=== PATIENT | female | born 1990 | race Two or more races ===

== ENCOUNTER → 2020-06-17 09:47 | Outpatient (CLI) | payer OTHER, SELFPAY ==
[2020-06-17 09:20] VITALS: BMI 26.4
--- NOTE | 2020-06-17 10:37 | RAD_ITS ---
STUDY: X-RAY - LEFT WRIST REASON FOR EXAM: Left anterior wrist tenderness off and on for about a year. TECHNIQUE: 2 view(s) of the wrist were obtained. COMPARISON: None. FINDINGS: Normal visualized distal radius and ulna. Normal radiocarpal articulation. Normal distal radioulnar articulation. Normal carpal bones. Normal carpal articulations. Normal carpometacarpal articulation of the thumb. Normal second through fifth carpometacarpal articulations. Normal visualized metacarpal bones. The soft tissue structures are unremarkable. RAD/Wrist 2 Views IMPRESSION: Normal x-ray examination of the left wrist. Electronically Signed: Matt Theodore MD at 14:29 EDT Tel , Service support ,
[2020-06-17 13:24] LABS: Rheumatoid Factor < 10.0 IU/mL (<15)
[2021-03-13 09:09] VITALS: BMI 26.1
== END ==
PROVIDERS: PCP Internal Medicine; Referring Provider Internal Medicine; Visit Provider Internal Medicine
DX: M25.532 Pain in left wrist (principal); M19.90 Unspecified osteoarthritis, unspecified site
CPT/HCPCS: 36415; 73100; 86431

== ENCOUNTER → 2020-08-19 11:53 | Outpatient (CLI) | payer OTHER, SELFPAY ==
[2020-08-19 09:48] VITALS: BMI 27.1
[2020-08-19 13:27] LABS: Prolactin 8.2 ng/mL; Thyroid Stim Hormone (TSH) 1.22 uIU/mL (0.358-3.74)
[2020-08-22 09:58] LABS: HPV Reflexed? NOT INDICATED
[2020-08-22 12:07] LABS: Testosterone, Free 1.02 ng/dL (0.10-0.85); Testosterone, Total 33 ng/dL (8-48)
== END ==
PROVIDERS: PCP Internal Medicine; Referring Provider Obstetrics & Gynecology; Visit Provider Obstetrics & Gynecology
DX: N92.6 Irregular menstruation, unspecified (principal); Z12.4 Encounter for screening for malignant neoplasm of cervix
CPT/HCPCS: 36415; 82627; 84146; 84402; 84403; 84443; 88175; 82626; G0145

== ENCOUNTER 2020-10-30 14:52 | Emergency (ER) | payer OTHER, SELFPAY ==
[2020-08-19 09:48] VITALS: BMI 27.1
[2020-10-30 14:53] VITALS: BP 143/100; PULSE 85; RESP 17; TEMP 35.8; O2SAT 100; BMI 27.4
--- NOTE | 2020-10-30 15:44 | NURSING ---
NO OLD EKGS
--- NOTE | 2020-10-30 16:01 | ED.VIS.GEN ---
History of Present Illness Chief Complaint: Dizziness Narrative: 29-year-old female presenting with dizziness which she describes as the room spinning. This started today while she was working. Patient states when the symptoms started she also noted some ringing in her right ear. 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 She saw an ENT at that time who put her on prednisone and she states her symptoms did get improved. She also notes that she had some hearing loss in the right ear which improved after the steroids were given. She has not followed up with the ENT physician because she has not had return of the problem. She states she did vomit once in the ED. Patient denies other significant medical history. Past Medical History - Allergies and Home Meds Allergies/Adverse Reactions: Allergies No Known Allergies Allergy (Verified 10/30/20 14:53) Primary Care Physician: Jaswant Rico MD [Primary Care Provider] - Past Medical History: - - Menieres disease Lives: Spouse/ Significant Other Smoking Status: Never smoker Alcohol: None Drugs: None Review of Systems General: Denies: Chills, Fever, Sweats Eyes: Denies: Visual changes - bilaterally, Diplopia ENT: Reports: - - Tinnitus in right ear. Cardiovascular: Denies: Chest pain Respiratory: Denies: Dyspnea, Cough Gastrointestinal: Reports: Nausea, Vomiting. Denies: Abdominal pain Genitourinary: Denies: Dysuria, Hematuria Musculoskeletal: Denies: Myalgias, Arthralgias Skin: Denies: Rash, Abscess Neurological: Reports: - - Dizziness. Denies: Headache, Weakness Psych: Denies: Depression, Anxiety Physical Exam Vital Signs/Narrative: Vital Signs Temp Pulse Resp BP Pulse Ox 10/30/20 14:53 96.4 F L 85 17 143/100 H 100 Inital Vital Signs reviewed: Yes General: Well nourished, No Acute Distress Head: Normocephalic, Atraumatic Eyes: Perrl, EOMI ENT: Moist mucous membranes, No rhinorrhea, TM's clear, - - Nystagmus and reproducible vertiginous symptoms with modified Swapnil Hallpike Cardiovascular: Regular rate, Regular rhythm Respiratory: No distress, CTA bilaterally Neurological: Alert, Oriented x3, Cranial nerves II-XII grossly intact Psychological: Normal affect, Normal Mood Diagnostic/Tx/Re-eval - Medical Decision Making 29-year-old female presenting with dizziness and states that she has a history of Menier's disease. He states it feels similar as she gets the ringing in her ear as well as creased hearing in her right ear. Patient does state that she saw an ENT for this distantly but has not followed up recently because she has not had symptoms. On exam unable to reproduce her dizziness with [place]-Hallpike maneuver. Patient was given Phenergan and meclizine and slowly had improvement of her symptoms. She does states he still slightly dizzy but is able to ambulate. Patient will be given a prescription for these medications for home. She states that previously when she had the symptoms she was placed on prednisone as a taper and it did improve her symptoms dramatically. For this reason I will give her a 10-day taper of prednisone. She will follow-up with her ENT. Impression: 1. Vertigo 2. History of Menier's ED Disposition - Plan for ED Patient: Disposition: Home or Assisted Living Instructions: ED Vertigo, Unspecified Prescriptions: Meclizine HCl 25 mg PO Q8H PRN PRN #20 tab.chew PRN Reason: Dizziness Prescription Printed Prednisone 10 mg PO DAILY 10 Days #20 tab Prescription Printed Promethazine HCl 12.5 mg PO QHS PRN PRN #20 tab PRN Reason: Nausea Prescription Printed Referrals: Jaswant Rico MD [Primary Care Provider] -
[2020-10-30] MEDS: proMETHazine 25 MG Tablet PO (16:08)
[2020-10-30] MEDS: Meclizine HCl 25 MG Tablet PO (16:08)
[2020-10-30 17:18] VITALS: BP 126/74; PULSE 83; RESP 15; O2SAT 99
--- NOTE | 2020-10-30 18:24 | ED.RN ---
PT AMBULATED TO BR AND STATED FEELING MUCH BETTER
[2020-10-30] MEDS: predniSONE 20 MG Tablet 40 MG PO (19:08)
[2020-10-30 19:09] VITALS: BP 121/69; PULSE 74; RESP 15; O2SAT 99
== END 2020-10-30 19:09 | disposition home or self-care (01) ==
PROVIDERS: Emergency Provider Student in an Organized Health Care Education/Training Program; PCP Internal Medicine
DX: H81.09 Meniere's disease, unspecified ear (principal)
CPT/HCPCS: 99283

== ENCOUNTER → 2021-02-10 | Outpatient (CLI) | payer OTHER, SELFPAY ==
[2021-02-10 10:22] VITALS: BMI 26.1
[2021-02-10 18:15] LABS: Amphetamine Urine VISTA NEGATIVE (<1000 ng/mL); Barbiturate Urine VISTA NEGATIVE (< 200 ng/mL); Benzodiazepine Urine VISTA NEGATIVE (< 200 ng/mL); Cocaine Urine VISTA NEGATIVE (< 300 ng/mL); Ecstacy Urine VISTA NEGATIVE (< 500 ng/mL); Methadone Urine VISTA NEGATIVE (< 300 ng/mL); PCP Urine VISTA NEGATIVE (< 25 ng/mL); THC Urine VISTA NEGATIVE (< 50 ng/mL); Vista UDS pH Range 6
[2021-02-13 03:07] LABS: Chlamydia By Nucleic Acid AMP Negative (Negative)
[2021-02-13 08:43] LABS: Gonococcus By Nucleic Acid AMP Negative (Negative)
== END | disposition home or self-care (01) ==
LOC: LABSPEC 16:59
PROVIDERS: PCP Internal Medicine; Visit Provider Obstetrics & Gynecology
DX: Z34.00 Encounter for supervision of normal first pregnancy, unspecified trimester (principal)
CPT/HCPCS: 80307; 87086; 87491; 87591

== ENCOUNTER → 2021-03-04 13:00 | Outpatient (CLI) | payer OTHER, SELFPAY ==
[2021-02-10 10:22] VITALS: BMI 26.1
[2021-03-04 13:32] LABS: Absolute Lymphocyte Count 2.17 X10^3/uL (0.83-4.51); Absolute Neutrophil Count 4.7 X10^3/uL (2.0-7.7); Basophil# 0.01 X10^3/uL; Basophil% 0.1 % (0-1); Eosinophil# 0.03 X10^3/uL; Eosinophils% 0.4 % (0-5); Hematocrit 36.5 % (37-47); Hemoglobin 12.1 g/dL (12.0-15.0); Lymphocyte # 2.17 X10^3/ul (0.83-4.51); Lymphocyte % 29.4 % (19-41); Mean Corp Hgb Conc 33.2 g/dL (32-36); Mean Corpuscular Volume 90.6 fL (81-99); Mean Platelet Vol. 9.5 fl (6.2-12.0); Monocyte# 0.39 X10^3/uL; Monocyte% 5.3 % (0-10); NRBC Flagged by Analyzer 0 % (0-5); Neutrophil # 4.74 X10^3/uL (2.7-7.7); Neutrophil % 64.4 % (47-70); Platelet Count 294 K/mm3 (150-450); RBC Distribution Width CV 12.2 % (11.6-14.6); RBC Distribution Width SD 40.4 fl (35.1-43.9); Red Blood Count 4.03 M/mm3 (4.2-5.4); White Blood Count 7.4 K/mm3 (4.4-11.0)
[2021-03-04 13:41] LABS: Glucose Challenge Gest 1H 50g 140 mg/dL (70-140)
[2021-03-04 14:24] LABS: HIV - WCH Non-Reactive (Nonreactive); Hepatitis B Surface Antigen Non-Reactive (Nonreactive); Hepatitis C Antibody Non-Reactive (Nonreactive); Rubella IgG Reactive (Nonreactive); Syphilis Antibodies Non-reactive
[2021-03-04 14:53] LABS: NATERA MAILED SPECIMEN
== END ==
PROVIDERS: PCP Internal Medicine; Referring Provider Obstetrics & Gynecology; Visit Provider Obstetrics & Gynecology
DX: Z34.81 Encounter for supervision of other normal pregnancy, first trimester (principal); Z31.430 Encounter of female for testing for genetic disease carrier status for procreative management; E28.2 Polycystic ovarian syndrome
CPT/HCPCS: 36415; 82950; 85025; 86703; 86762; 86780; 86803; 86850; 86900; 86901; 87340

== ENCOUNTER → 2021-03-13 09:47 | Outpatient (CLI) | payer OTHER, SELFPAY ==
[2021-02-10 10:22] VITALS: BMI 26.1
[2021-03-13 09:09] VITALS: BMI 26.1
[2021-03-13 12:11] LABS: Glucose GTT- 1 Hour 162 mg/dL (120-170)
[2021-03-13 12:20] LABS: Glucose GTT- Fasting 76 mg/dL (74-106)
[2021-03-13 12:26] LABS: Glucose GTT-30 minutes 135 mg/dL (110-170)
[2021-03-13 13:17] LABS: Glucose GTT- 2 Hour 149 mg/dL (70-120)
[2021-03-13 14:00] LABS: Glucose GTT- 3 Hour 119 mg/dL (74-106)
== END ==
PROVIDERS: PCP Internal Medicine; Referring Provider Obstetrics & Gynecology; Visit Provider Obstetrics & Gynecology
DX: Z13.1 Encounter for screening for diabetes mellitus (principal)
CPT/HCPCS: 36415; 82951; 82952

== ENCOUNTER → 2021-04-25 14:54 | Outpatient (CLI) | payer OTHER, SELFPAY ==
[2021-03-13 09:09] VITALS: BMI 26.1
--- NOTE | 2021-04-25 14:56 | US_ITS ---
STUDY: SECOND AND THIRD TRIMESTER OBSTETRICAL ULTRASOUND REASON FOR EXAM: Female, 30 years old anatomy LMP: 12/13/2020 TECHNIQUE: Transabdominal TECHNICAL QUALITY: Adequate. PRIOR ULTRASOUND: None. FINDINGS: There is a single intrauterine fetus. The fetus is in an transverse lie with the head on the maternal left side. There is demonstrated cardiac activity with a heart rate of 157 bpm. There is a normal amniotic fluid volume. The largest amniotic fluid pocket measures 4.8 cm. The amniotic fluid index (WADE) is cm. The placenta is posterior in location and is not low lying. There are Grade 0 placental changes. The cervix measures 4.6 cm in length. The adnexal regions are not visualized. BIOMETRY: BPD: 4.4 cm: 19 weeks, 1 days HC: 16.1 cm: 18 weeks, 6 days AC: 14.0 cm: 19 weeks, 2 days FL: 2.8 cm: 18 weeks, 5 days CI: 78.49 FL/BPD: 65.30 FL/HC: 17.70 FL/AC: 20.42 HC/AC: 1.15 age by current US: 18 weeks, 5 days. CYNDY by current US: 09/21/2021. Estimated weight: 276 grams, +/- 41 grams, 53 %. Age by LMP: 19 weeks, 0 days. CYNDY by LMP: 09/19/2021. ANATOMY: Gender: Cranium: Normal lateral ventricles. Normal choroid plexus. Normal cerebellum. Normal cisterna magna. Normal face, nose and lips. Chest: Normal 4-chamber heart. Abdomen/Pelvis: Normal diaphragm. Normal stomach. Normal abdominal wall. Normal cord insertion. Normal 3 vessel cord. Normal kidneys. Normal bladder. Spine: Normal cervical spine. Normal thoracic spine. Normal lumbar spine. Normal sacrum. Extremities: Normal bilateral upper extremities. Normal bilateral lower extremities. US/OB Anatomy Scan IMPRESSION: Living intrauterine of 18 weeks 5 days as described above. Electronically Signed: Uri Rowe MD at 7:44 EDT Tel , Service support ,
== END ==
PROVIDERS: PCP Internal Medicine; Referring Provider Obstetrics & Gynecology; Visit Provider Obstetrics & Gynecology
DX: Z34.01 Encounter for supervision of normal first pregnancy, first trimester (principal)
CPT/HCPCS: 76805; 76817

== ENCOUNTER → 2021-06-26 06:53 | Outpatient (CLI) | payer OTHER, SELFPAY ==
[2021-06-26 08:49] LABS: Glucose GTT-Gestational 1 Hr 213 mg/dL (<190)
[2021-06-26 08:49] LABS: Glucose GTT-Gestation. Fasting 81 mg/dL (<105)
[2021-06-26 08:51] LABS: Absolute Lymphocyte Count 1.83 X10^3/uL (0.83-4.51); Absolute Neutrophil Count 6.3 X10^3/uL (2.0-7.7); Basophil% 0.1 % (0-1); Eosinophils% 0.7 % (0-5); Hematocrit 33.8 % (37-47); Hemoglobin 11.2 g/dL (12.0-15.0); Lymphocyte # 1.83 X10^3/ul (0.83-4.51); Lymphocyte % 20.1 % (19-41); Mean Corp Hgb Conc 33.1 g/dL (32-36); Mean Corpuscular Hgb 31.5 pg (27.0-32.0); Mean Corpuscular Volume 95.2 fL (81-99); Mean Platelet Vol. 9.4 fl (6.2-12.0); Monocyte% 9.4 % (0-10); Neutrophil % 68.8 % (47-70); Platelet Count 258 K/mm3 (150-450); RBC Distribution Width CV 12.9 % (11.6-14.6); Red Blood Count 3.55 M/mm3 (4.2-5.4); White Blood Count 9.1 K/mm3 (4.4-11.0)
[2021-06-26 09:49] LABS: Thyroid Stim Hormone (TSH) 2.37 uIU/mL (0.358-3.74)
[2021-06-26 11:21] LABS: Glucose GTT-Gestational 2 Hr 191 mg/dL (<165)
[2021-06-26 12:46] LABS: Glucose GTT-Gestational 3 Hr 126 L (<145)
== END ==
PROVIDERS: Nurse Practitioner Family; PCP Internal Medicine; Referring Provider Obstetrics & Gynecology; Visit Provider Obstetrics & Gynecology
DX: Z00.00 Encounter for general adult medical examination without abnormal findings (principal); Z13.1 Encounter for screening for diabetes mellitus; Z34.01 Encounter for supervision of normal first pregnancy, first trimester
CPT/HCPCS: 36415; 82951; 82952; 84443; 85025

== ENCOUNTER 2021-07-14 12:45 | Outpatient (RCR) | payer OTHER, SELFPAY | END 2021-08-05 23:59 | LOC: DC 12:45 | PROVIDERS: PCP Internal Medicine; Visit Provider Obstetrics & Gynecology | DX: O24.419 Gestational diabetes mellitus in pregnancy, unspecified control (principal); Z3A.00 Weeks of gestation of pregnancy not specified | CPT/HCPCS: 97802; 97803 ==

== ENCOUNTER → 2021-08-21 14:24 | Outpatient (CLI) | payer OTHER, SELFPAY ==
--- NOTE | 2021-08-21 14:25 | US_ITS ---
STUDY: SECOND AND THIRD TRIMESTER OBSTETRICAL ULTRASOUND - LIMITED REASON FOR EXAM: Female, 30 years old growth check, routine survey LMP: 12/13/2020 PRIOR ULTRASOUND: 04/25/2021 TECHNIQUE: Transabdominal TECHNICAL QUALITY: Adequate. FINDINGS: There is a single intrauterine fetus. The fetus is in a cephalic presentation. There is demonstrated cardiac activity with a heart rate of 137 bpm. There is a normal amniotic fluid volume. The largest amniotic fluid pocket measures 5.9 cm. The amniotic fluid index (WADE) is 16.9 cm. The placenta is posterior in location and is not low lying. There are Grade 2 placental changes. The cervix was not visualized BIOMETRY: BPD: 9.0 cm: 36 weeks, 1 days HC: 32.2 cm: 36 weeks, 2 days AC: 32.0 cm: 35 weeks, 6 days FL: 7.1 cm: 36 weeks, 3 days Age by LMP: 35 weeks, 6 days. CYNDY by LMP: 09/19/2021. age by prior US: 35 weeks, 4 days. CYNDY by prior US: 09/21/2021. age by current US: 36 weeks, 0 days. CYNDY by current US: 09/18/2021. Estimated weight: 2898 grams, +/- 435 grams, 62 percentile. US/OB Limited With Biometrics IMPRESSION: Single live intrauterine at 36 weeks, 0 days by current ultrasound with CYNDY of 09/18/2021. Heart rate of 137 bpm. No suspicious sonographic findings, normal growth noted since the previous study. Electronically Signed: Raj Ortega MD at 8:30 EST , Service support ,
== END ==
PROVIDERS: PCP Internal Medicine; Visit Provider Obstetrics & Gynecology
DX: O24.419 Gestational diabetes mellitus in pregnancy, unspecified control (principal); Z3A.00 Weeks of gestation of pregnancy not specified
CPT/HCPCS: 76816

== ENCOUNTER → 2021-08-28 | Outpatient (CLI) | payer OTHER, SELFPAY | END | disposition home or self-care (01) | LOC: LABSPEC 09-01 06:45 | PROVIDERS: PCP Internal Medicine; Referring Provider Obstetrics & Gynecology; Visit Provider Obstetrics & Gynecology | DX: Z34.01 Encounter for supervision of normal first pregnancy, first trimester (principal) | CPT/HCPCS: 87077; 87081; 87186 ==

== ENCOUNTER 2021-09-18 07:00 | Inpatient (IN) | payer OTHER, SELFPAY ==
[2021-09-18] VITALS (40 sets, daily range): BP systolic 95–153; BP diastolic 55–103; PULSE 55–115; RESP 14; TEMP 36.1–37.1; O2SAT 86–100; BMI 27.8
--- NOTE | 2021-09-18 07:50 | HP.PCM.OB_ITS ---
HPI - General General Date of Admission: 09/18/21 HPI Narrative FERDINAND LEI, is a 30 @ 39 weeks 6 days who presents to L&D for IOL secondary to gestational diabetes. Her has otherwise been uncomplicated. Her luo score was an 8 last week. Maternal Data Information CYNDY Calculator Estimated Delivery Date Method Current WG Current Estimate 09/19/21 Ultrasound #1 39w 6d Other Estimates 09/09/21 LMP (Certain) 41w 2d PFSH [facility] Medical History Abnormal glucose affecting Headache, migraine Hearing problem history of bone fracture Polycystic ovaries Wellness examination Home Medications prenat.vits,paul,hou-lnjh-bxnhd 1 tab PO DAILY 01/28/21 [History Last Taken Unknown] blood sugar diagnostic #100 ea 06/26/21 [Rx Last Taken Unknown] blood-glucose meter #1 ea 06/26/21 [Rx Last Taken Unknown] Allergy/AdvReac Type Severity Reaction Status Date / Time No Known Allergies Allergy Verified 09/11/21 15:33 Family History Grandmother Autoimmune disorder Thyroid disorder Grandfather Heart disease High cholesterol Mother Hypertension Father Atrial fibrillation Mitral valve prolapse Other Myocardial infarction Surgical History history of birthmark removal history of laporscopic knee surgery History of wisdom tooth extraction Social History adopted: No household members: spouse current occupational status: employed 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 Smoking Status: Never smoker alcohol intake: current alcohol intake frequency: holidays/special occasions only substance use type: does not use what type of physical activity do you participate in: running frequency: 1-2 times per week 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 attended classes PP control planned: [] discussed possible routes of delivery and associated risks: [] special requests: [] Plans covid status: moderna flu vaccine: given tdap vaccine: given rhogam: na LARC form signed: [] movement and labor precautions reviewed. Problem list reviewed and updated with the most current plan of care details and appropriate orders placed. Relevant counseling for the gestational age provided. Continue routine care and follow up unless otherwise noted in visit notes/problem list details OB Flowsheet Initial Weight: 145 lb Date -?-?-?-?-?-?-?-?-?-?-?-?- EGA Weight BP Urine Prot -?-?-?-?-?-?-?-?-?-?-?-?- Glucose FHR FuHt Pres Dilation -?-?-?-?-?-?-?-?-?-?-?-?- Effaced St Visit Note 02/10/21 -?-?-?-?-?-?-?-?-?-?-?-?- 8w 3d 147 lb 6 oz (+2 lb 6 oz) 138/94 -?-?-?-?-?-?-?-?-?-?-?-?- 168 -?-?-?-?-?-?-?-?-?-?-?-?- GP - CRL 16mm co nsistent with LMP. 03/13/21 -?-?-?-?-?-?-?-?-?-?-?-?- 12w 6d 143 lb 6 oz (-1 lb 10 oz) 120/90 Negative -?-?-?-?-?-?-?-?-?-?-?-?- Negative 155 -?-?-?-?-?-?-?-?-?-?-?-?- GP - no cramping or bleeding. Discussed tx of constipation. Anatomy scan ordered. 04/10/21 -?-?-?-?-?-?-?-?-?-?-?-?- 16w 6d 143 lb (-2 lb) -?-?-?-?-?-?-?-?-?-?-?-?- 145 -?-?-?-?-?-?-?-?-?-?-?-?- SM- no vb crmapi ng discussed short course of HCTZ for menieres 05/08/21 -?-?-?-?-?-?-?-?-?-?-?-?- 20w 6d 147 lb 2 oz (+2 lb 2 oz) 108/80 Negative -?-?-?-?-?-?-?-?-?-?-?-?- Negative 145 -?-?-?-?-?-?-?-?-?-?-?-?- GP - no LOF, VB, DFM, ctx .Anatomy nl. 06/06/21 -?-?-?-?-?-?-?-?-?-?-?-?- 25w 0d 149 lb 8 oz (+4 lb 8 oz) 120/70 Negative -?-?-?-?-?-?-?-?-?--?-?-?- Negative 160 25 -?-?-?-?-?-?-?-?-?-?-?-?- GP - no LOF, VB, dFM, ctx. Discussed repeat 3h GCT. 06/26/21 -?-?-?-?-?-?-?-?-?-?-?-?- 27w 6d 151 lb (+6 lb) 130/84 -?-?-?-?-?-?-?-?-?-?-?-?- 150 28 -?-?-?-?-?-?-?-?-?-?-?-?- Sm- no vb lof go od fm no regular ctx discussed GDM diagnosis tdap 07/10/21 -?-?-?-?-?-?-?-?-?-?-?-?- 29w 6d 152 lb (+7 lb) 112/82 Negative -?-?-?-?-?-?-?-?-?-?-?-?- Negative 145 30 -?-?-?-?-?-?-?-?-?-?-?-?- SM- no vb lof go od fm no regular ctx, BS reviewed and controlled 07/24/21 -?-?-?-?-?-?-?-?-?-?-?-?- 31w 6d 153 lb (+8 lb) 114/80 Negative -?-?-?-?-?-?-?-?-?-?-?-?- Negative 140 32 -?-?-?-?-?-?-?-?-?-?-?-?- SM- no vb lof go od fm no regular ctx bs controlled 08/07/21 -?-?-?-?-?-?-?-?-?-?-?-?- 33w 6d 102/60 Negative -?-?-?-?-?-?-?-?-?-?-?-?- Negative 140 33 -?-?-?-?-?-?-?-?-?-?-?-?- SM- no vb lof go od fm no regular ctx bs controlled 08/21/21 -?-?-?-?-?-?-?-?-?-?-?-?- 35w 6d 153 lb 6 oz (+8 lb 6 oz) 118/88 Negative -?-?-?-?-?-?-?-?-?-?-?-?- Negative 145 35 -?-?-?-?-?-?-?-?-?-?-?-?- JV- no lof, vagi nal bleeding, or dec fm. plan for GBS next visit. 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 GBS collected. Glucose levels are normal/low. follows up with Dr. Langley. 09/04/21 -?-?-?-?-?-?-?-?-?-?-?-?- 37w 6d 160 lb 4 oz (+15 lb 4 oz) 126/84 Negative -?-?-?-?-?-?-?-?-?-?-?-?- Negative 125 37 Cephalic 3 -?-?-?-?-?-?-?-?-?-?-?-?- 70 -2 SM- no vb lof good fm no regular ctx reviewed BW controlled. discussed IOL by 39-40 weeks 09/11/21 -?-?-?-?-?-?-?-?-?-?-?-?- 38w 6d 156 lb 8 oz (+11 lb 8 oz) 118/89 Negative -?-?-?-?-?-?-?-?-?-?-?-?- Negative 124 37 Cephalic 3 -?-?-?-?-?-?-?-?-?-?-?-?- 80 -2 JV- glucos e levels normal. NO lof, vaginal bleeding, or dec fm. IOL set up for next (39 weeks 6 days) 09/18/21 -?-?-?-?-?-?-?-?-?-?-?-?- 39w 6d -?-?-?-?-?-?-?-?-?-?-?-?- -?-?-?-?-?-?-?-?-?-?-?-?- ROS Constitutional Constitutional: Denies change in weight, fatigue, fever(s), headache(s), poor appetite or weakness Eyes Eyes: Denies blurry vision, change in vision, seeing flashes or spots in vision ENT HEENT: Denies dizziness, headache(s), loss taste/smell or sore throat Cardiovascular Cardiovascular: Denies chest pain, dizziness, dyspnea, irregular heart rhythm, leg edema, palpitations, rapid heart rate or vomiting Respiratory/Chest Respiratory/Chest: Denies chest tightness, cough, dyspnea or breast pain Gastrointestinal Gastrointestinal: Denies abdominal pain, anorexia, constipation, cramping, ilene rrhea, hemorrhoids, vomiting or weight changes Genitourinary Genitourinary: Denies dysuria, flank pain, genital lesions, genital pain, urinary frequency or urinary urgency Musculoskeletal Musculoskeletal: Denies back pain, difficulty walking, joint pain, limited range of motion, muscle cramps or numbness Integumentary Integumentary: Denies lesions or unusual bruising Neurologic Neurologic: Denies abnormal movements, abnormal speech, dizziness, numbness, seizure-like activity or syncope Psychiatric Psychiatric: Denies anxiety, behavioral changes, change in appetite, change in libido, cognitive impairment, confusion, depression, difficulty concentrating, hallucinations or suicidal thoughts Endocrine Endocrinology: Denies excessive sweating, polydipsia or polyuria Hematologic/Lymphatic Hematologic/Lymphatic: Denies easy bleeding, easy bruising or lymphadenopathy Allergic/Immunologic Allergic/Immunologic: Denies itchy eyes, lip swelling, seasonal rhinorrhea, rhinitis, throat swelling, tongue swelling, eczemia, wheezing or asthma Physical Exam Const alert, oriented x3, no apparent distress and healthy appearing General Appearance: cooperative; Negative for anxious HEENT normocephalic Face and Sinus: normal facial exam Eyes EOMs intact bilaterally and no scleral icterus General Eye: normal appearance of both eyes Neck full ROM and supple Lymph Lymphatic: no lymphadenopathy noted Chest Chest: abnormal inspection of the chest Resp normal respiratory effort Effort and Inspection: able to speak in complete sentences Cardio regular rate GI soft to palpation and non-tender Inspection: gravid Palpation: soft; Negative for tender external exam normal Amniotic Fluid: ROM+plus Back/Spine no CVA tenderness Extremity normal to inspection, full ROM and no clubbing, cyanosis or edema General Extremity: Negative for calf tenderness or edema Skin Lesions: no lesions Rashes: no rashes Psych mental status grossly normal Labs Labs Labs: Blood Type A POSITIVE Antibody Screen NEGATIVE Hct 33.8 % (37-47) L Hgb 11.2 g/dL (12.0-15.0) L Obstetrics US Syphilis Total Ab Non-reactive Rubella IgG Antibody Reactive (Nonreactive) Hep Bs Antigen Non-Reactive (Nonreactive) Neisseria gonorrhoeae DNA (SHANE) Negative (Negative) HIV 1&2 Antibody Non-Reactive (Nonreactive) Glucose 1 Hr 50 gm 140 mg/dL (70-140) Assessment & Plan (1) Gestational diabetes mellitus (GDM) affecting : COMMENT: nutrition consult, endocrine cs. growth us 36 weeks (2) Supervision of normal first : QUALIFIERS: Trimester: first trimester Qualified Code(s): Z34.01 - Encounter for supervision of normal first , first trimester COMMENT: PRR CYNDY 09/19/21 BOY Dariel Spouse: Donato (3) : QUALIFIERS: Weeks of gestation: 38 weeks Qualified Code(s): Z3A.38 - 38 weeks gestation of COMMENT: NIPT low risk, carrier neg. declined afp testing. Anatomy US normal; GBS NEG (4) Meniere disorder: QUALIFIERS: Laterality: unspecified laterality Qualified Code(s): H81.09 - Meniere's disease, unspecified ear PLAN: Patient presents IOL, plan management for Gestational DM, anticipate with pitocin/AROM. Pain management: plans epidural. GBS negative. Management of any complications: Gestational DM, h/o menier's disease I have reviewed the [facility] and made any clinically relevant updates.
[2021-09-18] MEDS: Lactated Ringers 1,000 ML 50 ML IV (07:56)
[2021-09-18 08:19] LABS: Absolute Lymphocyte Count 1.76 X10^3/uL (0.83-4.51); Absolute Neutrophil Count 6.6 X10^3/uL (2.0-7.7); Basophil# 0.01 X10^3/uL; Basophil% 0.1 % (0-1); Eosinophil# 0.03 X10^3/uL; Eosinophils% 0.3 % (0-5); Hematocrit 36.4 % (37-47); Hemoglobin 12.7 g/dL (12.0-15.0); Lymphocyte # 1.76 X10^3/ul (0.83-4.51); Lymphocyte % 19.1 % (19-41); Mean Corp Hgb Conc 34.9 g/dL (32-36); Mean Corpuscular Hgb 32.2 pg (27.0-32.0); Mean Corpuscular Volume 92.4 fL (81-99); Monocyte# 0.75 X10^3/uL; Monocyte% 8.1 % (0-10); NRBC Flagged by Analyzer 0 % (0-5); Neutrophil # 6.61 X10^3/uL (2.7-7.7); Neutrophil % 71.9 % (47-70); Platelet Count 251 K/mm3 (150-450); RBC Distribution Width CV 12.3 % (11.6-14.6); RBC Distribution Width SD 41.7 fl (35.1-43.9); Red Blood Count 3.94 M/mm3 (4.2-5.4); White Blood Count 9.2 K/mm3 (4.4-11.0)
[2021-09-18] MEDS: Oxytocin 30 units/NS 500 ml 30 UNITS/500 ML IV.SOLN IV (08:19)
[2021-09-18 09:31] LABS: Bedside Glucose 99 mg/dL (70-110)
[2021-09-18 09:31] LABS: Bedside Glucose 105 mg/dL (70-110)
[2021-09-18 10:50] LABS: Bedside Glucose 77 mg/dL (70-110)
[2021-09-18] MEDS: Penicillin G 3,000,000 Units 50 ML 100 UNITS IV (12:45)
[2021-09-18] MEDS: Ondansetron 4 MG/2 ML Vial IV (14:13)
[2021-09-18 14:21] LABS: Bedside Glucose 89 mg/dL (70-110)
[2021-09-18] MEDS: Lactated Ringers 500 ML 999 ML IV (14:22)
[2021-09-18] MEDS: fentaNYL-bupivacaine (epidural) 100 ML BAG EPIDURAL (14:58)
[2021-09-18 16:01] LABS: Bedside Glucose 77 mg/dL (70-110)
[2021-09-18] MEDS: Penicillin G 3,000,000 Units 50 ML 50 UNITS IV (16:43)
[2021-09-18] MEDS: Oxytocin 30 units/NS 500 ml 30 UNITS/500 ML IV.SOLN 334 UNITS IV (17:24)
--- NOTE | 2021-09-18 17:28 | EX.PCM.OBRPT ---
Assessment & Plan (1) Meniere disorder: QUALIFIERS: Laterality: unspecified laterality Qualified Code(s): H81.09 - Meniere's disease, unspecified ear (2) : QUALIFIERS: Weeks of gestation: 38 weeks Qualified Code(s): Z3A.38 - 38 weeks gestation of COMMENT: NIPT low risk, carrier neg. declined afp testing. Anatomy US normal; GBS NEG (3) Supervision of normal first : QUALIFIERS: Trimester: first trimester Qualified Code(s): Z34.01 - Encounter for supervision of normal first , first trimester COMMENT: PRR CYNDY 09/19/21 MINA Vieria Spouse: Donato (4) Gestational diabetes mellitus (GDM) affecting : COMMENT: nutrition consult, endocrine cs. growth us 36 weeks Maternal Data Information CYNDY Calculator Estimated Delivery Date Method Current WG Current Estimate 09/19/21 Ultrasound #1 39w 6d Other Estimates 09/09/21 LMP (Certain) 41w 2d Vaginal Delivery Maternal Presentation Maternal Presentation: Medically Indicated Induction Type of Induction: Pitocin Operative Information Date of Procedure: 09/18/21 Pre-Operative Diagnosis: 39 weeks 6 days with gestational diabetes, Post-Operative Diagnosis: 39 weeks 6 days with gestational diabetes, Surgery / Procedure Performed: Spontaneous Vaginal Delivery Type of Anesthesia: Epidural Estimated Blood Loss: 100cc Time of Delivery: 17:19 Findings Description of Procedure: Patient began pushing and delivered the head in the CEZAR presentation. The head was delivered atraumatically. The anterior and posterior shoulders delivered without complication followed by the rest of the infant and the infant was placed on the maternal abdomen. Delayed cord clamping was employed for approximately 60 seconds. Cord was clamped and cut and gentle traction was applied to the cord and the placenta delivered spontaneously immediately following it was noted to be intact with three-vessel cord. The perineum and vagina were inspected and noted to have a 1 st degree laceration that was repaired using a 2-0 vicryl suture. EBL was 100 cc. Patient and infant tolerated delivery well. Presentation: Vertex and CEZAR Amniotic Fluid Description: Clear Placental Delivery Description: Spontaneous Placenta Disposition: [facility] Cord Vessel Description: 3 Vessels Cord Entanglement: None Infant A Gender: Male (1 minute): 8 (5 minute): 9 Delayed Cord Clamping: Yes Post Vaginal Delivery Medications Given After Delivery: IV Pitocin Episiotomy Description: None Laceration: 1st degree Complication Complications: None Multi Select Codes Urinary/Genital Urinary/Genital CPT Codes: 08660 Vaginal Delivery [facility]
--- NOTE | 2021-09-18 17:36 | PCM.DC ---
Discharge Instructions Diet Discharge Diet: No restrictions Activity Discharge Activity: Return to Normal Activity, May Not Drive (while taking narcotic pain medications.) and May Shower May resume sexual activity in: 4-6 weeks Dressing / Incision Call your doctor if your incision/area has: Continuous Slow Oozing, Sudden Increased Bleeding, Increased Pain/ Swelling, Increased Redness and Foul Smelling Discharge Follow Up Care Please Follow Up With: Grace Juarez DO When: Call [phone] to make an appointment with your doctor in 6 weeks. If you had elevated blood pressure or 4th degree laceration, you will need to be seen in 2 weeks. Test Results: Test results from this visit will be discussed in further detail at your follow-up appointment, if applicable. Discharge Plan Admission Admit Date/Time: 09/18/21 07:00 Primary Reason for Your Visit: induction of labor and vaginal delivery Attending Provider: Grace Juarez Primary Care Provider: Jaswant Rico Discharge Orders/Prescriptions Prescriptions: New ibuprofen 800 mg tablet 800 mg PO Q8H PRN (Reason: pain) 7 Days Qty: 30 RF: 0 docusate sodium [Colace] 100 mg capsule 100 mg PO DAILY 14 Days Qty: 14 RF: 0 Continued prenat.vits,paul,iak-lwyn-uejsq Tablet 1 tab PO DAILY RF: 0 No Action (DME) [employer] Test Strip See Rx Instructions .ROUTE .MEDSUPPLY Qty: 100 RF: 4 (DME) blood-glucose meter [[employer] Blood Glucose System] Kit See Rx Instructions .ROUTE .MEDSUPPLY Qty: 1 RF: 0 Referrals / Follow Up: Jaswant Rico MD [Primary Care Provider] - Disposition Disposition (needs filled in before D/C Order can be placed): Home, Self Care
[2021-09-18 18:05] LABS: Bedside Glucose 81 mg/dL (70-110)
[2021-09-18 18:05] LABS: Bedside Glucose 99 mg/dL (70-110)
[2021-09-19 00:07] VITALS: BP 131/73; PULSE 67; RESP 16; TEMP 36.4
[2021-09-19 04:04] VITALS: BP 111/69; PULSE 67; RESP 16
[2021-09-19 05:21] LABS: Bedside Glucose 77 mg/dL (70-110)
--- NOTE | 2021-09-19 07:35 | PCM.PN.OB ---
Subjective Subjective Patient doing well without complaints. Tolerating PO. Ambulating and voiding without difficulty. Feeding well. Denies chest pain, shortness of breath, calf pain/swelling, fevers, chills, lightheadedness. Objective Data Objective Data Vital Signs: Vital Signs Temp Pulse Resp BP Pulse Ox 97.6 F L 67 16 111/69 99 09/19/21 00:07 09/19/21 04:04 09/19/21 04:04 09/19/21 04:04 09/18/21 18:51 Oxygen Delivery Method Room Air Weight: 157 lb 6 oz Body Mass Index (BMI) 27.8 Intake & Output: Intake and Output for Last 24 Hours 09/17/21 09/18/21 09/19/21 23:59 23:59 23:59 Intake Total 2150.11 / 2150.11 Output Total 950 / 950 Balance 1200.11 / 1200.11 Lab / Micro Data Result Diagrams: 09/18/21 07:56 Labs: Laboratory Results - last 24 hr 09/18/21 07:56: WBC 9.2, RBC 3.94 L, Hgb 12.7, Hct 36.4 L, MCV 92.4, MCH 32.2 H, MCHC 34.9, RDW Std Deviation 41.7, RDW Coeff of June 12.3, Plt Count 251, MPV 10.0, Immature Gran % (Auto) 0.500, Neut % (Auto) 71.9 H, Lymph % (Auto) 19.1, [place] % (Auto) 8.1, Eos % (Auto) 0.3, Baso % (Auto) 0.1, Absolute Neuts (auto) 6.6, Absolute Lymphs (auto) 1.76, Nucleated RBC % 0 09/18/21 07:56: Blood Type A POSITIVE, Antibody Screen NEGATIVE 09/18/21 08:24: POC Glucose 105 09/18/21 09:15: POC Glucose 99 09/18/21 10:32: POC Glucose 77 09/18/21 14:10: POC Glucose 89 09/18/21 15:32: POC Glucose 77 09/18/21 16:46: POC Glucose 81 09/18/21 17:57: POC Glucose 99 09/19/21 05:16: POC Glucose 77 Micro: Microbiology 09/18/21 07:56 Nasal Secretion SARS-CoV-2 Antigen (Rapid) - Final ROS Constitutional Constitutional: Denies chills, fatigue, fever(s), poor appetite or weakness Eyes Eyes: Denies blurry vision, change in vision, seeing flashes or spots in vision ENT HEENT: Denies dizziness, headache(s), loss taste/smell or sore throat Cardiovascular Cardiovascular: Denies chest pain, dizziness, dyspnea, irregular heart rhythm, palpitations or rapid heart rate Respiratory/Chest Respiratory/Chest: Denies chest tightness, cough, dyspnea or breast pain Gastrointestinal Gastrointestinal: Denies abdominal pain, constipation or vomiting Genitourinary Genitourinary: Denies dysuria or flank pain Musculoskeletal Musculoskeletal: Denies difficulty walking, joint pain, limited range of motion or numbness Neurologic Neurologic: Denies abnormal movements, abnormal speech, dizziness, numbness, seizure-like activity or syncope Psychiatric Psychiatric: Denies anxiety, behavioral changes, change in appetite, confusion, depression or suicidal thoughts Physical Exam Const alert, oriented x3 and no apparent distress General Appearance: cooperative and comfortable Resp normal respiratory effort Cardio regular rate GI normal to inspection, nondistended, normoactive bowel sounds GI Narrative: uterus is firm below umbilicus Palpation: soft Bimanual Exam - Adnexa, Other: Negative for cul-de-sac fullness Back/Spine no CVA tenderness and thoraco-lumbar ROM normal Extremity normal to inspection, no clubbing, cyanosis or edema, no calf tenderness and no pedal edema Psych mental status grossly normal, thought process normal, cooperative, affect normal, speech normal, activity/motor behavior normal, denies homicidal ideation and denies suicidal ideation Assessment & Plan (1) Meniere disorder: QUALIFIERS: Laterality: unspecified laterality Qualified Code(s): H81.09 - Meniere's disease, unspecified ear (2) Gestational diabetes mellitus (GDM) affecting : COMMENT: nutrition consult, endocrine cs. growth us 36 weeks PLAN: s/p PPD # 1 1. routine post delivery care 2. breast feeding- support given 3. rh positive 4. rubella immune 5. plan for dc home today
[2021-09-19 07:45] VITALS: BP 131/89; PULSE 62; RESP 14; TEMP 36.2
[2021-09-19] MEDS: Ibuprofen 600 MG Tablet PO (07:59)
[2021-09-19] MEDS: Prenatal Vits Tablet 1 TABLET PO (07:59)
[2021-09-19 11:58] VITALS: BP 118/66; PULSE 70; RESP 15; TEMP 36.4
[2021-09-19 16:00] VITALS: BP 122/75; PULSE 70; RESP 14; TEMP 36.6
--- NOTE | 2021-09-24 13:28 | NURSING ---
Mother doing well on follow up phone call. states all my nurses were great.
== END 2021-09-19 18:30 | disposition home or self-care (01) | DRG 807 ==
PROVIDERS: Admitting Provider Obstetrics & Gynecology; PCP Internal Medicine; Referring Provider Obstetrics & Gynecology; Visit Provider Obstetrics & Gynecology
DX: O24.429 Gestational diabetes mellitus in childbirth, unspecified control (principal); Z37.0 Single live birth; Z20.822 Contact with and (suspected) exposure to COVID-19; Z3A.39 39 weeks gestation of pregnancy
CPT/HCPCS: 59025; 59050; 82962; 85025; 86850; 86900; 86901; 87426; 99218; J7120; G0378; J2405

== ENCOUNTER 2022-07-17 13:30 | Emergency (ER) | payer OTHER, SELFPAY ==
[2022-07-17 13:30] VITALS: BP 129/96; PULSE 88; RESP 16; TEMP 36.6; O2SAT 99; BMI 25.6
[2022-07-17] MEDS: 0.9% Normal Saline 1,000 ML 1000 ML IV (14:14)
[2022-07-17] MEDS: Metoclopramide 10 MG/2 ML Vial IV (14:14)
[2022-07-17] MEDS: DiphenhydrAMINE 50 MG/ML Syringe 25 MG IV (14:14)
[2022-07-17 15:43] VITALS: RESP 16
--- NOTE | 2022-07-17 16:26 | EX.ED.DYSGE1 ---
HPI History of Present Illness Chief Complaint: Dizziness Informant: patient Narrative Narrative: Worsening vertigo symptoms over the past 2 days. Diagnosed with M?ni?re's disease and followed by Dr. Tesfaye. Patient takes daily hydrochlorothiazide for this. 3 weeks ago had severe symptoms resolved but returned 2 days ago. Today this morning took meclizine and Zofran. Symptoms worse with movement of the head. Denies any head trauma. Feels similar to her typical vertigo symptoms. Nausea without vomiting. Chronic tinnitus. Prior similar symptoms: Yes [facility] Medical History Abnormal glucose affecting Headache, migraine Hearing problem history of bone fracture Meniere disease Polycystic ovaries Preventative health care Wellness examination Home Medications folic acid 400 mcg tablet 0.4 mg PO DAILY 06/11/22 [History Last Taken Unknown] hydrochlorothiazide 25 mg tablet 25 mg PO 06/11/22 [History Last Taken Unknown] diazepam 5 mg tablet 5 mg PO Q8 PRN vertigo #10 tabs 07/17/22 [Rx Last Taken Unknown] Allergy/AdvReac Type Severity Reaction Status Date / Time No Known Allergies Allergy Verified 07/17/22 13:32 Family History Grandmother Autoimmune disorder Thyroid disorder Grandfather Heart disease High cholesterol Mother Hypertension Father Atrial fibrillation Mitral valve prolapse Other Myocardial infarction Surgical History history of birthmark removal history of laporscopic knee surgery History of wisdom tooth extraction Social History adopted: No household members: spouse current occupational status: employed 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 Smoking Status: Never smoker alcohol intake: current alcohol intake frequency: holidays/special occasions only substance use type: does not use what type of physical activity do you participate in: running frequency: 1-2 times per week 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[employer] ROS ROS ED Constitutional Constitutional ED: Denies chills, fever(s) or sweats Eyes Eyes: Denies change in vision ENT ENT ED: Reports other Details: Chronic tinnitus ; Denies dysphagia or sore throat Cardiovascular Cardiovascular: Denies chest pain, leg edema, palpitations or racing heartbeat Respiratory/Chest Respiratory/Chest: Denies cough, dyspnea or dyspnea on exertion Gastrointestinal Gastrointestinal: Denies abdominal pain, diarrhea, nausea or vomiting Genitourinary Genitourinary ED: Denies dysuria, hematuria or urinary frequency Musculoskeletal Musculoskeletal: Denies back pain, extremity pain or neck pain Integumentary Denies rash or wounds Neurologic Neurologic: Reports other Details: Vertigo ; Denies headache(s), paresthesias or weakness EXAM Physical Exam Const Vital Signs: 07/17/22 13:30 07/17/22 13:47 07/17/22 15:43 Temperature 97.8 F Temperature Source Temporal Pulse Rate 88 Respiratory Rate 16 16 Respiratory Pattern Normal Blood Pressure 129/96 H Blood Pressure Mean 107 Pulse Ox 99 Oxygen Delivery Method Room Air Room Air Positive well nourished and well developed General Appearance ED: well developed and NAD HEENT Reports TM's clear and moist mucous membranes normocephalic and atraumatic Tympanic Membrane ED: Yes TM's clear Eyes PERRL, EOMs intact bilaterally and conjunctivae normal Eyes Narrative: Horizontal nystagmus bilaterally. General Eye ED: Yes normal appearance of both eyes Neck no lymphadenopathy and supple General: Negative for tenderness Chest Wall Chest: Negative for tenderness Resp normal respiratory effort and normal air movement Effort and Inspection: symmetric chest movement; Negative for respiratory distress Cardio regular rate, regular rhythm and no murmurs Peripheral Pulses: pulses 2+ throughout GI normal to inspection, nondistended, normoactive bowel sounds and non-tender Palpation: Negative for guarding or rebound tenderness present Back/Spine no CVA tenderness and no thoracic nor lumbar tenderness Extremity normal to inspection General Extremety ED: Negative for edema or tenderness General Extremity: Negative for edema Neuro oriented x3, CN's II-XII intact bilaterally and no sensory deficits noted Sensorium / Orientation: awake and alert Skin no rashes or lesions noted and no wounds MDM MDM MDM Narrative Medical decision making narrative: Patient with worsening vertigo symptoms with history of M?ni?re's disease. She has nystagmus. She given liter fluids Reglan and Benadryl IV. She is monitored for reevaluation improving symptoms. She is able to stand and walk with tolerable symptoms. She has meclizine and Zofran at home. I will send in prescription for diazepam for additional use as needed. She will follow-up as an outpatient. All questions were answered. Discharge Plan Triage Chief Complaint: Dizziness ED Provider: Kei Abraham Dx/Rx/DC Orders Clinical Impression: Vertigo, Meniere disorder, Nausea Instructions: ED Meniere's Disease, ED Vertigo, Unspecified Prescriptions: New diazepam [diazepam] 5 mg tablet 5 mg PO Q8 PRN (Reason: vertigo) Qty: 10 0RF No Action hydrochlorothiazide 25 mg tablet 25 mg PO Label Comments: TAKE 1 TABLET BY MOUTHCONCE DAILY folic acid 400 mcg tablet 0.4 mg PO DAILY Primary Care Provider: Jaswant Rico Referrals: Jin Mcdfufie MD [Med Staff - Active Staff] - 3-5 Days if not improving Jaswant Rico MD [Primary Care Provider] - Disposition Disposition: Home, Self Care Discharge Date/Time: 07/17/22 16:33
== END 2022-07-17 16:33 | disposition home or self-care (01) ==
PROVIDERS: Emergency Provider Emergency Medicine; PCP Internal Medicine; Visit Provider Emergency Medicine
DX: R42 Dizziness and giddiness (principal); H93.19 Tinnitus, unspecified ear; R11.0 Nausea
CPT/HCPCS: 96361; 96374; 96375; 99283; J7030; A4216

== ENCOUNTER → 2022-09-14 | Outpatient (CLI) | payer OTHER, SELFPAY ==
[2022-09-14 11:16] LABS: Absolute Neutrophil Count 4.2 X10^3/uL (2.0-7.7); Eosinophil# 0.03 X10^3/uL; Eosinophils% 0.4 % (0-5); Hematocrit 39.6 % (37-47); Lymphocyte % 30.7 % (19-41); Mean Corp Hgb Conc 32.8 g/dL (32-36); Mean Corpuscular Hgb 30.3 pg (27.0-32.0); Mean Corpuscular Volume 92.3 fL (81-99); Mean Platelet Vol. 9.4 fl (6.2-12.0); Monocyte% 7.3 % (0-10); NRBC Flagged by Analyzer 0 % (0-5); Neutrophil # 4.18 X10^3/uL (2.7-7.7); Neutrophil % 61.3 % (47-70); Platelet Count 316 K/mm3 (150-450); RBC Distribution Width CV 12.3 % (11.6-14.6); RBC Distribution Width SD 41.9 fl (35.1-43.9); Red Blood Count 4.29 M/mm3 (4.2-5.4); White Blood Count 6.8 K/mm3 (4.4-11.0)
[2022-09-14 12:31] LABS: HIV - WCH Non-Reactive (Nonreactive); Hepatitis B Surface Antigen Non-Reactive (Nonreactive); Hepatitis C Antibody Non-Reactive (Nonreactive); Rubella IgG Reactive (Nonreactive); Syphilis Antibodies Non-reactive
== END | disposition home or self-care (01) ==
LOC: MRI 10:15 → LAB 10:40
PROVIDERS: PCP Internal Medicine; Referring Provider Obstetrics & Gynecology; Visit Provider Obstetrics & Gynecology
DX: Z34.90 Encounter for supervision of normal pregnancy, unspecified, unspecified trimester (principal)
CPT/HCPCS: 36415; 85025; 86703; 86762; 86780; 86803; 86850; 86900; 86901; 87340

== ENCOUNTER → 2022-09-18 | Outpatient (CLI) | payer OTHER, SELFPAY ==
[2022-09-21 22:06] LABS: Chlamydia By Nucleic Acid AMP Negative (Negative)
[2022-09-21 22:57] LABS: Gonococcus By Nucleic Acid AMP Negative (Negative)
[2022-09-23 15:24] LABS: HPV APTIMA, High Risk Negative (Negative)
== END | disposition home or self-care (01) ==
PROVIDERS: PCP Internal Medicine; Visit Provider Obstetrics & Gynecology
DX: Z34.90 Encounter for supervision of normal pregnancy, unspecified, unspecified trimester (principal)
CPT/HCPCS: 87077; 87086; 87088; 87186; 87491; 87591; 87624; 88175; G0145

== ENCOUNTER → 2022-10-22 | Outpatient (CLI) | payer OTHER, SELFPAY ==
[2022-10-22 13:51] LABS: NATERA MAILED SPECIMEN
== END | disposition home or self-care (01) ==
LOC: PAVLAB 12:42
PROVIDERS: PCP Internal Medicine; Referring Provider Obstetrics & Gynecology; Visit Provider Obstetrics & Gynecology
DX: Z34.81 Encounter for supervision of other normal pregnancy, first trimester (principal)
CPT/HCPCS: 36415

== ENCOUNTER → 2022-12-24 | Outpatient (CLI) | payer OTHER, SELFPAY ==
--- NOTE | 2022-12-24 15:00 | US_ITS ---
STUDY: SECOND AND THIRD TRIMESTER OBSTETRICAL ULTRASOUND REASON FOR EXAM: Female, 32 years old anatomy TECHNIQUE: Transabdominal PRIOR ULTRASOUND: None. FINDINGS: There is a single intrauterine fetus. The fetus is in a breech presentation. There is demonstrated cardiac activity with a heart rate of 153 bpm. There is a normal amniotic fluid volume. The largest amniotic fluid pocket measures 4.6 cm. The placenta is posterior with a marginal previa. There are Grade 0 placental changes. The cervix measures 4.2 cm in length. The adnexal regions are not visualized. BPD: 4.7 cm = 20 weeks, 1 day(s) HC: 17.2 cm = 19 weeks, 5 day(s) AC: 14.6 cm = 19 weeks, 6 day(s) FL: 3.3 cm = 20 weeks, 2 day(s) EGA by ultrasound: 19 weeks 5 day(s) CYNDY by ultrasound: 05/15/2023 Estimated weight: 333 grams Weight percentile: 52% ANATOMY: Gender: Male Cranium: Normal lateral ventricles. Normal choroid plexus. Normal cerebellum. Normal cisterna magna. Normal face, nose and lips. Chest: Small echogenic focus seen in the left ventricle adjacent to the interventricular septum. Otherwise normal 4-chamber heart. Abdomen/Pelvis: Normal diaphragm. Normal stomach. Normal abdominal wall. Normal cord insertion. Normal 3 vessel cord. Normal kidneys. Normal bladder. Spine: Normal cervical spine. Normal thoracic spine. Normal lumbar spine. Normal sacrum. Extremities: Normal bilateral upper extremities. Normal bilateral lower extremities. US/OB Anatomy Scan IMPRESSION: Living intrauterine with estimated gestational age of 19 weeks and 5 days. Single echogenic intracardiac focus which is considered a soft marker for aneuploidy. Posterior placenta with marginal previa. Electronically Signed: Jin Olivares MD at 18:25 EDT ,
== END | disposition home or self-care (01) ==
LOC: US 14:58
PROVIDERS: PCP Internal Medicine; Referring Provider Obstetrics & Gynecology; Visit Provider Obstetrics & Gynecology
DX: O09.90 Supervision of high risk pregnancy, unspecified, unspecified trimester (principal); Z3A.00 Weeks of gestation of pregnancy not specified
CPT/HCPCS: 76805; 76817

== ENCOUNTER → 2023-02-18 | Outpatient (CLI) | payer OTHER, SELFPAY ==
--- NOTE | 2023-02-18 16:19 | US_ITS ---
STUDY: SECOND AND THIRD TRIMESTER OBSTETRICAL ULTRASOUND - LIMITED REASON FOR EXAM: Female, 32 years old marginal previa LMP: August 06, 2022. PRIOR ULTRASOUND: Comparison is made with prior study December 24, 2022. TECHNIQUE: Transabdominal and Transvaginal TECHNICAL QUALITY: Adequate. FINDINGS: There is a single intrauterine fetus. The fetus is in a cephalic presentation. There is demonstrated cardiac activity with a heart rate of 162 bpm. There is a normal amniotic fluid volume. The largest amniotic fluid pocket measures 5.5 cm x 3.3 cm. The amniotic fluid index (WADE) is 17.92 cm. The placenta is posterior in location and is not low lying. The tip of the placenta is at 2.1 cm from the cervical os. There are Grade 0 placental changes. The cervix measures 3.4 cm in length. BIOMETRY: Age by LMP: 28 weeks, 0 days. CYNDY by LMP: May 13, 2023. US/OB Limited (No Biometrics) IMPRESSION: The tip of the placenta is at 2.1 cm from the cervical os. Electronically Signed: Kermit Stubbs MD at 15:16 EDT ,
== END | disposition home or self-care (01) ==
LOC: US 16:18
PROVIDERS: PCP Internal Medicine; Referring Provider Advanced Practice Midwife; Visit Provider Advanced Practice Midwife
DX: O44.20 Partial placenta previa NOS or without hemorrhage, unspecified trimester (principal); Z3A.00 Weeks of gestation of pregnancy not specified
CPT/HCPCS: 76815

== ENCOUNTER → 2023-02-19 | Outpatient (CLI) | payer OTHER, SELFPAY ==
[2023-02-19 09:47] LABS: Absolute Lymphocyte Count 1.83 X10^3/uL (0.83-4.51); Absolute Neutrophil Count 7.7 X10^3/uL (2.0-7.7); Basophil# 0.01 X10^3/uL; Basophil% 0.1 % (0-1); Eosinophil# 0.02 X10^3/uL; Eosinophils% 0.2 % (0-5); Hematocrit 37.4 % (37-47); Hemoglobin 12.1 g/dL (12.0-15.0); Lymphocyte # 1.83 X10^3/ul (0.83-4.51); Mean Corp Hgb Conc 32.4 g/dL (32-36); Mean Corpuscular Hgb 30.9 pg (27.0-32.0); Mean Corpuscular Volume 95.7 fL (81-99); Mean Platelet Vol. 8.9 fl (6.2-12.0); Monocyte# 0.54 X10^3/uL; Monocyte% 5.3 % (0-10); NRBC Flagged by Analyzer 0 % (0-5); Neutrophil # 7.71 X10^3/uL (2.7-7.7); Neutrophil % 75.6 % (47-70); Platelet Count 296 K/mm3 (150-450); RBC Distribution Width SD 45.2 fl (35.1-43.9); Red Blood Count 3.91 M/mm3 (4.2-5.4); White Blood Count 10.2 K/mm3 (4.4-11.0)
[2023-02-19 10:07] LABS: Glucose Challenge Gest 1H 50g 126 mg/dL (70-140)
[2023-02-19 11:10] LABS: HIV - WCH Non-Reactive (Nonreactive); Syphilis Antibodies Non-reactive
== END | disposition home or self-care (01) ==
LOC: LAB 09:28
PROVIDERS: PCP Internal Medicine; Referring Provider Registered Nurse; Visit Provider Registered Nurse
DX: O09.90 Supervision of high risk pregnancy, unspecified, unspecified trimester (principal); Z13.1 Encounter for screening for diabetes mellitus; Z3A.00 Weeks of gestation of pregnancy not specified
CPT/HCPCS: 36415; 82950; 85025; 86703; 86780

== ENCOUNTER → 2023-04-16 | Outpatient (CLI) | payer OTHER, SELFPAY | END | disposition home or self-care (01) | PROVIDERS: PCP Internal Medicine; Referring Provider Obstetrics & Gynecology; Visit Provider Obstetrics & Gynecology | DX: O09.90 Supervision of high risk pregnancy, unspecified, unspecified trimester (principal); Z3A.00 Weeks of gestation of pregnancy not specified | CPT/HCPCS: 87077; 87081; 87186 ==

== ENCOUNTER 2023-05-03 05:35 | Inpatient (IN) | payer OTHER, SELFPAY ==
[2023-05-03] VITALS (29 sets, daily range): BP systolic 116–151; BP diastolic 80–98; PULSE 48–122; RESP 14–16; TEMP 36.4–37.4; O2SAT 80–100
[2023-05-03] MEDS: Lactated Ringers 1,000 ML 200 ML IV (06:10)
[2023-05-03 06:28] LABS: Absolute Neutrophil Count 7.9 X10^3/uL (2.0-7.7); Basophil# 0.01 X10^3/uL; Basophil% 0.1 % (0-1); Eosinophil# 0.04 X10^3/uL; Eosinophils% 0.4 % (0-5); Hematocrit 36.8 % (37-47); Lymphocyte % 16.5 % (19-41); Mean Corp Hgb Conc 32.6 g/dL (32-36); Mean Corpuscular Hgb 30.9 pg (27.0-32.0); Mean Corpuscular Volume 94.8 fL (81-99); Mean Platelet Vol. 9.4 fl (6.2-12.0); Monocyte# 0.56 X10^3/uL; Monocyte% 5.4 % (0-10); NRBC Flagged by Analyzer 0 % (0-5); Neutrophil % 76.7 % (47-70); Platelet Count 273 K/mm3 (150-450); RBC Distribution Width CV 12.9 % (11.6-14.6); RBC Distribution Width SD 44.6 fl (35.1-43.9); Red Blood Count 3.88 M/mm3 (4.2-5.4); White Blood Count 10.3 K/mm3 (4.4-11.0)
[2023-05-03] MEDS: Oxytocin 15 Units/NS 250ml 15 UNITS/250 ML IV.SOLN 83 UNITS IV (07:36)
[2023-05-03] MEDS: Oxytocin 10 UNITS/ML Vial IM (07:38)
--- NOTE | 2023-05-03 08:08 | PCM.HP.OB ---
HPI - General General Date of Admission: 05/03/23 HPI Narrative FERDINAND LEI, is a 32 F who presents at 38+4 with SROM at 0400, clear fluid, GBS positive. active fetus. spontaneous contractions. no vaginal bleeding. Maternal Data Information CYNDY Calculator Estimated Delivery Date Method Current WG Current Estimate 05/13/23 Ultrasound #1 38w 4d Other Estimates 04/14/23 LMP (Certain) 42w 5d 05/10/23 Ultrasound #2 39w 0d PFSH PFS Medical History (Updated 05/03/23 @ 06:22 by Mayra Silverio) Abnormal glucose affecting Acute allergic conjunctivitis Anxiety GBS (group B streptococcus) UTI complicating Gestational diabetes mellitus (GDM) affecting Headache, migraine Hearing problem history of bone fracture Meniere disease Nasal congestion Polycystic ovaries exam Preventative health care Wellness examination Home Medications multivit-min no.71-iron fum 28 mg-folate no.1 1 mg-dha 300 mg capsule (PNV-Louise) cap PO 09/11/22 [History Last Taken Unknown] ondansetron 4 mg disintegrating tablet 4 mg PO Q4H PRN nausea and vomiting #60 tabs 10/21/22 [Rx Last Taken Unknown] meclizine 25 mg tablet 25 mg PO TID PRN nausea and vomiting #90 tabs 10/22/22 [Rx Last Taken Unknown] Allergy/AdvReac Type Severity Reaction Status Date / Time No Known Allergies Allergy Verified 05/03/23 05:52 Family History Grandmother Autoimmune disorder Thyroid disorder Grandfather Heart disease High cholesterol Mother Hypertension Father Atrial fibrillation Mitral valve prolapse Other Myocardial infarction Surgical History history of birthmark removal history of laporscopic knee surgery History of wisdom tooth extraction Social History adopted: No household members: spouse and children housing: house number of children: 1 current occupational status: employed 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 current occupational exposures/hazards: No pets and animals: Yes pets and animals: dog(s) history of recent travel: No sexually active: Yes Smoking Status: Never smoker alcohol intake: former details: prior to substance use type: does not use diet: low salt well-balanced diet: daily or most days caffeine: No eating out: 1-3 times/week during the past year weight has: remained stable what type of physical activity do you participate in: none frequency: 1-2 times per week randy/buddhist: Alevism seatbelt use: always do you feel safe at home: Yes 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 History 2 Elective abortions Hx Para 1 Spontaneous abortions Hx # Term Pregnancies Ectopic pregnancies Hx # Pregnancies Multiple births # of living children 1 Past Pregnancies Del. Date Name GA/Weeks Outcome Route Bth Weight Gen Labor Lgth Anesthesia Del Locatn Provider FOB 09/18/21 Luke 39 live - full term 7lbs 6oz Male [employer] [facility] Dr. Whitman Delivery Date: 09/18/21 Last Updated by: Debi Duvall Gestational diabetes Visit Details Expected Delivery Route/Plan Labor Preferences- CB/BF classes: [] labor support person: [] labor intervention preferences: [] pain management options preferred: [] cut cord/dad catch: [] : [] PP control planned: [] discussed possible routes of delivery and associated risks: [] special requests: [] Plans Covid status: discussed Flu vaccine: discussed Tdap vaccine: given Rhogam: na LARC form signed: declined movement and labor precautions reviewed. Problem list reviewed and updated with the most current plan of care details and appropriate orders placed. Relevant counseling for the gestational age provided. Continue routine care and follow up unless otherwise noted in visit notes/problem list details OB Flowsheet Initial Weight: Not Recorded Date <del>?</del> EGA Weight BP Urine Prot <del>?</del> Glucose FHR FuHt Pres Dilation <del>?</del> Effaced St Visit Note 09/18/22 <del>?</del> 6w 1d 139 lb 130/85 <del>?</del> <del>?</del> JV- single live IUP measuring 6 weeks and 1 day with a flicker of a heart beat measuring 124. return in 2-3 weeks to confirm CYNDY. 10/08/22 <del>?</del> 9w 0d 137 lb 2 oz 132/86 Negative <del>?</del> Negative 180 <del>?</del> JV- no complaints today. wants NIPT. 11/06/22 <del>?</del> 13w 1d 133 lb 2 oz 119/83 Negative <del>?</del> Negative 150 <del>?</del> JV- no complaints JV- no complaints low risk male NIPT. anatomy us ordered with [employer] [facility] [facility]. 12/03/22 <del>?</del> 17w 0d 137 lb 6 oz 110/77 Negative <del>?</del> Negative 145 <del>?</del> SM- no vb lof some constipation 12/31/22 <del>?</del> 21w 0d 138 lb 6 oz 119/74 Negative <del>?</del> Negative 135 <del>?</del> JV- marginal previa and echogenic foci on heart reviewed again. [place] had discussed this on the phone with her and she is reassured. normal NIPT. rpt scan at 28 weeks. rto in 4 01/29/23 <del>?</del> 25w 1d 146 lb 116/82 Negative <del>?</del> Negative 140 24 <del>?</del> LC- no vb/cramping/lof. good fm. has ultrasound ordered. 28 week labs ordered. 02/22/23 <del>?</del> 28w 4d 155 lb 2 oz 105/71 Negative <del>?</del> Negative 135 28 <del>?</del> KW- no vb/cramping. +FM. reviewed labs and US. tdap today 03/12/23 <del>?</del> 31w 1d 157 lb 2 oz 112/78 <del>?</del> 135 31 <del>?</del> SM- no vb lof good fm no regular ctx 03/25/23 <del>?</del> 33w 0d 161 lb 122/78 Negative <del>?</del> Negative 135 32 <del>?</del> SM- no vb lof good fm no regular ctx 04/09/23 <del>?</del> 35w 1d 165 lb 120/81 <del>?</del> 145 35 Cephalic <del>?</del> JV- no lof, vaginal bleeding, or dec fm. plan 40 week IOL if not delivered for patient request. 04/16/23 <del>?</del> 36w 1d 171 lb 6 oz 117/80 Negative <del>?</del> Negative 135 37 Cephalic 3 <del>?</del> 60 -2 JV- no lof, vaginal bleeding, or dec fm. gbs today. 04/22/23 <del>?</del> 37w 0d 5 lb 2 oz 112/79 Negative <del>?</del> Negative 137 37 Cephalic 3.5 <del>?</del> 60 -2 JV- no lof, vaginal bleeding, or dec fm. 04/30/23 <del>?</del> 38w 1d 173 lb 127/85 Negative <del>?</del> Negative 125 37 Cephalic 4.5 <del>?</del> 70 -1 JV- membranes are bulging but she is not feeling contractions. She wants to try to stay until wednesday next week. NST FHR Rate Baby A Variability:: Moderate Accelerations:: 15 x 15 Decelerations:: None NST Reactive:: Yes FHR Category:: Category I Uterine Activity:: q2-3 minutes ROS Cardiovascular Cardiovascular: Denies abdominal pain, chest pain, diaphoresis or dyspnea Respiratory/Chest Respiratory/Chest: Denies change in mental status, chest congestion, chest tightness, cough, shortness of breath at rest, shortness of breath with exertion, breast mass, breast pain, breast skin changes, breast swelling, change in breast shape or nipple discharge Genitourinary Genitourinary: Reports change in urinary stream Musculoskeletal Musculoskeletal: Reports none Integumentary Integumentary: Reports none Neurologic Neurologic: Reports none Psychiatric Psychiatric: Reports none Endocrine Endocrinology: Reports none Hematologic/Lymphatic Hematologic/Lymphatic: Reports none Allergic/Immunologic Allergic/Immunologic: Reports none Vital Signs Vital Signs Vital Signs: 05/03/23 05:50 05/03/23 05:50 05/03/23 05:56 Temperature Temperature Source Temporal Pulse Rate 88 Blood Pressure 133/81 H BP Systolic 133 BP Diastolic 81 Pulse Ox 05/03/23 05:56 05/03/23 06:54 05/03/23 06:54 Temperature 97.6 F L Temperature Source Pulse Rate 122 H Blood Pressure BP Systolic BP Diastolic Pulse Ox 80 05/03/23 07:06 05/03/23 07:06 05/03/23 07:45 Temperature Temperature Source Pulse Rate 106 H 48 L Blood Pressure 151/98 H BP Systolic 151 BP Diastolic 98 Pulse Ox 05/03/23 07:45 05/03/23 07:46 05/03/23 07:46 Temperature Temperature Source Pulse Rate 92 Blood Pressure BP Systolic BP Diastolic Pulse Ox 81 100 05/03/23 07:47 05/03/23 07:47 05/03/23 07:51 Temperature Temperature Source Pulse Rate 95 75 Blood Pressure 133/89 H BP Systolic 133 BP Diastolic 89 Pulse Ox 05/03/23 07:51 05/03/23 07:56 05/03/23 07:56 Temperature Temperature Source Pulse Rate 80 Blood Pressure BP Systolic BP Diastolic Pulse Ox 100 100 05/03/23 08:00 05/03/23 08:00 05/03/23 08:01 Temperature Temperature Source Pulse Rate 72 77 Blood Pressure BP Systolic BP Diastolic Pulse Ox 85 05/03/23 08:01 05/03/23 08:07 05/03/23 08:07 Temperature Temperature Source Pulse Rate 83 Blood Pressure BP Systolic BP Diastolic Pulse Ox 100 83 Weight Weight: 169 lb 12.095 oz Body Mass Index (BMI) 30.0 Physical Exam Const alert, oriented x3 and no apparent distress General Appearance: cooperative, comfortable and well kempt Orientation / Consciousness: awake and oriented to person Exam Limitations: no limitations HEENT normocephalic Neck full ROM Chest inspection of chest normal Resp normal respiratory effort, normal air movement and no retractions Effort and Inspection: able to speak in complete sentences and symmetric chest movement Cardio regular rate Peripheral Pulses: pulses 2+ throughout GI normal to inspection, nondistended, normoactive bowel sounds Inspection: gravid no CVA tenderness and appearance of the vagina normal External Female Exam: normal appearance of the urethra; Negative for external lesion OB / External & Speculum: external exam normal Manual OB Exam: estimated gestational size appropriate and presentation cephalic Uterus Palpation: Negative for uterus tender Extremity normal to inspection Skin no rashes or lesions noted Psych Activity / Motor Behavior: appropriate eye contact Speech: normal speech Labs Labs Labs: Blood Type A POSITIVE Antibody Screen NEGATIVE Hct 36.8 % (37-47) L Hgb 12.0 g/dL (12.0-15.0) Obstetrics US Syphilis Total Ab Non-reactive Rubella IgG Antibody Reactive (Nonreactive) Hep Bs Antigen Non-Reactive (Nonreactive) Chlamydia DNA (SHANE) Negative (Negative) Neisseria gonorrhoeae DNA (SHANE) Negative (Negative) HIV 1&2 Antibody Non-Reactive (Nonreactive) Glucose 1 Hr 50 gm 126 mg/dL (70-140)
--- NOTE | 2023-05-03 08:14 | OP.PCM_ITS ---
Assessment & Plan (1) Vaginal delivery: COMMENT: Lc 38.4 boy(Gael) (2) GBS (group B streptococcus) UTI complicating : COMMENT: treat in labor Maternal Data Information CYNDY Calculator Estimated Delivery Date Method Current WG Current Estimate 05/13/23 Ultrasound #1 38w 4d Other Estimates 04/14/23 LMP (Certain) 42w 5d 05/10/23 Ultrasound #2 39w 0d Final CYNDY: 05/13/23 Gestational age: 38.4 Vaginal Delivery Maternal Presentation Maternal Presentation: Active Labor and Spontaneous Rupture of Membranes Maternal Presentation: at 38.4 with SROM at 0400, clear fluid. GBS positive. rec'd x1 dose of PCN. Operative Information Date of Procedure: 05/03/23 Pre-Operative Diagnosis: see problem list Post-Operative Diagnosis: Surgery / Procedure Performed: Spontaneous Vaginal Delivery Type of Anesthesia: None Estimated Blood Loss: 150 Time of Delivery: 07:32 Findings Description of Procedure: Patient began pushing and delivered the head in the CEZAR presentation. The head was delivered atraumatically. The anterior and posterior shoulders delivered without complication followed by the rest of the and the infant was placed on the maternal abdomen. Delayed cord clamping was employed for approximately 2.5 minutes. Cord was clamped and cut and gentle traction was applied to the cord and the placenta delivered spontaneously immediately foll owing it was noted to be intact with three-vessel cord. The perineum and vagina were inspected and noted to have no lacerations. EBL was 150cc. Patient and infant tolerated delivery well entered recovery phase bonding skin to skin. baby boy Gael updated on Presentation: Vertex Amniotic Membrane Rupture Type: Spontaneous Time of Membrane Rupture: 0400 Amniotic Fluid Description: Clear Placental Delivery Description: Spontaneous Placenta Disposition: [facility] Cord Vessel Description: 3 Vessels Cord Entanglement: None Nuchal Cord Compression: Without compression A Gender: Male (1 minute): 8 (5 minute): 9 Delayed Cord Clamping: Yes Post Vaginal Delivery Medications Given After Delivery: IV Pitocin and IM Pitocin Episiotomy Description: None Laceration: None Procedures Urinary/Genital [id number]: [id number] Vaginal Delivery+PP Care([facility])
--- NOTE | 2023-05-03 08:27 | DCINST_ITS ---
Discharge Instructions Diet Discharge Diet: No restrictions Activity Discharge Activity: May Not Drive and May Shower May resume sexual activity in: 6 weeks Weight Bearing Status: Full weight bearing Dressing / Incision Call your doctor if your incision/area has: Sudden Increased Bleeding, Increased Pain/ Swelling and Foul Smelling Discharge Call your doctor if you observe: Fever of 101 or Higher, Numbness or Tingling, Change in Color, Inability to urinate, Inability to have a bowel movement, Using more than 1 pad per hour, Shortness of breath, Dizziness, Fainting spells, Chest pain, Calf discomfort and Uncontrolled pain Follow Up Care Please Follow Up With: Aida Hendrickson CNM When: 6 weeks , please call office to make an appointment. Congratulations on the of your baby! Test Results: Test results from this visit will be discussed in further detail at your follow- up appointment, if applicable. Discharge Plan Admission Admit Date/Time: 05/03/23 05:35 Attending Provider: Grace Juarez Discharge Orders/Prescriptions Prescriptions: No Action PNV-[place] 28-1-300 mg capsule 1 cap PO ondansetron 4 mg tablet,disintegrating 4 mg PO Q4H PRN (Reason: nausea and vomiting) Qty: 60 2RF meclizine 25 mg tablet 25 mg PO TID PRN (Reason: nausea and vomiting) Qty: 90 7RF Disposition Disposition (needs filled in before D/C Order can be placed): Home, Self Care
[2023-05-03 08:44] LABS: Syphilis Antibodies Non-reactive
[2023-05-03] MEDS: Senna/Docusate Sodium 1 Tablet PO (09:03)
[2023-05-04 00:29] VITALS: BP 116/66; PULSE 84; RESP 16; TEMP 36.4; O2SAT 97
[2023-05-04] MEDS: Naproxen 500 MG Tablet PO ×2 (02:02→20:31)
[2023-05-04 03:23] VITALS: BP 110/75; PULSE 85; RESP 16; TEMP 36.4; O2SAT 95
--- NOTE | 2023-05-04 07:13 | PCM.PN.OB ---
Subjective Subjective Patient doing well without complaints. Tolerating PO. Ambulating and voiding without difficulty. Feeding well. Denies chest pain, shortness of breath, calf pain/swelling, fevers, chills, lightheadedness. Objective Data Objective Data Vital Signs: Vital Signs Temp Pulse Resp BP Pulse Ox O2 Del Method 97.5 F L 85 16 110/75 95 Room Air 05/04/23 03:23 05/04/23 03:23 05/04/23 03:23 05/04/23 03:23 05/04/23 03:23 05/04/23 03:23 Oxygen Delivery Method Room Air Weight: 169 lb 12.095 oz Body Mass Index (BMI) 30.0 Intake & Output: Intake and Output for Last 24 Hours 05/02/23 05/03/23 05/04/23 23:59 23:59 23:59 Intake Total 1538.33 / 1538.33 Output Total 1050 / 1050 Balance 488.33 / 488.33 Lab / Micro Data Attestation: I reviewed the patient's lab results. 05/03/23 05:10 Labs: Laboratory Results - last 24 hr 05/03/23 05:10: Syphilis Total Ab Non-reactive, Blood Type A POSITIVE, Antibody Screen NEGATIVE ROS Constitutional Constitutional: Reports systems reviewed and no addt'l complaints, except as documented; Denies anorexia or headache(s) Cardiovascular Cardiovascular: Reports systems reviewed and no addt'l complaints, except as documented; Denies dizziness, dyspnea, nausea or tachypnea Respiratory/Chest Respiratory/Chest: Reports systems reviewed and no addt'l complaints, except as documented; Denies cough, dyspnea, shortness of breath at rest or tachypnea Gastrointestinal Gastrointestinal: Reports systems reviewed and no addt'l complaints, except as documented; Denies abdominal pain, constipation or nausea Genitourinary Genitourinary: Reports systems reviewed and no addt'l complaints, except as documented; Denies burning urination, difficulty urinating, dysuria, urinary frequency or urinary incontinence Musculoskeletal Musculoskeletal: Reports systems reviewed and no addt'l complaints, except as documented Integumentary Integumentary: Reports systems reviewed and no addt'l complaints, except as documented Neurologic Neurologic: Reports systems reviewed and no addt'l complaints, except as documented; Denies abnormal speech, dizziness or headache(s) Psychiatric Psychiatric: Reports systems reviewed and no addt'l complaints, except as documented Endocrine Endocrinology: Reports systems reviewed and no addt'l complaints, except as documented Hematologic/Lymphatic Hematologic/Lymphatic: Reports systems reviewed and no addt'l complaints, except as documented Physical Exam Const alert, oriented x3 and no apparent distress Neck full ROM Resp normal respiratory effort, normal air movement and no retractions Effort and Inspection: able to speak in complete sentences and symmetric chest movement GI soft to palpation Bladder / Kidney Exam: bladder normal to palpation Uterus Palpation: uterus fundus firm Extremity normal to inspection and full ROM Psych mental status grossly normal, thought process normal and cooperative Assessment & Plan (1) Vaginal delivery: COMMENT: Lc 38.4 boy(Gael) PLAN: s/p PPD # 1 1. routine post delivery care 2. breast feeding- support given 3. rh positive 4. rubella immune (2) Spontaneous onset of labor: (3) SROM (spontaneous rupture of membranes): COMMENT: pcn for gbs positive, limit ve (4) Echogenic intracardiac focus of fetus on ultrasound: COMMENT: had NIPT testing. low risk (5) Meniere disease: (6) GBS (group B streptococcus) UTI complicating : COMMENT: treat in labor (7) Supervision of high risk , antepartum: COMMENT: PRR , CYNDY 04/14/23, boy Gael Yeboah, Donato (8) : QUALIFIERS: Weeks of gestation: 38 weeks Qualified Code(s): Z3A.38 - 38 weeks gestation of COMMENT: NIPT low risk declined afp and carrier testing. reviewed anatomy US Charges/Coding Multi Select Codes Urinary/Genital Urinary/Genital CPT Codes: No Charge
[2023-05-04 09:03] VITALS: BP 117/80; PULSE 81; RESP 16; TEMP 36.3
[2023-05-04 14:00] VITALS: BP 128/78; PULSE 85; RESP 16; TEMP 36.6
[2023-05-04 20:11] VITALS: BP 122/84; PULSE 79; RESP 16; TEMP 36.7
[2023-05-05 02:46] VITALS: BP 118/82; PULSE 73; RESP 16; TEMP 36.7
--- NOTE | 2023-05-05 07:48 | PCM.PN.OB ---
Subjective Subjective Patient doing well without complaints. Tolerating PO. Ambulating and voiding without difficulty. Feeding well. Denies chest pain, shortness of breath, calf pain/swelling, fevers, chills, lightheadedness. Objective Data Objective Data Vital Signs: Vital Signs Temp Pulse Resp BP Pulse Ox O2 Del Method 98.0 F 73 16 118/82 H 95 Room Air 05/05/23 02:46 05/05/23 02:46 05/05/23 02:46 05/05/23 02:46 05/04/23 03:23 05/05/23 02:46 Oxygen Delivery Method Room Air Weight: 169 lb 12.095 oz Body Mass Index (BMI) 30.0 Intake & Output: Intake and Output for Last 24 Hours 05/03/23 05/04/23 05/05/23 23:59 23:59 23:59 Intake Total 1538.33 / 1538.33 Output Total 1050 / 1050 Balance 488.33 / 488.33 Lab / Micro Data 05/03/23 05:10 Physical Exam Const alert and oriented x3 HEENT normocephalic Eyes PERRL Neck full ROM Resp normal respiratory effort GI soft to palpation GI Narrative: FF below U Assessment & Plan (1) Vaginal delivery: COMMENT: Stewart 38.4 boy(Gael) PLAN: Plan s/p PPD # 2 1. routine post delivery care 2. breast feeding- support given 3. rh positive 4. rubella immune 5. home today
[2023-05-05 08:35] VITALS: BP 127/88; PULSE 63; RESP 15; TEMP 36.6; O2SAT 97
== END 2023-05-05 10:15 | disposition home or self-care (01) | DRG 807 ==
PROVIDERS: Advanced Practice Midwife; Admitting Provider Obstetrics & Gynecology; Visit Provider Obstetrics & Gynecology
DX: O99.824 Streptococcus B carrier state complicating childbirth (principal); Z37.0 Single live birth; B95.1 Streptococcus, group B, as the cause of diseases classified elsewhere; Z3A.38 38 weeks gestation of pregnancy; Z86.32 Personal history of gestational diabetes; Z87.440 Personal history of urinary (tract) infections
CPT/HCPCS: 59025; 59050; 85025; 86780; 86850; 86900; 86901; 99221; J7120; G0378

== ENCOUNTER 2023-05-09 18:13 | Emergency (ER) | payer OTHER, SELFPAY ==
[2023-05-09 18:16] VITALS: BP 141/99; PULSE 87; RESP 18; TEMP 36.1; O2SAT 99; BMI 26.5
--- NOTE | 2023-05-09 18:38 | CT_ITS ---
STUDY: CT ABDOMEN AND PELVIS WITHOUT CONTRAST REASON FOR EXAM: Female, 32 years old. Pain RADIATION DOSAGE (If Supplied By Facility): CTDIvol = ( 8.22 ) mGy, DLP = ( 414.65 ) mGycm TECHNIQUE: Transaxial images were obtained from the dome of the diaphragm to the symphysis pubis without oral contrast, and without intravenous contrast. Sagittal and coronal images were reconstructed. Individualized dose optimization techniques were used for this CT. COMPARISON: None. FINDINGS: The visualized lung bases are unremarkable. The visualized portions of the heart are within normal limits. Normal liver. Normal gallbladder and extrahepatic biliary system. Normal spleen. Normal pancreas. Normal bilateral adrenal glands. Normal right kidney. Normal left kidney. Normal visualized stomach. Normal small intestine. Normal colon. The appendix is visualized and appears normal. Normal abdominal aorta. Normal inferior vena cava. Normal retroperitoneum. Normal urinary bladder. Enlarged uterus. There is some ill-defined increased attenuation within the endometrial cavity which may represent hemorrhage or retained products of conception. Correlation with pelvic ultrasound may be useful. Normal abdominal wall. Normal osseous structures. CT/Abdomen/Pelvis without Cont IMPRESSION: Enlarged uterus with possible endometrial hemorrhage or retained products of conception and correlation with pelvic ultrasound would be useful. Electronically Signed: Uri Rowe MD at 21:02 EDT ,
--- NOTE | 2023-05-09 18:39 | EDS_ITS ---
HPI HPI - GI History of Present Illness Chief Complaint: Abd Pain Narrative Narrative: 32-year-old female G2, P2, is by approximately 1 week presents with abdominal pain that she has had since the following Wednesday. She states that she gave vaginally and precipitously on Wednesday. Afterwards, she started experiencing diffuse abdominal pain, was told by her COMPANY ACCOUNTANT's that it might be trapped gas from labor, so she took simethicone without relief of her symptoms. All week she has been having abdominal pain that is more diffuse. She denies any fevers but has had chills. No prior abdominal surgeries. She presents because of the continued abdominal pain, mainly under her bilateral ribs now. No exacerbating or alleviating factors. She did have a bowel movement today which was normal. PFSH PFS Medical History Abnormal glucose affecting Acute allergic conjunctivitis Anxiety GBS (group B streptococcus) UTI complicating Gestational diabetes mellitus (GDM) affecting Headache, migraine Hearing problem history of bone fracture Meniere disease Nasal congestion Polycystic ovaries exam Preventative health care Wellness examination Home Medications multivit-min no.71-iron fum 28 mg-folate no.1 1 mg-dha 300 mg capsule (PNV- Nahma) 1 cap PO pregnacy 09/11/22 [History Last Taken 05/02/23] ondansetron 4 mg disintegrating tablet 4 mg PO Q4H PRN nausea and vomiting #60 tabs 10/21/22 [Rx Last Taken Unknown] meclizine 25 mg tablet 25 mg PO TID PRN nausea and vomiting #90 tabs 10/22/22 [Rx Last Taken Unknown] dicyclomine 20 mg tablet 20 mg PO TID PRN abdominal pain #20 tabs 05/09/23 [Rx Last Taken Unknown] Allergy/AdvReac Type Severity Reaction Status Date / Time No Known Allergies Allergy Verified 05/09/23 18:16 Family History Grandmother Autoimmune disorder Thyroid disorder Grandfather Heart disease High cholesterol Mother Hypertension Father Atrial fibrillation Mitral valve prolapse Other Myocardial infarction Surgical History history of birthmark removal history of laporscopic knee surgery History of wisdom tooth extraction Social History adopted: No household members: spouse and children housing: house number of children: 1 current occupational status: employed 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 current occupational exposures/hazards: No pets and animals: Yes pets and animals: dog(s) history of recent travel: No sexually active: Yes Smoking Status: Never smoker alcohol intake: former details: prior to substance use type: does not use diet: low salt well-balanced diet: daily or most days caffeine: No eating out: 1-3 times/week during the past year weight has: remained stable what type of physical activity do you participate in: none frequency: 1-2 times per week randy/yazdanism: Sabianism seatbelt use: always do you feel safe at home: Yes 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 HEENT: No sore throat. No neck pain. No loss of vision. No rhinorrhea. Cardiovascular: No chest pain. No palpitations. No pedal edema. Respiratory: No cough, no shortness of breath. Abdominal: Positive abdominal pain. Currently under bilateral ribs. No nausea. No vomiting. Last bowel movement today. No diarrhea. Genitourinary: No dysuria. No hematuria. Musculoskeletal: No myalgias. No arthralgias. Neurologic: No headaches. No dizziness. No lightheadedness. Skin: No rash. No change in color. Psychiatric: No depression. No anxiety. EXAM Physical Exam Narrative Exam Narrative: Afebrile. Vital signs noted. HEENT: Normocephalic. Atraumatic. PERRL, EOMI. Neck soft and supple. No point tenderness or step off. Cardiovascular: Regular rate and rhythm. No murmurs, rubs, or gallops appreciated. Respiratory: No tachypnea. Lungs clear to auscultation bilaterally. Gastrointestinal: Abdomen soft, nontender, with normoactive bowel sounds. No rebound or guarding. Neurological: Awake. Alert. Nonfocal, nonlateralizing. Skin: No rash. Normal color. No pallor. Musculoskeletal: No pedal edema. Full range of motion extremities. Const Vital Signs: 05/09/23 18:16 Temperature 97 F L Temperature Source Temporal Pulse Rate 87 Respiratory Rate 18 Blood Pressure 141/99 H Blood Pressure Mean 113 Pulse Ox 99 Oxygen Delivery Method Room Air MDM MDM MDM Narrative Medical decision making narrative: Concern would be for ileus versus nonspecific abdominal pain, but to rule out free air from perforation CT will be obtained. I will also obtain basic laboratory work because she says occasionally she might feel lightheaded throughout the office last week. Her vital signs are normal in the sense of she is not tachycardic and she is afebrile here. I will obtain basic laboratory work and a UA as she states that she still has some stinging with urination. I reviewed the patient's laboratory work and she has normal white count of 11.0, hemoglobin normal at 12.6, hematocrit 37.6 with normal platelet count of 359. CMP was performed and reviewed, she has normal AST of 18, normal ALT of 26, alk phos is slightly elevated at 142 which I think is nonspecific after . Urinalysis is negative for infection with 0-5 WBCs. I do not feel antibiotics are indicated. I reviewed the CT report of the CT of the abdomen and pelvis which shows dilated uterus with suspected hemorrhage inside versus retained products. I do not feel that she is having endometritis. She is not febrile and does not have an elevated white count. Her appendix appears normal on the CT scan. Otherwise, there is no reason for her upper abdominal pain. Additionally, I do not feel that she has a pulmonary embolism as she has a normal pulse of 87 and pulse ox is 99% on room air. I discussed patient with Dr. Evita Gaytan on-call for COMPANY ACCOUNTANT. She agrees with outpatient discharge. I will first find her with a Bentyl here in the emergency department, and a prescription for Bentyl to take as needed for any abdominal cramping. She is to follow-up in 6 weeks with her COMPANY ACCOUNTANT if she shows improvement, but if no improvement within 1 week can schedule an appointment with COMPANY ACCOUNTANT as an outpatient. I do not feel she requires observation at this time. Return instructions to the emergency department were reviewed. Disposition is discharged home in stable condition. History & Record Review Discussion w/independent historian: Patient Additional record(s) reviewed:: Prior ED visit Lab Data Attestation: I reviewed the patient's lab results. Labs: Laboratory Results - last 24 hr 05/09/23 05/09/23 18:43 20:00 WBC 11.0 RBC 4.05 L Hgb 12.6 Hct 37.6 MCV 92.8 MCH 31.1 MCHC 33.5 RDW Std Deviation 42.5 RDW Coeff of June 12.4 Plt Count 359 MPV 8.9 Immature Gran % (Auto) 0.500 Neut % (Auto) 76.2 H Lymph % (Auto) 17.0 L Gooding % (Auto) 5.3 Eos % (Auto) 0.9 Baso % (Auto) 0.1 Absolute Neuts (auto) 8.4 H Absolute Lymphs (auto) 1.88 Nucleated RBC % 0 Sodium 138 Potassium 3.7 Chloride 107 Carbon Dioxide 26.0 Anion Gap 5 BUN 11 Creatinine 0.57 Estim Creat Clear Calc 118.30 Est GFR (MDRD) Af Amer 159 Est GFR (MDRD) Non-Af 132 BUN/Creatinine Ratio 19.4 Glucose 101 Calcium 8.5 Total Bilirubin 0.30 AST 18 ALT 26 Alkaline Phosphatase 142 H Total Protein 6.7 Albumin 2.6 L Globulin 4.1 Albumin/Globulin Ratio 0.6 L Lipase 21 Urine Color Yellow Urine Clarity Sl. Cloudy Urine pH 7.0 Ur Specific [place] 1.010 Urine Protein Negative Urine Glucose (UA) Normal Urine Ketones Negative Urine Occult Blood 50 H Urine Nitrite Negative Urine Bilirubin Negative Urine Urobilinogen Normal Ur Leukocyte Esterase Negative Urine RBC 0-5 SEEN Urine WBC 0 SEEN Ur Squamous Epith Cells 0-5 SEEN Urine Bacteria 0 SEEN Urine Mucus 0 SEEN Radiography Diagnostic Testing: Clinical Impression(s) from Imaging Studies Abdomen/Pelvis CT 05/09/23 18:38 IMPRESSION: Enlarged uterus with possible endometrial hemorrhage or retained products of conception and correlation with pelvic ultrasound would be useful. Electronically Signed: Uri Rowe MD at 21:02 EDT , Discharge Plan Triage Chief Complaint: Abd Pain ED Provider: Navdeep Sotelo Dx/Rx/DC Orders Clinical Impression: Pain, Abdominal pain Instructions: ED Abdominal Pain Unkn Cause Fem, ED Pain, Acute, Uncertain Cause Prescriptions: New dicyclomine 20 mg tablet 20 mg PO TID PRN (Reason: abdominal pain) Qty: 20 0RF No Action PNV-Nahma 28-1-300 mg capsule 1 cap PO ondansetron 4 mg tablet,disintegrating 4 mg PO Q4H PRN (Reason: nausea and vomiting) Qty: 60 2RF meclizine 25 mg tablet 25 mg PO TID PRN (Reason: nausea and vomiting) Qty: 90 7RF Primary Care Provider: Jaswant Rico Referrals: Jaswant Rico MD [Primary Care Provider] - Evita Gaytan MD [Med Staff - Active Staff] - 1 Week if not improving Disposition Disposition: Home, Self Care
[2023-05-09] MEDS: 0.9% Normal Saline 1,000 ML 1000 ML IV (18:49)
[2023-05-09 18:55] LABS: Absolute Lymphocyte Count 1.88 X10^3/uL (0.83-4.51); Absolute Neutrophil Count 8.4 X10^3/uL (2.0-7.7); Basophil# 0.01 X10^3/uL; Basophil% 0.1 % (0-1); Eosinophils% 0.9 % (0-5); Hematocrit 37.6 % (37-47); Hemoglobin 12.6 g/dL (12.0-15.0); Lymphocyte # 1.88 X10^3/ul (0.83-4.51); Mean Corp Hgb Conc 33.5 g/dL (32-36); Mean Corpuscular Hgb 31.1 pg (27.0-32.0); Mean Corpuscular Volume 92.8 fL (81-99); Mean Platelet Vol. 8.9 fl (6.2-12.0); Monocyte# 0.58 X10^3/uL; Monocyte% 5.3 % (0-10); NRBC Flagged by Analyzer 0 % (0-5); Neutrophil # 8.41 X10^3/uL (2.7-7.7); Neutrophil % 76.2 % (47-70); Platelet Count 359 K/mm3 (150-450); RBC Distribution Width CV 12.4 % (11.6-14.6); RBC Distribution Width SD 42.5 fl (35.1-43.9); Red Blood Count 4.05 M/mm3 (4.2-5.4)
[2023-05-09 19:13] LABS: ALB/GLOB Ratio 0.6 RATIO (0.9-2.4); AST(SGOT) 18 U/L (15-37); Alanine Aminotransfer ALT/SGPT 26 U/L (13-56); Albumin, Serum 2.6 g/dL (3.2-5.0); Alkaline Phosphatase 142 U/L (45-117); Anion Gap 5 (5-15); BUN 11 mg/dL (7-18); BUN/Creat Ratio 19.4 RATIO (10-20); Calcium,Total 8.5 mg/dL (8.5-10.1); Chloride 107 mmol/L (98-107); Creatinine, Serum 0.57 mg/dL (0.55-1.02); EST Glomerular Filtration Rate 132 mL/min (>60); Est Glom Filt Rate - Afr Amer 159 mL/min (>60); Globulin 4.1 g/dL (2.2-4.2); Glucose 101 mg/dL (74-106); Lipase 21 U/L (13-75); Potassium 3.7 mmol/L (3.5-5.1); Protein, Total 6.7 g/dL (6.4-8.2); Sodium Level 138 mmol/L (136-145)
[2023-05-09 20:02] LABS: Bacteria 0 SEEN /hpf (None Seen); Mucous, Urine 0 SEEN /hpf (<or=2+); White Blood Cells 0 SEEN /hpf (0-5)
[2023-05-09 20:05] LABS: Color, Urine Yellow (Yellow); Glucose, Dipstick Normal (Normal); Ketone-Dipstick Negative (Negative); Leukocyte Esterase-Dipstick Negative /ul (Negative); Nitrite-Dipstick Negative (Negative); Occult Blood-Urine 50 /ul (Negative); Protein-Dipstick Negative (Negative); Urine Bilirubin Dipstick Negative (Negative); Urine Clarity Sl. Cloudy (Clear); Urine Urobilinogen Normal (Normal)
[2023-05-09 20:13] LABS: Red Blood Cells-Urine 0-5 SEEN /hpf (0-5); Squamous Epithelial Cells - UA 0-5 SEEN /hpf (5-10)
[2023-05-09] MEDS: Dicyclomine 10 MG Capsule 20 MG PO (21:37)
== END 2023-05-09 21:45 | disposition home or self-care (01) ==
PROVIDERS: Emergency Provider Emergency Medicine; PCP Internal Medicine; Visit Provider Emergency Medicine
DX: R10.9 Unspecified abdominal pain (principal)
CPT/HCPCS: 74176; 80053; 81001; 83690; 85025; 96360; 99283; J7030

== ENCOUNTER → 2024-03-23 | Outpatient (CLI) | payer OTHER, SELFPAY ==
--- NOTE | 2024-03-23 13:25 | MRI_ITS ---
STUDY: MRI BRAIN WITH AND WITHOUT CONTRAST (ATTENTION INTERNAL AUDITORY CANALS - I.A.C.''s) REASON FOR EXAM: Female, 33 years old. HEARING LOSS RT SIDE, TINNITUS TECHNIQUE: Standardized multiplanar fat and water weighted pulse sequences were obtained. IV 13cc clariscan was administered for the contrast portion of the examination. COMPARISON: None. FINDINGS: Normal bilateral temporal bones. Normal bilateral internal auditory canals. There is no demonstrated intracanalicular or cisternal vestibular schwannoma (acoustic neuroma). There is no enhancement of the bilateral VIIth or VIIIth cranial nerves. Normal bilateral cochlea, vestibules and semicircular canals. Normal size of the ventricles and extra-axial spaces for the patient''s age. Normal white matter tracts of the supratentorial brain. There is no evidence for recent intracranial ischemia or other cause of cytotoxic edema on diffusion weighted imaging (DWI). Normal bilateral basal ganglia. Normal thalami. Normal flow voids within the major intracranial circulation suggesting patency by spin echo criteria. Normal venous enhancement. There is no enhancing intra-axial or extra-axial abnormality. There is no extra-axial fluid accumulation. Normal sella turcica, pituitary gland, infundibular stalk, optic chiasm and hypothalamus. Normal tectal plate and pineal gland. Normal midbrain, florence and medulla. Normal cerebellum. Normal basal cisterns. No demonstrated orbital abnormality, within the constraints of a routine brain study. Normal visualized paranasal sinuses. Normal calvarium and skull base. Normal visualized soft tissue structures. Normal visualized upper cervical spine. MRI/Brain W/WO Contrast IMPRESSION: Normal unenhanced and enhanced MRI of the bilateral internal auditory canals (I.A.C''s). Electronically Signed: Uri Rowe MD at 17:14 EDT ,
== END | disposition home or self-care (01) ==
LOC: MRI 13:14
PROVIDERS: PCP Internal Medicine; Referring Provider Otolaryngology; Visit Provider Otolaryngology
DX: H90.41 Sensorineural hearing loss, unilateral, right ear, with unrestricted hearing on the contralateral side (principal)
CPT/HCPCS: 70553; A9575

== ENCOUNTER → 2024-07-28 | Outpatient (CLI) | payer OTHER, SELFPAY ==
--- NOTE | 2024-07-28 08:52 | US_ITS ---
STUDY: ABDOMINAL ULTRASOUND - RIGHT UPPER QUADRANT REASON FOR VISIT: Female, 33 years old abdominal pain TECHNIQUE: Ultrasound evaluation of the right upper quadrant was performed with real-time and static verduzco-scale imaging. TECHNICAL QUALITY: Adequate. COMPARISON: None. FINDINGS: Liver: The liver measures 14.3 cm. There is normal echogenicity of the liver. The bile ducts are within normal limits. There is hepatic color flow. The direction of portal flow is hepatopetal. There is no demonstrated mass lesion. Gallbladder: Normal distended gallbladder. The gallbladder wall measures 2 mm. There is a negative sonographic Sher''s sign. There is no pericholecystic fluid. There are no gallstones. Common Bile Duct (C.B.D.): The common bile duct measures 5 mm. Pancreas: Normal size of the head, body and tail of the pancreas. There is normal echogenicity of the pancreas. There is no demonstrated pancreatic mass or cyst. Right Kidney: Normal size of the right kidney. The right kidney measures 11.4 cm. Normal renal cortex. The right cortex measures 1.4 cm. There is no demonstrated renal mass or cyst. There is no right hydronephrosis. US/Gallbladder IMPRESSION: Normal right upper quadrant ultrasound examination. Electronically Signed: Uri Rowe MD at 13:02 EST ,
== END | disposition home or self-care (01) ==
LOC: US 08:51
PROVIDERS: PCP Internal Medicine; Referring Provider Student in an Organized Health Care Education/Training Program; Visit Provider Student in an Organized Health Care Education/Training Program
DX: R10.9 Unspecified abdominal pain (principal)
CPT/HCPCS: 76705

== ENCOUNTER → 2024-08-11 | Outpatient (CLI) | payer OTHER, SELFPAY ==
[2024-08-14 04:06] LABS: Pancreatic Elastase, Fecal > 800 (>200)
[2024-08-15 15:08] LABS: Calprotectin, Stool 17 ug/g (0-120)
== END | disposition home or self-care (01) ==
LOC: LABSPEC 09:21
PROVIDERS: PCP Internal Medicine; Referring Provider Student in an Organized Health Care Education/Training Program; Visit Provider Student in an Organized Health Care Education/Training Program
DX: K58.9 Irritable bowel syndrome, unspecified (principal); R19.7 Diarrhea, unspecified
CPT/HCPCS: 82653; 83630; 83993; 87177; 87209; 87329; 87493; 87506

== ENCOUNTER → 2024-10-27 | Outpatient (CLI) | payer OTHER, SELFPAY ==
[2024-10-31 07:07] LABS: Endomysial Antibody IgA Negative (Negative); Immunoglobulin A 168 mg/dL (87-352); t-Transglutaminase IgA <2 U/mL (0-3)
[2024-11-02 19:08] LABS: Beef <0.10 kU/L (Class 0); Chocolate <0.10 kU/L (Class 0); Codfish <0.10 kU/L (Class 0); Corn <0.10 kU/L (Class 0); Egg, Whole <0.10 kU/L (Class 0); Milk (Cow) <0.10 kU/L (Class 0); Mussels <0.10 kU/L (Class 0); Peanut <0.10 kU/L (Class 0); Pork <0.10 kU/L (Class 0); Salmon <0.10 kU/L (Class 0); Shrimp <0.10 kU/L (Class 0); Soybean <0.10 kU/L (Class 0); Tuna <0.10 kU/L (Class 0); Wheat <0.10 kU/L (Class 0)
== END | disposition home or self-care (01) ==
LOC: LAB 13:18
PROVIDERS: PCP Internal Medicine; Referring Provider Student in an Organized Health Care Education/Training Program; Visit Provider Student in an Organized Health Care Education/Training Program
DX: R11.2 Nausea with vomiting, unspecified (principal); R19.7 Diarrhea, unspecified; R10.11 Right upper quadrant pain
CPT/HCPCS: 36415; 82784; 83516; 86003; 86005; 86255

== ENCOUNTER → 2024-11-10 | Outpatient (CLI) | payer OTHER, SELFPAY ==
--- NOTE | 2024-11-10 07:59 | NM_ITS ---
PROCEDURE: HEPATOBILLIARY IMAGING REASON FOR EXAM: Nausea and vomiting. Patient is . TECHNIQUE: RADIOPHARMACEUTICAL: 5 mCi of technetium labeled mebrofenin. Imaging of the right upper quadrant was obtained. COMPARISON: None. FINDINGS: There is good uptake of the radiopharmaceutical by the liver. Normal gallbladder visualization with the gallbladder identified by 60 minutes. NM/Hepatobilliary Imaging IMPRESSION: The gallbladder is opacified at 60 minutes. Correlation with ultrasound of the gallbladder recommended. Reading Location: [id number]
== END | disposition home or self-care (01) ==
LOC: NM 07:58
PROVIDERS: PCP Internal Medicine; Referring Provider Student in an Organized Health Care Education/Training Program; Visit Provider Student in an Organized Health Care Education/Training Program
DX: R10.11 Right upper quadrant pain (principal)
CPT/HCPCS: 78226; A9537

== ENCOUNTER → 2024-12-29 | Outpatient (CLI) | payer OTHER, SELFPAY ==
--- NOTE | 2024-12-29 08:46 | NM_ITS ---
PROCEDURE: HEPATOBILIARY IMAGING 12/29/2024 REASON FOR EXAM: RUQ PAIN TECHNIQUE: Intravenous Choletec with planar imaging of the abdomen. RADIOPHARMACEUTICAL: 5.2 mCi of Mebrofenin IV COMPARISON: Gallbladder ultrasound dated 07/28/2024. hepatobiliary scan dated 11/10/2024 FINDINGS: Prompt uptake of the radiopharmaceutical by the hepatocytes. Prompt appearance of activity in the small bowel. Gallbladder activity is again visualized. NM/Hepatobilliary Imaging IMPRESSION: Unremarkable hepatobiliary scan without pharmaceutical stimulation. Similar fi ndings were noted on the previous study. Reading Location: [facility]
== END | disposition home or self-care (01) ==
LOC: NM 08:45
PROVIDERS: PCP Internal Medicine; Referring Provider Student in an Organized Health Care Education/Training Program; Visit Provider Student in an Organized Health Care Education/Training Program
DX: R10.11 Right upper quadrant pain (principal)
CPT/HCPCS: 78226; A9537

== ENCOUNTER → 2025-04-11 | Outpatient (CLI) | payer OTHER, SELFPAY ==
[2025-04-11 10:41] LABS: CRP 3.41 mg/L (0.0-3.0)
[2025-04-12 13:08] LABS: ANTINUCLEAR ANTIBODIES DIRECT Negative (Negative)
[2025-04-12 14:09] LABS: Lyme Scn Total Ab w/Rflx Negative (Negative)
== END | disposition home or self-care (01) ==
LOC: LAB 09:29
PROVIDERS: PCP Internal Medicine; Referring Provider Physician Assistant; Visit Provider Physician Assistant
DX: M79.10 Myalgia, unspecified site (principal)
CPT/HCPCS: 36415; 85652; 86038; 86140; 86225; 86431; 86618

== ENCOUNTER 2025-04-20 08:09 | Emergency (ER) | payer OTHER, SELFPAY ==
[2025-04-20 08:09] VITALS: BP 154/114; PULSE 88; RESP 16; TEMP 36.7; O2SAT 100; BMI 26.2
--- NOTE | 2025-04-20 08:59 | EKG12_ITS ---
Test Reason : CP/TIGHTNESS Blood Pressure : */* mmHG Vent. Rate : 70 BPM Atrial Rate : 70 BPM P-R Int : 148 ms QRS Dur : 90 ms QT Int : 380 ms P-R-T Axes : 3 27 56 degrees QTcB Int : 410 ms Normal sinus rhythm Normal ECG Confirmed by TAY MAYO, MARICEL ([id number]), medical editor JULIANA RUBY ([id number]) on 04/23/2025 9:14:19 AM Referred By: Confirmed By: MARICEL CROSS MD
[2025-04-20 10:09] VITALS: BP 116/89; PULSE 74; RESP 18; O2SAT 100
[2025-04-20 10:49] LABS: Anion Gap 8 (5-15); BUN 13 mg/dL (4-19); BUN/Creat Ratio 17.6 RATIO (10-20); Calcium,Total 9.1 mg/dL (7.6-11.0); Carbon Dioxide 30.5 mmol/L (21.0-32.0); Chloride 101 mmol/L (98-108); Estimated Creatinine Clearance 97.01 ml/min (50-250); Glucose 101 mg/dL (70-99); Potassium 3.4 mmol/L (3.3-5.1)
[2025-04-20 11:00] VITALS: BP 113/78; PULSE 96; RESP 18; O2SAT 97
--- NOTE | 2025-04-20 11:27 | EX.ED.DYSGE1 ---
HPI History of Present Illness Chief Complaint: Palpitations Detail of Chief Complaint: Palpitations since last night Informant: patient Onset/Context/Timing Onset: Yesterday Timing: Continuous Quality: palpitations Location: chest Current Severity: Feels her heartbeat Maximum Severity: Feels her heartbeat Worsened by: Nothing Relieved by: Nothing Associated Symptoms Associated Symptoms: Anxious Narrative Narrative: Patient is a 34-year-old female. She has history of COVID, M?ni?re's disease and right upper quadrant pain of uncertain etiology. She is on hydrochlorothiazide for M?ni?re's disease. She presents because of palpitations her last evening. When she took her pulse it was 77. Her heart rate is never been fast. Patient denies any skipped beats. Patient does not drink any caffeinated beverages. Patient [place] black or maroon stool. Patient denies orthostatic symptoms. There is no history of sudden . Prior similar symptoms: No Recent Illness/Hospitalization: No PFSH PFSH Medical History Anxiety Acute allergic conjunctivitis Nasal congestion GBS (group B streptococcus) UTI complicating Preventative health care exam Meniere disease Gestational diabetes mellitus (GDM) affecting Wellness examination Abnormal glucose affecting Polycystic ovaries Hearing problem Headache, migraine history of bone fracture Home Medications ?Medication ?Instructions ?Recorded ?Last Taken ?Type hydrochlorothiazide 12.5 mg tablet 12.5 mg PO QDAY 06/16/24 Unknown History folic acid 400 mcg tablet 400 mcg PO DAILY 07/04/24 Unknown History prednisone 20 mg tablet 20 mg PO BID #10 tabs 04/13/25 Unknown Rx Allergy/AdvReac Type Severity Reaction Status Date / Time No Known Allergies Allergy Verified 04/20/25 08:12 Family History Grandmother Thyroid disorder SLE (systemic lupus erythematosus related syndrome) Grandfather Heart disease High cholesterol Mother Hypertension Father Atrial fibrillation Mitral valve prolapse Other Myocardial infarction Surgical History History of wisdom tooth extraction history of birthmark removal history of laporscopic knee surgery Social History adopted: No household members: spouse and children housing: house number of children: 1 current occupational status: employed 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 current occupational exposures/hazards: No pets and animals: Yes pets and animals: dog(s) history of recent travel: No sexually active: Yes Smoking Status: Never smoker alcohol intake: current alcohol intake frequency: holidays/special occasions only substance use type: does not use diet: low salt well-balanced diet: daily or most days caffeine: No eating out: 1-3 times/week during the past year weight has: remained stable what type of physical activity do you participate in: none frequency: 1-2 times per week 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/faith: Restorationist seatbelt use: always do you feel safe at home: Yes 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 [employer] ROS ROS ED Constitutional Constitutional ED: Denies chills, fever(s), subjective, sweats or weight loss Eyes Eyes: Denies blurry vision or change in vision ENT ENT ED: Denies rhinorrhea Cardiovascular Cardiovascular: Reports palpitations; Denies chest pain, orthopnea, paroxysmal nocturnal dyspnea or racing heartbeat Respiratory/Chest Respiratory/Chest: Denies cough, dyspnea, dyspnea on exertion, orthopnea or paroxysmal nocturnal dyspnea Gastrointestinal Gastrointestinal: Denies abdominal pain, diarrhea, melena or vomiting Neurologic Neurologic: Denies weakness Psychiatric Psychiatric: Denies anxiety or depression Hematologic/Lymphatic Hematologic/Lymphatic: Reports systems reviewed and no addt'l complaints, except as documented EXAM Physical Exam Const Vital Signs: 04/20/25 08:09 04/20/25 10:09 04/20/25 11:00 Temperature 98.1 F Temperature Source Oral Pulse Rate 88 74 96 Respiratory Rate 16 18 18 Blood Pressure 154/114 H 116/89 H 113/78 Blood Pressure Mean 127 98 89 Pulse Ox 100 100 97 Oxygen Delivery Method Room Air Room Air Room Air Positive well nourished and well developed Constitutional Narrative: Patient is slightly anxious. She is tearful. General Appearance ED: well developed; Negative for pallor HEENT Reports moist mucous membranes HEENT Narrative: Head is atraumatic normocephalic. Ears normal. Nares patent. Eyes PERRL and EOMs intact bilaterally General Eye ED: Negative for pale conjunctiva or scleral icterus Neck no lymphadenopathy, supple and no JVD Neck Narrative: Trachea is midline. There is no dysphonia. There is no stridor Resp normal respiratory effort and clear to auscultation bilaterally Cardio regular rate, regular rhythm, S1 normal heart sound, S2 normal heart sound and no murmurs Rate: other Other Details: There is no click or rub appreciated. Back/Spine no CVA tenderness Extremity Extremity Narrative: There is no asymmetry, swelling, discoloration, leg vein distention, palpable cords or tenderness along the distribution of the deep venous system. Neuro oriented x3 and CN's II-XII intact bilaterally Sensorium / Orientation: alert Psych Mood & Affect: anxious Skin no rashes or lesions noted, no wounds and skin turgor normal General Skin Exam: elasticity normal; Negative for jaundice or pallor MDM MDM MDM Narrative Medical decision making narrative: Patient presents with palpitations. She has no history of weight loss weight gain or any symptoms of hyperthyroidism. She is not on caffeinated beverages. She placed on the monitor. There is no ectopy. I will obtain EKG per protocol. Electrolyte panel was obtained to assess potassium. Even when patient assessed her vitals she had a normal heart rate. She has no history of anxiety attacks or panic attacks. Of note she had negative's [place] sign. She was not hyperreflexic does not have clonus. Patient's PERC negative. Patient's Wells score is less than 3. Patient has no respiratory symptoms. She has no findings consistent DVT either. History & Record Review Additional record(s) reviewed:: Prior outpatient record (Outpatient urgent care visit for pharyngitis October 2024. And annual physical June 2024 note authored by Lashawn Garcia.) Lab Data Attestation: I reviewed the patient's lab results. Lab results narrative: Basic metabolic panel is normal. Labs: Laboratory Results - last 24 hr 04/20/25 09:50 Sodium 140 Potassium 3.4 Chloride 101 Carbon Dioxide 30.5 Anion Gap 8 BUN 13 Creatinine 0.76 Estim Creat Clear Calc 97.01 Est GFR (MDRD) Non-Af 106 BUN/Creatinine Ratio 17.6 Glucose 101 H Calcium 9.1 EKG Initial EKG: Attestation: I personally reviewed and interpreted this EKG as follows: Interpretation: Sinus Rhythm (Rate is 70. EKG is normal. AR interval is 148 ms. Cures duration 90 ms. QT duration 280 ms. [place] is normal.) Treatment and Re-Evaluation :: Patient was informed that her tests are unremarkable. With a normal heart rate when she is feeling these palpitations uncertain the cause. Recommend follow-up with her doctor. Discharge Plan Triage Chief Complaint: Palpitations ED Provider: Carlos Martin Dx/Rx/DC Orders Clinical Impression: Palpitations, Meniere disease Instructions: ED Heart Palpitations Prescriptions: No Action hydrochlorothiazide 12.5 mg tablet 12.5 mg PO QDAY folic acid 400 mcg tablet 400 mcg PO DAILY prednisone 20 mg tablet 20 mg PO BID Qty: 10 0RF Primary Care Provider: Jaswant Rico Referrals: Jaswant Rico MD [Primary Care Provider] - 1 Week if not improving Print Language: Mongolian Disposition Disposition: Home, Self Care
[2025-04-20 11:35] VITALS: BP 125/85; PULSE 69; RESP 18; TEMP 36.8; O2SAT 99
== END 2025-04-20 11:42 | disposition home or self-care (01) ==
PROVIDERS: Emergency Provider Emergency Medicine; PCP Internal Medicine; Visit Provider Emergency Medicine
DX: R00.2 Palpitations (principal); R10.11 Right upper quadrant pain; H81.09 Meniere's disease, unspecified ear; Z79.899 Other long term (current) drug therapy
CPT/HCPCS: 80048; 93005; 99283; A4216

== ENCOUNTER → 2025-06-29 | Outpatient (CLI) | payer OTHER, SELFPAY ==
--- NOTE | 2025-06-29 13:53 | US_ITS ---
EXAM: BREAST LIMITED UNILATERAL; BILAT BRST ANGEL LUIS STAND ALONE; DIAG MAMM W/CAD, BILAT DATE: 06/29/2025 CLINICAL HISTORY: F, Age 34 y/o , LEFT BREAST LUMP; LEFT UPPER OUTER QUADRANT FULLNESS TECHNIQUE: Procedure Code: USBRSTJOMAR; BIBILATBRTOM; BIDMWCADB Modality: US; MG Procedure: BREAST LIMITED UNILATERAL; BILAT BRST ANGEL LUIS STAND ALONE; DIAG MAMM W/CAD, BILAT COMPARISON: Baseline examination no priors.. FINDINGS: MAMMOGRAM: TISSUE DENSITY: There are scattered areas of fibroglandular density. Bilateral Breast Mammographic Findings: The patient presents with palpable concern/fullness in the left upper-outer quadrant noticed by the clinician. On the present examination, there are no suspicious mammographic findings in the left upper- outer quadrant. Otherwise, there are no suspicious findings in the left breast. No significant masses, calcifications or other abnormalities are identified in the right breast. ULTRASOUND: Ultrasound performed of the upper-outer left breast in the area of clinician interest/area of fullness demonstrates no suspicious sonographic findings. There are no suspicious solid masses or abnormal cystic elements. US/Breast Limited Unilateral IMPRESSION: 1. There are no suspicious mammographic or sonographic findings in the area of clinician concern in the left breast. 2. There is no evidence of malignancy in either breast. OVERALL FINAL ASSESSMENT BI-RADS 1: NEGATIVE. RECOMMENDATION: OTHER. Annual screening mammogram is recommended to begin at i n the average risk woman at the age of 40. Additional Recommendation none A letter with findings and recommendations will be mailed to the patient. Reading Location: [id number]
--- NOTE | 2025-06-29 14:03 | BI_ITS ---
EXAM: BREAST LIMITED UNILATERAL; BILAT BRST ANGEL LUIS STAND ALONE; DIAG MAMM W/CAD, BILAT DATE: 06/29/2025 CLINICAL HISTORY: F, Age 34 y/o , LEFT BREAST LUMP; LEFT UPPER OUTER QUADRANT FULLNESS TECHNIQUE: Procedure Code: USBRSTJOMAR; BIBILATBRTOM; BIDMWCADB Modality: US; MG Procedure: BREAST LIMITED UNILATERAL; BILAT BRST ANGLE LUIS STAND ALONE; DIAG MAMM W/CAD, BILAT COMPARISON: Baseline examination no priors.. FINDINGS: MAMMOGRAM: TISSUE DENSITY: There are scattered areas of fibroglandular density. Bilateral Breast Mammographic Findings: The patient presents with palpable concern/fullness in the left upper-outer quadrant noticed by the clinician. On the present examination, there are no suspicious mammographic findings in the left upper- outer quadrant. Otherwise, there are no suspicious findings in the left breast. No significant masses, calcifications or other abnormalities are identified in the right breast. ULTRASOUND: Ultrasound performed of the upper-outer left breast in the area of clinician interest/area of fullness demonstrates no suspicious sonographic findings. There are no suspicious solid masses or abnormal cystic elements. BI/Bilat Brst Angel Luis Stand Alone IMPRESSION: 1. There are no suspicious mammographic or sonographic findings in the area of clinician concern in the left breast. 2. There is no evidence of malignancy in either breast. OVERALL FINAL ASSESSMENT BI-RADS 1: NEGATIVE. RECOMMENDATION: OTHER. Annual screening mammogram is recommended to begin at i n the average risk woman at the age of 40. Additional Recommendation none A letter with findings and recommendations will be mailed to the patient. Reading Location: [id number]
== END | disposition home or self-care (01) ==
LOC: OPBI 13:50
PROVIDERS: PCP Internal Medicine; Referring Provider Obstetrics & Gynecology; Visit Provider Obstetrics & Gynecology
DX: N63.20 Unspecified lump in the left breast, unspecified quadrant (principal)
CPT/HCPCS: 76642; 77062; 77066; G0279

== ENCOUNTER 2025-08-10 07:22 | Day surgery (SDC) | payer OTHER, SELFPAY ==
[2025-08-10] VITALS (7 sets, daily range): BP systolic 91–127; BP diastolic 61–93; PULSE 72–78; RESP 16; TEMP 36.3–37.1; O2SAT 95–100; BMI 27.3
--- NOTE | 2025-08-10 07:25 | PCM.PRE.AN2 ---
ASA Classification* ASA Classification ASA Classification: 2 Assessment & Plan Anesthesia* Anesthesia Assessment Anesthesia Assessment: Discussed sedation and/or anesthesia options, risks, benefits, and alternatives with patient/parents/legal guardian/POA. Questions invited. The patient/parents/legal guardian/POA seems to understand and agrees to proceed with anesthesia plan. Reviewed the physical assessment, medical history, allergy history and patient home medications list prior to surgery/procedure/anesthetic and documented any changes. Performed airway and anesthesia risk assessments. Anesthesia Type Anesthesia Type: MAC Anesthesia Focused Assessment* Airway Assessment Mouth opens: >3 cm Mallampati Score: II Labs Anesthesia Preop lab: CBC WBC, (4.4-11.0) 5.4 K/mm3 04/11/25, 09:33 RBC, (4.2-5.4) 4.42 M/mm3 04/11/25, 09:33 Hgb, (12.0-15.0) 13.2 g/dL 04/11/25, 09:33 Hct, (37-47) 40.0 % 04/11/25, 09:33 Plt Count, (150-450) 297 K/mm3 04/11/25, 09:33 CHEMISTRY Potassium, (3.3-5.1) 3.4 mmol/L 04/20/25, 09:50 Sodium, (133-145) 140 mmol/L 04/20/25, 09:50 Phosphorus, (2.7-4.5) 3.1 mg/dL 04/11/25, 09:33 BUN, (4-19) 13 mg/dL 04/20/25, 09:50 Creatinine, (0.70-1.20) 0.76 mg/dL 04/20/25, 09:50 Glucose, (70-99) 101 mg/dL H 04/20/25, 09:50 POC Glucose, (70-110) 77 mg/dL 09/19/21, 05:16 TSH, (0.358-3.74) 2.37 uIU/mL 06/26/21, 07:01 COAG Pre-Assessment Diagnosis/Proposed Procedure Planned Operative Procedure(s): EGD Anesthesia History Anesthesia History - machine clipper: Anesthesia History - machine clipper Hx Hospitalization No 08/08/25 10:13 Any Problems With Anesthesia No 08/08/25 10:13 Cholinesterase deficiency No 08/08/25 10:13 You/Your Family Experience No 08/08/25 10:13 fever (hyperthermia) with Relationship Recent Exposure to Contagious Disease Does patient have nerve No 08/08/25 10:13 stimulator Patient instructed to have device shut off --Does patient have Pacemaker or ICD? When Was Last Pacemaker Check QUESTION #4 FULL TEXT: You/Your Family Experience fever (hyperthermia) with Anesthesia Last Oral Intake Last Oral intake: Last Oral Intake NPO since Meds taken in AM with sips of water? Meds patient instructed to take am of surgery PONV PONV - machine clipper: PONV - machine clipper Female Yes 08/08/25 10:13 HX of Motion Sickness Yes 08/08/25 10:13 HX of N/V After Surgery No 08/08/25 10:13 Non-Smoker Yes 08/08/25 10:13 Duration of Surgery greater No 08/08/25 10:13 than 60 minutes Number of Risk Factors 3 08/08/25 10:13 PONV Score Moderate Risk 08/08/25 10:13 Height & Weight Height & Weight: Anesthesia: Height & Weight Height 5 ft 3 in 07/06/25 13:24 Respiratory Assessment Respiratory Assessment - machine clipper: Respiratory Tract Infection Hx - machine clipper Hx Respiratory Tract Infection No 08/08/25 10:13 STOP Sleep Apnea STOP Sleep Apnea - machine clipper: STOP Sleep Apnea - machine clipper Hx Hypertension No 08/08/25 10:13 Hx Sleep Apnea No 08/08/25 10:13 CPAP BIPAP Do you snore loudly (louder No 08/08/25 10:13 than talking or can be heard Do you often feel tired/ No 08/08/25 10:13 fatigued/ sleepy during daytime? Has anyone observed you stop No 08/08/25 10:13 breathing during sleep? STOP Results Negative 08/08/25 10:13 QUESTION #5 FULL TEXT : Do you snore loudly (louder than talking or can be heard through closed doors)? 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 Specify any problems Hx of Preganancy in last 3 No 08/08/25 10:13 Months Nurse Filling Out Transfusion [facility] 08/08/25 10:13 & Questions: Date: 08/08/25 08/08/25 10:13 Time: 10:19 08/08/25 10:13 Patient unable to answer at this time (ie. confused, unrespo /Reproduction History /Reproductive History - machine clipper: /Reproductive Hx- machine clipper Hx Now No 08/08/25 10:13 Gestational Age (in weeks): EDC: Hx Hx Para Hx Section SAB No 08/08/25 10:13 Does the father of the baby or his family experience fever w Father of the baby Malignant Hypertension history comment PFSH Medical History Wears hearing aid Syncope Heartburn Blood glucose elevated Anxiety Acute allergic conjunctivitis Nasal congestion GBS (group B streptococcus) UTI complicating Preventative health care exam Meniere disease Gestational diabetes mellitus (GDM) affecting Wellness examination Abnormal glucose affecting Polycystic ovaries Hearing problem Headache, migraine history of bone fracture Home Medications ?Medication ?Instructions ?Recorded ?Last Taken ?Type hydrochlorothiazide 12.5 mg tablet 12.5 mg PO QDAY 06/16/24 Unknown History folic acid 400 mcg tablet 400 mcg PO DAILY 07/04/24 Unknown History ondansetron 4 mg disintegrating 4 mg PO Q8H #20 tabs 07/11/25 Unknown Rx tablet Allergy/AdvReac Type Severity Reaction Status Date / Time No Known Allergies Allergy Verified 08/08/25 10:13 Family History Grandmother Thyroid disorder SLE (systemic lupus erythematosus related syndrome) Grandfather Heart disease High cholesterol Mother Hypertension Father Atrial fibrillation Mitral valve prolapse Other Myocardial infarction Surgical History History of wisdom tooth extraction history of birthmark removal history of laporscopic knee surgery Social History adopted: No household members: spouse and children housing: house number of children: 2 current occupational status: employed 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 current occupational exposures/hazards: No pets and animals: Yes pets and animals: dog(s) history of recent travel: No sexually active: Yes Smoking Status: Never smoker alcohol intake: current alcohol intake frequency: holidays/special occasions only substance use type: does not use diet: low salt well-balanced diet: daily or most days caffeine: No eating out: 1-3 times/week during the past year weight has: remained stable what type of physical activity do you participate in: none frequency: 1-2 times per week randy/orthodox: Episcopalian seatbelt use: always do you feel safe at home: Yes 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
--- OUTSIDE RECORDS SUMMARY | 2025-08-10 07:25 | XMS RPT_ITS | CCD ---
Author Organization [facility] Care Team Providers Care Minibus Driver Name Role Phone LUANA DE LA ROSA Attending Unavailable Dr. Jaswant Rico Primary Care Provider [phone] Dr. Jaswant Rico Attending Provider [phone] Dr. Jaswant Rico Referring Provider [phone] CHARMAINE Haney Attending Provider Dr. Grace Juarez Attending Provider 1([phone] Dr. Jaswant Rico Primary Care Provider [phone] Dr. Jaswant Rico Referring Provider [phone] Dr. Grace Juarez Attending Provider 1(3 30) Dr. Evita Gaytan Attending Provider [phone] Dr. Jaswant Rico Attending Provider [phone] LUZ MARIA Allen Attending Provider Dr. Jaswant Rico Primary Care Provider [phone] Dr. Jaswant Rico Referring Provider [phone] Dr. Grace Juarez Attending Provider 1(3 30) CURT Hendrickson Attending Provider CURT Whitman Attending Provider [phone] Dr. Jaswant Rico Primary Care Provider [phone] Dr. Jaswant Rico Referring Provider [phone] Dr. Grace Juarez Attending Provider 1(3 30) Dr. Evita Gaytan Attending Provider [phone] Dr. Jaswant Rico Primary Care Provider [phone] Dr. Jaswant Rico Referring Provider [phone] Dr. Grace Juarez Attending Provider [phone] Geoffrey Young, Dr. Edwards Admit Provider Dr. Grace Juarez Other Provider Donnell DEVELOPMENTAL PSYCHOLOGIST, DEVELOPMENTAL PSYCHOLOGIST-C Michelle Attending Provider [phone] Josue DEVELOPMENTAL PSYCHOLOGIST, DEVELOPMENTAL PSYCHOLOGIST-C Lexie Attending Provider [phone] Jacky MAYO, Dr. Michaud Primary Care Provider Jacky MAYO, Dr. Michaud Referring Provider [phone] Mady Omalley Attending Provider Mady Omalley Referring Provider Tra Garsia Attending Provider Jacky MAYO, Dr. Michaud Primary Care Provider Mady Omalley Attending Provider Mady Omalley Referring Provider Dr. Jaswant Rico MD Referring Provider [phone] Tra Garsia Attending Provider Jacky MAYO, Dr. Michaud Primary Care Provider Mady Omalley Attending Provider Mady Omalley Referring Provider Jacky MAYO, Dr. Michaud Primary Care Provider Mady Omalley Attending Provider Mady Omalley Referring Provider Jacky MAYO, Dr. Michaud Referring Provider [phone] Toñito Baker Attending Provider [phone] Toñito Baker Referring Provider Assessment, Health Risk Attending Provider Unava ilable Assessment, Health Risk Referring Provider Unava ilable Mario MAYO, Dr. Gonzalez Emergency Provider Grace Juarez Attending Unavailabl e Oleghe, Efewongbe Primary Care Unavailable Oleghe, Efewongbe Referring Unavailable Oleghe, Efewongbe Referring Unavailable Oleghe, Efewongbe Primary Care Unavailable Mady Johnson Attending Unavailable Oleghe, Efewongbe Referring Unavailable Oleghe, Efewongbe Attending Unavailable Oleghe, Efewongbe Primary Care Unavailable Oleghe, Efewongbe Primary Care Unavailable Oleghe, Efewongbe Referring Unavailable Toñito Baker Attending Unavailable Oleghe, Efewongbe Referring Unavailable Oleghe, Efewongbe Primary Care Unavailable Mady Johnson Attending Unavailable Oleghe, Efewongbe Primary Care Unavailable Oleghe, Efewongbe Referring Unavailable Tra Garsia Attending Unavailable Oleghe, Efewongbe Referring Unavailable Mady Johnson Attending Unavailable Oleghe, Efewongbe Primary Care Unavailable Oleghe, Efewongbe Primary Care Unavailable Oleghe, Efewongbe Referring Unavailable Mady Johnson Attending Unavailable Oleghe, Efewongbe Primary Care Unavailable Oleghe, Efewongbe Referring Unavailable Tra Garsia Attending Unavailable Oleghe, Efewongbe Primary Care Unavailable aMdy Johnson Attending Unavailable Mady Johnson Referring Unavailable Mady Johnson Attending Unavailable Mady Johnsno Referring Unavailable Oleghe, Efewongbe Primary Care Unavailable Mady Johnson Attending Unavailable Mady Johnson Referring Unavailable Oleghe, Efewongbe Primary Care Unavailable Oleghe, Efewongbe Primary Care Unavailable Mady Johnson Attending Unavailable Mday Johnson Referring Unavailable Carlos Martin Attending Unavailable Oleghe, Efewongbe Primary Care Unavailable Oleghe, Efewongbe Primary Care Unavailable Toñito Baker Referring Unavailable Toñito Baker Attending Unavailable Grace Juarez Referring Unavailabl e Grace Juarez Attending Unavailabl e Jaswant Rico Primary Care Unavailable Jaswant Rico Primary Care Unavailable Assessment, Health Risk Referring Unavaila ble Assessment, Health Risk Attending Unavaila ble Jaswant Rico Primary Care Unavailable Mady Johnson Attending Unavailable Mady Johnson Referring Unavailable Jacky MAYO, Dr. Michaud Primary Care Physician Jacky MAYO, Dr. Michaud Referring Provider [phone] Toñito Baker Attending Physician Toñito Baker Referring Provider Assessment, Health Risk Attending Physician Unav ailable Assessment, Health Risk Referring Provider Doreen Martin MD, Dr. Gonzalez Attending Physician Dr. Carlos Martin MD Emergency Department Physician Dr. Grace Juarez DO Attending Physician Dr. Grace Juarez DO Referring Provider Jacky MAYO, Dr. Michaud Attending Physician [phone] Mady Omalley Attending Physician Medications Current Medications Medication Drug Class(es) Dates Sig (Normalized) Sig (Original) folic acid 0.4 mg oral tablet (20 sources) Start: 07-04-2024 take 1 tablet by mouth once daily Folic Acid 400 mcg tablet Active 400 ug PO DAILY July 03, 2024 11:00pm Complies with drug therapy Start: 06-11-2022 End: 09-11-2022 take 0.4 mg by mouth once daily Folic Acid 400 mcg tablet Discontinued 0.4 mg PO DAILY June 10, 2022 11:00pm September 11, 2022 4:03pm Start: 06-11-2022 End: 09-11-2022 take 0.4 mg by mouth once daily Folic Acid Discontinued 0.4 MG PO DAILY June 11, 2022 12:00am September 11, 2022 5:03pm Start: 08-19-2020 End: 01-28-2021 take 0.4 mg by mouth once daily Folic Acid 400 mcg tablet Discontinued 0.4 mg PO DAILY August 19, 2020 12:00am January 28, 2021 1:35pm Start: 08-19-2020 End: 01-28-2021 take 0.4 mg by mouth once daily Folic Acid Discontinued 0.4 MG PO DAILY August 19, 2020 1:00am January 28, 2021 2:35pm hydroCHLOROthiazide 12.5 mg oral tablet (20 sources) Thiazide Diuretic Start: 06-16-2024 take 1 tablet by mouth once daily Hydrochlorothiazide 12.5 mg tablet Active 12.5 mg PO daily June 15, 2024 11:00pm Complies with drug therapy Start: 06-11-2022 End: 09-11-2022 Hydrochlorothiazide 25 mg ta blet Discontinued 25 mg PO June 10, 2022 11:00pm September 11, 2022 4:04pm ondansetron 4 mg disintegrating oral tablet (14 sources) Serotonin-3 Receptor Antagonist Start: 07-11-2025 take 1 tablet by mouth every eight hours Ondansetron 4 mg tablet,disintegrating Active 4 mg PO Q8H 20 2 July 11, 2025 12:00am Complies with drug therapy Start: 10-21-2022 End: 09-24-2023 take 1 tablet by mouth every four hours as needed for nausea and vomiting Ondansetron 4 mg tablet,disintegrating Discontinued 4 mg PO Q4H as needed for nausea and vomiting 60 2 October 21, 2022 12:00am September 24, 2023 3:01pm Completed/Discontinued Medications Medication Drug Class(es) Dates Sig (Normalized) Sig (Original) amoxicillin 500 mg oral capsule (13 sources) Penicillin-class Antibacterial Start: 12-12-2022 End: 01-29-2023 take 1 capsule by mouth three times daily Amoxicillin 500 mg capsule Discontinued 500 mg PO THREE TIMES A DAY 30 0 December 11, 2022 11:00pm January 29, 2023 1:58pm Acute frontal sinusitis Acute frontal sinusitis, unspecified amoxicillin 875 mg / clavulanate 125 mg oral tablet (15 sources) Penicillin-class Antibacterial Start: 01-27-2022 End: 06-11-2022 Amoxicillin-Pot Clavulanate 875-125 mg tablet Discontinued 1 {tbl} PO TWICE A DAY 20 0 January 26, 2022 11:00pm June 11, 2022 1:38pm Start: 01-27-2022 End: 06-11-2022 take 1 tablet by mouth twice daily Amoxicillin-Pot Clavulanate Discontinued 1 TABLET PO TWICE A DAY January 27, 2022 12:00am June 11, 2022 2:38pm Blood-Glucose Meter (Truetra ck Blood Glucose System) kit (20 sources) Start: 06-26-2021 End: 10-31-2021 Blood-Glucose Meter (Truetra ck Blood Glucose System) kit Discontinued 0 .ROUTE .MEDSUPPLY 1 0 June 26, 2021 2:18pm October 31, 2021 3:14pm As directed Start: 06-26-2021 End: 10-31-2021 Blood-Glucose Meter (Truetra ck Blood Glucose System) kit Discontinued 0 .ROUTE .MEDSUPPLY 1 0 June 26, 2021 3:18pm October 31, 2021 4:14pm As directed Start: 06-26-2021 End: 10-31-2021 Blood-Glucose Meter (Truetra ck Blood Glucose System) kit Discontinued 0 .ROUTE .MEDSUPPLY 1 June 26, 2021 3:18pm October 31, 2021 4:14pm As directed Start: 06-26-2021 End: 10-31-2021 Blood-Glucose Meter (Truetra ck Blood Glucose System) kit Discontinued 0 .ROUTE .MEDSUPPLY 1 June 26, 2021 2:18pm October 31, 2021 3:14pm As directed Start: 06-26-2021 End: 06-26-2021 Blood-Glucose Meter (Truetra ck Blood Glucose System) kit Discontinued 0 .ROUTE .MEDSUPPLY 1 0 June 25, 2021 11:00pm June 26, 2021 2:19pm As directed Start: 06-26-2021 End: 06-26-2021 Blood-Glucose Meter (Truetra ck Blood Glucose System) kit Discontinued 0 .ROUTE .MEDSUPPLY 1 0 June 26, 2021 12:00am June 26, 2021 3:19pm As directed Start: 06-26-2021 End: 06-26-2021 Blood-Glucose Meter (Truetra ck Blood Glucose System) kit Discontinued 0 .ROUTE .MEDSUPPLY June 26, 2021 12:00am June 26, 2021 3:19pm As directed Start: 06-26-2021 End: 06-26-2021 Blood-Glucose Meter ([employer] ck Blood Glucose System) kit Discontinued 0 .ROUTE .MEDSUPPLY June 25, 2021 11:00pm June 26, 2021 2:19pm As directed dexamethasone 6 mg oral tablet (7 sources) Corticosteroid Start: 09-24-2023 End: 09-24-2023 take 1 tablet by mouth once daily Dexamethasone 6 mg tablet Discontinued 6 mg PO DAILY 5 September 24, 2023 12:00am September 24, 2023 4:22pm diazePAM 5 mg oral tablet (15 sources) Benzodiazepine Start: 07-17-2022 End: 09-11-2022 take 1 tablet by mouth every eight hours as needed Diazepam 5 mg tablet Discontinued 5 mg PO EVERY 8 HOURS as needed for vertigo 10 July 17, 2022 12:00am September 11, 2022 4:03pm dicyclomine hydrochloride 20 mg oral tablet (8 sources) Anticholinergic Start: 05-09-2023 End: 06-14-2023 take 1 tablet by mouth three times daily as needed for pain Dicyclomine 20 mg tablet Discontinued 20 mg PO THREE TIMES A DAY as needed for abdominal pain 20 May 09, 2023 8:27pm June 14, 2023 9:00am docusate sodium 100 mg oral capsule (15 sources) Start: 09-18-2021 End: 10-31-2021 take 1 capsule by mouth once daily Docusate Sodium (Colace) 100 mg capsule Discontinued 100 mg PO DAILY 14 14 September 18, 2021 12:00am October 31, 2021 3:14pm ibuprofen 800 mg oral tablet (15 sources) Nonsteroidal Anti-inflammatory Drug Start: 09-18-2021 End: 10-31-2021 take 1 tablet by mouth every eight hours as needed for pain Ibuprofen 800 mg tablet Discontinued 800 mg PO Q8H as needed for pain 30 7 September 18, 2021 12:00am October 31, 2021 3:14pm meclizine hydrochloride 25 mg oral tablet (20 sources) Antiemetic Start: 10-22-2022 End: 06-16-2024 take 1 tablet by mouth three times daily as needed for nausea and vomiting Meclizine 25 mg tablet Discontinued 25 mg PO THREE TIMES A DAY as needed for nausea and vomiting 90 7 October 22, 2022 12:00am June 16, 2024 12:49pm Start: 10-30-2020 End: 01-28-2021 take 1 tablet by mouth every eight hours as needed for dizziness Meclizine 25 MG tablet,chewable Discontinued 25 mg PO EVERY 8 HOURS NEEDED as needed for Dizziness 20 0 October 30, 2020 6:25pm January 28, 2021 1:36pm Mv-Mins 40-Lphq-Zpiuk No.1-D webb (Pnv-Esbon) 28-1-300 mg capsule (14 sources) Start: 09-11-2022 End: 06-16-2024 Mv-Mins 88-Xzco-Ibzoo No.1-D webb (Pnv-Esbon) 28-1-300 mg capsule Discontinued 1 NMA PO DAILY September 11, 2022 12:00am June 16, 2024 12:49pm pregnacy Start: 09-11-2022 End: 06-16-2024 Mv-Mins 38-Tghw-Ttapf No.1-D webb (Pnv-Esbon) 28-1-300 mg capsule Discontinued 1 NMA PO DAILY September 11, 2022 1:00am June 16, 2024 1:49pm pregnacy Start: 09-11-2022 End: 06-16-2024 Mv-Mins 17-Wukw-Mhlii No.1-D webb (Pnv-Esbon) 28-1-300 mg capsule Discontinued 1 NMA PO DAILY September 11, 2022 1:00am June 16, 2024 1:49pm Start: 09-11-2022 End: 06-16-2024 Mv-Mins 82-Qnyq-Cdrtv No.1-D webb (Pnv-Esbon) 28-1-300 mg capsule Discontinued 1 NMA PO DAILY September 11, 2022 12:00am June 16, 2024 12:49pm Start: 09-11-2022 take 1 capsule by mo uth once daily Mv-Mins 19-Wahy-Wyqdn No.1-Dha (Pnv-Esbon) 28-1-300 mg capsule Active 1 CAP PO DAILY September 11, 2022 1:00am Start: 09-11-2022 take 1 capsule by mouth once M v-Mins 71-Fdvq-Mmaeu No.1-Dha (Pnv-Esbon) 28-1-300 mg capsule Active 1 CAP PO September 11, 2022 1:00am Start: 09-11-2022 take 1 capsule by mouth once M v-Mins 04-Zbcp-Evxpb No.1-Dha (Pnv-Esbon) 28-1-300 mg capsule Active CAP PO September 11, 2022 1:00am Start: 09-11-2022 take 1 capsule by mouth once M v-Mins 67-Zjxn-Sxleb No.1-Dha (Pnv-Esbon) 28-1-300 mg capsule Active CAP PO September 11, 2022 12:00am oseltamivir 75 mg oral capsule (7 sources) Neuraminidase Inhibitor Start: 10-18-2024 End: 10-23-2024 take 1 capsule by mouth twice daily Oseltamivir 75 mg capsule Discontinued 75 mg PO TWICE A DAY 10 5 October 18, 2024 12:00am October 22, 2024 12:00am October 23, 2024 12:15am predniSONE 20 mg oral tablet (20 sources) Start: 04-13-2025 End: 06-26-2025 take 1 tablet by mouth twice daily Prednisone 20 mg tablet Discontinued 20 mg PO TWICE A DAY 10 April 12, 2025 11:00pm June 26, 2025 1:29pm Start: 11-05-2020 End: 01-28-2021 take 1 tablet by mouth once daily Prednisone 20 mg tablet Discontinued 20 mg PO DAILY 5 November 05, 2020 12:00am January 28, 2021 1:36pm Start: 10-30-2020 End: 11-09-2020 take 4 tablets by mouth once daily, then take 3 tablets by mouth once daily, then take 2 tablets by mouth once daily, then take 1 tablet by mouth once daily Prednisone 10 MG tablet Discontinued 10 mg PO DAILY 20 October 30, 2020 12:00am November 08, 2020 12:00am November 09, 2020 12:04am Take 4 tabs p.o. daily x2 days, then take 3 tabs daily x2 days, then take 2 tabs daily x2 days, then take 1 tab daily x2 days Prenat.Vits,Pedro Luis,Uug-Hpdi-Jsx ic (8 sources) Start: 01-28-2021 End: 06-11-2022 take 1 tablet by mouth once daily Prenat.Vits,Pedro Luis,Tvp-Vclc-Fpbau Discontinued 1 TABLET PO DAILY January 28, 2021 12:00am June 11, 2022 2:38pm Start: 01-28-2021 End: 06-11-2022 take 1 tablet by mouth once daily Prenat.Vits,Pedro Luis,Rnm-Ztai-Mwclb Discontin ued 1 TABLET PO DAILY January 27, 2021 11:00pm June 11, 2022 1:38pm Prenat.Vits,Pedro Luis,Bud-Euxp-Ojj ic tablet (7 sources) Start: 01-28-2021 End: 06-11-2022 Prenat.Vits,Pedro Luis,Zdw-Iwue-Zfq ic tablet Discontinued 1 {tbl} PO DAILY January 28, 2021 12:00am June 11, 2022 2:38pm Start: 01-28-2021 End: 06-11-2022 Prenat.Vits,Pedro Luis,Xbq-Tvhh-Wmx ic tablet Discontinued 1 {tbl} PO DAILY January 27, 2021 11:00pm June 11, 2022 1:38pm promethazine hydrochloride 12.5 mg oral tablet (15 sources) Phenothiazine Start: 10-30-2020 End: 01-28-2021 take 1 tablet by mouth at bedtime as needed for nausea Promethazine 12.5 MG tablet Discontinued 12.5 mg PO AT BEDTIME NEEDED as needed for Nausea 20 October 30, 2020 6:24pm January 28, 2021 1:36pm Problems Active Problems Problem Classification Problem Date Documented Da te Episodic/Chronic Cardiac dysrhythmias (4 sources) Palpitations; Translations: [Palpitations] Onset: 04-25-2025 04-20-2025 Episodic Conditions associated with dizziness or vertigo (20 sources) Meniere's disease; Translations: [Meniere's disease, unspecified ear] 02-10-2021 Chronic Conditions associated with dizziness or vertigo (15 sources) Vertigo; Translations: [Dizziness and giddiness] 07-25-2022 Episodic Diabetes mellitus without complication (2 sources) Hyperglycemia; Translations: [Hyperglycemia, unspecified] 07-06-2025 Episodic Diabetes or abnormal glucose tolerance complicating ; childbirth; or the puerperium (20 sources) Abnormal glucose level; Translations: [Abnormal glucose complicating ] 06-26-2021 Episodic Comment on above: passed 3 hr gtt 7/8. needs repeat @ 28 wks nutrition consult, e ndocrine cs. growth us 36 weeks Hemorrhage during ; abruptio placenta; placenta previa (20 sources) Placenta previa marginalis; Translations: [Partial placenta previa NOS or without hemorrhage, unspecified trimester] 12-25-2022 Episodic Comment on above: 2.1 cm from os at 28 weeks Immunizations and screening for infectious disease (18 sources) Patient encounter status; Translations: [Encounter for screening for COVID-19] 06-30-2022 Episodic Inflammation; infection of eye (except that caused by tuberculosis or sexually transmitteddisease) (20 sources) Allergic conjunctivitis; Translations: [Acute atopic conjunctivitis, unspecified eye] 12-09-2022 Episodic Nonmalignant breast conditions (9 sources) Engorgement of breasts; Translations: [Other signs and symptoms in breast] Onset: 06-26-2025 08-18-2023 Episodic Comment on above: tylenol/motrin ATC, benadryl at night for the next 3-5 daysno stimulation.warning signs of clogged ducts, mastitis reviewed. Other complications of (13 sources) High risk ; Translations: [Supervision of high risk , unspecified, unspecified trimester] 09-11-2022 Episodic Comment on above: PRR , CYNDY 04/14/23 , boy Gael Yeboah, Donato Other complications of (13 sources) Urinary tract infection in ; Translations: [Unspecified infection of urinary tract in , unspecified trimester] 09-21-2022 Episodic Comment on above: treat in labor Other complications of (20 sources) Supervision of high risk , unspecified, unspecified trimester; Translations: [Supervision of unspecified high-risk ] 09-18-2022 Episodic Other complications of (4 sources) heart echogenicity on obstetric ultrasound scan; Translations: [Abnormal ultrasonic finding on screening of mother] 12-25-2022 Episodic Other complications of (20 sources) Unspecified infection of urinary tract in , unspecified trimester; Translations: [Infections of genitourinary tract in , unspecified as to episode of care or not applicable] 10-08-2022 Episodic Other complications of (12 sources) Abnormal ultrasonic finding on screening of mother; Translations: [Abnormal finding on screening] 12-31-2022 Episodic Other connective tissue disease (8 sources) Muscle pain; Translations: [Myalgia, unspecified site] 04-11-2025 Episodic Other connective tissue disease (1 source) Myalgia, unspecified site; Translations: [Myalgia, unspecified site] Onset: 04-20-2025 Episodic Other disorders of stomach and duodenum (7 sources) Cyclical vomiting syndrome; Translations: [Cyclical vomiting syndrome unrelated to migraine] 07-04-2024 Episodic Other endocrine disorders (15 sources) Polycystic ovary syndrome; Translations: [Polycystic ovarian syndrome] 06-26-2021 Chronic Comment on above: Early 1h GCT Other gastrointestinal disorders (1 source) Irritable bowel syndrome without diarrhea; Translations: [Irritable bowel syndrome, unspecified] Onset: 09-13-2024 Chronic Other gastrointestinal disorders (12 sources) Diarrhea; Translations: [Diarrhea, unspecified] 07-20-2024 Episodic Other non-traumatic joint disorders (6 sources) Joint pain; Translations: [Pain in unspecified joint] 04-11-2025 Episodic Other and delivery including normal (20 sources) Normal ; Translations: [Encounter for supervision of normal first , unspecified trimester] 09-19-2021 Episodic Comment on above: Lc 38.4 boy(Phani morse) PRR CYNDY 09/19/21 BOY Obinna Spouse: Donato EDWARDS low risk, manuel er neg. declined afp testing. Anatomy US normal; GBS NEG NIPT low risk declin ed afp and carrier testing. reviewed anatomy US Other upper respiratory disease (13 sources) Nasal congestion; Translations: [Nasal congestion] 12-09-2022 Episodic Other upper respiratory disease (15 sources) Nasal congestion; Translations: [Other disease of nasal cavity and sinuses] 12-09-2022 Episodic Polyhydramnios and other problems of amniotic cavity (7 sources) Spontaneous rupture of membranes 05-08-2023 Episodic Comment on above: pcn for gbs positive , limit ve Residual codes; unclassified (15 sources) History of vaccination; Translations: [Personal history of other drug therapy] 06-26-2021 Episodic Residual codes; unclassified (8 sources) Pain; Translations: [Pain, unspecified] 05-09-2023 Episodic Viral infection (7 sources) Disease caused by 2019-nCoV; Translations: [COVID-19] 09-24-2023 Episodic Past or Other Problems Problem Classification Problem Date Documented Da te Episodic/Chronic Abdominal pain (20 sources) Abdominal pain; Translations: [Unspecified abdominal pain] Onset: 08-26-2024 05-09-2023 Episodic Nausea and vomiting (20 sources) Nausea; Translations: [Nausea] Onset: 11-09-2024 07-25-2022 Episodic Other upper respiratory infections (20 sources) Acute frontal sinusitis; Translations: [Acute frontal sinusitis, unspecified] Onset: 10-18-2024 12-12-2022 Episodic Unclassified (15 sources) history of birthmark removal 04-06-2022 Comment on above: R Cheek Unclassified (15 sources) history of bone fracture 04-06-2022 Unclassified (15 sources) history of laporscopic knee surgery 04-06-2022 Unclassified (9 sources) Spontaneous onset of labor; Translations: [Spontaneous onset of labor] 05-08-2023 Unclassified (2 sources) Spontaneous rupture of membranes; Translations: [Spontaneous rupture of amniotic membranes] 05-08-2023 Results Test Name Value Interpretation Reference Range Facility Gastroenterology Visit Repor ton 07-11-2025 Gastroenterology Visit Report [facility] Gastro[facility] [address] [place] [address] OFFICE VISIT Date of Service: 07/11/25 MR#: [id number] Acct: [id number] Name: FERDINAND LEI Rep #: [id number] : 1990 Provider: CHARMAINE Stephenson Age/Sex: 34/F Location: [facility] Status: Signed Intake Vital Signs 04/20/25 08:09 07/06/25 13:24 Height 5 ft 3 in 5 ft 3 in Weight: 148 lb BMI 26.2 BP 118/66 Blood Pressure Location Lt brachial Position Sitting Respiration 18 Pulse 65 Pulse Source Monitor Temp 97.8 F Temp Source Temporal Pulse Oximetry (%) 98 Oxygen Delivery Method room air Intake Visit Reasons: 6 M FU Chief Complaint: Nausea vomiting Fun House Operator Required: No Accompanied by: Self Is patient in pain?: No Allergies No Known Allergies Allergy (Verified 07/11/25 10:29) Medications ???Medication ???Instructions ???Recorded ???Confirmed ???Type hydrochlorothiazide 12.5 mg tablet 12.5 mg PO QDAY 06/16/24 5 History folic acid 400 mcg tablet 400 mcg PO DAILY 07/04/24 07/11/25 History ondansetron 4 mg disintegrating 4 mg PO Q8H #20 tabs 07/11/2501/28 Rx tablet PFSH Medical History Blood glucose elevated Anxiety Acute allergic conjunctivitis Nasal congestion GBS (group B streptococcus) UTI complicating Preventative health care exam Meniere disease Gestational diabetes mellitus (GDM) affecting Wellness examination Abnormal glucose affecting Polycystic ovaries Hearing problem Headache, migraine history of bone fracture Surgical History History of wisdom tooth extraction history of birthmark removal history of laporscopic knee surgery Family History Grandmother Thyroid disorder SLE (systemic lupus erythematosus related syndrome) Grandfather Heart disease High cholesterol Mother Hypertension Father Atrial fibrillation Mitral valve prolapse Other Myocardial infarction Social History adopted: No household members: spouse and children housing: house number of children: 2 current occupational status: employed 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/hazards: No pets and animals: Yes pets and animals: dog(s) history of recent travel: No sexually active: Yes Smoking Status: Never smoker alcohol intake: current alcohol intake frequency: holidays/special occasions only substance use type: does not use diet: low salt well-balanced diet: daily or most days caffeine: No eating out: 1-3 times/week during the past year weight has: remained stable what type of physical activity do you participate in: none frequency: 1-2 times per week randy/buddhism: Cheondoism seatbelt use: always do you feel safe at home: Yes 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 [facility]GI established in JUL 2024 with intermittent episode of n/v, diarrhea and abd pain since giving to her second child in 2022. *Start Zofran PRN Stool; negative for enteric pathogens, ova/parasites, cbc, c.dif, no Giardia. Normal elastase and normal calprotectin. Gallbladder US 07.28.24; Normal right upper quadrant ultrasound examination Last OV 10.25.24 Pt recently with Flu A and norovirus. Has not had a episode since Jun 2024. Feels pasta is a trigger. HIDA 3..25; The gallbladder is opacified at 60 minutes. Correlation with ultrasound of the gallbladder recommended. HIDA 4..25; normal uptake; CCK not given although ordered Biochemical work up; RAST food allergy, celiac panel both without abnormalities OV 01.17.25 Pt doing well. She has had no further episodes. She has questions about her HIDA scan as they were not able to give her CCK. OV 07/11/25 -2 episodes of nausea and vomiting abdominal pain and diarrhea since last visit -1 episode in February(after eating Namita's) and 1 in April. -Patient took Zofran which helped -bowels are normal in between - Has a bowel movement every other day that is complete -Occasional heartburn and takes famotidine as needed ROS Const Constitutional: No fatigue, fever(s) or weight change ENT ENT: No difficulty swallowing Gastro GI: Positive for constipation; No abdominal pain, belching, bloating, change in bowel habits, change in stool character, coffee ground emesis, cramping, diarrhea, heartburn, difficulty swallowing, feeling full early, excessive flatus, incontinent of stools, (more content not included)... Normal [facility] Internal Medicine Office Vis itoalysia 07-06-2025 Internal Medicine Office Visit [facility] Internal Medicine [address] [place] [address] [place] [address] OFFICE VISIT Date of Service: 07/06/25 MR#: [id number] Acct: [id number] Name: FERDINAND LEI Rep #: [id number] : 1990 Provider: Dr. Jaswant brennan MD Age/Sex: 34/F Location: BMS.BIM Status: Signed Intake Vital Signs 10/18/24 08:22 06/26/25 14:27 07/06/25 13:24 Height 5 ft 3 in 5 ft 3 in 5 ft 3 in Weight: 148 lb BMI 26.2 BP 118/66 Blood Pressure Location Lt brachial Position Sitting Respiration 18 Pulse 65 Pulse Source Monitor Temp 97.8 F Temp Source Temporal Pulse Oximetry (%) 98 Oxygen Delivery Method room air Intake Visit Reasons: YEARLY Chief Complaint: YEARLY Is patient in pain?: No Allergies No Known Allergies Allergy (Verified 07/06/25 13:27) Medications ???Medication ???Instructions ???Recorded ???Confirmed ???Type hydrochlorothiazide 12.5 mg tablet 12.5 mg PO QDAY 06/16/24 5 History folic acid 400 mcg tablet 400 mcg PO DAILY 07/04/24 07/06/25 History [facility] Medical History (Updated 07/06/25 @ 15:[address] Jaswant Rico MD) Blood glucose elevated Anxiety Acute allergic conjunctivitis Nasal congestion GBS (group B streptococcus) UTI complicating Preventative health care exam Meniere disease Gestational diabetes mellitus (GDM) affecting Wellness examination Abnormal glucose affecting Polycystic ovaries Hearing problem Headache, migraine history of bone fracture Surgical History History of wisdom tooth extraction history of birthmark removal history of laporscopic knee surgery Family History Grandmother Thyroid disorder SLE (systemic lupus erythematosus related syndrome) Grandfather Heart disease High cholesterol Mother Hypertension Father Atrial fibrillation Mitral valve prolapse Other Myocardial infarction Social History adopted: No household members: spouse and children housing: house number of children: 2 current occupational status: employed 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/hazards: No pets and animals: Yes pets and animals: dog(s) history of recent travel: No sexually active: Yes Smoking Status: Never smoker alcohol intake: current alcohol intake frequency: holidays/special occasions only substance use type: does not use diet: low salt well-balanced diet: daily or most days caffeine: No eating out: 1-3 times/week during the past year weight has: remained stable what type of physical activity do you participate in: none frequency: 1-2 times per week randy/buddhism: Cheondoism seatbelt use: always do you feel safe at home: Yes 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 The patient reports no current concerns. She was seen in the ED in April for heart palpitations. She is currently taking hydrochlorothiazide, prescribed by Dr. Tesfaye for M???ni???re's. She is also using a fitness kayla that includes yoga, squats, and sit-ups to stay active. 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 She is using sunscreen regularly and has a history of severe sunburns. She is seeing a safekeeping clerk at [facility], with her last appointment in August and the next one scheduled for this August. She is undergoing full skin cancer screenings. She has a family history of diabetes in her great-grandmother and a personal history of gestational diabetes during her first . She denies hematochezia, dysuria, or paresthesia in her feet. Feels well otherwise. ROS Const Constitutional: No body ache, chills, excessive sweating, fatigue, fever(s), frequent falls, headache(s), snoring, weight change, sleep problems, abnormal sleep pattern or change in appetite Eyes Eyes: No blurry vision, change in vision, bulging eyes, floaters, visual disturbances, eye pain or Light sensitivity ENT ENT: No abnormal hearing, ear or mastoid pain, tinnitus, balance problems, nosebleed/epistaxis, nasal congestion, headache(s), neck pain or sore throat Resp Respiratory: No cough, excessive phlegm production, pain on inspiration, shortness of breath, snoring or wheezing Cardio Cardiology: No chest pain at rest, chest pain with exertion, excessive sweating, shortness of breath, dyspnea on (more content not included)... Normal [facility] - Hematology and Cell countsOrdered By: Jaswant Rico on 07-06-2025 HbA1c (Bld) [Mass fraction] 5.3 % 4.2-6.3 [facility] Bilat Brst Malcolm Stand Aloneo n 06-29-2025 Bilat Brst Malcolm Stand Alone [facility] Imaging Services [address] [place] [address] Bilat Brst Malcolm Stand Alone MR#: [id number] Acct: [id number] Name: FERDINAND LEI Rep #: [id number] : 1990 F 34 From: Janis Alejo MD PCP: Dr. Jaswant Rico MD Status: REG CLI Study: Bilat Brst Malcolm Stand Alone Date of Exam: 06/07 12/29 Exam# [id number] Ordering Dr: Grace Juarez DO EXAM: BREAST LIMITED UNILATERAL; BILAT BRST MALCOLM STAND ALONE; DIAG MAMM W/CAD, BILAT DATE: 06/29/2025 CLINICAL HISTORY: F, Age 34 y/o , LEFT BREAST LUMP; LEFT UPPER OUTER QUADRANT FULLNESS TECHNIQUE: Procedure Code: USBRSTLIMIT; BIBILATBRTOM; BIDMWCADB Modality: US; MG Procedure: BREAST LIMITED UNILATERAL; BILAT BRST MALCOLM STAND ALONE; DIAG MAMM W/CAD, BILAT COMPARISON: Baseline examination no priors.. FINDINGS: MAMMOGRAM: TISSUE DENSITY: There are scattered areas of fibroglandular density. Bilateral Breast Mammographic Findings: The patient presents with palpable concern/fullness in the left upper-outer quadrant noticed by the clinician. On the present examination, there are no suspicious mammographic findings in the left upper-outer quadrant. Otherwise, there are no suspicious findings in the left breast. No significant masses, calcifications or other abnormalities are identified in the right breast. ULTRASOUND: Ultrasound performed of the upper-outer left breast in the area of clinician interest/area of fullness demonstrates no suspicious sonographic findings. There are no suspicious solid masses or abnormal cystic elements. BI/Bilat Brst Malcolm Stand Alone IMPRESSION: 1. There are no suspicious mammographic or sonographic findings in the area of clinician concern in the left breast. 2. There is no evidence of malignancy in either breast. OVERALL FINAL ASSESSMENT BI-RADS 1: NEGATIVE. RECOMMENDATION: OTHER. Annual screening mammogram is recommended to begin at in the average risk woman at the age of 40. Additional Recommendation none A letter with findings and recommendations will be mailed to the patient. Reading Location: [facility] CC: Dr. Jaswant Rico MD; Dr. Grace Juarez DO Jailer/Training Officer: Signed Normal [facility] Breast Limited Unilateralon 06-29-2025 Breast Limited Unilateral [facility] Imaging Services [address] [place] [address] [phone] Breast Limited Unilateral MR#: [id number] Acct: [id number] Name: FERDINAND LEI Rep #: [id number] : 1990 F 34 From: Janis Alejo MD PCP: Dr. Jaswant Rico MD Status: REG CLI Study: Breast Limited Unilateral Date of Exam: Exam# [id number] Ordering Dr: Grace Juarez DO EXAM: BREAST LIMITED UNILATERAL; BILAT BRST MALCOLM STAND ALONE; DIAG MAMM W/CAD, BILAT DATE: 06/29/2025 CLINICAL HISTORY: F, Age 34 y/o , LEFT BREAST LUMP; LEFT UPPER OUTER QUADRANT FULLNESS TECHNIQUE: Procedure Code: USBRSTLIMIT; BIBILATBRTOM; BIDMWCADB Modality: US; MG Procedure: BREAST LIMITED UNILATERAL; BILAT BRST MALCOLM STAND ALONE; DIAG MAMM W/CAD, BILAT COMPARISON: Baseline examination no priors.. FINDINGS: MAMMOGRAM: TISSUE DENSITY: There are scattered areas of fibroglandular density. Bilateral Breast Mammographic Findings: The patient presents with palpable concern/fullness in the left upper-outer quadrant noticed by the clinician. On the present examination, there are no suspicious mammographic findings in the left upper-outer quadrant. Otherwise, there are no suspicious findings in the left breast. No significant masses, calcifications or other abnormalities are identified in the right breast. ULTRASOUND: Ultrasound performed of the upper-outer left breast in the area of clinician interest/area of fullness demonstrates no suspicious sonographic findings. There are no suspicious solid masses or abnormal cystic elements. US/Breast Limited Unilateral IMPRESSION: 1. There are no suspicious mammographic or sonographic findings in the area of clinician concern in the left breast. 2. There is no evidence of malignancy in either breast. OVERALL FINAL ASSESSMENT BI-RADS 1: NEGATIVE. RECOMMENDATION: OTHER. Annual screening mammogram is recommended to begin at in the average risk woman at the age of 40. Additional Recommendation none A letter with findings and recommendations will be mailed to the patient. Reading Location: [facility] CC: Dr. Jaswant Rico MD; Dr. Grace Juarez DO Jailer/Training Officer: Signed [facility] DIAG MAMM W/CAD, BILATon DIAG MAMM W/CAD, [facility] Imaging Services [address] [place], [place] [address] DIAG MAMM W/CAD, BILAT MR#: [id number] Acct: [id number] Name: FERDINAND LEI Rep #: [id number] : 1990 F 34 From: Janis Alejo MD PCP: Dr. Jaswant Rico MD Status: REG CLI Study: DIAG MAMM W/CAD, BILAT Date of Exam: 06/29/25 Exam# [id number] Ordering Dr: Grace Juarez DO EXAM: BREAST LIMITED UNILATERAL; BILAT BRST MALCOLM STAND ALONE; DIAG MAMM W/CAD, BILAT DATE: 06/29/2025 CLINICAL HISTORY: F, Age 34 y/o , LEFT BREAST LUMP; LEFT UPPER OUTER QUADRANT FULLNESS TECHNIQUE: Procedure Code: USBRSTLIMIT; BIBILATBRTOM; BIDMWCADB Modality: US; MG Procedure: BREAST LIMITED UNILATERAL; BILAT BRST MALCOLM STAND ALONE; DIAG MAMM W/CAD, BILAT COMPARISON: Baseline examination no priors.. FINDINGS: MAMMOGRAM: TISSUE DENSITY: There are scattered areas of fibroglandular density. Bilateral Breast Mammographic Findings: The patient presents with palpable concern/fullness in the left upper-outer quadrant noticed by the clinician. On the present examination, there are no suspicious mammographic findings in the left upper-outer quadrant. Otherwise, there are no suspicious findings in the left breast. No significant masses, calcifications or other abnormalities are identified in the right breast. ULTRASOUND: Ultrasound performed of the upper-outer left breast in the area of clinician interest/area of fullness demonstrates no suspicious sonographic findings. There are no suspicious solid masses or abnormal cystic elements. BI/DIAG MAMM W/CAD, BILAT IMPRESSION: 1. There are no suspicious mammographic or sonographic findings in the area of clinician concern in the left breast. 2. There is no evidence of malignancy in either breast. OVERALL FINAL ASSESSMENT BI-RADS 1: NEGATIVE. RECOMMENDATION: OTHER. Annual screening mammogram is recommended to begin at in the average risk woman at the age of 40. Additional Recommendation none A letter with findings and recommendations will be mailed to the patient. Reading Location: [id number] CC: Dr. Jaswant Rico MD; Dr. Grace Juarez DO Jailer/Training Officer: Signed Normal [facility] Welfare Visitor Office Visit Reporton 06-26-2025 Welfare Visitor Office Visit Report [facility]'s [address], [address] [place] [address] OFFICE VISIT Date of Service: 06/26/25 MR#: [id number] Acct: [id number] Name: FERDINAND LEI Rep #: [id number] : 1990 Provider: Dr. 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: No Is patient in pain?: No Allergies No Known Allergies Allergy (Verified 06/26/25 14:25) Medications ???Medication ???Instructions ???Recorded ???Confirmed ???Type hydrochlorothiazide 12.5 mg tablet 12.5 mg PO QDAY 06/16/24 5 History folic acid 400 mcg tablet 400 mcg PO DAILY 07/04/24 06/26/25 History Post menopausal: No Patient : No [facility] Medical History Anxiety Acute allergic conjunctivitis Nasal congestion GBS (group B streptococcus) UTI complicating Preventative health care exam Meniere disease Gestational diabetes mellitus (GDM) affecting Wellness examination Abnormal glucose affecting Polycystic ovaries Hearing problem Headache, migraine history of bone fracture Surgical History History of wisdom tooth extraction history of birthmark removal history of laporscopic knee surgery Family History Grandmother Thyroid disorder SLE (systemic lupus erythematosus related syndrome) Grandfather Heart disease High cholesterol Mother Hypertension Father Atrial fibrillation Mitral valve prolapse Other Myocardial infarction Social History (Updated 06/26/25 @ 14:25 by Debi Duvall) adopted: No household members: spouse and children housing: house number of children: 2 current occupational status: employed 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/hazards: No pets and animals: Yes pets and animals: dog(s) history of recent travel: No sexually active: Yes Smoking Status: Never smoker alcohol intake: current alcohol intake frequency: holidays/special occasions only substance use type: does not use diet: low salt well-balanced diet: daily or most days caffeine: No eating out: 1-3 times/week during the past year weight has: remained stable what type of physical activity do you participate in: none frequency: 1-2 times per week randy/buddhism: Cheondoism seatbelt use: always do you feel safe at home: Yes 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 Date Name GA/Weeks Outcome Route Bth Weight Infant Gen Labor Lgth Anesthesia Del Locatn Provider FOB 09/18/21 Obinna 39 live - full term 7lbs 6oz Male [facility] Dr. Whitman 05/03/23 Gael 38 live - full term Male [facility] Peter torres Delivery Date: 09/18/21 Last Updated by: Debi Duvall Gestational diabetes HPI Encounter for routine gynecological examination Details: FERDINAND LEI is a 34 year old who presents for annual exam. Last PAP: 09/18/22 History of abnormal PAP: no Last mammogram: n/a History of abnormal mammogram: n/a Colon cancer screening: n/a Other preventative health care screenings: followed by pcp Female Reproductive History Cycle Length: 21-35 Bleeding Duration: 5 Questions: metrorrhagia: No, sexually active: Yes, dyspareunia: No and PCB: No Menopausal Symptoms: No hot flashes, No night sweats, No weight change, No mood changes, No difficulty concentrating, No sleep problems and No change in libido ROS Const Constitutional: Reports as per HPI; Denies fatigue, increased appetite, poor appetite, night sweats, weight gain or weight loss Cardio Card: Denies chest pain Resp Resp: Denies cough or dyspnea GI GI: Reports as per HPI; Denies abdominal pain, bloating, constipation, nausea or vomiting : Reports as per HPI and other; Denies difficulty voiding, dysuria, hematuria, hot flashes, nipple discharge, pelvic pain, prolapse symptoms, urinary frequency, urinary incontinence, urinary urgency, vaginal discharge, vaginal dryness, vaginal odor or vaginal pruritus Skin Skin/Breast: Denies changing lesions, breast mass, breast pain, breast skin changes or nipple discharge Psych Psych: Denies anxiety, change in libido, depressi (more content not included)... Normal [facility] 12 Lead EKGon 04-20-2025 12 Lead EKG [facility] Cardiovascular Services [address] [place] [address] 12 Lead EKG 04/20/25 0820 MR#: [id number] Acct: [id number] Name: FERDINAND LEI Rep #: [id number] : 1990 34 From: Robbin King MD Attending Dr: Status: DEP ER Ordering Dr: Carlos Martin MD Date: 04/20/25 Location: ED Sex: F C Admitted: Test Reason : CP/TIGHTNESS Blood Pressure : */* mmHG Vent. Rate : 70 BPM Atrial Rate : 70 BPM P-R Int : 148 ms QRS Dur : 90 ms QT Int : 380 ms P-R-T Axes : 3 27 56 degrees QTcB Int : 410 ms Normal sinus rhythm Normal ECG Confirmed by ROBBIN KING MD ([id number]), desk editor JULIANA RUBY ([id number]) on 04/23/2025 9:14:19 AM Referred By: UG Confirmed By: ROBBIN KING MD 04/23/25913 Date Robbin iKng MD CC: Dr. Jaswant Rico MD; Dr. Carlos Martin MD Signed Normal [facility] Anion gap in Serum or Plasma Ordered By: Carlos Martin on 04-20-2025 Anion gap [Moles/Vol] 8 mmol/L 01-18 [facility] BUN/creatinine ratioOrdered By: Carlos Martin on 04-20-2025 Urea nitrogen/Creatinine [Mass ratio] 17.6 mg/mg - [facility] Basic Metabolic Profile (BMP )on 04-20-2025 BUN/CRE 17.6 RATIO Normal 06-25 [facility] Comment on above: Performed By: #### L 500.2500 #### [facility] [address] [place], [address] Calcium [Mass/Vol] 9.1 mg/dL Normal 7.6-11.0 [facility] Comment on above: Performed By: #### L 500.2500 #### [facility] [address] [facility] [place] [place], [address] Chloride [Moles/Vol] 101 mmol/L Normal 98-108 [facility] Comment on above: Performed By: #### L 500.2500 #### [facility] [address] [place], [address] CO2 [Moles/Vol] 30.5 mmol/L Normal 21.0-32.0 [facility] Comment on above: Performed By: #### L 500.2500 #### [facility] [address] [place], [address] Creatinine [Mass/Vol] 0.76 mg/dL Normal 0.70-1.20 [facility] Comment on above: Performed By: #### L 500.2500 #### [facility] [address] [place], [address] ECRCL 97.01 ml/min Normal 50-250 [facility] Comment on above: Performed By: #### L 500.2500 #### [facility] [address] [place], [address] GAP 8 Normal 5-15 [facility] Comment on above: Performed By: #### L 500.2500 #### [facility] [address] [place], [address] GFR/1.73 sq M.predicted among non-blacks MDRD (S/P/Bld) [Vol rate/Area] 106 mL/min/{1.73_m2} Normal >60 [facility] Comment on above: Result Comment: mL/m in/1.73m2 CKD-EPI Creatinine Equation (2020) Performed By: #### L 500.2500 #### [facility] [address] [place], [address] Glucose [Mass/Vol] 101 mg/dL High 70-99 [facility] Comment on above: Performed By: #### L 500.2500 #### [facility] [address] [place], [address] Potassium [Moles/Vol] 3.4 mmol/L Normal 3.3-5.1 [facility] Comment on above: Performed By: #### L 500.2500 #### [facility] [address] [place], [place], [address] Sodium [Moles/Vol] 140 mmol/L Normal 133-145 [facility] Comment on above: Performed By: #### L 500.2500 #### [facility] [address] [place], [place], [id number] Urea nitrogen [Mass/Vol] 13 mg/dL Normal 4-19 [facility] Comment on above: Performed By: #### L 500.2500 #### [facility] [address] [place], [place], [address] Carbon dioxide, total [Moles /volume] in Central venous bloodOrdered By: Carlos Martin on 04-20-2025 CO2 [Moles/Vol] 30.5 mmol/L 21.0-32.0 [facility] Chloride assayOrdered By: Rachele Martin on 04-20-2025 Chloride [Moles/Vol] 101 mmol/L 98-108 [facility] Emergency Department Summary on 04-20-2025 Emergency Department Summary [facility] Medical Records Department [address] [facility] [place] [address] Emergency Department Summary 04/20/25 MR#: [id number] Acct: [id number] Name: FERDINAND LEI Rep #: [id number] : 1990 34 From: Carlos Martin MD PCP: Dr. Jaswant Rico MD Status:REG ER Location: ED HPI History of Present Illness Chief Complaint: Palpitations Detail of Chief Complaint: Palpitations since last night Informant: patient Onset/Context/Timing Onset: Yesterday Timing: Continuous Quality: palpitations Location: chest Current Severity: Feels her heartbeat Maximum Severity: Feels her heartbeat Worsened by: Nothing Relieved by: Nothing Associated Symptoms Associated Symptoms: Anxious Narrative Narrative: Patient is a 34-year-old female. She has history of COVID, M???ni???re's disease and right upper quadrant pain of uncertain etiology. 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 She presents because of palpitations her last evening. When she took her pulse it was 77. Her heart rate is never been fast. Patient denies any skipped beats. Patient does not drink any caffeinated beverages. Patient Nuys black or maroon stool. Patient denies orthostatic symptoms. There is no history of sudden . Prior similar symptoms: No Recent Illness/Hospitalizatio n: [facility] Medical History Anxiety Acute allergic conjunctivitis Nasal congestion GBS (group B streptococcus) UTI complicating Preventative health care exam Meniere disease Gestational diabetes mellitus (GDM) affecting Wellness examination Abnormal glucose affecting Polycystic ovaries Hearing problem Headache, migraine history of bone fracture Home Medications ???Medication ???Instructions ???Recorded ???Last Taken ???Type hydrochlorothiazide 12.5 mg tablet 12.5 mg PO QDAY 06/16/24 Unknown History folic acid 400 mcg tablet 400 mcg PO DAILY 07/04/24 Unknown History prednisone 20 mg tablet 20 mg PO BID #10 tabs 04/13/25 Unk nown Rx Allergy/AdvReac Type Severity Reaction Status Date / Time No Known Allergies Allergy Verified 04/20/25 08:12 Family History Grandmother Thyroid disorder SLE (systemic lupus erythematosus related syndrome) Grandfather Heart disease High cholesterol Mother Hypertension Father Atrial fibrillation Mitral valve prolapse Other Myocardial infarction Surgical History History of wisdom tooth extraction history of birthmark removal history of laporscopic knee surgery Social History adopted: No household members: spouse and children housing: house number of children: 1 current occupational status: employed 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/hazards: No pets and animals: Yes pets and animals: dog(s) history of recent travel: No sexually active: Yes Smoking Status: Never smoker alcohol intake: current alcohol intake frequency: holidays/special occasions only substance use type: does not use diet: low salt well-balanced diet: daily or most days caffeine: No eating out: 1-3 times/week during the past year weight has: remained stable what type of physical activity do you participate in: none frequency: 1-2 times per week randy/buddhism: Cheondoism seatbelt use: always do you feel safe at home: Yes 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 ROS ED Constitutional Constitutional ED: Denies chills, fever(s), subjective, sweats or weight loss Eyes Eyes: Denies blurry vision or change in vision ENT ENT ED: Denies rhinorrhea Cardiovascular Cardiovascular: Reports palpitations; Denies chest pain, orthopnea, paroxysmal nocturnal dyspnea or racing heartbeat Respiratory/Chest Respiratory/Chest: Denies cough, dyspnea, dyspnea on exertion, orthopnea or paroxysmal nocturnal dyspnea Gastrointestinal Gastrointestinal: Denies abdominal pain, diarrhea, melena or vomiting Neurologic Neurologic: Denies weakness Psychiatric Psychiatric: Denies anxiety or depression Hematologic/Lymphatic Hematologic/Lymphatic: Reports systems reviewed and no addt'l complaints, except as documented EXAM Physical Exam Const Vital Signs: 04/20/25 08:09 04/20/25 10:09 04/20/25 11:00 Temperature 98.1 F Temperature Source Oral Pulse Rate 88 74 96 Respiratory Rate 16 18 18 Blood Pressure 154/114 H 116/89 H 113/78 Blood Pressure Mean 127 98 89 Pulse Ox 100 100 97 Oxygen Delivery Method Room Air Room Air Room Air Positive well nourished and well developed Constitutional (more content not included)... Normal [facility] Glomerular filtration rate ( GFR) estimation/1.73 sq m using serum, plasma, or whole bOrdered By: Carlos Martin on 04-20-2025 GFR/1.73 sq M.predicted among non-blacks MDRD (S/P/Bld) [Vol rate/Area] 106 mL/min/{1.73_m2} >60 [facility] Comment on above: mL/min/1.73m2 CKD-EP I Creatinine Equation (2020) Potassium measurement (mass/ volume)Ordered By: Carlos Martin on 04-20-2025 Potassium (Unsp spec) [Mass/Vol] 3.4 mmol/L 3.3-5.1 [facility] Serum creatinine measurement (mass/volume)Ordered By: Carlos Martin on 04-20-2025 Creatinine [Mass/Vol] 0.76 mg/dL 0.70-1.20 [facility] Serum glucose measurement (m ass/volume)Ordered By: [facility] on 04-20-2025 Glucose [Mass/Vol] 101 mg/dL High 70-99 [facility] Serum or plasma calcium henrique urement (mass/volume)Ordered By: [facility] on 04-20-2025 Calcium [Mass/Vol] 9.1 mg/dL 7.6-11.0 [facility] Serum or plasma urea nitroge n measurement (mass/volume)Ordered By: [facility] on 04-20-2025 Urea nitrogen [Mass/Vol] 13 mg/dL 4-19 [facility] Sodium levelOrdered By: [facility] on 04-20-2025 Sodium [Moles/Vol] 140 mmol/L 133-145 [facility] KHUSHBU w/ Reflex Mult Confirmon 04-13-2025 ANTI-DNA (DS)AB TNP Normal [facility] Comment on above: Performed By: #### L 101.9900, L505.7010, L3100.5450, L501.6710, L7000.5300 ####[facility] [address] [place], [place], [id number] ANTI-SS-A TNP Normal [facility] Comment on above: Performed By: #### L 101.9900, L505.7010, L3100.5450, L501.6710, L7000.5300 ####[facility] [address] [place], [place], [id number] ANTI-SS-B TNP Normal [facility] Comment on above: Performed By: #### L 101.9900, L505.7010, L3100.5450, L501.6710, L7000.5300 ####[facility] [address] [place], [address] Lyme Screen W/Reflex WBon LYME SCREEN Ab Negative Normal Negative [facility] Comment on above: Result Comment: Lyme antibodies not detected. Reflex testing is not indicated. No laboratory evidence of infection with B. burgdorferi (Lyme disease). Negative results may occur in patients recently infected (less than or equal to 14 days) with B. burgdorferi. If recent infection is suspected, repeat testing on a new sample collected in 7 to 14 days is recommended. Performed at: [facility] [id number] [place] Saw Operator: Herve Banks PhD, Phone: [phone] Performed By: #### L 101.9900, L505.7010, L3100.5450, L501.6710, L7000.5300 ####[facility] [address] [place], [address] Absolute lymphocyte countOrd ered By: HEALTH ASSESSMENT on 04-11-2025 Lymphocytes Auto (Unsp spec) [#/Vol] 2.32 10*3/uL 0.83-4.51 [facility] Absolute neutrophil countOrd ered By: HEALTH ASSESSMENT on 04-11-2025 Neutrophils (Bld) [#/Vol] 2.5 10*3/uL 2.0-7.7 [facility] Absolute nucleated red blood cell countOrdered By: HEALTH ASSESSMENT on 04-11-2025 Nucleated RBC (Bld) [#/Vol] 0.00 10*3/uL 0-5 [facility] Anion gap in Serum or Plasma Ordered By: HEALTH ASSESSMENT on 04-11-2025 Anion gap [Moles/Vol] 11 mmol/L 5-15 [facility] BUN/creatinine ratioOrdered By: HEALTH ASSESSMENT on 04-11-2025 Urea nitrogen/Creatinine [Mass ratio] 18.4 mg/mg 10-20 [facility] Bilirubin directOrdered By: HEALTH ASSESSMENT on 04-11-2025 Bilirubin.direct [Mass/Vol] 0.20 mg/dL 0.00-0.30 [facility] Bilirubin, totalOrdered By: HEALTH ASSESSMENT on 04-11-2025 Bilirubin [Mass/Vol] 0.54 mg/dL 0.00-1.30 [facility] CBC, Employeeon 04-11-2025 Absolute Lymph 2.32 X10 3/uL Normal 0.83-4.51 [facility] Comment on above: Performed By: #### L 400.0100, L500.2900, L100.0200 ####[facility] [address] [place], [address] Absolute Neut 2.5 X10 3/uL Normal 2.0-7.7 [facility] Comment on above: Performed By: #### L 400.0100, L500.2900, L100.0200 ####[facility] [address] [place], [address] Basophils/100 WBC (Bld) 0.2 % Normal 0-1 [facility] Comment on above: Performed By: #### L 400.0100, L500.2900, L100.0200 ####[facility] [address] [place], [address] Eosinophils/100 WBC (Bld) 0.6 % Normal 0-5 [facility] Comment on above: Performed By: #### L 400.0100, L500.2900, L100.0200 ####[facility] [address] [place], [address] Erythrocyte distribution width (RBC) [Ratio] 12.2 % Normal 11.6-14.6 [facility] Comment on above: Performed By: #### L 400.0100, L500.2900, L100.0200 ####[facility] [address] [place], [address] Hematocrit (Bld) [Volume fraction] 40.0 % Normal 37-47 [facility] Comment on above: Performed By: #### L 400.0100, L500.2900, L100.0200 ####[facility] [address] [place], [address] Hemoglobin (Bld) [Mass/Vol] 13.2 g/dL Normal 12.0-15.0 [facility] Comment on above: Performed By: #### L 400.0100, L500.2900, L100.0200 ####[facility] [address] [place], [address] Lymphocytes/100 WBC (Bld) 43.2 % High 19-41 [facility] Comment on above: Performed By: #### L 400.0100, L500.2900, L100.0200 ####[facility] [address] [place], [address] MCH (RBC) [Entitic mass] 29.9 pg Normal 27.0-32.0 [facility] Comment on above: Performed By: #### L 400.0100, L500.2900, L100.0200 ####[facility] [address] [place], [address] MCHC (RBC) [Mass/Vol] 33.0 g/dL Normal 32-36 [facility] Comment on above: Performed By: #### L 400.0100, L500.2900, L100.0200 ####[facility] [address] [place], [address] MCV (RBC) [Entitic vol] 90.5 fL Normal 81-99 [facility] Comment on above: Performed By: #### L 400.0100, L500.2900, L100.0200 ####[facility] [address] [place], [address] Monocytes/100 WBC (Bld) 9.1 % Normal 0-10 [facility] Comment on above: Performed By: #### L 400.0100, L500.2900, L100.0200 ####[facility] [address] [place], [address] Neutrophils/100 WBC (Bld) 46.7 % Low 47-70 [facility] Comment on above: Performed By: #### L 400.0100, L500.2900, L100.0200 ####[facility] [address] [place], [address] NRBC # 0.00 10 3/uL Normal 0-5 [facility] Comment on above: Performed By: #### L 400.0100, L500.2900, L100.0200 ####[facility] [address] [place], [address] Nucleated RBC (Bld) [#/Vol] 0 10*3/uL Normal 0-5 [facility] Comment on above: Performed By: #### L 400.0100, L500.2900, L100.0200 ####[facility] [address] [place], [address] Platelet mean volume (Bld) [Entitic vol] 9.4 fL Normal 6.2-12.0 [facility] Comment on above: Performed By: #### L 400.0100, L500.2900, L100.0200 ####[facility] [address] [place], [address] Platelets (Bld) [#/Vol] 297 10*3/uL Normal 150-450 [facility] Comment on above: Performed By: #### L 400.0100, L500.2900, L100.0200 ####[facility] [address] [place], [address] RBC (Bld) [#/Vol] 4.42 10*6/uL Normal 4.2-5.4 [facility] Comment on above: Performed By: #### L 400.0100, L500.2900, L100.0200 ####[facility] [address] [place], [address] RDW SD 40.6 fl Normal 35.1-43.9 [facility] Comment on above: Performed By: #### L 400.0100, L500.2900, L100.0200 ####[facility] [address] [place], [address] WBC (Bld) [#/Vol] 5.4 10*3/uL Normal 4.4-11.0 [facility] Comment on above: Performed By: #### L 400.0100, L500.2900, L100.0200 ####[facility] [address] [place], [address] CRPon 04-11-2025 C-REACTIVE PROT 3.41 mg/L High 0.0-3.0 [facility] Comment on above: Performed By: #### L 101.9900, L505.7010, L3100.5450, L501.6710, L7000.5300 ####[facility] [address] [place], [address] Calculated very low density lipoprotein (VLDL) cholesterol measurementOrdered By: HEALTH ASSESSMENT on 04-11-2025 Calculated very low density lipoprotein (VLDL) cholesterol measurement 16 mg/dL 5-40 [facility] Carbon dioxide, total [Moles /volume] in Central venous bloodOrdered By: HEALTH ASSESSMENT on 04-11-2025 CO2 [Moles/Vol] 25.5 mmol/L 21.0-32.0 [facility] Chloride assayOrdered By: HE ALTH ASSESSMENT on 04-11-2025 Chloride [Moles/Vol] 102 mmol/L 98-108 [facility] Employee Profileon LDH 194 U/L Normal 84-246 [facility] Comment on above: Performed By: #### L 400.0100, L500.2900, L100.0200 ####[facility] [address] [place], [address] Phosphate [Mass/Vol] 3.1 mg/dL Normal 2.7-4.5 [facility] Comment on above: Performed By: #### L 400.0100, L500.2900, L100.0200 ####[facility] [address] [place], [place], [phone] URIC 4.1 mg/dL Normal 2.6-6.0 [facility] Comment on above: Result Comment: The drugs N-Acetylcysteine and Metamizole may falsely depress this assay. Performed By: #### L 400.0100, L500.2900, L100.0200 ####[facility] [address] [place], [address] Erythrocyte Sed Rateon 04-11 SED RATE 6 mm/hr Normal 0-30 [facility] Comment on above: Performed By: #### L 101.9900, L505.7010, L3100.5450, L501.6710, L7000.5300 ####[facility] [address] [place], [place], [phone] Erythrocyte distribution wid th ratioOrdered By: HEALTH ASSESSMENT on 04-11-2025 Erythrocyte distribution width (RBC) [Ratio] 12.2 % 11.6-14.6 [facility] Erythrocyte distribution wid th standard deviationOrdered By: HEALTH ASSESSMENT on 04-11-2025 Erythrocyte distribution width (RBC) [Ratio] 40.6 fl 35.1-43.9 [facility] Erythrocyte sedimentation ra teOrdered By: Toñito Pineda on 04-11-2025 ESR (Bld) [Velocity] 6 mm/h 0-30 [facility] Glomerular filtration rate ( GFR) estimation/1.73 sq m using serum, plasma, or whole bOrdered By: HEALTH ASSESSMENT on 04-11-2025 GFR/1.73 sq M.predicted among non-blacks MDRD (S/P/Bld) [Vol rate/Area] 119 mL/min/{1.73_m2} >60 [facility] Comment on above: mL/min/1.73m2 CKD-EP I Creatinine Equation (2020) Hematocrit Auto (Bld) [Volum e fraction]Ordered By: HEALTH ASSESSMENT on 04-11-2025 Hematocrit (Bld) [Volume fraction] 40.0 % 37-47 [facility] Hemoglobin measurementOrdere d By: HEALTH ASSESSMENT on 04-11-2025 Hemoglobin (Bld) [Mass/Vol] 13.2 g/dL 12.0-15.0 [facility] Internal Medicine Office Vis jamarialysia 04-11-2025 Internal Medicine Office Visit [facility] [address] [place] [address] [place] [address] OFFICE VISIT Date of Service: 04/11/25 MR#: [id number] Acct: [id number] Name: FERDINAND LEI Rep #: [id number] : 1990 Provider: CHARMAINE Velasco Age/Sex: 34/F Location: [facility] Status: Signed Intake Vital Signs 10/18/24 08:22 04/10/25 16:02 04/11/25 07:37 Height 5 ft 3 in 5 ft 3 in 5 ft 3 in Weight: 147 lb BMI 26.0 BP 100/52 L Blood Pressure Location Lt brachial Position Sitting Respiration 14 Pulse 86 Pulse Source Monitor Temp 97.9 F Temp Source Temporal Pulse Oximetry (%) 98 Oxygen Delivery Method room air Intake Visit Reasons: JOINT PAIN IN WRISTS, ANKLES, SHOULDERS Fun House Operator Required: No Is patient in pain?: No Allergies No Known Allergies Allergy (Verified 04/11/25 07:24) Medications ???Medication ???Instructions ???Recorded ???Confirmed ???Type hydrochlorothiazide 12.5 mg tablet 12.5 mg PO QDAY 06/16/24 5 History folic acid 400 mcg tablet 400 mcg PO DAILY 07/04/24 04/11/25 History Nurse's Note: Pt started w/ joint pain that originated from L wrist and ankle, then moved to other joints. Pt states this started on Wednesday and is getting worse. Pt denies swelling or redness, strenuous activity. Pt states she did have a swollen gland on R side of neck behind the head. She denies being sick prior to this. Pt also c/o headache. Pt has been treating w/ ibuprofen which does help some. Pt states that moving her joints make it worse, pt states that first thing in the morning the pain is worse. Pt states that the pain is constant and described as achey, and occasionally has numbness and tingling in BLE wrist. Pt has not dropped anything and does not c/o loss of feeling but stiffness and pain when picking things up. The pain gets at it's worst to a 3/10 [facility] Medical History Anxiety Acute allergic conjunctivitis Nasal congestion GBS (group B streptococcus) UTI complicating Preventative health care exam Meniere disease Gestational diabetes mellitus (GDM) affecting Wellness examination Abnormal glucose affecting Polycystic ovaries Hearing problem Headache, migraine history of bone fracture Surgical History History of wisdom tooth extraction history of birthmark removal history of laporscopic knee surgery Family History (Updated 04/11/25 @ 07:37 by Sahil Dalal MA) Grandmother Thyroid disorder SLE (systemic lupus erythematosus related syndrome) Grandfather Heart disease High cholesterol Mother Hypertension Father Atrial fibrillation Mitral valve prolapse Other Myocardial infarction Social History adopted: No household members: spouse and children housing: house number of children: 1 current occupational status: employed 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/hazards: No pets and animals: Yes pets and animals: dog(s) history of recent travel: No sexually active: Yes Smoking Status: Never smoker alcohol intake: current alcohol intake frequency: holidays/special occasions only substance use type: does not use diet: low salt well-balanced diet: daily or most days caffeine: No eating out: 1-3 times/week during the past year weight has: remained stable what type of physical activity do you participate in: none frequency: 1-2 times per week randy/buddhism: Cheondoism seatbelt use: always do you feel safe at home: Yes 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 She started with shoulder and ankle pain (one side) pain and then progressed to involve both shoulders and eventually both wrists. She has had a headache the past few days along with these pains as well. No recent sickness / illness. No known exposure to sickness that she is aware of. She states that in the past she has had some episodes of wrist swelling as well as some redness and tenderness but is very intermittent. Since Wednesday She has been taking Ibuprofen which she states has definitely helped. She has taken 400mg once a day. She has not noticed any swelling in the joints at this time or any skin changes. She denies any other acute sickness symptoms such as fevers, chills, diarrhea, vomiting, nausea, dizziness, She had been hiking in [place] last month at the same time does not recall any insect bites or particularly any tick bites. She does have some family history of Lupus and some form of arthri (more content not included)... Normal [facility] LDL calc ser/plasOrdered By: HEALTH ASSESSMENT on 04-11-2025 Cholesterol in LDL [Mass/Vol] 127 mg/dL [facility] Comment on above: Jcctwiufcs=370-442 m g/dL & Higher Gevl=794 mg/dL or greaterFriedwald Equation for LDL-C Laboratory - Chemistry and C hemistry - challengeOrdered By: HEALTH ASSESSMENT on 04-11-2025 AST [Catalytic activity/Vol] 26 U/L <32 [facility] Lactate dehydrogenase (LDH) measurementOrdered By: HEALTH ASSESSMENT on 04-11-2025 LDH [Catalytic activity/Vol] 194 U/L 84-246 [facility] MCV (mean corpuscular volume ) determinationOrdered By: HEALTH ASSESSMENT on 04-11-2025 MCV (RBC) [Entitic vol] 90.5 fL 81-99 [facility] Mean corpuscular hemoglobin (MCH) determinationOrdered By: HEALTH ASSESSMENT on 04-11-2025 MCH (RBC) [Entitic mass] 29.9 pg 27.0-32.0 [facility] Mean corpuscular hemoglobin concentration (MCHC) determinationOrdered By: HEALTH ASSESSMENT on 04-11-2025 MCHC (RBC) [Mass/Vol] 33.0 g/dL 32-36 [facility] Mean platelet volume determi nationOrdered By: HEALTH ASSESSMENT on 04-11-2025 Platelet mean volume (Bld) [Entitic vol] 9.4 fL 6.2-12.0 [facility] Neutrophil percentageOrdered By: HEALTH ASSESSMENT on 04-11-2025 Neutrophils/100 WBC (Bld) 46.7 % Low 47-70 [facility] Nucleated red blood cell per centageOrdered By: HEALTH ASSESSMENT on 04-11-2025 Nucleated RBC/100 WBC (Bld) [Ratio] 0 % 0-5 [facility] Platelet countOrdered By: DANELLE ALTH ASSESSMENT on 04-11-2025 Platelets (Bld) [#/Vol] 297 10*3/uL 150-450 [facility] Potassium measurement (mass/ volume)Ordered By: HEALTH ASSESSMENT on 04-11-2025 Potassium (Unsp spec) [Mass/Vol] 3.7 mmol/L 3.3-5.1 [facility] RBC Auto (Bld) [#/Vol]Ordere d By: HEALTH ASSESSMENT on 04-11-2025 RBC (Bld) [#/Vol] 4.42 10*6/uL 4.2-5.4 [facility] Rheumatoid Factoron 04-11-20 25 RHEUMATOID FAC < 10.0 Normal <15 [facility] Comment on above: Performed By: #### L 101.9900, L505.7010, L3100.5450, L501.6710, L7000.5300 ####[facility] [address] [place], [place], [id number] Screening total cholesterol/ high density lipoprotein (HDL) cholesterol ratioOrdered By: HEALTH ASSESSMENT on 04-11-2025 Cholesterol.total/Choles terol in HDL [Mass ratio] 3.46 {ratio} [facility] Serum DNA double strand anti body assay (units/volume)Ordered By: Toñito Pineda on 04-11-2025 DNA double strand Ab Qn (S) [facility] Comment on above: Test not performed Serum Scl-70 antibody assay (units/volume)Ordered By: Toñito Pineda on 04-11-2025 SCL-70 extractable nuclear Ab Qn (S) [facility] Comment on above: Test not performed Serum creatinine measurement (mass/volume)Ordered By: HEALTH ASSESSMENT on 04-11-2025 Creatinine [Mass/Vol] 0.66 mg/dL Low 0.70-1.20 [facility] Serum globulin measurementOr dered By: HEALTH ASSESSMENT on 04-11-2025 Globulin (S) [Mass/Vol] 3.0 g/dL 2.2-4.2 [facility] Serum glucose measurement (m ass/volume)Ordered By: HEALTH ASSESSMENT on 04-11-2025 Glucose [Mass/Vol] 92 mg/dL 70-99 [facility] Serum or plasma C reactive p rotein measurement (mass/volume)Ordered By: Toñito Pineda on 04-11-2025 CRP [Mass/Vol] 3.41 mg/L High 0.0-3.0 [facility] Serum or plasma alanine munoz otransferase (ALT) measurementOrdered By: HEALTH ASSESSMENT on 04-11-2025 ALT [Catalytic activity/Vol] 17 U/L <35 [facility] Serum or plasma albumin henrique urement (mass/volume)Ordered By: HEALTH ASSESSMENT on 04-11-2025 Albumin [Mass/Vol] 4.2 g/dL 3.5-5.0 [facility] Serum or plasma albumin/glob ulin mass ratioOrdered By: HEALTH ASSESSMENT on 04-11-2025 Albumin/Globulin [Mass ratio] 1.4 {ratio} 0.9-2.4 [facility] Serum or plasma alkaline magdi sphatase measurementOrdered By: HEALTH ASSESSMENT on 04-11-2025 ALP [Catalytic activity/Vol] 73 U/L 35-104 [facility] Serum or plasma calcium henrique urement (mass/volume)Ordered By: HEALTH ASSESSMENT on 04-11-2025 Calcium [Mass/Vol] 9.1 mg/dL 7.6-11.0 [facility] Serum or plasma cholesterol in HDL measurement (mass/volume)Ordered By: HEALTH ASSESSMENT on 04-11-2025 Cholesterol in HDL [Mass/Vol] 58 mg/dL >40 [facility] Comment on above: National Cholesterol Education Program (NCEP) guidelines:<40 mg/dL: Low HDL-cholesterol (major risk factor for CHD)>= 60 mg/dL: High HDL-cholesterol (negative risk factor for CHD)HDL-cholesterol is affected by a number of factors, e.g. smoking, exercise, hormones, sex and age. Serum or plasma cholesterol measurement (mass/volume)Ordered By: HEALTH ASSESSMENT on 04-11-2025 Cholesterol [Mass/Vol] 201 mg/dL <201 [facility] Comment on above: Cholesterol level, D esirable <200 mg/dLBorderline high cholesterol 200-239 mg/dLHigh cholesterol >=240 mg/dLRecommendations of the NCEP Adult Treatment Panel for the following risk-cutoff thresholds for the [place] population. Serum or plasma urea nitroge n measurement (mass/volume)Ordered By: HEALTH ASSESSMENT on 04-11-2025 Urea nitrogen [Mass/Vol] 12 mg/dL 4-19 [facility] Serum or plasma uric acid me asurement (mass/volume)Ordered By: HEALTH ASSESSMENT on 04-11-2025 Urate [Mass/Vol] 4.1 mg/dL 2.6-6.0 [facility] Comment on above: The drugs N-Acetylcy steine and Metamizole may falsely depress this assay. Serum rheumatoid factor dete ctionOrdered By: Toñito Pineda on 04-11-2025 Rheumatoid factor Ql (S) < 10.0 IU/mL <15 [facility] Sodium levelOrdered By: HEAL ASSESSMENT on 04-11-2025 Sodium [Moles/Vol] 138 mmol/L 133-145 [facility] Total proteinOrdered By: KHADIJAH [facility] ASSESSMENT on 04-11-2025 Protein [Mass/Vol] 7.2 g/dL 5.9-8.4 [facility] Triglycerides measurementOrd ered By: HEALTH ASSESSMENT on 04-11-2025 Triglyceride [Mass/Vol] 81 mg/dL <199 [facility] Comment on above: The drugs N-Acetylcy steine and Metamizole may falsely depress this assay. Normal range: <150 mg/dLBorderline High: 150-199 mg/dLHigh: 200-499 mg/dLVery High: >500 mg/dL Urinalysis, Employeeon 04-11 BILIRUBIN URINE Normal Negative [facility] Comment on above: Order Comment: Urine , Random Result Comment: PT R EFUSED Performed By: #### L 400.0100, L500.2900, L100.0200 ####[facility] [address] [place], [address] Clarity (U) Normal Clear [facility] Comment on above: Order Comment: Urine , Random Result Comment: PT R EFUSED Performed By: #### L 400.0100, L500.2900, L100.0200 ####[facility] [address] [place], [address] Color (U) Normal Yellow [facility] Comment on above: Order Comment: Urine , Random Result Comment: PT R EFUSED Performed By: #### L 400.0100, L500.2900, L100.0200 ####[facility] [address] [place], [address] GLUCOSE, UR Normal Normal [facility] Comment on above: Order Comment: Urine , Random Result Comment: PT R EFUSED Performed By: #### L 400.0100, L500.2900, L100.0200 ####[facility] [address] [place], [address] KETONE UR Normal Negative [facility] Comment on above: Order Comment: Urine , Random Result Comment: PT R EFUSED Performed By: #### L 400.0100, L500.2900, L100.0200 ####[facility] [address] [place], [address] LEUK ESTERASE Normal Negative [facility] Comment on above: Order Comment: Urine , Random Result Comment: PT R EFUSED Performed By: #### L 400.0100, L500.2900, L100.0200 ####[facility] [address] [place], [address] Nitrite Ql (U) Normal Negative [facility] Comment on above: Order Comment: Urine , Random Result Comment: PT R EFUSED Performed By: #### L 400.0100, L500.2900, L100.0200 ####[facility] [address] [place], [address] OCCULT BLOOD-UR Normal Negative [facility] Comment on above: Order Comment: Urine , Random Result Comment: PT R EFUSED Performed By: #### L 400.0100, L500.2900, L100.0200 ####[facility] [address] [place], [address] pH UR Normal 5.0 - 8.0 [facility] Comment on above: Order Comment: Urine , Random Result Comment: PT R EFUSED Performed By: #### L 400.0100, L500.2900, L100.0200 ####[facility] [address] [place], [address] PROT DIPSTX Normal Negative [facility] Comment on above: Order Comment: Urine , Random Result Comment: PT R EFUSED Performed By: #### L 400.0100, L500.2900, L100.0200 ####[facility] [address] [place], [address] SP.GR. DIPSTX Normal 1.002-1.030 [facility] Comment on above: Order Comment: Urine , Random Result Comment: PT R EFUSED Performed By: #### L 400.0100, L500.2900, L100.0200 ####[facility] [address] [place], [address] UR Preservative Normal [facility] Comment on above: Order Comment: Urine , Random Result Comment: PT R EFUSED Performed By: #### L 400.0100, L500.2900, L100.0200 ####[facility] [address] [place], [address] UROBILI Normal Normal [facility] Comment on above: Order Comment: Urine , Random Result Comment: PT R EFUSED Performed By: #### L 400.0100, L500.2900, L100.0200 ####[facility] [address] [place], [address] White blood cell (WBC) count Ordered By: HEALTH ASSESSMENT on 04-11-2025 WBC (Bld) [#/Vol] 5.4 10*3/uL 4.4-11.0 [facility] Gastroenterology Visit Repor ton 05-14-2025 Gastroenterology Visit Report [facility] Gastroenterology [address] [place] [address] OFFICE VISIT Date of Service: 01/17/25 MR#: [id number] Acct: [id number] Name: FERDINAND LEI Rep #: [id number] : 1990 Provider: CHARMAINE Stephenson Age/Sex: 34/F Location: [facility] Status: Signed Intake Vital Signs 10/18/24 08:22 Height 5 ft 3 in Weight: 149 lb BMI 26.4 BP 122/80 H Position Sitting Pulse 89 Temp 98.5 F Temp Source Oral Pulse Oximetry (%) 98 Oxygen Delivery Method room air Intake Visit Reasons: 3 M FU Chief Complaint: abd pain Allergies No Known Allergies Allergy (Verified 10/18/24 08:29) Nurse's Note: OV 10/20/24 Pt here for a f/u and reports she is doing well with no GI complaints. Reports no medication changes or concerns. [facility] Medical History Anxiety Acute allergic conjunctivitis Nasal congestion GBS (group B streptococcus) UTI complicating Preventative health care exam Meniere disease Gestational diabetes mellitus (GDM) affecting Wellness examination Abnormal glucose affecting Polycystic ovaries Hearing problem Headache, migraine history of bone fracture Surgical History History of wisdom tooth extraction history of birthmark removal history of laporscopic knee surgery Family History Grandmother Autoimmune disorder Thyroid disorder Grandfather Heart disease High cholesterol Mother Hypertension Father Atrial fibrillation Mitral valve prolapse Other Myocardial infarction Social History (Updated 07/04/24 @ 12:55 by Sahil Dalal MA) adopted: No household members: spouse and children housing: house number of children: 1 current occupational status: employed 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/hazards: No pets and animals: Yes pets and animals: dog(s) history of recent travel: No sexually active: Yes Smoking Status: Never smoker alcohol intake: current alcohol intake frequency: holidays/special occasions only substance use type: does not use diet: low salt well-balanced diet: daily or most days caffeine: No eating out: 1-3 times/week during the past year weight has: remained stable what type of physical activity do you participate in: none frequency: 1-2 times per week randy/buddhism: Cheondoism seatbelt use: always do you feel safe at home: Yes 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 BGI established in JUL 2024 with intermittent episode of n/v, diarrhea and abd pain since giving to her second child in 2022. *Start Zofran PRN Stool; negative for enteric pathogens, ova/parasites, cbc, c.dif, no Giardia. Normal elastase and normal calprotectin. Gallbladder US 07.28.24; Normal right upper quadrant ultrasound examination Last OV 2..25 Pt recently with Flu A and norovirus. Has not had a episode since Jun 2024. Feels pasta is a trigger. HIDA 3.7.25; The gallbladder is opacified at 60 minutes. Correlation with ultrasound of the gallbladder recommended. HIDA 4.25.25; normal uptake; CCK not given although ordered Biochemical work up; RAST food allergy, celiac panel both without abnormalities OV 5.14.25 Pt doing well. She has had no further episodes. She has questions about her HIDA scan as they were not able to give her CCK. ROS Const Constitutional: No anorexia, fatigue, fever(s), weight change or sleep problems Eyes Eyes: No change in vision ENT ENT: No abnormal hearing, difficulty swallowing, mouth lesions, tongue swelling or throat swelling Resp Respiratory: No cough or shortness of breath Cardio Cardiology: No chest pain at rest, chest pain with exertion, shortness of breath or dyspnea on exertion Gastro GI: No difficulty swallowing Genitourinary-Female: No difficulty urinating or burning urination Musc Musculoskeletal: No joint pain, joint swelling, muscle weakness or decreased muscle mass Skin Skin: No hair loss in leg, yellowing of the eye, itchy eyes, rash, skin ulcer or skin swelling Neuro Neurology: No abnormal hearing, abnormal movements, confusion, unsteady gait/balance or memory loss Psych Psychiatric: No anxiety, No confusion and No memory loss Endo Endocrine: No fatigue or weight change Aller/Imm Allergy/Immunologic: No itchy eyes, throat swelling or tongue swelling Martínez/Lymp Hematologic/Lymphatic: No easy bleeding, easy bruising or enlarged lymph nodes Exam Cons (more content not included)... Normal [facility] Hepatobilliary Imagingon Hepatobilliary Imaging [facility] Imaging Services [address] [place] [address] Hepatobilliary Imaging MR#: [id number] Acct: [id number] Name: FERDINAND LEI Rep #: [id number] : 1990 F 34 From: Faustino Ward MD PCP: Dr. Jaswant Rico MD Status: REG CLI Study: Hepatobilliary Imaging Date of Exam: 12/29/24 Exam# [id number] Ordering Dr: Mady Johnson PROCEDURE: HEPATOBILIARY IMAGING 12/29/2024 REASON FOR EXAM: RUQ PAIN TECHNIQUE: Intravenous Choletec with planar imaging of the abdomen. RADIOPHARMACEUTICAL: 5.2 mCi of Mebrofenin IV COMPARISON: Gallbladder ultrasound dated 07/28/2024. hepatobiliary scan dated 2024 FINDINGS: Prompt uptake of the radiopharmaceutical by the hepatocytes. Prompt appearance of activity in the small bowel. Gallbladder activity is again visualized. NM/Hepatobilliary Imaging IMPRESSION: Unremarkable hepatobiliary scan without pharmaceutical stimulation. Similar findings were noted on the previous study. Reading Location: [facility] CC: Dr. Jaswant Rico MD; CHARMAINE Stephenson Jailer/Training Officer: Signed Normal [facility] Hepatobilliary Imagingon Hepatobilliary Imaging [facility] Imaging Services [address] [place] [address] Hepatobilliary Imaging MR#: [id number] Acct: [id number] Name: FERDINAND LEI Rep #: [id number] : 1990 F 34 From: Kermit gamble MD PCP: Dr. Jaswant Rico MD Status: REG CLI Study: Hepatobilliary Imaging Date of Exam: 11/10/24 Exam# [id number] Ordering Dr: Mady Johnson PROCEDURE: HEPATOBILLIARY IMAGING REASON FOR EXAM: Nausea and vomiting. Patient is . TECHNIQUE: RADIOPHARMACEUTICAL: 5 mCi of technetium labeled mebrofenin. Imaging of the right upper quadrant was obtained. COMPARISON: None. FINDINGS: There is good uptake of the radiopharmaceutical by the liver. Normal gallbladder visualization with the gallbladder identified by 60 minutes. NM/Hepatobilliary Imaging IMPRESSION: The gallbladder is opacified at 60 minutes. Correlation with ultrasound of the gallbladder recommended. Reading Location: [id number] CC: Dr. Jaswant Rico MD; CHARMAINE Stephenson Jailer/Training Officer: Signed Normal [facility] L5500.0550on 11-02-2024 BEEF <0.10 Normal Class 0 [facility] Comment on above: Performed By: #### L 3410.2400, L5500.0550 #### [facility] Laboratory [address] [place], [address] CHOCOLATE <0.10 Normal Class 0 [facility] Comment on above: Performed By: #### L 3410.2400, L5500.0550 #### [facility] [address] [place], [address] CODFISH <0.10 Normal Class 0 [facility] Comment on above: Performed By: #### L 3410.2400, L5500.0550 #### [facility] [address] [place], [address] COMMENT Comment Normal . [facility] Comment on above: Result Comment: Nicanor nieves of Specific IgE Class Description of Class ----- < 0.10 0 Negative 0.10 - 0.31 0/I Equivocal/Low 0.32 - 0.55 I Low 0.56 - 1.40 II Moderate 1.41 - 3.90 III High 3.91 - 19.00 IV Very High 19.01 - 100.00 V Very High >100.00 Very High Performed By: #### L 3410.2400, L5500.0550 #### [facility] [address] [place], [address] CORN <0.10 Normal Class 0 [facility] Comment on above: Performed By: #### L 3410.2400, L5500.0550 #### [facility] [address] [place], [address] EGG, WHOLE <0.10 Normal Class 0 [facility] Comment on above: Result Comment: Perf ormed at: - [facility] [id number] [employer] [place] [employer] Operator: Yvonne Gallardo MD, Phone: [phone] Performed By: #### L 3410.2400, L5500.0550 #### [facility] [address] [place], [address] MILK (COW) <0.10 Normal Class 0 [facility] Comment on above: Performed By: #### L 3410.2400, L5500.0550 #### [facility] [address] [place], [address] MUSSELS <0.10 Normal Class 0 [facility] Comment on above: Performed By: #### L 3410.2400, L5500.0550 #### [facility] [address] [place], [address] PEANUT <0.10 Normal Class 0 [facility] Comment on above: Performed By: #### L 3410.2400, L5500.0550 #### [facility] [address] [place], [address] PORK <0.10 Normal Class 0 [facility] Comment on above: Performed By: #### L 3410.2400, L5500.0550 #### [facility] [address] [place], [address] SALMON <0.10 Normal Class 0 [facility] Comment on above: Performed By: #### L 3410.2400, L5500.0550 #### [facility] [address] [place], [address] SHRIMP <0.10 Normal Class 0 [facility] Comment on above: Performed By: #### L 3410.2400, L5500.0550 #### [facility] [address] [place], [address] SOYBEAN <0.10 Normal Class 0 [facility] Comment on above: Performed By: #### L 3410.2400, L5500.0550 #### [facility] [address] [place], [address] TUNA <0.10 Normal Class 0 [facility] Comment on above: Performed By: #### L 3410.2400, L5500.0550 #### [facility] [address] [place], [address] WHEAT <0.10 Normal Class 0 [facility] Comment on above: Performed By: #### L 3410.2400, L5500.0550 #### [facility] [address] [place], [address] Celiac Disease Profileon ENDOMYSIAL IGA Negative Normal Negative [facility] Comment on above: Performed By: #### L 3410.2400, L5500.0550 #### [facility] [address] [place], [place], [address] IMMUNOGLOB A QN 168 mg/dL Normal 87-352 [facility] Comment on above: Result Comment: Perf ormed at: [facility] [id number] [employer] [place] [employer] Operator: Herve Banks PhD, Phone: [phone] Performed By: #### L 3410.2400, L5500.0550 #### [facility] [address] [place], [place], [address] tTG IGA <2 Normal 0-3 [facility] Comment on above: Result Comment: Nega tive 0 - 3 Weak Positive 4 - 10 Positive >10 Tissue Transglutaminase (tTG) has been identified as the endomysial antigen. Studies have demonstr- ated that endomysial IgA antibodies have over 99% specificity for gluten sensitive enteropathy. Performed By: #### L 3410.2400, L5500.0550 #### [facility] [address] [place], [place], [address] Beef IgE Qn (S)Ordered By: Jeana Johnson on 10-27-2024 Beef Allergen (RAST) <0.10 kU/L Class 0 [facility] Chocolate IgE Qn (S)Ordered By: Mady Johnson on 10-27-2024 Chocolate Allergen (RAST) <0.10 kU/L Class 0 [facility] Codfish IgE Qn (S)Ordered By : Mady Johnson on 10-27-2024 Codfish Allergen (RAST) <0.10 kU/L Class 0 [facility] Derby IgE Qn (S)Ordered By: Jeana Johnson on 10-27-2024 [place] Allergen (RAST) <0.10 kU/L Class 0 [facility] Cow milk IgE Qn (S)Ordered B y: Mady Johnson on 10-27-2024 Cow's Milk Allergen <0.10 kU/L Class 0 [facility] Endomysial IgA antibody assa yOrdered By: Mady Johnson on 10-27-2024 Endomysial IgA Antibody Negative Negative [facility] IgA [Mass/Vol]Ordered By: Teagan Johnson on 10-27-2024 Immunoglobulin A 168 mg/dL 03-352 [facility] Comment on above: Performed at: [facility] [id number] [place], [place] [id number] Director: Herve Banks PhD, Phone: [phone] Laboratory - Miscellaneous t estsOrdered By: Mady Johnson on 10-27-2024 Service comment (Unsp spec) [Interp] Comment . [facility] Comment on above: Levels of Specific I gE Class Description of Class ----- < 0.10 0 Negative 0.10 - 0.31 0/I Equivocal/Low 0.32 - 0.55 I Low 0.56 - 1.40 II Moderate 1.41 - 3.90 III High 3.91 - 19.00 IV Very High 19.01 - 100.00 V Very High >100.00 Very High Peanut IgE Qn (S)Ordered By: Mady Johnson on 10-27-2024 Peanut Allergen (RAST) <0.10 kU/L Class 0 [facility] Pork IgE Qn (S)Ordered By: Jeana Johnson on 10-27-2024 Pork Allergen (RAST) <0.10 kU/L Class 0 [facility] [place] IgE Qn (S)Ordered By: Mady Johnson on 10-27-2024 [place] Allergen IgE Antibody <0.10 kU/L Class 0 [facility] Serum beef IgE antibody assa y (units/volume)Ordered By: Mady Johnson on 10-27-2024 Beef IgE Qn (S) <0.10 kU/L Class 0 [facility] Serum codfish IgE antibody a ssay (units/volume)Ordered By: Mady Johnson on 10-27-2024 Codfish IgE Qn (S) <0.10 kU/L Class 0 [facility] Serum corn IgE antibody assa y (units/volume)Ordered By: Mady Johnson on 10-27-2024 [place] IgE Qn (S) <0.10 kU/L Class 0 [facility] Serum cow milk IgE antibody assay (units/volume)Ordered By: Mady Johnson on 10-27-2024 Cow milk IgE Qn (S) <0.10 kU/L Class 0 [facility] Serum mussel specific IgE an tibody assayOrdered By: Mady Johnson on 10-27-2024 Mussel Allergen IgE Antibody <0.10 kU/L Class 0 [facility] Serum or plasma IgA measurem ent (mass/volume)Ordered By: Mady Johnson on 10-27-2024 IgA [Mass/Vol] 168 mg/dL 87-352 [facility] Comment on above: Performed at: [address] [id number] Director: Herve Banks PhD, Phone: [phone] Serum peanut IgE antibody as say (units/volume)Ordered By: Mady Johnson on 10-27-2024 Peanut IgE Qn (S) <0.10 kU/L Class 0 [facility] Serum pork IgE antibody assa y (units/volume)Ordered By: Mady Johnson on 10-27-2024 Pork IgE Qn (S) <0.10 kU/L Class 0 [facility] Serum salmon IgE antibody as say (units/volume)Ordered By: Mady Johnson on 10-27-2024 [place] IgE Qn (S) <0.10 kU/L Class 0 [facility] Serum shrimp specific IgE an tibody assayOrdered By: Mady Johnson on 10-27-2024 Shrimp Allergen <0.10 kU/L Class 0 [facility] Serum soybean IgE antibody a ssay (units/volume)Ordered By: Mady Johnson on 10-27-2024 Soybean IgE Qn (S) <0.10 kU/L Class 0 [facility] Serum tissue transglutaminas e (tTG) IgA antibody assay (units/volume)Ordered By: Mady Johnson on 10-27-2024 tTG IgA Qn (S) <2 U/mL 0-3 [facility] Comment on above: Negative 0 - 3 Weak Positive 4 - 10 Positive >10 Tissue Transglutaminase (tTG) has been identified as the endomysial antigen. Studies have demonstr- ated that endomysial IgA antibodies have over 99% specificity for gluten sensitive enteropathy. Serum tuna IgE antibody assa y (units/volume)Ordered By: Mady Johnson on 10-27-2024 Tuna IgE Qn (S) <0.10 kU/L Class 0 [facility] Serum wheat IgE antibody ass ay (units/volume)Ordered By: Mady Johnson on 10-27-2024 Wheat IgE Qn (S) <0.10 kU/L Class 0 [facility] Serum whole egg IgE antibody assay (units/volume)Ordered By: Mady Johnson on 10-27-2024 Whole Egg IgE Qn (S) <0.10 kU/L Class 0 [facility] Comment on above: Performed at: [address] [id number] Director: Yvonne Gallardo MD, Phone: [phone] Service comment (Unsp spec) [Interp]Ordered By: Mady Johnson on 10-27-2024 RAST Comment Comment . [facility] Comment on above: Levels of Specific I gE Class Description of Class ----- < 0.10 0 Negative 0.10 - 0.31 0/I Equivocal/Low 0.32 - 0.55 I Low 0.56 - 1.40 II Moderate 1.41 - 3.90 III High 3.91 - 19.00 IV Very High 19.01 - 100.00 V Very High >100.00 Very High Soybean IgE Qn (S)Ordered By : Mady Johnson on 10-27-2024 Soybean Allergen (RAST) <0.10 kU/L Class 0 [facility] Tuna IgE Qn (S)Ordered By: Jeana Johnson on 10-27-2024 Tuna Allergen (RAST) <0.10 kU/L Class 0 [facility] Wheat IgE Qn (S)Ordered By: Mady Johnson on 10-27-2024 Wheat Allergen (RAST) <0.10 kU/L Class 0 [facility] Whole Egg IgE Qn (S)Ordered By: Mady Johnson on 10-27-2024 Egg Whole Allergen <0.10 kU/L Class 0 [facility] Comment on above: Performed at: [address] [id number] Director: Yvonne Gallardo MD, Phone: [phone] tTG IgA Qn (S)Ordered By: Teagan Johnson on 10-27-2024 Tissue Transglutaminase IgA Ab <2 U/mL 0-3 [facility] Comment on above: Negative 0 - 3 Weak Positive 4 - 10 Positive >10 Tissue Transglutaminase (tTG) has been identified as the endomysial antigen. Studies have demonstr- ated that endomysial IgA antibodies have over 99% specificity for gluten sensitive enteropathy. Gastroenterology Visit Repor ton 10-25-2024 Gastroenterology Visit Report [facility] [address] [place] [address] OFFICE VISIT Date of Service: 10/25/24 MR#: [id number] Acct: [id number] Name: FERDINAND LEI Rep #: [id number] : 1990 Provider: CHARMAINE Stephenson Age/Sex: 33/F Location: [facility] Status: Signed Intake Vital Signs 07/04/24 12:55 10/18/24 08:22 Height 5 ft 3 in 5 ft 3 in Intake Visit Reasons: 3 M FU Chief Complaint: abd pain Allergies No Known Allergies Allergy (Verified 10/18/24 08:29) Patient : No Have you fallen in the past year?: No Nurse's Note: OV 10.25.24 Pt here for f/u. Pt reports no change from prior office visit. Pt reports n/v and abdominal pain. [facility] Medical History Anxiety Acute allergic conjunctivitis Nasal congestion GBS (group B streptococcus) UTI complicating Preventative health care exam Meniere disease Gestational diabetes mellitus (GDM) affecting Wellness examination Abnormal glucose affecting Polycystic ovaries Hearing problem Headache, migraine history of bone fracture Surgical History History of wisdom tooth extraction history of birthmark removal history of laporscopic knee surgery Family History Grandmother Autoimmune disorder Thyroid disorder Grandfather Heart disease High cholesterol Mother Hypertension Father Atrial fibrillation Mitral valve prolapse Other Myocardial infarction Social History (Updated 07/04/24 @ 12:55 by Sahil Dalal MA) adopted: No household members: spouse and children housing: house number of children: 1 current occupational status: employed 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/hazards: No pets and animals: Yes pets and animals: dog(s) history of recent travel: No sexually active: Yes Smoking Status: Never smoker alcohol intake: current alcohol intake frequency: holidays/special occasions only substance use type: does not use diet: low salt well-balanced diet: daily or most days caffeine: No eating out: 1-3 times/week during the past year weight has: remained stable what type of physical activity do you participate in: none frequency: 1-2 times per week randy/buddhism: Cheondoism seatbelt use: always do you feel safe at home: Yes 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 I established 07.20.24 with complaints of intermittent episode of n/v, diarrhea and abd pain since giving to her second child in 2022. *Start Zofran PRN Stool; negative for enteric pathogens, ova/parasites, cbc, c.dif, no Giardia. Normal elastase and normal calprotectin. Gallbladder US 07.28.24; Normal right upper quadrant ultrasound examination OV . Over last three weeks pt has had flu A and possibly norovirus. She had a flare with her symptoms back in June 2024 and then went a few months without one. The last episode was about 3 weeks ago prior to her flu A. She feels like pasta has triggered her symptoms in the past. ROS Const Constitutional: Positive for fatigue; No fever(s) or weight change ENT ENT: No difficulty swallowing Gastro GI: Positive for diarrhea; No abdominal pain, belching, bloating, change in bowel habits, change in stool character, coffee ground emesis, constipation, cramping, heartburn, difficulty swallowing, feeling full early, excessive flatus, incontinent of stools, Vomiting blood/hematemesis, Blood in stool, loose stools, Black,tarry stools, nausea/dyspepsia, pain with swallowing, vomiting or other Musc Musculoskeletal: No joint pain Skin Skin: No yellowing of the eye or itchy eyes Psych Psychiatric: No anxiety and No depression Endo Endocrine: Positive for fatigue; No weight change Aller/Imm Allergy/Immunologic: No itchy eyes Martínez/Lymp Hematologic/Lymphatic: No easy bleeding or easy bruising Exam Const General: cooperative and comfortable Nutritional Appearance: average body habitus and well nourished HENMD Head: normal to inspection Ears: hearing grossly normal bilaterally Nose: external nose normal Face and sinus: normal facial exam Eyes General: appearance normal, both eyes and all related structures Neck Neck: normal visual inspection Chest Chest palpation inspection: normal inspection of the chest Resp Effort Inspection: normal respiratory effort Auscultation: Bilateral: Clear to Auscultation Cardio Palpation: normal PMI Rate: regular rate Rhythm: r (more content not included)... Normal [facility] Laboratory - Microbiology an d Antimicrobial susceptibilityOrdered By: Tra [place] on 10-18-2024 SARS-CoV-2 (COVID-19) RNA SHANE+probe Ql (Unsp spec) Not detected [facility] No Panel InformationOrdered By: Tra [place] on 10-18-2024 POC Nasal Swab Influenza A,B Detected [facility] POC Nasal Swab RSV Not detected [facility] Office Visit Reporton 2024 Office Visit Report [facility] [address] [place] [address] OFFICE VISIT Date of Service: 10/18/24 MR#: [id number] Acct: [id number] Patient: FERDINAND LEI Rep #: [id number] : 1990 Provider: CHARMAINE Roque Age/Sex: 33/F Location: [facility] Status: Signed Intake Vital Signs 07/04/24 12:55 Height 5 ft 3 in Intake Visit Reasons: COVID TEST/[facility] EMP Chief Complaint: abd pain, n/v, diarrhea Allergies No Known Allergies Allergy (Verified 10/18/24 08:29) Nurse's Note: Patient here for a Cepheid test per employer. Results POC Larisa Rapid Strep POC Larisa Rapid Strep Negative Last Edit by Kenyatta Torres MA on 10/18/24 08:50 POC CEPH COV,FluAB,RSV PCR CEPHEID COVID PCR Not DETECTED Last Edit by Kenyatta Torres MA on 10/18/24 09:05 CEPHEID FLU AB PCR ONLY FLU A DETECTED Last Edit by Kenyatta Torres MA on 10/18/24 09:05 CEPHEID RSV PCR NOT DETECTED Last Edit by Kenyatta Torres MA on 10/18/24 09:05 10/18/24 0912 Date Tra MONTANO Cosigner Signature: Date (if applicable) CC: Normal [facility] Rapid group A Streptococcus antigen assay at point of careOrdered By: Tra [place] on 10-18-2024 S. pyogenes Ag IA.rapid Ql (Throat) Negative [facility] S. pyogenes Ag IA.rapid Ql ( Throat)Ordered By: Tra [place] on 10-18-2024 S. pyogenes Ag IA Ql (Unsp spec) Negative [facility] Urgent Care Visit Reporton 0 10-18-2024 Urgent Care Visit Report [facility] [address], [address] [place] [address] OFFICE VISIT Date of Service: 10/18/24 MR#: [id number] Acct: [id number] Name: FERDINAND LEI Rep #: [id number] : 1990 Provider: CHARMAINE Roque Age/Sex: 33/F Location: [facility] Status: Signed Intake Vital Signs 07/04/24 12:55 10/18/24 08:22 Height 5 ft 3 in 5 ft 3 in Weight: 149 lb BMI 26.4 BP 122/80 H Position Sitting Pulse 89 Temp 98.5 F Temp Source Oral Pulse Oximetry (%) 98 Oxygen Delivery Method room air Intake Visit Reasons: ST/FEVER/COUGH Accompanied by: Self Allergies No Known Allergies Allergy (Verified 10/18/24 08:29) Medications ???Medication ???Instructions ???Recorded ???Confirmed ???Type hydrochlorothiazide 12.5 mg tablet 12.5 mg PO QDAY 06/16/24 5 History folic acid 400 mcg tablet 400 mcg PO DAILY 07/04/24 10/18/24 History oseltamivir 75 mg capsule 75 mg PO BID 5 days #10 caps 10/1810/18/24 Rx Nurse's Note: Patient has a ST that started Wednesday and then last night she got chills,cough and fever. [facility] Medical History Anxiety Acute allergic conjunctivitis Nasal congestion GBS (group B streptococcus) UTI complicating Preventative health care exam Meniere disease Gestational diabetes mellitus (GDM) affecting Wellness examination Abnormal glucose affecting Polycystic ovaries Hearing problem Headache, migraine history of bone fracture Surgical History History of wisdom tooth extraction history of birthmark removal history of laporscopic knee surgery Family History Grandmother Autoimmune disorder Thyroid disorder Grandfather Heart disease High cholesterol Mother Hypertension Father Atrial fibrillation Mitral valve prolapse Other Myocardial infarction Social History (Updated 07/04/24 @ 12:55 by Sahil Dalal MA) adopted: No household members: spouse and children housing: house number of children: 1 current occupational status: employed 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/hazards: No pets and animals: Yes pets and animals: dog(s) history of recent travel: No sexually active: Yes Smoking Status: Never smoker alcohol intake: current alcohol intake frequency: holidays/special occasions only substance use type: does not use diet: low salt well-balanced diet: daily or most days caffeine: No eating out: 1-3 times/week during the past year weight has: remained stable what type of physical activity do you participate in: none frequency: 1-2 times per week randy/buddhism: Cheondoism seatbelt use: always do you feel safe at home: Yes 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 Patient notes no complaints of chest pain or shortness of breath or dyspnea on exertion. Several close contacts recently dx???d w/ similar URI complaints, including son who was diagnosed with streptococcal pharyngitis. Non-smoker. No mzyb-uvh-irlkdyz taken to assist. No other associated symptoms and no other alleviating/aggravatin g factors. ROS Const Constitutional: No other (As above) Exam Const General: cooperative, healthy appearing and no acute distress Orientation: alert, awake and oriented x3 HENMT Head: normal to inspection Ears: hearing grossly normal bilaterally, external ears normal, TM's normal bilaterally and EAC's normal Nose: external nose normal, nares normal, septum normal and clear nasal discharge Face and sinus: normal facial exam, sinuses nontender and face symmetric Mouth: oral mucosae normal, lip normal, tongue normal and oropharynx normal Throat: posterior oropharynx normal, tonsils erythematous without exudate or hypertrophy, uvula midline and no postnasal drainage Eyes General: appearance normal, both eyes and all related structures Neck Neck: normal visual inspection, full ROM, no lymphadenopathy, no meningeal signs and supple Neck mass: No Thyroid: thyroid normal Lymphatic: no lymphadenopathy noted Chest Chest palpation inspection: normal inspection of the chest Resp Effort Inspection: normal respiratory effort, able to speak in complete sentences and no unsolicited cough during today's exam Auscultation: Bilateral: Clear to Auscultation Cardio Palpation: normal PMI Rate: Regular Rhythm: regular rhythm (more content not included)... Normal [facility] Calprotectin, Stoolon [address] 17 ug/g Normal 0-120 [facility] Comment on above: Result Comment: Conc entration Interpretation Follow-Up < 5 - 50 ug/g Normal None >50 -120 ug/g Borderline Re-evaluate in 4-6 weeks >120 ug/g Abnormal Repeat as clinically indicated Performed at: [address] [id number] [place] Saw Operator: Yvonne Gallardo MD, Phone: [phone] Performed By: #### M 7400.3302, M100.0605, M100.637, M600.5000, L7000.0750, L7000.0700, M100.6796 ####[facility] [id number] [place], [place], [address] M7400.3302on 08-15-2024 M7400.3302 __ TESTING PERFORMED AT [facility]. ORIGINAL REPORT ON FILE IN LAB CONTAINS ADDITIONAL TEST SITE INFORMATION. Giardia Lamblia EIA NEGATIVE Normal [facility] Comment on above: Performed By: #### M 7400.3302, M100.0605, M100.637, M600.5000, L7000.0750, L7000.0700, M100.6796 ####[facility] [id number] [address] [place], [place], [address] Ova and Parasites 8623on OP OVA AND PARASITES EXAM, ROUTINE These results were obtained using wet preparation(s) and trichrome stained smear. This test does not include testing for Crytosporidium parvum, Cyclospora, or Microsporidia. One negative specimen does not rule out the possibility of a parasitic infection. TESTING PERFORMED AT [facility]. ORIGINAL REPORT ON FILE IN LAB CONTAINS ADDITIONAL TEST SITE INFORMATION. Ova/Parasite Exam NO OVA, CYSTS, OR PARASITES FOUND. Normal [facility] Comment on above: Performed By: #### M 7400.3302, M100.0605, M100.637, M600.5000, L7000.0750, L7000.0700, M100.6796 ####[facility] [id number] [place], [place], [id number] L7000.0750on 08-14-2024 P ELASTASE,FECA > 800 Normal >200 [facility] Comment on above: Result Comment: Resu lt Units: ug Elast./g Severe Pancreatic Insufficiency: <100 Moderate Pancreatic Insufficiency: 100 - 200 Normal: >200 Performed at: [address] [id number] [place] [employer] Operator: Yvonne Gallardo MD, Phone: [phone] Performed By: #### M 7400.3302, M100.0605, M100.637, M600.5000, L7000.0750, L7000.0700, M100.6796 ####[facility] [id number] [place], [place], [id number] C. difficile DNA SHANE+probe Q l (Unsp spec)Ordered By: Mady Johnson on 08-11-2024 Clostridioides difficile (PCR) [facility] Clostridioides difficile (PCR) [facility] CDIFF (PCR)on 08-11-2024 CDIFF Pending 027 [id number] NAP1-B1 Presumptive Negative *for epidemiolologic???use C. Diff PCR Negative- No toxigenic C. Diff Detected Normal [facility] Comment on above: Performed By: #### M 7400.3302, M100.0605, M100.637, M600.5000, L7000.0750, L7000.0700, M100.6796 ####[facility] [address] [place], [address] Calprotectin stoolOrdered By : Mady Johnson on 08-11-2024 Stool Calprotectin 17 ug/g 0-120 [facility] Comment on above: Concentration Interp retation Follow-Up< 5 - 50 ug/g Normal None>50 -120 ug/g Borderline Re-evaluate in 4-6 weeks >120 ug/g Abnormal Repeat as clinically indicatedPerformed at: [facility] [address] [id number] Director: Yvonne Gallardo MD, Phone: [phone] ENTERIC PATHOGEN PANEL STOOL on 08-11-2024 EP PANEL Normal Reference Ran ge = Not Detected GI pathogens Pnl Stl SHANE+probe Nucleic acid amplification test method GI pathogens Pnl Stl SHANE+probe Not detected for Campylobacter group, Salmonella species, Shigella species, Vibrio Group, Yersinia enterocolitica, EHEC (Shiga Toxin 1, Shiga Toxin 2), Norovirus Gl/Gll, and Rotavirus A. Other common stool pathogens are not detected on this panel include: Aeromonas/Plesiomonas or parasites. Order testing for these organisms separately if suspected. This is an amplified DNA test which makes it both specific and sensitive. CAMPYLOBACTER Not Detected Norovirus Not Detected Rotavirus Not Detected Salmonella Not Detected Shiga Toxin Not Detected Shigella sp. Not Detected VIBRIO Not Detected Yersinia Not Detected Normal [facility] Comment on above: Performed By: #### M 7400.3302, M100.0605, M100.637, M600.5000, L7000.0750, L7000.0700, M100.6796 ####[facility] [address] [place], [place], [id number] Elastase.pancreatic (Stl) [M ass/Mass]Ordered By: Mady Johnson on 08-11-2024 Stool Pancreatic Elastase > 800 >200 [facility] Comment on above: Result Units: ug Mary Jo st./g Severe Pancreatic Insufficiency: <100 Moderate Pancreatic Insufficiency: 100 - 200 Normal: >200Performed at: [address] [id number] Director: Yvonne Gallardo MD, Phone: [phone] Giardia lamblia antigen assa y by enzyme immunoassayOrdered By: Mady Johnson on 08-11-2024 Giardia Antigen (NARCISA) [facility] Giardia Antigen (NARCISA) [facility] Lactoferrin IA Ql (Stl)Order ed By: Mady Johnson on 08-11-2024 Stool Lactoferrin [facility] Stool Lactoferrin [facility] Ova and parasitesOrdered By: Mady Johnson on 08-11-2024 Ova and Parasites [facility] Ova and Parasites [facility] Stool Lactoferrin/WBCon 0 WBCST Normal Reference Ran ge = Negative Fecal WBC Lactoferrin Negative: No Fecal WBC Lactoferrin present Normal [facility] Comment on above: Performed By: #### M 7400.3302, M100.0605, M100.637, M600.5000, L7000.0750, L7000.0700, M100.6796 ####[facility] [address] [place], [place], [id number] Stool enteric pathogen panel by probe and target amplification methodOrdered By: Mady Johnson on 08-11-2024 Enteric Bacteriology [facility] Enteric Bacteriology [facility] Gallbladderon 07-28-2024 Gallbladder [facility] Imaging Services [address] [place], [place] [id number] Gallbladder MR#: [id number] Acct: [id number] Name: FERDINAND LEI SAHIL Rep #: [id number] : 1990 F 33 From: Uri Rowe MD PCP: Dr. Jaswant Rico MD Status: REG CLI Study: Gallbladder Date of Exam: 07/28/24 Exam# [id number] Ordering Dr: Mady Johnson [id number] STUDY: ABDOMINAL ULTRASOUND - RIGHT UPPER QUADRANT REASON FOR VISIT: Female, 33 years old abdominal pain TECHNIQUE: Ultrasound evaluation of the right upper quadrant was performed with real-time and static verduzco-scale imaging. TECHNICAL QUALITY: Adequate. COMPARISON: None. FINDINGS: Liver: The liver measures 14.3 cm. There is normal echogenicity of the liver. The bile ducts are within normal limits. There is hepatic color flow. The direction of portal flow is hepatopetal. There is no demonstrated mass lesion. Gallbladder: Normal distended gallbladder. The gallbladder wall measures 2 mm. There is a negative sonographic Sher''s sign. There is no pericholecystic fluid. There are no gallstones. Common Bile Duct (C.B.D.): The common bile duct measures 5 mm. Pancreas: Normal size of the head, body and tail of the pancreas. There is normal echogenicity of the pancreas. There is no demonstrated pancreatic mass or cyst. Right Kidney: Normal size of the right kidney. The right kidney measures 11.4 cm. Normal renal cortex. The right cortex measures 1.4 cm. There is no demonstrated renal mass or cyst. There is no right hydronephrosis. US/Gallbladder IMPRESSION: Normal right upper quadrant ultrasound examination. Electronically Signed: Uri Rowe MD at 13:02 EST , CC: Dr. Jaswant Rico MD; CHARMAINE Stephenson Jailer/Training Officer: Signed Normal [facility] Gastroenterology Visit Repor shivani 07-20-2024 Gastroenterology Visit Report [facility]ology [address] [place] [address] OFFICE VISIT Date of Service: 07/20/24 MR#: [id number] Acct: [id number] Name: FERDINAND LEI Rep #: [id number] : 1990 Provider: CHARMAINE Stephenson Age/Sex: 33/F Location: [facility] Status: Signed Intake Vital Signs 07/04/24 12:55 Height 5 ft 3 in Weight: 150 lb BMI 26.5 BP 120/64 Blood Pressure Location Lt brachial Position Sitting Respiration 16 Pulse 90 Pulse Source Monitor Temp 99.4 F H Temp Source Temporal Pulse Oximetry (%) 99 Oxygen Delivery Method room air Intake Visit Reasons: Vomiting syndrome Chief Complaint: abd pain, n/v, diarrhea Allergies No Known Allergies Allergy (Verified 07/04/24 12:51) Medications ???Medication ???Instructions ???Recorded ???Confirmed ???Type hydrochlorothiazide 12.5 mg tablet 12.5 mg PO QDAY 06/16/24 07/20/24 History folic acid 400 mcg tablet 400 mcg PO DAILY 07/04/24 07/20/24 History Nurse's Note: OV 07.20.24 pt reports that for a little over a year now, since having her second baby, she has been having episodes of nausea, vomiting, and diarrhea. Pt reports she has had about 5 episodes in the past year. Pt reports that she will start to feel nauseated shortly after eating and then will vomit a few times and have diarrhea; pt reports the diarrhea will sometimes only last a day, but sometimes lasts a week. Pt reports that it seems to be greasy and fried food that upset her stomach, but sometimes can eat these foods and feel fine. Pt reports that she normally has a daily formed bm, can sometimes have one every other day. pt also notes that father and sister have had their gallbladders out. [facility] Medical History Anxiety Acute allergic conjunctivitis Nasal congestion GBS (group B streptococcus) UTI complicating Preventative health care exam Meniere disease Gestational diabetes mellitus (GDM) affecting Wellness examination Abnormal glucose affecting Polycystic ovaries Hearing problem Headache, migraine history of bone fracture Surgical History History of wisdom tooth extraction history of birthmark removal history of laporscopic knee surgery Family History Grandmother Autoimmune disorder Thyroid disorder Grandfather Heart disease High cholesterol Mother Hypertension Father Atrial fibrillation Mitral valve prolapse Other Myocardial infarction Social History (Updated 07/04/24 @ 12:55 by Sahil Dalal MA) adopted: No household members: spouse and children housing: house number of children: 1 current occupational status: employed 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/hazards: No pets and animals: Yes pets and animals: dog(s) history of recent travel: No sexually active: Yes Smoking Status: Never smoker alcohol intake: current alcohol intake frequency: holidays/special occasions only substance use type: does not use diet: low salt well-balanced diet: daily or most days caffeine: No eating out: 1-3 times/week during the past year weight has: remained stable what type of physical activity do you participate in: none frequency: 1-2 times per week randy/buddhism: Cheondoism seatbelt use: always do you feel safe at home: Yes 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 Since April 2023 when she had her second child she has been having intermittent episodes or n/v, diarrhea and abdominal pain. This will typically last around 24 hours and at first just thought it was a viral illness. She has noticed that sometimes the episode follow eating fatty foods like a cheeseburger or bengali food. She tells me her father and sister both had cholecystis in their 30s and underwent cholecystectomy. She has never had a gallbladder US. She has never had an EGD or colonoscopy before. ROS Const Constitutional: No fatigue, fever(s) or weight change ENT ENT: No difficulty swallowing Gastro GI: Positive for constipation and diarrhea; No abdominal pain, belching, bloating, change in bowel habits, change in stool character, coffee ground emesis, cramping, heartburn, difficulty swallowing, feeling full early, excessive flatus, incontinent of stools, Vomiting blood/hematemesis, Blood in stool, loose stools, Black,tarry stools, nausea/dyspepsia, pain with swallowing, vomiting or other Musc Musculoskeleta (more content not included)... Normal [facility] Absolute lymphocyte countOrd ered By: Navdeep Sotelo on 05-09-2023 Lymphocytes Auto (Unsp spec) [#/Vol] 1.88 10*3/uL 0.83-4.51 [facility] Basophil percentageOrdered B y: Navdeep Sotelo on 05-09-2023 Basophil percentage 0 SEEN /hpf 0-5 [facility] Basophils/100 WBC (Bld) 0.1 % 0-1 [facility] Bilirubin [Mass/Vol] 0.30 mg/dL 0.20-1.00 [facility] Comment on above: For patients on eltr ombopag therapy, use of Dimension [facility] TBIL is not recommended. Chloride [Moles/Vol] 107 mmol/L 98-107 [facility] Eosinophils/100 WBC (Bld) 0.9 % 0-5 [facility] Glucose [Mass/Vol] 101 mg/dL 74-106 [facility] Comment on above: Fasting Glucose resu lt from 100 to 125 mg/dL suggests IMPAIRED HOMEOSTASIS per A.D.A. criteria. Neutrophils (Bld) [#/Vol] 8.4 10*3/uL 2.0-7.7 [facility] Neutrophils/100 WBC (Bld) 76.2 % 47-70 [facility] Potassium [Moles/Vol] 3.7 mmol/L 3.5-5.1 [facility] Protein [Mass/Vol] 6.7 g/dL 6.4-8.2 [facility] Sodium [Moles/Vol] 138 mmol/L 136-145 [facility] WBC (Bld) [#/Vol] 11.0 10*3/uL 4.4-11.0 [facility] Bilirubin Test strip Ql (U)O rdered By: Navdeep Sotelo on 05-09-2023 Bilirubin Ql (U) Negative Negative [facility] Blood erythrocytes count (nu mber/volume)Ordered By: Navdeep Sotelo on 05-09-2023 RBC (Bld) [#/Vol] 4.05 10*6/uL 4.2-5.4 [facility] Blood hemoglobin measurement (mass/volume)Ordered By: Navdeep Sotelo on 05-09-2023 Hemoglobin (Bld) [Mass/Vol] 12.6 g/dL 12.0-15.0 [facility] Blood lymphocytes/100 leukoc ytesOrdered By: Navdeep Sotelo on 05-09-2023 Lymphocytes/100 WBC (Bld) 17.0 % 19-41 [facility] Blood monocytes/100 leukocyt esOrdered By: Navdeep Sotelo on 05-09-2023 Monocytes/100 WBC (Bld) 5.3 % 0-10 [facility] Blood platelet mean volumeOr dered By: Navdeep Sotelo on 05-09-2023 Platelet mean volume (Bld) [Entitic vol] 8.9 fL 6.2-12.0 [facility] Determination of erythrocyte mean corpuscular volume (MCV)Ordered By: Navdeep Sotelo on 05-09-2023 MCV (RBC) [Entitic vol] 92.8 fL 81-99 [facility] Hematocrit Auto (Bld) [Volum e fraction]Ordered By: Navdeep Sotelo on 05-09-2023 Hematocrit (Bld) [Volume fraction] 37.6 % 37-47 [facility] Ketones Test strip Ql (U)Ord ered By: Navdeep Sotelo on 05-09-2023 Ketones Ql (U) Negative Negative [facility] Laboratory - Chemistry and C hemistry - challengeOrdered By: Navdeep Sotelo on 05-09-2023 ALP [Catalytic activity/Vol] 142 U/L 45-117 [facility] ALT [Catalytic activity/Vol] 26 U/L 13-56 [facility] CO2 [Moles/Vol] 26.0 mmol/L 21.0-32.0 [facility] Globulin (S) [Mass/Vol] 4.1 g/dL 2.2-4.2 [facility] Lipase [Catalytic activity/Vol] 21 U/L 13-75 [facility] Comment on above: Please note:LIPASE r evised reference range effective 22. New Lipase methodology. Expected to produce lower values than the previous assay method. NEW Reference Range: 13 - 75 U/L Urea nitrogen/Creatinine [Mass ratio] 19.4 mg/mg 10-20 [facility] Laboratory - Hematology and Cell countsOrdered By: Navdeep Sotelo on 05-09-2023 Erythrocyte distribution width (RBC) [Entitic vol] 42.5 fL 35.1-43.9 [facility] Erythrocyte distribution width (RBC) [Ratio] 12.4 % 11.6-14.6 [facility] Immature granulocytes/100 WBC (Bld) 0.500 % 0.0-0.9 [facility] Comment on above: IG% - Immature Granu locytes (promyelocytes, myelocytes and metamyelocytes) > 1% indicates that a LEFT SHIFT is Present. MCH (RBC) [Entitic mass] 31.1 pg 27.0-32.0 [facility] Nucleated RBC/100 WBC (Bld) [Ratio] 0 % 0-5 [facility] MCHC Auto (RBC) [Mass/Vol]Or dered By: Navdeep Sotelo on 05-09-2023 MCHC (RBC) [Mass/Vol] 33.5 g/dL 32-36 [facility] Mucus LM Ql (Urine sed)Order ed By: Navdeep Sotelo on 05-09-2023 Mucus Ql (Urine sed) 0 SEEN /hpf [facility] Nitrite Test strip Ql (U)Ord ered By: Navdeep Sotelo on 05-09-2023 Nitrite Ql (U) Negative Negative [facility] No Panel InformationOrdered By: Navdeep Sotelo on 05-09-2023 Estimated Creatinine Clearance Calc 118.30 ml/min [facility] Estimated GFR (MDRD) Amer 159 mL/min >60 [facility] Comment on above: GFR Calc Estimated GFR (MDRD) Non-Af Amer 132 mL/min >60 [facility] Comment on above: Non- GFR Calc Platelets bldOrdered By: Susu Sotelo on 05-09-2023 Platelets (Bld) [#/Vol] 359 10*3/uL 150-450 [facility] Protein Test strip Ql (U)Ord ered By: Navdeep Sotelo on 05-09-2023 Protein Ql (U) Negative Negative [facility] Serum or plasma albumin henrique urement (mass/volume)Ordered By: Navdeep Sotelo on 05-09-2023 Albumin [Mass/Vol] 2.6 g/dL 3.2-5.0 [facility] Serum or plasma albumin/glob ulin mass ratioOrdered By: Navdeep Sotelo on 05-09-2023 Albumin/Globulin [Mass ratio] 0.6 {ratio} 0.9-2.4 [facility] Serum or plasma calcium henrique urement (mass/volume)Ordered By: Navdeep Sotelo on 05-09-2023 Calcium [Mass/Vol] 8.5 mg/dL 8.5-10.1 [facility] Serum or plasma creatinine m easurement (mass/volume)Ordered By: Navdeep Sotelo on 05-09-2023 Creatinine [Mass/Vol] 0.57 mg/dL 0.55-1.02 [facility] Comment on above: The validity of the calculated GFR & GFRAA in patients over 70 years has not been determined. Clinical correlation is essential. Serum or plasma urea nitroge n measurement (mass/volume)Ordered By: Navdeep Sotelo on 05-09-2023 Urea nitrogen [Mass/Vol] 11 mg/dL 7-18 [facility] Squamous epithelial cells de tection in urine sediment by light microscopyOrdered By: Navdeep Sotelo on 05-09-2023 Epithelial cells.squamous LM Ql (Urine sed) 0-5 SEEN /hpf 5-10 [facility] Thin prep Papanicolaou smear with manual screeningOrdered By: Navdeep Sotelo on 05-09-2023 Thin prep Papanicolaou smear with manual screening 18 U/L 15-37 [facility] Thin prep Papanicolaou smear with manual screening 5 5-15 [facility] Urine blood detectionOrdered By: Navdeep Sotelo on 05-09-2023 RBC Ql (U) 50 /ul Negative [facility] RBC Ql (U) 0-5 SEEN /hpf 0-5 [facility] Urine clarityOrdered By: Susu Sotelo on 05-09-2023 Clarity (U) Sl. Cloudy Clear [facility] Urine color determinationOrd ered By: Navdeep Sotelo on 05-09-2023 Color (U) Yellow Yellow [facility] Urine glucose detectionOrder ed By: Navdeep Sotelo on 05-09-2023 Glucose Ql (U) Normal mg/dl Normal [facility] Urine leukocyte esterase det ection by dipstickOrdered By: Navdeep Sotelo on 05-09-2023 Leukocyte esterase Test strip Ql (U) Negative Negative [facility] Urine pHOrdered By: Navdeep guzman on 05-09-2023 pH (U) 7.0 [pH] 5.0 - 8.0 [facility] Urine sediment bacteria coun t by microscopy (number/high power field)Ordered By: Navdeep Sotelo on 05-09-2023 Bacteria LM.HPF (Urine sed) [#/Area] 0 /[HPF] None Seen [facility] Urine specific gravity measu rementOrdered By: Navdeep Sotelo on 05-09-2023 Specific gravity (U) [Rel density] 1.010 1.002-1.030 [facility] Urobilinogen Auto test strip Ql (U)Ordered By: Navdeep Sotelo on 05-09-2023 Urobilinogen Ql (U) Normal mg/dl Normal [facility] Absolute lymphocyte countOrd ered By: Keara Whitman on 05-03-2023 Lymphocytes Auto (Unsp spec) [#/Vol] 1.70 10*3/uL 0.83-4.51 [facility] Basophil percentageOrdered B y: Keara Whitman on 05-03-2023 Basophils/100 WBC (Bld) 0.1 % 0-1 [facility] Eosinophils/100 WBC (Bld) 0.4 % 0-5 [facility] Neutrophils (Bld) [#/Vol] 7.9 10*3/uL 2.0-7.7 [facility] Neutrophils/100 WBC (Bld) 76.7 % 47-70 [facility] WBC (Bld) [#/Vol] 10.3 10*3/uL 4.4-11.0 [facility] Blood erythrocytes count (nu mber/volume)Ordered By: Keara Whitman on 05-03-2023 RBC (Bld) [#/Vol] 3.88 10*6/uL 4.2-5.4 [facility] Blood hemoglobin measurement (mass/volume)Ordered By: Keara Whitman on 05-03-2023 Hemoglobin (Bld) [Mass/Vol] 12.0 g/dL 12.0-15.0 [facility] Blood lymphocytes/100 leukoc ytesOrdered By: Keara Whitman on 05-03-2023 Lymphocytes/100 WBC (Bld) 16.5 % 19-41 [facility] Blood monocytes/100 leukocyt esOrdered By: Keara Whitman on 05-03-2023 Monocytes/100 WBC (Bld) 5.4 % 0-10 [facility] Blood platelet mean volumeOr dered By: Keara Whitman on 05-03-2023 Platelet mean volume (Bld) [Entitic vol] 9.4 fL 6.2-12.0 [facility] Determination of erythrocyte mean corpuscular volume (MCV)Ordered By: Keara Whitman on 05-03-2023 MCV (RBC) [Entitic vol] 94.8 fL 81-99 [facility] Hematocrit Auto (Bld) [Volum e fraction]Ordered By: Keara Whitman on 05-03-2023 Hematocrit (Bld) [Volume fraction] 36.8 % 37-47 [facility] Laboratory - Hematology and Cell countsOrdered By: Keara Whitman on 05-03-2023 Erythrocyte distribution width (RBC) [Entitic vol] 44.6 fL 35.1-43.9 [facility] Erythrocyte distribution width (RBC) [Ratio] 12.9 % 11.6-14.6 [facility] Immature granulocytes/100 WBC (Bld) 0.900 % 0.0-0.9 [facility] Comment on above: IG% - Immature Granu locytes (promyelocytes, myelocytes and metamyelocytes) > 1% indicates that a LEFT SHIFT is Present. MCH (RBC) [Entitic mass] 30.9 pg 27.0-32.0 [facility] Nucleated RBC/100 WBC (Bld) [Ratio] 0 % 0-5 [facility] MCHC Auto (RBC) [Mass/Vol]Or dered By: Keara Whitman on 05-03-2023 MCHC (RBC) [Mass/Vol] 32.6 g/dL 32-36 [facility] Platelets bldOrdered By: Miguel Whitman on 05-03-2023 Platelets (Bld) [#/Vol] 273 10*3/uL 150-450 [facility] Serum Treponema species anti body detectionOrdered By: Keara Whitman on 05-03-2023 Treponema sp Ab Ql (S) Non-Reactive [facility] Laboratory - Chemistry and C hemistry - challengeon 04-30-2023 Glucose Ql (U) Negative [facility] Laboratory - Urinalysison Protein Ql (U) Negative [facility] Laboratory - Chemistry and C hemistry - challengeon 04-22-2023 Glucose Ql (U) Negative [facility] Laboratory - Urinalysison Protein Ql (U) Negative [facility] Laboratory - Chemistry and C hemistry - challengeon 04-16-2023 Glucose Ql (U) Negative [facility] Laboratory - Urinalysison Protein Ql (U) Negative [facility] No Panel InformationOrdered By: Grace Young on 04-16-2023 Group B Streptococcus Culture Streptococcus agalactiae (B) [facility] Laboratory - Chemistry and C hemistry - challengeon 03-25-2023 Glucose Ql (U) Negative [facility] Laboratory - Urinalysison Protein Ql (U) Negative [facility] Laboratory - Chemistry and C hemistry - challengeon 02-22-2023 Glucose Ql (U) Negative [facility] Laboratory - Urinalysison Protein Ql (U) Negative [facility] Absolute lymphocyte countOrd ered By: Aida Hendrickson on 02-19-2023 Lymphocytes Auto (Unsp spec) [#/Vol] 1.83 10*3/uL 0.83-4.51 [facility] Basophil percentageOrdered B y: Aida Hendrickson on 02-19-2023 Basophils/100 WBC (Bld) 0.1 % 0-1 [facility] Eosinophils/100 WBC (Bld) 0.2 % 0-5 [facility] Neutrophils (Bld) [#/Vol] 7.7 10*3/uL 2.0-7.7 [facility] Neutrophils/100 WBC (Bld) 75.6 % 47-70 [facility] WBC (Bld) [#/Vol] 10.2 10*3/uL 4.4-11.0 [facility] Blood erythrocytes count (nu mber/volume)Ordered By: Aida Hendrickson on 02-19-2023 RBC (Bld) [#/Vol] 3.91 10*6/uL 4.2-5.4 [facility] Blood hemoglobin measurement (mass/volume)Ordered By: Aida Hendrickson on 02-19-2023 Hemoglobin (Bld) [Mass/Vol] 12.1 g/dL 12.0-15.0 [facility] Blood lymphocytes/100 leukoc ytesOrdered By: Aida Hendrickson on 02-19-2023 Lymphocytes/100 WBC (Bld) 18.0 % 19-41 [facility] Blood monocytes/100 leukocyt esOrdered By: Aida Hendrickson on 02-19-2023 Monocytes/100 WBC (Bld) 5.3 % 0-10 [facility] Blood platelet mean volumeOr dered By: Aida Hendrickson on 02-19-2023 Platelet mean volume (Bld) [Entitic vol] 8.9 fL 6.2-12.0 [facility] Determination of erythrocyte mean corpuscular volume (MCV)Ordered By: Aida Hendrickson on 02-19-2023 MCV (RBC) [Entitic vol] 95.7 fL 81-99 [facility] Gestational diabetes screen 1-hour screen with 50g oral glucose loadOrdered By: Aida Hendrickson on 02-19-2023 Glucose 1 Hr post 50 g glucose PO [Mass/Vol] 126 mg/dL 70-140 [facility] HIV 1 and HIV-2 antibody ass ay with HIV-1 p24 antigen detectionOrdered By: Aida Hendrickson on 02-19-2023 HIV 1+2 Ab+HIV1 p24 Ag IA Ql Non-Reactive Nonreactive [facility] Hematocrit Auto (Bld) [Volum e fraction]Ordered By: Aida Hendrickson on 02-19-2023 Hematocrit (Bld) [Volume fraction] 37.4 % 37-47 [facility] Laboratory - Hematology and Cell countsOrdered By: Aida Hendrickson on 02-19-2023 Erythrocyte distribution width (RBC) [Entitic vol] 45.2 fL 35.1-43.9 [facility] Erythrocyte distribution width (RBC) [Ratio] 13.0 % 11.6-14.6 [facility] Immature granulocytes/100 WBC (Bld) 0.800 % 0.0-0.9 [facility] Comment on above: IG% - Immature Granu locytes (promyelocytes, myelocytes and metamyelocytes) > 1% indicates that a LEFT SHIFT is Present. MCH (RBC) [Entitic mass] 30.9 pg 27.0-32.0 [facility] Nucleated RBC/100 WBC (Bld) [Ratio] 0 % 0-5 [facility] MCHC Auto (RBC) [Mass/Vol]Or dered By: Aida Hendrickson on 02-19-2023 MCHC (RBC) [Mass/Vol] 32.4 g/dL 32-36 [facility] Platelets bldOrdered By: Lexi Hendrickson on 02-19-2023 Platelets (Bld) [#/Vol] 296 10*3/uL 150-450 [facility] Serum Treponema species anti body detectionOrdered By: Aida Hendrickson on 02-19-2023 Treponema sp Ab Ql (S) Non-Reactive [facility] Laboratory - Chemistry and C hemistry - challengeon 01-29-2023 Glucose Ql (U) Negative [facility] Laboratory - Urinalysison Protein Ql (U) Negative [facility] Laboratory - Chemistry and C hemistry - challengeon 12-31-2022 Glucose Ql (U) Negative [facility] Laboratory - Urinalysison Protein Ql (U) Negative [facility] Laboratory - Chemistry and C hemistry - challengeon 12-03-2022 Glucose Ql (U) Negative [facility] Laboratory - Urinalysison Protein Ql (U) Negative [facility] Laboratory - Chemistry and C hemistry - challengeon 11-06-2022 Glucose Ql (U) Negative [facility] Laboratory - Urinalysison Protein Ql (U) Negative [facility] No Panel InformationOrdered By: Dr. Young on 10-22-2022 Miscellaneous Test Comment MAILED SPECIMEN [facility] Laboratory - Chemistry and C hemistry - challengeon 10-08-2022 Glucose Ql (U) Negative [facility] Laboratory - Urinalysison Protein Ql (U) Negative [facility] Culture, urineOrdered By: Dr Vi Young on 09-21-2022 Bacteria identified Cx Nom (U) Streptococcus agalactiae (B) [facility] Bacteria identified Cx Nom (U) Positive [facility] Cervical or vagninal specime n microscopic examination by cytology stain (reported asOrdered By: Dr. Young on 09-18-2022 Cytology report Cyto stain Doc (Cvx/Vag) Comment . [facility] Comment on above: The Pap smear is a s creening test designed to aid in thedetection of premalignant and malignant conditions of theuterine cervix. It is not a diagnostic procedure andshould not be used as the sole means of detecting cervicalcancer. Both false-positive and false-negative reports dooccur. Chlamydia trachomatis rRNA d etection by probe and target amplification methodOrdered By: Dr. Young on 09-18-2022 C. trachomatis rRNA SHANE+probe Ql (Unsp spec) Negative Negative [facility] Detection in cervical specim en of any of human papilloma virus (HPV) 16, 18, 31, 33,Ordered By: Dr. Young on 09-18-2022 HPV 16+18+31+33+35+39+45+51+ 52+56+58+59+66+68 DNA Probe+sig amp Ql (Cvx) Negative Negative [facility] Comment on above: This nucleic acid am plification test detects fourteen high-risk HPV types (16,18,31,33,35,39,45,51,52,56,58,59,66,68)without differentiation. Laboratory - CytologyOrdered By: Dr. Young on 09-18-2022 [employer] Cyto stain Nom (Cvx/Vag) [ID] Comment . [facility] Comment on above: Pb Fung chnologist (ASCP) Laboratory - Microbiology an d Antimicrobial susceptibilityOrdered By: Dr. Young on 09-18-2022 N. gonorrhoeae DNA SHANE+probe Ql (Unsp spec) Negative Negative [facility] Comment on above: Performed at: [address], [place] [id number] Director: Greer Romero MD, Phone: [phone] Laboratory - Miscellaneous t estsOrdered By: Dr. Young on 09-18-2022 Service comment (Unsp spec) [Interp] Comment . [facility] Comment on above: This liquid based Th inPrep(R) pap test was screened withthe use of an image guided system. Service comment (Unsp spec) [Interp] . . [facility] Liquid-based cerv Pap + CT/G C by SHANE w reflex to high-risk HPV for ASCUSOrdered By: Dr. Young on 09-18-2022 Cytology report Cyto stain.thin prep Doc (Cvx/Vag) Comment . [facility] Comment on above: Criteria not met, HP V Genotype not performed.Performed at: [facility] [id number] Director: Greer Romero MD, Phone: [phone] at: =[place] - [facility] [address] [id number] Director: Greer Romero MD, Phone: [phone] No Panel InformationOrdered By: Dr. Young on 09-18-2022 Pathology report final diagnosis Narrative Comment . [facility] Comment on above: NEGATIVE FOR INTRAEP ITHELIAL LESION OR MALIGNANCY. Absolute lymphocyte countOrd ered By: Dr. Young on 09-14-2022 Lymphocytes Auto (Unsp spec) [#/Vol] 2.10 10*3/uL 0.83-4.51 [facility] Basophil percentageOrdered B y: Dr. Young on 09-14-2022 Basophils/100 WBC (Bld) 0.0 % 0-1 [facility] Eosinophils/100 WBC (Bld) 0.4 % 0-5 [facility] Neutrophils (Bld) [#/Vol] 4.2 10*3/uL 2.0-7.7 [facility] Neutrophils/100 WBC (Bld) 61.3 % 47-70 [facility] WBC (Bld) [#/Vol] 6.8 10*3/uL 4.4-11.0 [facility] Blood erythrocytes count (nu mber/volume)Ordered By: Dr. Young on 09-14-2022 RBC (Bld) [#/Vol] 4.29 10*6/uL 4.2-5.4 [facility] Blood hemoglobin measurement (mass/volume)Ordered By: Dr. Young on 09-14-2022 Hemoglobin (Bld) [Mass/Vol] 13.0 g/dL 12.0-15.0 [facility] Blood lymphocytes/100 leukoc ytesOrdered By: Dr. Young on 09-14-2022 Lymphocytes/100 WBC (Bld) 30.7 % 19-41 [facility] Blood monocytes/100 leukocyt esOrdered By: Dr. Young on 09-14-2022 Monocytes/100 WBC (Bld) 7.3 % 0-10 [facility] Blood platelet mean volumeOr dered By: Dr. Young on 09-14-2022 Platelet mean volume (Bld) [Entitic vol] 9.4 fL 6.2-12.0 [facility] Determination of erythrocyte mean corpuscular volume (MCV)Ordered By: Dr. Young on 09-14-2022 MCV (RBC) [Entitic vol] 92.3 fL 81-99 [facility] HIV 1 and HIV-2 antibody ass ay with HIV-1 p24 antigen detectionOrdered By: Dr. Young on 09-14-2022 HIV 1+2 Ab+HIV1 p24 Ag IA Ql Non-Reactive Nonreactive [facility] Hematocrit Auto (Bld) [Volum e fraction]Ordered By: Dr. Young on 09-14-2022 Hematocrit (Bld) [Volume fraction] 39.6 % 37-47 [facility] Laboratory - Hematology and Cell countsOrdered By: Dr. Young on 09-14-2022 Erythrocyte distribution width (RBC) [Entitic vol] 41.9 fL 35.1-43.9 [facility] Erythrocyte distribution width (RBC) [Ratio] 12.3 % 11.6-14.6 [facility] Immature granulocytes/100 WBC (Bld) 0.300 % 0.0-0.9 [facility] Comment on above: IG% - Immature Granu locytes (promyelocytes, myelocytes and metamyelocytes) > 1% indicates that a LEFT SHIFT is Present. MCH (RBC) [Entitic mass] 30.3 pg 27.0-32.0 [facility] Nucleated RBC/100 WBC (Bld) [Ratio] 0 % 0-5 [facility] MCHC Auto (RBC) [Mass/Vol]Or dered By: Dr. Young on 09-14-2022 MCHC (RBC) [Mass/Vol] 32.8 g/dL 32-36 [facility] No Panel InformationOrdered By: Dr. Young on 09-14-2022 Hepatitis B Surface Antigen Non-Reactive Nonreactive [facility] Hepatitis C Antibody Non-Reactive Nonreactive [facility] Comment on above: Non Reactive: < 0.8 Equivocal: >/= 0.8 to < 1.0 Reactive: >/= 1.0The CDC recommends that a reactive/equivocal HCV antibody result be followed up by the HCV Nucleic Acid Amplificationtest (619447) Rubella IgG Antibody Reactive Nonreactive [facility] Comment on above: Antibody Results Int erpretation of Immune Status Non Reactive Presumed Non-Immune Equivocal Equivocal Reactive Presumed Immune Platelets bldOrdered By: Dr. Young on 09-14-2022 Platelets (Bld) [#/Vol] 316 10*3/uL 150-450 [facility] Serum Treponema species anti body detectionOrdered By: Dr. Young on 09-14-2022 Treponema sp Ab Ql (S) Non-Reactive [facility] Laboratory - Microbiology an d Antimicrobial susceptibilityon 06-30-2022 SARS-CoV-2 (COVID-19) RNA SHANE+probe Ql (Unsp spec) Not detected [facility] Absolute lymphocyte countOrd ered By: HEALTH ASSESSMENT on 06-01-2022 Lymphocytes Auto (Unsp spec) [#/Vol] 2.29 10*3/uL 0.83-4.51 [facility] Absolute reticulocyte countO rdered By: HEALTH ASSESSMENT on 06-01-2022 Reticulocytes (Bld) [#/Vol] 0.00 10*3/uL 0-5 [facility] Basophil percentageOrdered B y: HEALTH ASSESSMENT on 06-01-2022 Basophil percentage 3.6 mg/dL 2.5-4.9 [facility] Bilirubin [Mass/Vol] 0.50 mg/dL 0.20-1.00 [facility] Comment on above: For patients on eltr ombopag therapy, use of Dimension [facility] TBIL is not recommended. Chloride [Moles/Vol] 101 mmol/L 98-107 [facility] Cholesterol [Mass/Vol] 177 mg/dL <200 [facility] Comment on above: <200 mg/dL Desirable 200-240 mg/dL Borderline >240 mg/dL High Risk Glucose [Mass/Vol] 89 mg/dL 74-106 [facility] Neutrophils (Bld) [#/Vol] 2.5 10*3/uL 2.0-7.7 [facility] Potassium [Moles/Vol] 3.6 mmol/L 3.5-5.1 [facility] Protein [Mass/Vol] 7.3 g/dL 6.4-8.2 [facility] Sodium [Moles/Vol] 138 mmol/L 136-145 [facility] Triglyceride [Mass/Vol] 48 mg/dL <199 [facility] Comment on above: The drugs N-Acetylcy steine and Metamizole may falsely depress this assay.Serum Triglycerides Reference Interval Normal <150 mg/dL Borderline high 150 - 199 mg/dL High 200 - 499 mg/dL Very High > or = 500 mg/dL WBC (Bld) [#/Vol] 5.4 10*3/uL 4.4-11.0 [facility] Blood erythrocytes count (nu mber/volume)Ordered By: HEALTH ASSESSMENT on 06-01-2022 RBC (Bld) [#/Vol] 4.55 10*6/uL 4.2-5.4 [facility] Blood hemoglobin measurement (mass/volume)Ordered By: HEALTH ASSESSMENT on 06-01-2022 Hemoglobin (Bld) [Mass/Vol] 13.9 g/dL 12.0-15.0 [facility] Blood platelet mean volumeOr dered By: HEALTH ASSESSMENT on 06-01-2022 Platelet mean volume (Bld) [Entitic vol] 9.9 fL 6.2-12.0 [facility] Determination of erythrocyte mean corpuscular volume (MCV)Ordered By: HEALTH ASSESSMENT on 06-01-2022 MCV (RBC) [Entitic vol] 91.9 fL 81-99 [facility] Direct bilirubinOrdered By: HEALTH ASSESSMENT on 06-01-2022 Bilirubin.direct [Mass/Vol] 0.13 mg/dL 0.00-0.30 [facility] Hematocrit Auto (Bld) [Volum e fraction]Ordered By: HEALTH ASSESSMENT on 06-01-2022 Hematocrit (Bld) [Volume fraction] 41.8 % 37-47 [facility] Laboratory - Chemistry and C hemistry - challengeOrdered By: HEALTH ASSESSMENT on 06-01-2022 ALP [Catalytic activity/Vol] 74 U/L 45-117 [facility] ALT [Catalytic activity/Vol] 22 U/L 13-56 [facility] Cholesterol.total/Choles terol in HDL [Mass ratio] 2.50 {ratio} [facility] CO2 [Moles/Vol] 33.0 mmol/L 21.0-32.0 [facility] Globulin (S) [Mass/Vol] 3.6 g/dL 2.2-4.2 [facility] Urea nitrogen/Creatinine [Mass ratio] 16.7 mg/mg 10-20 [facility] Laboratory - Hematology and Cell countsOrdered By: HEALTH ASSESSMENT on 06-01-2022 Erythrocyte distribution width (RBC) [Entitic vol] 40.4 fL 35.1-43.9 [facility] Erythrocyte distribution width (RBC) [Ratio] 11.9 % 11.6-14.6 [facility] MCH (RBC) [Entitic mass] 30.5 pg 27.0-32.0 [facility] Nucleated RBC/100 WBC (Bld) [Ratio] 0 % 0-5 [facility] MCHC Auto (RBC) [Mass/Vol]Or dered By: HEALTH ASSESSMENT on 06-01-2022 MCHC (RBC) [Mass/Vol] 33.3 g/dL 32-36 [facility] No Panel InformationOrdered By: HEALTH ASSESSMENT on 06-01-2022 Estimated GFR (MDRD) Amer 135 mL/min >60 [facility] Comment on above: GFR Calc Estimated GFR (MDRD) Non-Af Amer 111 mL/min >60 [facility] Comment on above: Non- GFR Calc Platelets bldOrdered By: KHADIJAH [facility] ASSESSMENT on 06-01-2022 Platelets (Bld) [#/Vol] 333 10*3/uL 150-450 [facility] Segmented neutrophils/100 WB C Auto (Bld)Ordered By: HEALTH ASSESSMENT on 06-01-2022 Segmented neutrophils/100 WBC (Bld) 47.2 % 47-70 [facility] Serum or plasma albumin henrique urement (mass/volume)Ordered By: HEALTH ASSESSMENT on 06-01-2022 Albumin [Mass/Vol] 3.7 g/dL 3.2-5.0 [facility] Serum or plasma albumin/glob ulin mass ratioOrdered By: HEALTH ASSESSMENT on 06-01-2022 Albumin/Globulin [Mass ratio] 1.0 {ratio} 0.9-2.4 [facility] Serum or plasma calcium henrique urement (mass/volume)Ordered By: HEALTH ASSESSMENT on 06-01-2022 Calcium [Mass/Vol] 9.0 mg/dL 8.5-10.1 [facility] Serum or plasma cholesterol in HDL measurement (mass/volume)Ordered By: HEALTH ASSESSMENT on 06-01-2022 Cholesterol in HDL [Mass/Vol] 71 mg/dL >40 [facility] Comment on above: The drugs N-Acetylcy steine and Metamizole may falsely depress this assay. Reference Range HDL <40 mg/dL Low HDL Cholesterol HDL >or= 60 mg/dL High HDL Cholesterol Serum or plasma cholesterol in VLDL measurement (mass/volume)Ordered By: HEALTH ASSESSMENT on 06-01-2022 Cholesterol in VLDL [Mass/Vol] 10 mg/dL 5-40 [facility] Serum or plasma creatinine m easurement (mass/volume)Ordered By: HEALTH ASSESSMENT on 06-01-2022 Creatinine [Mass/Vol] 0.66 mg/dL 0.55-1.02 [facility] Comment on above: The validity of the calculated GFR & GFRAA in patients over 70 years has not been determined. Clinical correlation is essential. Serum or plasma low density lipoprotein (LDL) cholesterol measurement (mass/volume)Ordered By: HEALTH ASSESSMENT on 06-01-2022 Cholesterol in LDL [Mass/Vol] 96 mg/dL 0-130 [facility] Serum or plasma urea nitroge n measurement (mass/volume)Ordered By: HEALTH ASSESSMENT on 06-01-2022 Urea nitrogen [Mass/Vol] 11 mg/dL 7-18 [facility] Serum or plasma uric acid me asurement (mass/volume)Ordered By: HEALTH ASSESSMENT on 06-01-2022 Urate [Mass/Vol] 3.5 mg/dL 2.6-6.0 [facility] Comment on above: The drugs N-Acetylcy steine and Metamizole may falsely depress this assay. Thin prep Papanicolaou smear with manual screeningOrdered By: HEALTH ASSESSMENT on 06-01-2022 Thin prep Papanicolaou smear with manual screening 20 U/L 15-37 [facility] Thin prep Papanicolaou smear with manual screening 4 5-15 [facility] Thin prep Papanicolaou smear with manual screening 140 U/L 84-246 [facility] CNOVon 02-14-2019 CNOV Office Visit (OTAUST ) FERDINAND ALBARADO ([id number]) 1990 F Date Time Provider Department 02/14/19 9:00 AM PAULY CANELA) JACKY During your visit today, we recorded the following information about you: KRISTIN Ragland 02/14/2019 9:04 AM Signed AUDIOLOGIC EVALUATION REPORT Referred by: Ebony Mathias RN MS, HEAD OF TRANSPORT LOGISTICS.COUNSELLORS Referred for: Evaluation of suspected change in hearing, tinnitus, or balance. Patient's major complaints: Reduced hearing in the left ear, Tinnitus in the right ear, ordered/ STAT Ferdinand was seen for a recheck audiologic evaluation. See SmartForm Audiogram for additional reported history and symptoms. She was seen as a Same Day Add-On patient upon request of the physician. Results may be limited due to time constraints and lack of educational recruiter's availability. AUDIOMETRIC RESULTS Following is a brief interpretation of the obtained findings from the audiologic evaluation. Refer to the Auditory Test Record for complete audiometric results. The patient was counseled about the test findings and appropriate audiologic recommendations were made. SUMMARY: Audiogram can be viewed under Forms/Audiology/SmartF orm. RIGHT EAR Hearing Sensitivity: WNL - improved from 01/11/19 exam. Word Recognition Score: Excellent (90-100%). WRS is consistent with hearing sensitivity. Tympanometry: Did not test. Acoustic Reflex Pattern: Did not test Acoustic Reflex Decay: Did not test. LEFT EAR Hearing Sensitivity: mild High frequency SNHL - slight improvement from 01/11/19 exam. Word Recognition Score: Excellent (90-100%). WRS is consistent with hearing sensitivity. Tympanometry: Did not test. Acoustic Reflex Pattern: Did not test Acoustic Reflex Decay: Did not test. INTERPRETATION OF HEARING STATUS Right ear: Hearing within normal limits Left ear: Sensorineural hearing loss MANAGEMENT PLAN: * Continue medical follow-up with Ebony Mathias NP. * Re-evaluation as medically indicated. * Return if a change in hearing is noted. KRISTIN Ragland I verify that I have reviewed the history, test results, and interpretation for this patient. MORENO Abbrev- iation Definition Degree of hearing sensitivity dB range WNL within normal limits WNL 0 - 20 SNHL sensorineural hearing loss Mild 20-40 CHL conductive hearing loss Moderate 40-55 MHL mixed hearing loss Moderately-Severe 55-70 WRS word recognition score Severe 70-90 ME middle ear Profound 90 + TM tympanic membrane Referring Provider: EBONY MATHIAS (NACHO) [[id number]] Allergies As of Date: 02/14/2019 (No Known Allergies) Date Reviewed: 02/14/2019 Reviewed by: Marilyn Fournier RN - Fully Assessed Primary Visit Diagnosis:Tinnitus, right ear [H93.11] Other Visit Diagnosis:Sensorineura l hearing loss, asymmetrical [H90.5] Problem List As Of Date 02/14/2019 Noted Resolved Dizziness and giddiness [R42] INVALID FOR* Sensorineural hearing loss, asymmetrical [H90.5]INVALID FOR* Tinnitus, right ear [H93.11] INVALID FOR* Classic SmartForms filed during this visit: Audiometry Encounter Status:Closed by PAULY CANELA on 02/14/[address] [facility] CN Office Visit (OTOLST ) FERDINAND ALBARADO ([id number]) 1990 F Date Time Provider Department 02/14/19 8:00 AM EBONY MATHIAS) OTRUTHIE During your visit today, we recorded the following information about you: Ebony Mathias RN MS, HEAD OF TRANSPORT LOGISTICS.[facility] 02/14/2019 8:57 AM Signed History of Present Illness Ferdinand Albarado is an 28 year old year old established patient returning for follow up tinnitus. Tinnitus has resolved. On the last day of the 12 day prednisone taper her tinnitus felt better. She had a brief return of tinnitus on Wednesday02/11/19. She had one episode of dizziness and tinnitus lasting 3 weeks in the past, then more recently an episode at the end of December/ early January lasting about a week with tinnitus and dizziness. She has no family hx hearing loss, no personal hx ear surgery or noise exposure. She reduced sodium intake. Family hx lupus (grandmother) Medical History: ACTIVE PROBLEM LIST Dizziness and Giddiness Sensorineural Hearing Loss, Asymmetrical Tinnitus, Right Ear No past surgical history on file. ALLERGIES No Known Allergies Current Outpatient Medications on File Prior to Visit: predniSONE (DELTASONE) 10 mg tablet Take by mouth four (4) tabs x3 days; then three (3) tabs x3days; then two (2) tabs x3 days; then one (1) tab a day x3 days (Patient not taking: Reported on 02/14/2019 ) No current facility-administered medications on file prior to visit. Social History: No family history on file. Social History Socioeconomic History Marital status: other Spouse name: Not on file Number of children: Not on file Years of education: Not on file Highest education level: Not on file Social Needs Financial resource strain: Not on file Food insecurity - worry: Not on file Food insecurity - inability: Not on file Transportation needs - medical: Not on file Transportation needs - non-medical: Not on file Occupational History Not on file Tobacco Use Smoking status: Not on file Substance and Sexual Activity Alcohol use: Not on file Drug use: Not on file Sexual activity: Not on file Other Topics Concerns: Not on file Social History Narrative Not on file Objective: PHYSICAL EXAM: GENERAL: The patient is seated in the examination chair appearing well with normal skin turgor and color, and body habitus. There are no obvious deformities and grooming is adequate. Ferdinand Albarado has an adequate ability to communicate. EARS: RIGHT: Canal clear, TM intact mobile free of infection or effusion. LEFT: Canal clear, TM intact , mobile free of infection or effusion. NOSE: Septum: Aligned Turbinates: Normal Mucosa: Normal MOUTH:Examination of the oral mucosa, hard and soft palates, and tongue demonstrates no mucosal abnormality, masses or other lesions. ORAL PHARYNX: Without mucosal abnormality, swelling, erythema or masses. Tonsils: WNL TEETH:Dentition and bite are adequate. LIPS, GUMS: Without abnormality VOICE: Normal NECK: Overall appearance is symmetrical. Supple, without lymphadenopathy THYROID:Without enlargement, tenderness or masses. EYES: PERRLA, EOM, Without nystagmus AUDIO Right: Normal hearing Left: Normal hearing except mild loss at 4000 Hz. Assessment: Encounter Diagnosis ICD-10-CM 1. Right asymmetrical SNHL H90.41 COMPREHENSIVE AUDIOLOGIC EXAM Impression: Fluctuating SNHL. Essentially normal hearing today. Recommend serial audio testing Consider visiting otology for their opinion No current dizziness. Consider future vestibular battery. Follow up: 3 months Work in for sooner appt if patient reports hearing change. Ebony Mathias RN MS, HEAD OF TRANSPORT LOGISTICS.[employer] Referring Provider: SELF [[id number]] Allergies As of Date: 02/14/2019 (No Known Allergies) Date Reviewed: 02/14/2019 Reviewed by: Marilyn Fournier RN - Fully Assessed Reason for Visit: Follow Up [171] Primary Visit Diagnosis:Right asymmetrical SNHL [H90.41] Order(s):COMPREHENSIVE AUDIOLOGIC EXAM [[id number]] Order #: [id number] Problem List As Of Date 02/14/2019 Noted Resolved Dizziness and giddiness [R42] INVALID FOR* Sensorineural hearing loss, asymmetrical [H90.5]INVALID FOR* Tinnitus, right ear [H93.11] INVALID FOR* Medications Discontinued During This Encounter predniSONE (DELTASONE) 10 mg tablet 30 t* 0 01/11/2019 02/14/2019 Sig: Take by mouth four (4) tabs x3 days; then three (3) tabs x3days; then two (2) tabs x3 days; then one (1) tab a day x3 days Patient not taking: Reported on 02/14/2019 Disc: Course of therapy completed Encounter Status:Closed by EBONY MATHIAS CNP on 02/14/[address] [facility] PROGRESSon 02-14-2019 Protein mass conc HNO ID: [id number] Author: Pauly Canela (Aud) Service: ? Author Type: Corporation Lawyer Type: Progress Notes Filed: 02/14/2019 9:04 AM Note Text: AUDIOLOGIC EVALUATION REPORT Referred by: Ebony Mathias, RN MS, HEAD OF TRANSPORT LOGISTICS.[employer] Referred for: Evaluation of suspected change in hearing, tinnitus, or balance. Patient's major complaints: Reduced hearing in the left ear, Tinnitus in the right ear, MD ordered/ STAT Ferdinand was seen for a recheck audiologic evaluation. See SmartForm Audiogram for additional reported history and symptoms. She was seen as a Same Day Add-On patient upon request of the physician. Results may be limited due to time constraints and lack of educational recruiter's availability. AUDIOMETRIC RESULTS Following is a brief interpretation of the obtained findings from the audiologic evaluation. Refer to the Auditory Test Record for complete audiometric results. The patient was counseled about the test findings and appropriate audiologic recommendations were made. SUMMARY: Audiogram can be viewed under Forms/Audiology/SmartF orm. RIGHT EAR Hearing Sensitivity: WNL - improved from 01/11/19 exam. Word Recognition Score: Excellent (90-100%). WRS is consistent with hearing sensitivity. Tympanometry: Did not test. Acoustic Reflex Pattern: Did not test Acoustic Reflex Decay: Did not test. LEFT EAR Hearing Sensitivity: mild High frequency SNHL - slight improvement from 01/11/19 exam. Word Recognition Score: Excellent (90-100%). WRS is consistent with hearing sensitivity. Tympanometry: Did not test. Acoustic Reflex Pattern: Did not test Acoustic Reflex Decay: Did not test. INTERPRETATION OF HEARING STATUS Right ear: Hearing within normal limits Left ear: Sensorineural hearing loss MANAGEMENT PLAN: * Continue medical follow-up with Ebony Mathias NP. * Re-evaluation as medically indicated. * Return if a change in hearing is noted. KRISTIN Ragland I verify that I have reviewed the history, test results, and interpretation for this patient. MORENO Abbrev- iation Definition Degree of hearing sensitivity dB range WNL within normal limits WNL 0 - 20 SNHL sensorineural hearing loss Mild 20-40 CHL conductive hearing loss Moderate 40-55 MHL mixed hearing loss Moderately-Severe 55-70 WRS word recognition score Severe 70-90 ME middle ear Profound 90 + TM tympanic membrane Normal [facility] Protein mass conc HNO ID: [id number] Author: Ebony (Nacho) Garry Service: ? Author Type: Nurse Practitioner Type: Progress Notes Filed: 02/14/2019 8:57 AM Note Text: History of Present Illness Ferdinand Albarado is an 28 year old year old established patient returning for follow up tinnitus. Tinnitus has resolved. On the last day of the 12 day prednisone taper her tinnitus felt better. She had a brief return of tinnitus on Wednesday02/11/19. She had one episode of dizziness and tinnitus lasting 3 weeks in the past, then more recently an episode at the end of December/ early January lasting about a week with tinnitus and dizziness. She has no family hx hearing loss, no personal hx ear surgery or noise exposure. She reduced sodium intake. Family hx lupus (grandmother) Medical History: ACTIVE PROBLEM LIST Dizziness and Giddiness Sensorineural Hearing Loss, Asymmetrical Tinnitus, Right Ear No past surgical history on file. ALLERGIES No Known Allergies Current Outpatient Medications on File Prior to Visit: predniSONE (DELTASONE) 10 mg tablet Take by mouth four (4) tabs x3 days; then three (3) tabs x3days; then two (2) tabs x3 days; then one (1) tab a day x3 days (Patient not taking: Reported on 02/14/2019 ) No current facility-administered medications on file prior to visit. Social History: No family history on file. Social History Socioeconomic History Marital status: other Spouse name: Not on file Number of children: Not on file Years of education: Not on file Highest education level: Not on file Social Needs Financial resource strain: Not on file Food insecurity - worry: Not on file Food insecurity - inability: Not on file Transportation needs - medical: Not on file Transportation needs - non-medical: Not on file Occupational History Not on file Tobacco Use Smoking status: Not on file Substance and Sexual Activity Alcohol use: Not on file Drug use: Not on file Sexual activity: Not on file Other Topics Concerns: Not on file Social History Narrative Not on file Objective: PHYSICAL EXAM: GENERAL: The patient is seated in the examination chair appearing well with normal skin turgor and color, and body habitus. There are no obvious deformities and grooming is adequate. Ferdinand Albarado has an adequate ability to communicate. EARS: RIGHT: Canal clear, TM intact mobile free of infection or effusion. LEFT: Canal clear, TM intact , mobile free of infection or effusion. NOSE: Septum: Aligned Turbinates: Normal Mucosa: Normal MOUTH:Examination of the oral mucosa, hard and soft palates, and tongue demonstrates no mucosal abnormality, masses or other lesions. ORAL PHARYNX: Without mucosal abnormality, swelling, erythema or masses. Tonsils: WNL TEETH:Dentition and bite are adequate. LIPS, GUMS: Without abnormality VOICE: Normal NECK: Overall appearance is symmetrical. Supple, without lymphadenopathy THYROID:Without enlargement, tenderness or masses. EYES: PERRLA, EOM, Without nystagmus AUDIO Right: Normal hearing Left: Normal hearing except mild loss at 4000 Hz. Assessment: Encounter Diagnosis ICD-10-CM 1. Right asymmetrical SNHL H90.41 COMPREHENSIVE AUDIOLOGIC EXAM Impression: Fluctuating SNHL. Essentially normal hearing today. Recommend serial audio testing Consider visiting otology for their opinion No current dizziness. Consider future vestibular battery. Follow up: 3 months Work in for sooner appt if patient reports hearing change. Ebony Mathias RN MS, HEAD OF TRANSPORT LOGISTICS.C[employer]SELL[employer] Normal [facility] HEALTH 01-26-2019 ALLIED HEALTH HNO ID: [id number] Author: Bernardino Bender (Tech) Service: Radiology Author Type: Windows Security Engineer Type: Allied Health Filed: 01/26/2019 9:29 AM Note Text: Radiology Service Progress Note DATE OF SERVICE: January 26, 2019 TIME: 9:26 AM PATIENT IDENTITY VERIFICATION COMPLETED USING TWO (2) METHODS: Patient confirmed name verbally and ID band matches.. PATIENT GENDER DATA: Female. status: : No status: NO. PATIENT RELEVANT IMPLANT DATA REVIEWED: Yes ALLERGIES: Reviewed and unchanged CONTRAST ALLERGY: NO. EXAM: MRI - CONTRAST TYPE: GROUP II PERIPHERAL IV DATA: Ambulatory: A peripheral IV was started in the Right antecubital site with a Butterfly: 22 gauge. RADIOLOGY DEPARTMENT: MR; Exam(s) Completed: Head: IAC/CPA SIGNATURE: LUPILLO Bender PATIENT NAME: Ferdinand Albarado DATE: January 26, 2019 TIME: 9:26 AM [facility] MRI BRAIN WO/W IVCONon 01-26 MRI BRAIN WO/W IVCON * * *Final Report* * * DATE OF EXAM: Jan 26 2019 9:52AM [facility] [id number] - MRI BRAIN WO/W IVCON / PROCEDURE REASON: multiple diagnoses * * * * Physician Interpretation * * * * COMPARISONS: None. HISTORY: Sensorineural hearing loss in left ear. Dizziness. TECHNIQUE: MRI brain and IAC without and with contrast. MQ: MRBWOW_2 CONTRAST: 13 ml mL Dotarem IV. RESULT: MRI BRAIN AND IAC: Age expected unremarkable sulci, gyri, ventricles, CSF spaces and brain. No acute infarct/hemorrhage, mass effect or collections. Normal bones and tissues. High-resolution temporal bone images reveal bilateral CP angles, posterior fossa, seventh/8th nerve complex, inner and middle and external ear structures including course of IAC and internal jugular vein allowing for technique in modality are symmetrical, unremarkable without any soft tissue mass, asymmetry, structural/anatomical abnormality or abnormal areas of enhancement. IMPRESSION: Normal MRI brain and IAC. Jailer/Training Officer: PSCB Transcribe Date/Time: Jan 26 2019 10:08A Dictated by : NELSY DANGELO MD This examination was interpreted and the report reviewed and electronically signed by: NELSY DANGELO MD on Jan 26 2019 10:09AM EST [id number] [facility] CNOVon 01-11-2019 CNOV Office Visit (OTAUST ) CHARLESFERDINAND ([id number]) 1990 F Date Time Provider Department 01/11/19 9:15 AM KEITH GIBBS (AUD) During your visit today, we recorded the following information about you: Keith Sarmiento 01/11/2019 9:45 AM Signed AUDIOLOGIC EVALUATION REPORT Referred by: Ebony Mathias RN MS, HEAD OF TRANSPORT LOGISTICS.[facility] [address] [address] Referred for: Evaluation of suspected change in hearing, tinnitus, or balance. Patient's major complaints: Ferdinand Albarado is a 28 year old female who presents with right-sided tinnitus for the past week. She has had it in the past along accompanied by a feeling of dizziness. Her most recent episode occurred at work. 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 She was sitting at her desk and looking back for forth between 2 screens and she started to feel very dizzy. She said that the tinnitus got louder just before the onset of dizziness. Her face became pale and she was getting very sweaty. She went to the Emergency Department and had her vitals checked. She then waited for her symptoms to subside before returning to work. She said the episode lasted about a half hour. She then remembered having had this problem several years ago as well and she also had tinnitus at that time. She denies a hearing problem. She also denies ear pain or drainage. Ferdinand was seen for an initial audiologic evaluation. See SmartForm Audiogram for additional reported history and symptoms. She was seen as a Same Day Add-On patient upon request of the physician. Results may be limited due to time constraints and lack of educational recruiter's availability. AUDIOMETRIC RESULTS Following is a brief interpretation of the obtained findings from the audiologic evaluation. Refer to the Auditory Test Record for complete audiometric results. The patient was counseled about the test findings and appropriate audiologic recommendations were made. SUMMARY: Audiogram can be viewed under Forms/Audiology/SmartF orm. RIGHT EAR Hearing Sensitivity: Mild low frequency sensorineural hearing loss rising to normal hearing from 2568-0960 Hz. Word Recognition Score: Excellent (90-100%). WRS is consistent with hearing sensitivity. Tympanometry: Normal ME function. LEFT EAR Hearing Sensitivity: Normal hearing from 250-1000 Hz sloping to a mild sensorineural hearing loss from 1380-7830 Hz, with a visible notch at 4000 Hz. Word Recognition Score: Excellent (90-100%). WRS is consistent with hearing sensitivity. Tympanometry: Normal ME function. INTERPRETATION OF HEARING STATUS Right ear: Sensorineural hearing loss Left ear: Sensorineural hearing loss consistent with noise exposure MANAGEMENT PLAN: * Continue medical follow-up with Ebony Mathias RN MS, HEAD OF TRANSPORT LOGISTICS.[employer]. * The patient was counseled about hearing conservation and use of noise protectors. * The patient was counseled regarding effective communication strategies. * Return if a change in hearing is noted. Kristin Be, CCC-A MORENO Abbrev- iation Definition Degree of hearing sensitivity dB range WNL within normal limits WNL 0 - 20 SNHL sensorineural hearing loss Mild 20-40 CHL conductive hearing loss Moderate 40-55 MHL mixed hearing loss Moderately-Severe 55-70 WRS word recognition score Severe 70-90 ME middle ear Profound 90 + TM tympanic membrane Referring Provider: EBONY MATHIAS (DEVELOPMENTAL PSYCHOLOGIST) [[id number]] Allergies As of Date: 01/11/2019 (No Known Allergies) Date Reviewed: 01/11/2019 Reviewed by: Dory Lowery Ma - Fully Assessed Reason for Visit: Ringing In Ear(s) [1127] Cmt: Right ear Dizziness [36] Primary Visit Diagnosis:Tinnitus, right ear [H93.11] Other Visit Diagnoses:Dizziness and giddiness [R42] Sensorineural hearing loss, asymmetrical [H90.5] Problem List As Of Date 01/11/2019 Noted Resolved Dizziness and giddiness [R42] INVALID FOR* Sensorineural hearing loss, asymmetrical [H90.5]INVALID FOR* Tinnitus, right ear [H93.11] INVALID FOR* Classic SmartForms filed during this visit: Audiometry Encounter Status:Closed by KEITH GIBBS on 01/11/19 [facility] CN Office Visit (OTOLST ) FERDINAND ALBARADO ([id number]) 1990 F Date Time Provider Department 01/11/19 9:00 AM EBONY MATHIAS) AMNA During your visit today, we recorded the following information about you: Ebony Mathias RN MS, HEAD OF TRANSPORT LOGISTICS.[facility] 01/11/2019 9:57 AM Signed History of Present Illness Ferdinand Albarado, a 28 year old female, is seen at the request of self. Ferdinand Albarado presents for evaluation of right sided tinnitus. The patient reports sudden onset right sided ear ringing 1 week ago. Around the same time the ringing started, she had an episode of dizziness during which she felt dizzy and hot, and her BP was elevated 138/80; she improved with cool cloth on forehead. The ringing in the right ear has been constant. She has had one similar episode of hearing ringing and getting hot and dizzy, but the ringing resolved with the dizziness. She has had other episodes of ringing which improved with use of a decongestant. She has been using decongestant for the past week without success. Denies otorrhea, nasal congestion, sneezing, dysphagia, weight loss, fever, chills, hemoptysis, shortness of breath, lumps in neck, facial pain, ear pain, purulent rhinorrhea, numbness or tingling, vision changes, neck or back pain Hx headaches, not migraine. 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 No family history on file. Social History Socioeconomic History Marital status: other Spouse name: Not on file Number of children: Not on file Years of education: Not on file Highest education level: Not on file Social Needs Financial resource strain: Not on file Food insecurity - worry: Not on file Food insecurity - inability: Not on file Transportation needs - medical: Not on file Transportation needs - non-medical: Not on file Occupational History Not on file Tobacco Use Smoking status: Not on file Substance and Sexual Activity Alcohol use: Not on file Drug use: Not on file Sexual activity: Not on file Other Topics Concerns: Not on file Social History Narrative Not on file No current outpatient medications on file prior to visit. No current facility-administered medications on file prior to visit. Allergies: ALLERGIES No Known Allergies Review of Systems: Constitutional: Denies fever, weight loss, night sweats Eyes: Not reviewed HEENT: Head: Denies head/facial trauma, jaw clicking Ears: Denies ear pain, ear drainage Nose: Denies nasal discharge, nasal blockage, or epistaxis Throat: Denies soreness, throat clearing, dysphagia, voice change, mouth/tongue sores Neck: Denies lumps Pulmonary: Denies wheezing, shortness of breath Cardio: Denies use of blood thinners Gastrointestinal: Denies heartburn, reflux Genitourinary: Not reviewed Musculoskeletal: Not reviewed Integumentary: Not reviewed Neurological: Denies decreased sensation, or facial asymmetry Psychiatric: Not reviewed Endocrine: Not reviewed Hematologic/Lymphatic: Not reviewed Allergic/Immunologic: Not reviewed Physical Exam: General: The patient is seated in the examination chair appearing well with normal skin turgor and color, and body habitus. There are no obvious deformities and grooming is adequate. Ferdinand Albarado has an adequate ability to communicate. Head/Face: Facial features are symmetric, with no gross abnormality Ears: RIGHT: External appearance normal, pinna and tragus non-tender, canal cleaned of wax using curette through otoscope. TM intact, mobile, free of infection or effusion. LEFT: External appearance normal, pinna and tragus non-tender, canal cleaned of wax using curette through otoscope. TM intact, mobile, free of infection or effusion. Nose: External appearance: Normal, symmetric. Septum: Aligned. Turbinates: Normal. Mucosa: Normal Mouth: Examination of the oral mucosa, hard and soft palates, and tongue demonstrates no mucosal abnormality, masses or other lesions. Mucosa moist. Oropharynx: Without mucosal abnormality, swelling, erythema or masses. Tonsils: Symmetric, no sign of infection Teeth: Dentition intact, bite is adequate Lips, Gums: Without abnormality Voice: Normal Neck: Overall appearance is symmetrical. Supple, without lymphadenopathy Thyroid: Without enlargement, tenderness or masses. Eyes: PERRLA, EOM, Without nystagmus Neuro: No gross deficits AUDIOMETRICS: Right ear: Mild to moderate low frequency hearing loss rising to normal with normal tymp Left ear: normal hearing falling to mild to moderate high frequency SNHL with normal tymp Assessment: Encounter Diagnosis ICD-10-CM 1. Tinnitus, right ear H93.11 COMPREHENSIVE AUDIOLOGIC EXAM predniSONE (DELTASONE) 10 mg tablet MRI BRAIN WO/W IVCON iv contrast (will be provided with radiology test) 2. 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 Sensorineural hearing loss, unilateral, left ear, with restricted hearing on the contralateral side H90.A22 COMPREHENSIVE AUDIOLOGIC EXAM predniSONE (DELTASONE) 10 mg tablet MRI BRAIN WO/W IVCON iv contrast (will be provided with radiology test) 5. Sudden right hearing loss H91.21 COMPREHENSIVE AUDIOLOGIC EXAM predniSONE (DELTASONE) 10 mg tablet MRI BRAIN WO/W IVCON iv contrast (will be provided with radiology test) Impression: Sudden right SnHL Asymmetric SnHL, left ear worse in high tones Consider Meniere's/ cochlear hydrops Recommend prednisone, MRI brain Low salt diet, avoid caffeine and alcohol, antihistamine optional Follow up: 2 weeks Ebony Mathias RN MS, HEAD OF TRANSPORT LOGISTICS.COUNSELLORS Ebony Mathias RN MS, HEAD OF TRANSPORT LOGISTICS.COUNSELLORS 01/11/2019 9:50 AM Signed Eat a low sodium diet < 1500 mg sodium daily Take prednisone taper Schedule MRI Follow up 2 weeks Referring Provider: SELF [[id number]] Allergies As of Date: 01/11/2019 (No Known Allergies) Date Reviewed: 01/11/2019 Reviewed by: Dory Lowery Ma - Fully Assessed Reason for Visit: Ear Problem [38] Cmt: constant right ear ringing x 1 week Primary Visit Diagnosis:Tinnitus, right ear [H93.11] Other Visit Diagnoses:Dizziness [R42] Cranial nerve disorder [G52.9] Sensorineural hearing loss, unilateral, left ear, with restricted hearing on the contralateral side [H90.A22] Sudden right hearing loss [H91.21] Order(s):COMPREHENSIVE AUDIOLOGIC EXAM [[id number]] Order #: [id number] predniSONE (DELTASONE) 10 mg tabletTake by mouth four (4) tabs x3 days; then three (3) tabs x3days; then two (2) tabs x3 days; then one (1) tab a day x3 daysDisp: 30 tabletRfl: 0 MRI BRAIN WO/W IVCON [[id number]] Order #: [id number] FUTURE iv contrast (will be provided with radiology test)MRI Brain Inject, intravenously, once for 1 dose.No IV access, insert saline lock prior to beginning of sedation, infusion, injection of imaging exam.Discontinue saline lock post exam. If Pt. has a central line or IVAD, may access for administration according to line specific nursing protocol.Once exam is complete flush line and de-access according to line specific nursing protocol in the MR contrast administration guidelines linkDisp: 1 EachRfl: 0 Prescriptions as of 01/11/2019 Sig: PREDNISONE 10 MG TABLET Take by mouth four (4) tabs x* IV CONTRAST (RADIOLOGY PROCED* MRI Brain Inject, intravenous* Problem List As Of Date 01/11/2019 Noted Resolved Dizziness and giddiness [R42] INVALID FOR* Sensorineural hearing loss, asymmetrical [H90.5]INVALID FOR* Tinnitus, right ear [H93.11] INVALID FOR* Other instructions from your clinician: Eat a low sodium diet < 1500 mg sodium daily Take prednisone taper Schedule MRI Follow up 2 weeks Prescriptions ordered this encounter Disp Refills Start End PREDNISONE 10 MG TABLET 30 t* 0 01/11/2019 Sig: Take by mouth four (4) tabs x3 days; then three (3) tabs x3days; then two (2) tabs x3 days; then one (1) tab a day x3 days IV CONTRAST (RADIOLOGY PROCEDURE) 1 Ea* 0 01/11/2019 01/12/2019 Class: In Office Sig: MRI Brain Inject, intravenously, once for 1 dose.No IV access, insert saline lock prior to beginning of sedation, infusion, injection of imaging exam.Discontinue saline lock post exam. If Pt. has a central line or IVAD, may access for administration according to line specific nursing protocol.Once exam is complete flush line and de-access according to line specific nursing protocol in the MR contrast administration guidelines link Encounter Status:Closed by EBONY MATHIAS CNP on 01/11/[address] [facility] PROGRESSon 01-11-2019 Protein mass conc HNO ID: [id number] Author: Ebony (Nacho) Garry Service: ? Author Type: Nurse Practitioner Type: Progress Notes Filed: 01/11/2019 9:57 AM Note Text: History of Present Illness Ferdinand Albarado, a 28 year old female, is seen at the request of self. Ferdinand Albarado presents for evaluation of right sided tinnitus. The patient reports sudden onset right sided ear ringing 1 week ago. Around the same time the ringing started, she had an episode of dizziness during which she felt dizzy and hot, and her BP was elevated 138/80; she improved with cool cloth on forehead. The ringing in the right ear has been constant. She has had one similar episode of hearing ringing and getting hot and dizzy, but the ringing resolved with the dizziness. She has had other episodes of ringing which improved with use of a decongestant. She has been using decongestant for the past week without success. Denies otorrhea, nasal congestion, sneezing, dysphagia, weight loss, fever, chills, hemoptysis, shortness of breath, lumps in neck, facial pain, ear pain, purulent rhinorrhea, numbness or tingling, vision changes, neck or back pain Hx headaches, not migraine. 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 No family history on file. Social History Socioeconomic History Marital status: other Spouse name: Not on file Number of children: Not on file Years of education: Not on file Highest education level: Not on file Social Needs Financial resource strain: Not on file Food insecurity - worry: Not on file Food insecurity - inability: Not on file Transportation needs - medical: Not on file Transportation needs - non-medical: Not on file Occupational History Not on file Tobacco Use Smoking status: Not on file Substance and Sexual Activity Alcohol use: Not on file Drug use: Not on file Sexual activity: Not on file Other Topics Concerns: Not on file Social History Narrative Not on file No current outpatient medications on file prior to visit. No current facility-administered medications on file prior to visit. Allergies: ALLERGIES No Known Allergies Review of Systems: Constitutional: Denies fever, weight loss, night sweats Eyes: Not reviewed HEENT: Head: Denies head/facial trauma, jaw clicking Ears: Denies ear pain, ear drainage Nose: Denies nasal discharge, nasal blockage, or epistaxis Throat: Denies soreness, throat clearing, dysphagia, voice change, mouth/tongue sores Neck: Denies lumps Pulmonary: Denies wheezing, shortness of breath Cardio: Denies use of blood thinners Gastrointestinal: Denies heartburn, reflux Genitourinary: Not reviewed Musculoskeletal: Not reviewed Integumentary: Not reviewed Neurological: Denies decreased sensation, or facial asymmetry Psychiatric: Not reviewed Endocrine: Not reviewed Hematologic/Lymphatic: Not reviewed Allergic/Immunologic: Not reviewed Physical Exam: General: The patient is seated in the examination chair appearing well with normal skin turgor and color, and body habitus. There are no obvious deformities and grooming is adequate. Ferdinand Albarado has an adequate ability to communicate. Head/Face: Facial features are symmetric, with no gross abnormality Ears: RIGHT: External appearance normal, pinna and tragus non-tender, canal cleaned of wax using curette through otoscope. TM intact, mobile, free of infection or effusion. LEFT: External appearance normal, pinna and tragus non-tender, canal cleaned of wax using curette through otoscope. TM intact, mobile, free of infection or effusion. Nose: External appearance: Normal, symmetric. Septum: Aligned. Turbinates: Normal. Mucosa: Normal Mouth: Examination of the oral mucosa, hard and soft palates, and tongue demonstrates no mucosal abnormality, masses or other lesions. Mucosa moist. Oropharynx: Without mucosal abnormality, swelling, erythema or masses. Tonsils: Symmetric, no sign of infection Teeth: Dentition intact, bite is adequate Lips, Gums: Without abnormality Voice: Normal Neck: Overall appearance is symmetrical. Supple, without lymphadenopathy Thyroid: Without enlargement, tenderness or masses. Eyes: PERRLA, EOM, Without nystagmus Neuro: No gross deficits AUDIOMETRICS: Right ear: Mild to moderate low frequency hearing loss rising to normal with normal tymp Left ear: normal hearing falling to mild to moderate high frequency SNHL with normal tymp Assessment: Encounter Diagnosis ICD-10-CM 1. Tinnitus, right ear H93.11 COMPREHENSIVE AUDIOLOGIC EXAM predniSONE (DELTASONE) 10 mg tablet MRI BRAIN WO/W IVCON iv contrast (will be provided with radiology test) 2. 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 Sensorineural hearing loss, unilateral, left ear, with restricted hearing on the contralateral side H90.A22 COMPREHENSIVE AUDIOLOGIC EXAM predniSONE (DELTASONE) 10 mg tablet MRI BRAIN WO/W IVCON iv contrast (will be provided with radiology test) 5. Sudden right hearing loss H91.21 COMPREHENSIVE AUDIOLOGIC EXAM predniSONE (DELTASONE) 10 mg tablet MRI BRAIN WO/W IVCON iv contrast (will be provided with radiology test) Impression: Sudden right SnHL Asymmetric SnHL, left ear worse in high tones Consider Meniere's/ cochlear hydrops Recommend prednisone, MRI brain Low salt diet, avoid caffeine and alcohol, antihistamine optional Follow up: 2 weeks Ebony Mathias RN MS, HEAD OF TRANSPORT LOGISTICS.COUNSELLORS Normal [facility] Protein mass conc HNO ID: [id number] Author: Keith Sarmiento (Aud) Service: ? Author Type: Corporation Lawyer Type: Progress Notes Filed: 01/11/2019 9:45 AM Note Text: AUDIOLOGIC EVALUATION REPORT Referred by: Ebony Mathias RN MS, HEAD OF TRANSPORT LOGISTICS.COUNSELLORS [address] [place], [place] [id number] Referred for: Evaluation of suspected change in hearing, tinnitus, or balance. Patient's major complaints: Ferdinand Albarado is a 28 year old female who presents with right-sided tinnitus for the past week. She has had it in the past along accompanied by a feeling of dizziness. Her most recent episode occurred at work. 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 She was sitting at her desk and looking back for forth between 2 screens and she started to feel very dizzy. She said that the tinnitus got louder just before the onset of dizziness. Her face became pale and she was getting very sweaty. She went to the Emergency Department and had her vitals checked. She then waited for her symptoms to subside before returning to work. She said the episode lasted about a half hour. She then remembered having had this problem several years ago as well and she also had tinnitus at that time. She denies a hearing problem. She also denies ear pain or drainage. Ferdinand was seen for an initial audiologic evaluation. See SmartForm Audiogram for additional reported history and symptoms. She was seen as a Same Day Add-On patient upon request of the physician. Results may be limited due to time constraints and lack of educational recruiter's availability. AUDIOMETRIC RESULTS Following is a brief interpretation of the obtained findings from the audiologic evaluation. Refer to the Auditory Test Record for complete audiometric results. The patient was counseled about the test findings and appropriate audiologic recommendations were made. SUMMARY: Audiogram can be viewed under Forms/Audiology/SmartF orm. RIGHT EAR Hearing Sensitivity: Mild low frequency sensorineural hearing loss rising to normal hearing from 2538-3784 Hz. Word Recognition Score: Excellent (90-100%). WRS is consistent with hearing sensitivity. Tympanometry: Normal ME function. LEFT EAR Hearing Sensitivity: Normal hearing from 250-1000 Hz sloping to a mild sensorineural hearing loss from 5614-8993 Hz, with a visible notch at 4000 Hz. Word Recognition Score: Excellent (90-100%). WRS is consistent with hearing sensitivity. Tympanometry: Normal ME function. INTERPRETATION OF HEARING STATUS Right ear: Sensorineural hearing loss Left ear: Sensorineural hearing loss consistent with noise exposure MANAGEMENT PLAN: * Continue medical follow-up with Ebony Mathias RN MS, HEAD OF TRANSPORT LOGISTICS.COUNSELLORS. * The patient was counseled about hearing conservation and use of noise protectors. * The patient was counseled regarding effective communication strategies. * Return if a change in hearing is noted. Keith Sarmiento, Kristin, CCC-A MORENO Abbrev- iation Definition Degree of hearing sensitivity dB range WNL within normal limits WNL 0 - 20 SNHL sensorineural hearing loss Mild 20-40 CHL conductive hearing loss Moderate 40-55 MHL mixed hearing loss Moderately-Severe 55-70 WRS word recognition score Severe 70-90 ME middle ear Profound 90 + TM tympanic membrane Normal [facility] Vital Signs Date Time Vital Sign Value Performing Clinician Faci lity 07-06-2025 13:24-0400 Body height 160.[address] Jaswant Rico MD Work Phone: [facility] 07-06-2025 13:24-0400 Body mass index (BMI) [Ratio] 26.2 kg/m2 Dr. Jaswant Rico MD Work Phone: [facility] 07-06-2025 13:24-0400 Body temperature 97.8 [degF] Dr. Jaswant Rico MD Work Phone: [facility] 07-06-2025 13:24-0400 Body weight 67.[address] Jaswant Rico MD Work Phone: [facility] 07-06-2025 13:24-0400 Diastolic blood pressure 66 mm[Hg] Dr. Jaswant Rico MD Work Phone: [facility] 07-06-2025 13:24-0400 Heart rate 65 /min Dr. Jaswant Rico MD Work Phone: [facility] 07-06-2025 13:24-0400 Respiratory rate 18 /min Dr. Jaswant Rico MD Work Phone: [facility] 07-06-2025 13:24-0400 SaO2% (BldA) [Mass fraction] 98 % Dr. Jaswant Rico MD Work Phone: [facility] 07-06-2025 13:24-0400 Systolic blood pressure 118 mm[Hg] Dr. Jaswant Rico MD Work Phone: [facility] 06-26-2025 14:25-0400 Body mass index (BMI) [Ratio] 26.7 kg/m2 Dr. Jaswant Rico MD Work Phone: [facility] 06-26-2025 14:25-0400 Body weight 68.[address] Jaswant Rico MD Work Phone: [facility] 06-26-2025 14:25-0400 Diastolic blood pressure 89 mm[Hg] Dr. Jaswant Rico MD Work Phone: [facility] 06-26-2025 14:25-0400 Systolic blood pressure 137 mm[Hg] Dr. Jaswant Rico MD Work Phone: [facility] 04-20-2025 11:35-0400 Body temperature 98.3 [degF] Dr. Jaswant Rico MD Work Phone: [facility] 04-20-2025 11:35-0400 Diastolic blood pressure 85 mm[Hg] Dr. Jaswant Rico MD Work Phone: [facility] 04-20-2025 11:35-0400 Heart rate 69 /min Dr. Jaswant Rico MD Work Phone: [facility] 04-20-2025 11:35-0400 Respiratory rate 18 /min Dr. Jaswant Rico MD Work Phone: [facility] 04-20-2025 11:35-0400 SaO2% (BldA) [Mass fraction] 99 % Dr. Jaswant Rico MD Work Phone: [facility] 04-20-2025 11:35-0400 Systolic blood pressure 125 mm[Hg] Dr. Jaswant Rico MD Work Phone: [facility] 04-20-2025 08:09-0400 Body height 160.[address] Jaswant Rico MD Work Phone: [facility] 04-20-2025 08:09-0400 Body mass index (BMI) [Ratio] 26.2 kg/m2 Dr. Jaswant Rico MD Work Phone: [facility] 04-20-2025 08:09-0400 Body weight 67.[address] Jaswant Rico MD Work Phone: [facility] 04-11-2025 07:37-0400 Body height 160.[address] Jaswant Rico MD Work Phone: [facility] 04-11-2025 07:37-0400 Body mass index (BMI) [Ratio] 26 kg/m2 Dr. Jaswant Rico MD Work Phone: [facility] 04-11-2025 07:37-0400 Body temperature 97.9 [degF] Dr. Jaswant Rico MD Work Phone: [facility] 04-11-2025 07:37-0400 Body weight 66.[address] Jaswant Rico MD Work Phone: [facility] 04-11-2025 07:37-0400 Diastolic blood pressure 52 mm[Hg] Dr. Jaswant Rico MD Work Phone: [facility] 04-11-2025 07:37-0400 Heart rate 86 /min Dr. Jaswant Rico MD Work Phone: [facility] 04-11-2025 07:37-0400 Respiratory rate 14 /min Dr. Jaswant Rico MD Work Phone: [facility] 04-11-2025 07:37-0400 SaO2% (BldA) [Mass fraction] 98 % Dr. Jaswant Rico MD Work Phone: [facility] 04-11-2025 07:37-0400 Systolic blood pressure 100 mm[Hg] Dr. Jaswant Rico MD Work Phone: [facility] 10-18-2024 08:22-0500 Body height 160.[address] Jaswant Rico MD Work Phone: [facility] 10-18-2024 08:22-0500 Body mass index (BMI) [Ratio] 26.4 kg/m2 Dr. Jaswant Rico MD Work Phone: [facility] 10-18-2024 08:22-0500 Body temperature 98.5 [degF] Dr. Jaswant Rico MD Work Phone: [facility] 10-18-2024 08:22-0500 Body weight 67.[address] Jaswant Rico MD Work Phone: [facility] 10-18-2024 08:22-0500 Diastolic blood pressure 80 mm[Hg] Dr. Jaswant Rico MD Work Phone: [facility] 10-18-2024 08:22-0500 Heart rate 89 /min Dr. Jaswant Rico MD Work Phone: [facility] 10-18-2024 08:22-0500 SaO2% (BldA) [Mass fraction] 98 % Dr. Jaswant Rico MD Work Phone: [facility] 10-18-2024 08:22-0500 Systolic blood pressure 122 mm[Hg] Dr. Jaswant Rico MD Work Phone: [facility] 05-09-2023 18:16-0400 Body height 160.[address] Jaswant Rico Work Phone: [facility] 05-09-2023 18:16-0400 Body mass index (BMI) [Ratio] 26.5 kg/m2 Dr. Jaswant Rico Work Phone: [facility] 05-09-2023 18:16-0400 Body temperature 97 [degF] Dr. Jaswant Rico Work Phone: [facility] 05-09-2023 18:16-0400 Body weight 67.[address] Jaswant Rico Work Phone: [facility] 05-09-2023 18:16-0400 Diastolic blood pressure 99 mm[Hg] Dr. Jaswant Rico Work Phone: [facility] 05-09-2023 18:16-0400 Heart rate 87 /min Dr. Jaswant Rico Work Phone: [facility] 05-09-2023 18:16-0400 Respiratory rate 18 /min Dr. Jaswant Rico Work Phone: [facility] 05-09-2023 18:16-0400 SaO2% (BldA) [Mass fraction] 99 % Dr. Jaswant Rico Work Phone: [facility] 05-09-2023 18:16-0400 Systolic blood pressure 141 mm[Hg] Dr. Jaswant Rico Work Phone: [facility] 05-05-2023 08:35-0400 Body temperature 97.8 [degF] Dr. Jaswant Rico Work Phone: [facility] 05-05-2023 08:35-0400 Diastolic blood pressure 88 mm[Hg] Dr. Jaswant Rico Work Phone: [facility] 05-05-2023 08:35-0400 Heart rate 63 /min Dr. Jaswant Rico Work Phone: [facility] 05-05-2023 08:35-0400 Respiratory rate 15 /min Dr. Jaswant Rico Work Phone: [facility] 05-05-2023 08:35-0400 SaO2% (BldA) [Mass fraction] 97 % Dr. Jaswant Rico Work Phone: [facility] 05-05-2023 08:35-0400 Systolic blood pressure 127 mm[Hg] Dr. Jaswant Rico Work Phone: [facility] 05-03-2023 06:10-0400 Body height 160.[address] Jaswant Rico Work Phone: [facility] 05-03-2023 06:10-0400 Body mass index (BMI) [Ratio] 30 kg/m2 Dr. Jaswant Rico Work Phone: [facility] 05-03-2023 06:10-0400 Body weight [address] Jaswant Rioc Work Phone: [facility] 04-30-2023 15:24-0400 Body mass index (BMI) [Ratio] 31.6 kg/m2 Dr. Jaswant Rico Work Phone: [facility] 04-30-2023 15:24-0400 Body weight 78.[address] Jaswant Rico Work Phone: [facility] 04-30-2023 15:24-0400 Diastolic blood pressure 85 mm[Hg] Dr. Jaswant Rico Work Phone: [facility] 04-30-2023 15:24-0400 Systolic blood pressure 127 mm[Hg] Dr. Jaswant Rico Work Phone: [facility] 04-22-2023 13:59-0400 Body mass index (BMI) [Ratio] 0.9 kg/m2 Dr. Jaswant Rico Work Phone: [facility] 04-22-2023 13:59-0400 Body weight 2.[address] Jaswant Rico Work Phone: [facility] 04-22-2023 13:59-0400 Diastolic blood pressure 79 mm[Hg] Dr. Jaswant Rico Work Phone: [facility] 04-22-2023 13:59-0400 Systolic blood pressure 112 mm[Hg] Dr. Jaswant Rico Work Phone: [facility] 04-16-2023 15:40-0400 Body height 157.[address] Jaswant Rico Work Phone: [facility] 04-16-2023 15:36-0400 Body mass index (BMI) [Ratio] 31.3 kg/m2 Dr. Jaswant Rico Work Phone: [facility] 04-16-2023 15:36-0400 Body weight 77.[address] Jaswant Rico Work Phone: [facility] 04-16-2023 15:36-0400 Diastolic blood pressure 80 mm[Hg] Dr. Jaswant Rico Work Phone: [facility] 04-16-2023 15:36-0400 Systolic blood pressure 117 mm[Hg] Dr. Jaswant Rico Work Phone: [facility] 04-09-2023 13:19-0400 Body mass index (BMI) [Ratio] 30.2 kg/m2 Dr. Jaswant Rico Work Phone: [facility] 04-09-2023 13:19-0400 Body weight 74.[address] Jaswant Rico Work Phone: [facility] 04-09-2023 13:19-0400 Diastolic blood pressure 81 mm[Hg] Dr. Jaswant Rico Work Phone: [facility] 04-09-2023 13:19-0400 Systolic blood pressure 120 mm[Hg] Dr. Jaswant Rico Work Phone: [facility] 03-25-2023 13:00-0400 Body mass index (BMI) [Ratio] 29.4 kg/m2 Dr. Jaswant Rico Work Phone: [facility] 03-25-2023 13:00-0400 Body weight 73.[address] Jaswant Rico Work Phone: [facility] 03-25-2023 13:00-0400 Diastolic blood pressure 78 mm[Hg] Dr. Jaswant Rico Work Phone: [facility] 03-25-2023 13:00-0400 Systolic blood pressure 122 mm[Hg] Dr. Jaswant Rico Work Phone: [facility] 03-12-2023 14:01-0400 Body mass index (BMI) [Ratio] 28.7 kg/m2 Dr. Jaswant Rico Work Phone: [facility] 03-12-2023 14:01-0400 Body weight 71.[address] Jaswant Rico Work Phone: [facility] 03-12-2023 14:01-0400 Diastolic blood pressure 78 mm[Hg] Dr. Jaswant Rico Work Phone: [facility] 03-12-2023 14:01-0400 Systolic blood pressure 112 mm[Hg] Dr. Jaswant Rico Work Phone: [facility] 02-22-2023 13:07-0400 Body height 157.[address] Jaswant Rico Work Phone: [facility] 02-22-2023 12:58-0400 Body mass index (BMI) [Ratio] 28.3 kg/m2 Dr. Jaswant Rico Work Phone: [facility] 02-22-2023 12:58-0400 Body weight 70.[address] Jaswant Rico Work Phone: [facility] 02-22-2023 12:58-0400 Diastolic blood pressure 71 mm[Hg] Dr. Jaswant Rico Work Phone: [facility] 02-22-2023 12:58-0400 Systolic blood pressure 105 mm[Hg] Dr. Jaswant Rico Work Phone: [facility] 01-29-2023 14:58-0400 Body height 157.[address] Jaswant Rico Work Phone: [facility] 01-29-2023 14:47-0400 Body mass index (BMI) [Ratio] 26.6 kg/m2 Dr. Jaswant Rico Work Phone: [facility] 01-29-2023 14:47-0400 Body weight 66.[address] Jaswant Rico Work Phone: [facility] 01-29-2023 14:47-0400 Diastolic blood pressure 82 mm[Hg] Dr. Jaswant Rico Work Phone: [facility] 01-29-2023 14:47-0400 Systolic blood pressure 116 mm[Hg] Dr. Jaswant Rico Work Phone: [facility] 12-31-2022 14:20-0400 Body mass index (BMI) [Ratio] 25.2 kg/m2 Dr. Jaswant Rico Work Phone: [facility] 12-31-2022 14:20-0400 Body weight 62.[address] Jaswant Rico Work Phone: [facility] 12-31-2022 14:20-0400 Diastolic blood pressure 74 mm[Hg] Dr. Jaswant Rico Work Phone: [facility] 12-31-2022 14:20-0400 Systolic blood pressure 119 mm[Hg] Dr. Jaswant Rico Work Phone: [facility] 12-12-2022 12:31-0400 Body height 157.[address] Jaswant Rico Work Phone: [facility] 12-12-2022 12:31-0400 Body mass index (BMI) [Ratio] 24.7 kg/m2 Dr. Jaswant Rico Work Phone: [facility] 12-12-2022 12:31-0400 Body temperature 97.8 [degF] Dr. Jaswant Rico Work Phone: [facility] 12-12-2022 12:31-0400 Body weight 61.[address] Jaswant Rico Work Phone: [facility] 12-12-2022 12:31-0400 Diastolic blood pressure 66 mm[Hg] Dr. Jaswant Rico Work Phone: [facility] 12-12-2022 12:31-0400 Heart rate 60 /min Dr. Jaswant Rico Work Phone: [facility] 12-12-2022 12:31-0400 Systolic blood pressure 128 mm[Hg] Dr. Jaswant Rico Work Phone: [facility] 12-09-2022 12:58-0400 Body mass index (BMI) [Ratio] 24.7 kg/m2 Dr. Jaswant Rico Work Phone: [facility] 12-09-2022 12:58-0400 Body temperature 97.8 [degF] Dr. Jaswant Rico Work Phone: [facility] 12-09-2022 12:58-0400 Body weight 61.[address] Jaswant Rico Work Phone: [facility] 12-09-2022 12:58-0400 Diastolic blood pressure 80 mm[Hg] Dr. Jaswant Rico Work Phone: [facility] 12-09-2022 12:58-0400 Heart rate 120 /min Dr. Jaswant Rico Work Phone: [facility] 12-09-2022 12:58-0400 Respiratory rate 16 /min Dr. Jaswant Rico Work Phone: [facility] 12-09-2022 12:58-0400 SaO2% (BldA) [Mass fraction] 99 % Dr. Jaswant Rico Work Phone: [facility] 12-09-2022 12:58-0400 Systolic blood pressure 124 mm[Hg] Dr. Jaswant Rico Work Phone: [facility] 12-03-2022 11:14-0400 Body mass index (BMI) [Ratio] 25.1 kg/m2 Dr. Jaswant Rico Work Phone: [facility] 12-03-2022 11:14-0400 Body weight 62.[address] Jaswant Rico Work Phone: [facility] 12-03-2022 11:14-0400 Diastolic blood pressure 77 mm[Hg] Dr. Jaswant Rico Work Phone: [facility] 12-03-2022 11:14-0400 Systolic blood pressure 110 mm[Hg] Dr. Jaswant Rico Work Phone: [facility] 11-06-2022 14:02-0500 Body mass index (BMI) [Ratio] 24.3 kg/m2 Dr. Jaswant Rico Work Phone: [facility] 11-06-2022 14:02-0500 Body weight 60.[address] Jaswant Rico Work Phone: [facility] 11-06-2022 14:02-0500 Diastolic blood pressure 83 mm[Hg] Dr. Jaswant Rico Work Phone: [facility] 11-06-2022 14:02-0500 Systolic blood pressure 119 mm[Hg] Dr. Jaswant Rico Work Phone: [facility] 10-08-2022 13:38-0500 Body mass index (BMI) [Ratio] 25 kg/m2 Dr. Jaswant Rico Work Phone: [facility] 10-08-2022 13:38-0500 Body weight 62.[address] Jaswant Rico Work Phone: [facility] 10-08-2022 13:38-0500 Diastolic blood pressure 86 mm[Hg] Dr. Jaswant Rico Work Phone: [facility] 10-08-2022 13:38-0500 Systolic blood pressure 132 mm[Hg] Dr. Jaswant Rico Work Phone: [facility] 09-18-2022 15:18-0500 Body mass index (BMI) [Ratio] 25.4 kg/m2 Dr. Jaswant Rico Work Phone: [facility] 09-18-2022 15:18-0500 Body weight 63.[address] Jaswant Rico Work Phone: [facility] 09-18-2022 15:18-0500 Diastolic blood pressure 85 mm[Hg] Dr. Jaswant Rico Work Phone: [facility] 09-18-2022 15:18-0500 Systolic blood pressure 130 mm[Hg] Dr. Jaswant Rico Work Phone: [facility] 07-17-2022 15:43-0500 Respiratory rate 16 /min Dr. Jaswant Rico Work Phone: [facility] 07-17-2022 13:30-0500 Body height 157.[address] Jaswant Rico Work Phone: [facility] Work Phone: 07-17-2022 13:30-0500 Body mass index (BMI) [Ratio] 25.6 kg/m2 Dr. Jaswant Rico Work Phone: [facility] 07-17-2022 13:30-0500 Body temperature 97.8 [degF] Dr. Jaswant Rico Work Phone: [facility] 07-17-2022 13:30-0500 Body weight 63.[address] Jaswant Rico Work Phone: [facility] 07-17-2022 13:30-0500 Diastolic blood pressure 96 mm[Hg] Dr. Jaswant Rico Work Phone: [facility] 07-17-2022 13:30-0500 Heart rate 88 /min Dr. Jaswant Rico Work Phone: [facility] 07-17-2022 13:30-0500 SaO2% (BldA) [Mass fraction] 99 % Dr. Jaswant Rico Work Phone: [facility] 07-17-2022 13:30-0500 Systolic blood pressure 129 mm[Hg] Dr. Jaswant Rico Work Phone: [facility] 06-11-2022 14:42-0400 Body mass index (BMI) [Ratio] 24.4 kg/m2 Dr. Jaswant Rico Work Phone: [facility] 06-11-2022 14:42-0400 Body temperature 98.3 [degF] Dr. Jaswant Rico Work Phone: [facility] 06-11-2022 14:42-0400 Body weight 62.[address] Jaswant Rico Work Phone: [facility] 06-11-2022 14:42-0400 Diastolic blood pressure 86 mm[Hg] Dr. Jaswant Rico Work Phone: [facility] 06-11-2022 14:42-0400 Heart rate 71 /min Dr. Jaswant Rico Work Phone: [facility] 06-11-2022 14:42-0400 Respiratory rate 14 /min Dr. Jaswant Rico Work Phone: [facility] 06-11-2022 14:42-0400 SaO2% (BldA) [Mass fraction] 99 % Dr. Jaswant Rico Work Phone: [facility] 06-11-2022 14:42-0400 Systolic blood pressure 122 mm[Hg] Dr. Jaswant Rico Work Phone: [facility] Encounters Encounter Date Encounter Type Care Provider Facility Start: 07-11-2025 End: 07-11-2025 ambulatory [facility] Facility:[facility] Start: 07-06-2025 Encounter for genera l adult medical examination without abnormal findings [facility] Start: 07-06-2025 End: 07-06-[address] Jaswant Rico MD [facility] Start: 07-06-2025 End: 07-06-2025 ambulatory [facility] Facility:[facility] Start: 06-29-2025 ambulatory Grace Leary cility:[facility] Start: 06-26-2025 End: 06-26-[address] Grace Juarez DO [facility] Work Phone: Start: 06-26-2025 End: 06-26-[address] Grace Juarez DO [facility] Start: 06-26-2025 End: 06-26-2025 ambulatory Grace Juarez Facility:[facility] Start: 04-20-2025 End: 04-20-2025 Emergency department patient visit Dr. Jaswant Rico MD Work Phone: -Emergency Department Work Phone: Start: 04-11-2025 Registered Referred [facility] -Employee Health Start: 04-11-2025 End: 04-11-[address] Jaswant Rico MD Work Phone: -Laboratory Start: 04-11-2025 End: 04-11-2025 Patient encounter procedure Toñito MONTANO -Laboratory Work Phone: Start: 04-11-2025 End: 04-11-2025 Patient encounter procedure Toñito MONTANO -[facility] Work Phone: Start: 04-11-2025 End: 04-11-[address] Jaswant Rico MD Work Phone: -[facility] Start: 04-11-2025 End: 04-11-2025 ambulatory [facility] Facility:[facility] Start: 01-17-2025 End: 01-17-2025 Patient encounter procedure Mady MONTANO -[facility] Work Phone: Start: 01-17-2025 End: 01-17-[address] Jaswant Rico MD Work Phone: [facility] Work Phone: Start: 12-29-2024 End: 12-29-2024 Patient encounter procedure Mady MONTANO -Nuclear Medicine [facility] Work Phone: Start: 12-29-2024 End: 12-29-2024 ambulatory Jaswant Rico Facility:[facility] Start: 2024 End: [address] Jaswant Rico MD Work Phone: [facility] Work Phone: Start: 2024 End: 2024 Patient encounter procedure Mady MONTANO -Nuclear Medicine, [facility] Work Phone: Start: 2024 End: 2024 ambulatory Jaswant Rico Facility:[facility] Start: 10-27-2024 End: 10-27-[address] Jaswant Rico MD Work Phone: [facility] Work Phone: Start: 10-27-2024 End: 10-27-2024 Patient encounter procedure Mady MONTANO -Laboratory Work Phone: Start: 10-27-2024 End: 10-27-2024 ambulatory Jaswant Rico Facility:[facility] Start: 10-25-2024 End: 10-25-2024 Patient encounter procedure Mady MONTANO -[facility] Work Phone: Start: 10-25-2024 End: 10-25-2024 ambulatory Jaswant Rico Facility:[facility] Start: 10-18-2024 End: 10-18-2024 Patient encounter procedure [place] [facility] Work Phone: Start: 10-18-2024 End: 10-18-2024 ambulatory Jaswant Odonnellwendi Facility:[facility] Start: 08-11-2024 End: 08-11-2024 Patient encounter procedure Mady MONTANO -Laboratory, Specimen Work Phone: Start: 08-11-2024 End: 08-11-2024 ambulatory Mady Elizabeth Facility:[facility] Start: 07-28-2024 End: 07-28-2024 Patient encounter procedure Mady MONTANO -Ultrasound, [facility] Work Phone: Start: 07-28-2024 End: 07-28-2024 ambulatory Mady Guzmangely Facility:[facility] Start: 07-20-2024 End: 07-20-2024 Patient encounter procedure Mady MONTANO -[facility] Work Phone: Start: 07-20-2024 End: 07-20-2024 ambulatory Jaswant Rico Facility:[facility] Start: 07-04-[address] Jaswant Rico MD Work Phone: [facility] Start: 07-04-[address] Jaswant Rico MD Work Phone: [facility] Start: 05-09-2023 End: 05-09-2023 Emergency department patient visit Dr. Jaswant Rico Work Phone: [facility]-Emergency Department Work Phone: Start: 05-06-2023 End: 05-06-[address] Jaswant Rico Work Phone: [facility] Work Phone: Start: 05-05-2023 Non-patient / Non-visit Dr. Jaswant Rico Work Phone: [facility] Start: 05-04-2023 Non-patient / Non-visit Dr. Jaswant Rico Work Phone: [facility] Start: 05-03-2023 Non-patient / Non-visit Dr. Jaswant Rico Work Phone: [facility] Start: 05-03-2023 End: 05-05-2023 Evaluation and management of inpatient Dr. Jaswant Rico Work Phone: [facility] Work Phone: Start: 04-30-2023 End: 04-30-[address] Jaswant Rico Work Phone: [facility] Work Phone: Start: 04-22-2023 End: 04-22-[address] Jaswant Rico Work Phone: [facility] Work Phone: Start: 04-16-2023 End: 04-16-[address] Jaswant Rico Work Phone: [facility] Work Phone: Start: 04-16-2023 End: 04-16-[address] Jaswant Rico Work Phone: [facility]-Laboratory, Specimen Work Phone: Start: 04-16-2023 End: 04-16-[address] Jaswant Rico Work Phone: [facility] Work Phone: Start: 04-09-2023 End: 04-09-[address] Jaswant Rico Work Phone: [facility] Work Phone: Start: 03-25-2023 End: 03-25-[address] Jaswant Rico Work Phone: [facility] Work Phone: Start: 03-12-2023 End: 03-12-[address] Jaswant Rico Work Phone: [facility] Work Phone: Start: 02-22-2023 End: 02-22-[address] Jaswant Rico Work Phone: [facility] Start: 02-19-2023 End: 02-19-[address] Jaswant Rico Work Phone: [facility] Work Phone: Start: 02-19-2023 End: 02-19-[address] Jaswant Rico Work Phone: [facility]-Laboratory Start: 02-18-2023 End: 02-18-[address] Jaswant Rico Work Phone: [facility] Work Phone: Start: 02-18-2023 End: 02-18-[address] Jaswant Rico Work Phone: [facility] Start: 01-29-2023 End: 01-29-[address] Jaswant Rico Work Phone: [facility] Start: 12-31-2022 End: 12-31-[address] Jaswant Rico Work Phone: [facility] Start: 12-24-2022 End: 12-24-[address] Jaswant Rico Work Phone: [facility] Work Phone: Start: 12-24-2022 End: 12-24-[address] Jaswant Rico Work Phone: [facility], [facility] Start: 12-12-2022 End: 12-12-[address] Jaswant Rico Work Phone: [facility] Start: 12-09-2022 End: 12-09-[address] Jaswant Rico Work Phone: [facility] Start: 12-03-2022 End: 12-03-[address] Jaswant Rico Work Phone: [facility] Start: 11-06-2022 End: 11-06-[address] Jaswant Rico Work Phone: [facility] Start: 10-22-2022 End: 10-22-[address] Jaswant Rico Work Phone: [facility] Start: 10-08-2022 End: 10-08-2022 Encounter for general adult medical examination without abnormal findings Dr. Jaswant Rico Work Phone: [facility] Start: 10-08-2022 End: 10-08-[address] Jaswant Rico Work Phone: [facility] Start: 09-18-2022 End: 09-18-[address] Jaswant Rico Work Phone: [facility] Work Phone: Start: 09-18-2022 End: 09-18-[address] Jaswant Rico Work Phone: [facility]-Laboratory, Specimen Start: 09-18-2022 End: 09-18-2022 Encounter for general adult medical examination without abnormal findings Dr. Jaswant Rico Work Phone: [facility] Start: 09-18-2022 End: 09-18-[address] Jaswant Rico Work Phone: [facility] Start: 09-14-2022 End: 09-14-[address] Jaswant Rico Work Phone: [facility]-Laboratory Start: 07-17-2022 End: 07-17-2022 Emergency department patient visit Dr. Jaswant Rico Work Phone: [facility]-Emergency Department Start: 06-30-2022 End: 06-30-[address] Jaswant Rico Work Phone: [facility] Start: 06-11-[address] Jaswant Rico Work Phone: [facility] Start: 06-11-2022 End: 06-11-2022 Encounter for general adult medical examination without abnormal findings Dr. Jaswant Rico Work Phone: [facility] Start: 06-11-2022 End: 06-11-[address] Jaswant Rico Work Phone: [facility] Start: 06-01-[address] Yanni Rico Work Phone: [facility] Start: 06-12-[address] Jaswant Rico Work Phone: [facility] Start: 01-05-2019 Patient encounter procedure LUAAN Azar DE [place] Facility[facility] Procedures Date Procedure Procedure Detail Performing Clinician Start: 04-20-[address] Jaswant Rico MD Work Phone: Start: 04-11-[address] Mahesh Rico MD Work Phone: Comment on above: Performed at: [facility] [place] [address] [id number] Director: Herve Banks PhD, Phone: [phone] Start: 04-11-2025 Antibody to centrome re measurement Dr. Jaswant Rico MD Work Phone: Comment on above: Test not performed Start: 04-11-2025 Antibody to extracta ble nuclear antigen measurement Dr. Jaswant Rico MD Work Phone: Comment on above: Test not performed Start: 04-11-2025 Antibody to HILLARY-[address] Jaswant Rico MD Work Phone: Comment on above: Test not performed Start: 04-11-2025 Antibody to lupus La protein measurement Dr. Jaswant Rico MD Work Phone: Comment on above: Test not performed Start: 04-11-2025 Antibody to SS-A measurement Dr. Jaswant Rico MD Work Phone: Comment on above: Test not performed Start: 04-11-[address] Jaswant iRco MD Work Phone: Comment on above: Test not performed Start: 04-11-2025 Measurement of Borre patrick burgdorferi antibody Dr. Jaswant Rico MD Work Phone: Comment on above: Lyme antibodies not detected. Reflex testing is notindicated.No laboratory evidence of infection with B. burgdorferi(Lyme disease). Negative results may occur in patientsrecently infected (less than or equal to 14 days) with B.burgdorferi. If recent infection is suspected, repeattesting on a new sample collected in 7 to 14 days isrecommended.Performed at: [facility] [id number] Director: Herve Banks PhD, Phone: [phone] Start: 04-11-2025 [employer] antibody measurement Dr. Jaswant Rico MD Work Phone: Comment on above: Test not performed Start: 04-11-2025 Serum inorganic phos phate measurement Dr. Jaswant Rico MD Work Phone: Start: 12-29-2024 Radionuclide study o f abdomen Dr. Jaswant Rico MD Work Phone: Start: 2024 Radionuclide study o f abdomen Dr. Jaswant Rico MD Work Phone: Start: 10-27-[address] Branden Rico MD Work Phone: Start: 10-27-2024 Endomysial antibody IgA level Dr. Jaswant Rico MD Work Phone: Start: 10-27-[address] Yanni Rico MD Work Phone: Start: 10-27-[address] Yanni Rico MD Work Phone: Start: 08-11-2024 Clostridium difficil e detection Dr. Jaswant Rico MD Work Phone: Start: 08-11-2024 Giardia lamblia anti gen assay Dr. Jaswant Rico MD Work Phone: Start: 08-11-[address] Jaswant Rico MD Work Phone: Start: 08-11-[address] Jaswant Rico MD Work Phone: Start: 08-11-2024 Ova [place] parasites identification Dr. Jaswant Rico MD Work Phone: Start: 07-28-2024 US scan of gallbladder Dr. Jaswant Rico MD Work Phone: Start: 05-09-2023 CT of abdomen and pe lvis without contrast Dr. Jaswant Rico Work Phone: Start: 04-16-2023 Group B Streptococcu s Culture Dr. Jaswant Rico Work Phone: Start: 02-18-2023 Ultrasonography for antepartum monitoring of fetus Dr. Jaswant Rico Work Phone: Start: 12-24-[address] Jaswant Rico Work Phone: Urine culture Dr. Jaswant Rico Work Phone: Plan of Treatment Date Care Activity Detail Author Start: 07-11-2025 End: 07-11-2025 Patient encounter procedure Diarrhea -[facility] Work Phone: Start: 07-06-2025 End: 07-06-2025 Patient encounter procedure Blood glucose elevated -[facility] Work Phone: Start: 06-29-2025 Bilateral mammography DIAG MAMM W/CAD, BILAT [facility] Start: 06-29-2025 Ultrasonography of breast Breast Limited Unilateral [facility] Start: 06-29-2025 Patient encounter procedure Registered Clinical -Outpatient Breast Imaging Work Phone: Start: [facility] Start: 05-05-2023 Patient discharge [facility] Start: 05-03-2023 Administration of medication [facility] Start: 05-03-2023 Application of ice collar, cap or bag [facility] Start: 05-03-2023 Catheterization of vein [facility] Start: 05-03-2023 Introduction of urinary catheter [facility] Start: 05-03-2023 Measuring intake and output [facility] Start: 05-03-2023 Notification of physician [facility] Start: 05-03-2023 Procedure discontinued [facility] Start: 05-03-2023 Provision of activity privileges [facility] Start: 05-03-2023 Vital signs measurements [facility] Start: 05-03-2023 [facility] Start: 05-03-2023 Admission procedure [facility] Start: 02-18-2023 Ultrasonography for antepartum monitoring of fetus OB Limited (No Biometrics) [facility] Start: 06-11-2022 [facility] Work Phone: C reactive protein [Mass/volume] in Serum or Plasma [facility] Cytoplasmic ANCA Screen [facility] Erythrocyte sediment ation rate [facility] Measurement of Borre patrick burgdorferi antibody [facility] Patient Education [facility] Work Phone: Patient referral [facility] Work Phone: Radionuclide study o f abdomen [facility] Rheumatoid factor [Presence] in Serum [facility] Immunizations Immunization Date Immunization Notes Care Provider Shaji etienne 06-30-2025 influenza, seasonal, injectable, preservative free Dr. Jaswant Rico MD Work Phone: [facility] 07-05-2024 influenza, seasonal, injectable, preservative free Dr. Jaswant Rico MD Work Phone: [facility] 07-26-2023 influenza, injectabl e, quadrivalent, preservative free Dr. Jaswant Rico MD Work Phone: [facility] 02-22-2023 tetanus toxoid, redu edy diphtheria toxoid, and acellular pertussis vaccine, adsorbed Dr. Jaswant Rico Work Phone: [facility] 06-24-2022 influenza, injectabl e, quadrivalent, preservative free Dr. Jaswant Rico MD Work Phone: [facility] 06-24-2022 influenza, seasonal, injectable Dr. Jaswant Rico Work Phone: [facility] 07-09-2021 Covid (Moderna) Dr. Angie Rico Work Phone: [facility] 06-26-2021 tetanus toxoid, redu edy diphtheria toxoid, and acellular pertussis vaccine, adsorbed Dr. Jaswant Rico Work Phone: [facility] 06-24-2021 influenza, injectabl e, quadrivalent, preservative free Dr. Jaswant Rico MD Work Phone: [facility] 06-24-2021 influenza, seasonal, injectable Dr. Jaswant Rico Work Phone: [facility] 10-15-2020 Covid (Moderna) Dr. Angie Rico Work Phone: [facility] 09-17-2020 Zainabid (Moderna) Dr. Angie Rico Work Phone: [facility] 06-24-2020 influenza, injectabl e, quadrivalent, preservative free Dr. Jaswant Rico MD Work Phone: [facility] 06-24-2020 influenza, seasonal, injectable Dr. Jaswant Rico Work Phone: [facility] 06-27-2019 influenza, injectabl e, quadrivalent, preservative free Dr. Jaswant Rico MD Work Phone: [facility] 06-27-2019 influenza, seasonal, injectable Dr. Jaswant Rico Work Phone: [facility] Payers Date Payer Category Payer Self-pay [id number] 2024 Unknown [id number] Unknown [id number] Unknown [id number] 2.16.8 [id number] Unknown [id number] 2.16.8 [id number] Unknown [id number] 2.16.8 [id number] Unknown [id number] 2.16.8 [id number] Unknown [id number] 2.16.8 [id number] Unknown [id number] 2.16.8 [id number] Unknown [id number] 2.16.8 [id number] Unknown [id number] 2.16.8 [id number] Unknown [id number] 2.16.8 [id number] Unknown [id number] 2.16.8 [id number] Unknown [id number] 2.16.8 [id number] Unknown [id number] 2.16.8 [id number] Unknown [id number] 2.16.8 [id number] Unknown [id number] 2.16.8 [id number] Unknown [id number] 2.16.8 [id number] Unknown [id number] 2.16.8 [id number] Unknown [id number] 2.16.8 [id number] Unknown [id number] 2.16.8 [id number] Social History Date Type Detail Facility Start: 07-17-2022 End: 05-09-2023 Tobacco smoking status COIS Unknown if ever smoked [facility] Start: 10-30-2020 None [facility] Start: 10-30-2020 Spouse/ Signif icant Other [facility] Start: 1990 Sex Assigned At Female [facility] Start: 07-04-2024 End: 06-26-2025 Tobacco smoking status NHIS Never smoked tobacco (finding) [facility] Start: 11-09-2024 End: 11-21-2024 Sex Female (finding) [facility] Sex Female [facility] NEGATED: Highlighted row [facility] Work Phone: NEGATED: Highlighted row [facility] Medical Equipment Procedure Code Equipment Code Equipment Origin al Text Equipment Identifier Dates Blood Sugar Diagnostic (Truetrack Test) strip Start: 06-26-2021 End: 06-26-2021 Blood Sugar Diagnostic (Truetrack Test) strip Start: 06-26-2021 End: 10-31-2021 Blood Sugar Diagnostic (Truetrack Test) strip Start: 06-26-2021 End: 06-26-2021 Blood Sugar Diagnostic (Truetrack Test) strip Start: 06-26-2021 End: 10-31-2021 Blood Sugar Diagnostic (Truetrack Test) strip Start: 06-26-2021 End: 06-26-2021 Blood Sugar Diagnostic (Truetrack Test) strip Start: 06-26-2021 End: 10-31-2021 Blood Sugar Diagnostic (Truetrack Test) strip Start: 06-26-2021 End: 06-26-2021 Blood Sugar Diagnostic (Truetrack Test) strip Start: 06-26-2021 End: 10-31-2021 Blood Sugar Diagnostic (Truetrack Test) strip Start: 06-26-2021 End: 06-26-2021 Blood Sugar Diagnostic (Truetrack Test) strip Start: 06-26-2021 End: 10-31-2021 Blood Sugar Diagnostic (Truetrack Test) strip Start: 06-26-2021 End: 06-26-2021 Blood Sugar Diagnostic (Truetrack Test) strip Start: 06-26-2021 End: 10-31-2021 Blood Sugar Diagnostic (Truetrack Test) strip Start: 06-26-2021 End: 06-26-2021 Blood Sugar Diagnostic (Truetrack Test) strip Start: 06-26-2021 End: 10-31-2021 Blood Sugar Diagnostic (Truetrack Test) strip Start: 06-26-2021 End: 06-26-2021 Blood Sugar Diagnostic (Truetrack Test) strip Start: 06-26-2021 End: 10-31-2021 Blood Sugar Diagnostic (Truetrack Test) strip Start: 06-26-2021 End: 06-26-2021 Blood Sugar Diagnostic (Truetrack Test) strip Start: 06-26-2021 End: 10-31-2021 Blood Sugar Diagnostic (Truetrack Test) strip Start: 06-26-2021 End: 06-26-2021 Blood Sugar Diagnostic (Truetrack Test) strip Start: 06-26-2021 End: 10-31-2021 Blood Sugar Diagnostic (Truetrack Test) strip Start: 06-26-2021 End: 06-26-2021 Blood Sugar Diagnostic (Truetrack Test) strip Start: 06-26-2021 End: 10-31-2021 Blood Sugar Diagnostic (Truetrack Test) strip Start: 06-26-2021 End: 06-26-2021 Blood Sugar Diagnostic (Truetrack Test) strip Start: 06-26-2021 End: 10-31-2021 Blood Sugar Diagnostic (Truetrack Test) strip Start: 06-26-2021 End: 06-26-2021 Blood Sugar Diagnostic (Truetrack Test) strip Start: 06-26-2021 End: 10-31-2021 Blood Sugar Diagnostic (Truetrack Test) strip Start: 06-26-2021 End: 06-26-2021 Blood Sugar Diagnostic (Truetrack Test) strip Start: 06-26-2021 End: 10-31-2021 Blood Sugar Diagnostic (Truetrack Test) strip Start: 06-26-2021 End: 06-26-2021 Blood Sugar Diagnostic (Truetrack Test) strip Start: 06-26-2021 End: 10-31-2021 Goals Date Patient Goal Desired Activity /State Mental Status Date Assessment Result Facility 04-20-2025 Cognitive function Voice/Name [facility] Work Phone: 07-17-2022 Cognitive function Level Of Cons ciousness Awake;Alert;Appropriate [facility] Work Phone: Clinical Notes 09-18-2022 to 06-26-2025 Note Date & Type Note Facility 06-26-2025 Progress note [facility] 06-26-2025 Progress note Note Date/Time June 26, 2025 4:12pm [facility] [address] [place] [address], [address] [place] [address] OFFICE VISIT Date of Service: 06/26/25 MR#: [id number] Acct: [id number] Name: FERDINAND LEI Rep #: [id number] : 1990 Provider: Dr. 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 Medical History Anxiety Acute allergic conjunctivitis Nasal congestion GBS (group B streptococcus) UTI complicating Preventative health care exam Meniere disease Gestational diabetes mellitus (GDM) affecting Wellness examination Abnormal glucose affecting Polycystic ovaries Hearing problem Headache, migraine history of bone fracture Surgical History History of wisdom tooth extraction history of birthmark removal history of laporscopic knee surgery Family History Grandmother Thyroid disorder SLE (systemic lupus erythematosus related syndrome) Grandfather Heart disease High cholesterol Mother Hypertension Father Atrial fibrillation Mitral valve prolapse Other Myocardial infarction Social History (Updated 06/26/25 @ 14:25 by Debi Duvall) adopted: No household members: spouse and children housing: house number of children: 2 current occupational status: employed 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/hazards: No pets and animals: Yes pets and animals: dog(s) history of recent travel: No sexually active: Yes Smoking Status: Never smoker alcohol intake: current alcohol intake frequency: holidays/special occasions only substance use type: does not use diet: low salt well-balanced diet: daily or most days caffeine: No eating out: 1-3 times/week during the past year weight has: remained stable what type of physical activity do you participate in: none frequency: 1-2 times per week randy/buddhism: Cheondoism seatbelt use: always do you feel safe at home: Yes 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 Date Name GA/Weeks Outcome Route Bth Weight Gen Labor Lgth An esthesia Del Locatn Provider FOB 09/18/21 Obinna 39 live - full term 7lbs 6oz Male [facility] [facility] Dr. Whitman 05/03/23 Gael 38 live - full term Male [employer] Peter Hendrickson Delivery Date: 09/18/21 Last Updated by: Debi Duvall Gestational diabetes HPI Encounter for routine gynecological examination Details: FERDINAND LEI is a 34 year old who presents for annual exam. Last PAP: 09/18/22 History of abnormal PAP: no Last mammogram: n/a History of abnormal mammogram: n/a Colon cancer screening: n/a Other preventative health care screenings: followed by pcp Female Reproductive History Cycle Length: 21-35 Bleeding Duration: 5 Questions: metrorrhagia: No, sexually active: Yes, dyspareunia: No and PCB: No Menopausal Symptoms: No hot flashes, No night sweats, No weight change, No mood changes, No difficulty concentrating, No sleep problems and No change in libido ROS Const Constitutional: Reports as per HPI; Denies fatigue, increased appetite, poor appetite, night sweats, weight gain or weight loss Cardio Card: Denies chest pain Resp Resp: Denies cough or dyspnea GI GI: Reports as per HPI; Denies abdominal pain, bloating, constipation, nausea or vomiting : Reports as per HPI and other; Denies difficulty voiding, dysuria, hematuria, hot flashes, nipple discharge, pelvic pain, prolapse symptoms, urinary frequency, urinary incontinence, urinaryurgency, vaginal discharge, vaginal dryness, vaginal odor or vaginal pruritus Skin Skin/Breast: Denies changing lesions, breast mass, breast pain, breast skin changes or nipple discharge Psych Psych: Denies anxiety, change in libido, depression or difficulty concentrating Exam Const General: cooperative, healthy appearing, comfortable, no acute distress, well developed and well groomed [facility] Head: normal to inspection and normocephalic Ears: hearing grossly normal bilaterally and external ears normal Nose: external nose normal Face and sinus: normal facial exam Neck Neck: normal visual inspection, full ROM and no lymphadenopathy Thyroid: thyroid normal Chest Chest palpation & inspection: normal inspection of the chest Breast inspection: normal inspection of the breasts, normal inspection of the axillae and abnormal inspection of the breast Breast palpation: normal palpation of the axillae, no axillary lymphadenopathy and abnormal palpation of the breast Other: left upper outter fullness, possible cyst, probable dense tissue. Resp Effort & Inspection: normal respiratory effort GI Inspection: normal to inspection and non-distended Palpation: soft, no hepatosplenomegaly and no guarding General: bladder normal to palpation External Female Exam: normal external appearance, normal appearance of the urethra and no lesions Urethra: normal appearance of the urethra and normal palpation Speculum Exam - Vagina: normal appearance of the vagina and normal vaginal discharge Speculum Exam - Cervix: normal appearance of the cervix, no cervical discharge, no lesions and nontender Bimanual Exam- Vagina & Uterus: normal bimanual exam, uterine size normal, bladder normal to palpation, No tender, uterine mobility normal, consistency normal, non-tender and no cervical motion tenderness Bimanual Exam- Adnexa, other: normal adnexae, no masses and non-tender Skin General: no rashes or lesions noted Neuro General: patient alert, moves all extremities and no focal motor deficits Extrem General: normal to inspection and no pedal edema Psych Appearance: grossly normal Mental Status: mental status grossly normal Affect: normal affect Speech and Movement: speech and movement normal Attitude: cooperative Coding Level of Care Code Off vis,est,prev 18-39yrs Diagnoses Encounter for routine gynecological examination Z01.419 Assessment and Plan Assessment and Plan (1) Encounter for routine gynecological examination: Plan: Cervical cancer screening: pap up to date Breast cancer screening: left breast thickening vs cyst - diagnostic mammogram ordered Prevention and contraceptive options including their risks, benefits, and alternatives were reviewed with the patient and she chooses: none, will start trying for baby #3 in a year. Encouraged maintenance of a healthy weight and active lifestyle and handout given. Calcium/vitamin D recommendations provided. Annual exam handout including recommendations for good health guidelines and basic screening information given. Problem list up to date, see problem list details for any additional plan information. follow up in one year for annual health maintenance exam or sooner if needed. Orders: Orders DIAG MAMM W/CAD, BILAT Today N63.20 - Unspecified lump in the left breast, unspecified quadrant Breast Limited Unilateral Today N63.20 - Unspecified lump in the left breast, unspecified quadrant 06/26/25 1512 <Electronically signed by Grace Cisneros DO> Date _ Grace Juarez DO Cosigner Signature: Date (if applicable) CC: ~ [facility] Work Phone: 1(413) 467-450508-15-2025 Discharge summary [facility] Medical Records Department [address] [place] [address] Emergency Department Summary 04/20/25 MR#: [id number] Acct: [id number] Name: FERDINAND LEI Rep #:[id number] : 1990 34 From: Carlos Martin MD PCP: Dr. Jaswant Rico MD Status:R EG ER Location: ED HPI History of Present Illness Chief Complaint: Palpitations Detail of Chief Complaint: Palpitations since last night Informant: patient Onset/Context/Timing Onset: Yesterday Timing: Continuous Quality: palpitations Location: chest Current Severity: Feels her heartbeat Maximum Severity: Feels her heartbeat Worsened by: Nothing Relieved by: Nothing Associated Symptoms Associated Symptoms: Anxious Narrative Narrative: Patient is a 34-year-old female. She has history of COVID, M?ni?re's disease and right upper quadrant pain of uncertain etiology. She is on hydrochlorothiazide for M?ni?re's disease. She presents because of palpitationsher last evening. When she took her pulse it was 77. Her heart rate is never been fast. Patient denies any skipped beats. Patient does not drink any caffeinated beverages. Patient [place] black or maroon stool. Patient denies orthostatic symptoms. There is no history of sudden . Prior similar symptoms: No Recent Illness/Hospitalization: No PFSH [facility] Medical History Anxiety Acute allergic conjunctivitis Nasal congestion GBS (group B streptococcus) UTI complicating Preventative health care exam Meniere disease Gestational diabetes mellitus (GDM) affecting Wellness examination Abnormal glucose affecting Polycystic ovaries Hearing problem Headache, migraine history of bone fracture Home Medications ?Medication ?Instructions ?Recorded ?Last Taken ?Type hydrochlorothiazide 12.5 mg tablet 12.5 mg PO QDAY 07/30 Unknown History folic acid 400 mcg tablet 400 mcg PO DAILY 07/04/24 Un known History prednisone 20 mg tablet 20 mg PO BID #10 tabs Unknown Rx Allergy/AdvReac Type Severity Reaction Status Date / Time No Known Allergies Allergy Verified 04/20/25 08:12 Family History Grandmother Thyroid disorder SLE (systemic lupus erythematosus related syndrome) Grandfather Heart disease High cholesterol Mother Hypertension Father Atrial fibrillation Mitral valve prolapse Other Myocardial infarction Surgical History History of wisdom tooth extraction history of birthmark removal history of laporscopic knee surgery Social History adopted: No household members: spouse and children housing: house number of children: 1 current occupational status: employed 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/hazards: No pets and animals: Yes pets and animals: dog(s) history of recent travel: No sexually active: Yes Smoking Status: Never smoker alcohol intake: current alcohol intake frequency: holidays/special occasions only substance use type: does not use diet: low salt well-balanced diet: daily or most days caffeine: No eating out: 1-3 times/week during the past year weight has: remained stable what type of physical activity do you participate in: none frequency: 1-2 times per week randy/buddhism: Cheondoism seatbelt use: always do you feel safe at home: Yes 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 ROS ED Constitutional Constitutional ED: Denies chills, fever(s), subjective, sweats or weight loss Eyes Eyes: Denies blurry vision or change in vision ENT ENT ED: Denies rhinorrhea Cardiovascular Cardiovascular: Reports palpitations; Denies chest pain, orthopnea, paroxysmal nocturnal dyspnea orracing heartbeat Respiratory/Chest Respiratory/Chest: Denies cough, dyspnea, dyspnea on exertion, orthopnea or paroxysmal nocturnal dyspnea Gastrointestinal Gastrointestinal: Denies abdominal pain, diarrhea, melena or vomiting Neurologic Neurologic: Denies weakness Psychiatric Psychiatric: Denies anxiety or depression Hematologic/Lymphatic Hematologic/Lymphatic: Reports systems reviewed and no addt'l complaints, exceptas documented EXAM Physical Exam Const Vital Signs: 04/20/25 08:09 04/20/25 10:09 04/20/25 11:00 Temperature 98.1 F Temperature Source Oral Pulse Rate 88 74 96 Respiratory Rate 16 18 18 Blood Pressure 154/114 H 116/89 H 113/78 Blood Pressure Mean 127 98 89 Pulse Ox 100 100 97 Oxygen Delivery Method Room Air Room Air Room Air Positive well nourished and well developed Constitutional Narrative: Patient is slightly anxious. She is tearful. General Appearance ED: well developed; Negative for pallor HEENT Reports moist mucous membranes HEENT Narrative: Head is atraumatic normocephalic. Ears normal. Nares patent. Eyes PERRL and EOMs intact bilaterally General Eye ED: Negative for pale conjunctiva or scleral icterus Neck no lymphadenopathy, supple and no JVD Neck Narrative: Trachea is midline. There is no dysphonia. There is no stridor Resp normal respiratory effort and clear to auscultation bilaterally Cardio regular rate, regular rhythm, S1 normal heart sound, S2 normal heart sound and no murmurs Rate: other Other Details: There is no click or rub appreciated. Back/Spine no CVA tenderness Extremity Extremity Narrative: There is no asymmetry, swelling, discoloration, leg vein distention, palpable cords or tenderness along the distribution of the deep venous system. Neuro oriented x3 and CN's II-XII intact bilaterally Sensorium / Orientation: alert Psych Mood & Affect: anxious Skin no rashes or lesions noted, no wounds and skin turgor normal General Skin Exam: elasticity normal; Negative for jaundice or pallor MDM MDM MDM Narrative Medical decision making narrative: Patient presents with palpitations. She has no history of weight loss weight gain or any symptoms of hyperthyroidism. She is not on caffeinated beverages. She placed on the monitor. There is no ectopy. I will obtain EKG per protocol. Electrolyte panel was obtained to assess potassium. Even when patient assessedher vitals she had a normal heart rate. She has no history of anxiety attacks or panic attacks. Of note she had negative's [place] sign. She was not hyperreflexic does not have clonus. Patient's PERC negative. Patient's Wells score is less than 3. Patient has no respiratory symptoms.She has no findings consistent DVT either. History & Record Review Additional record(s) reviewed:: Prior outpatient record (Outpatient urgent care visit for pharyngitis October 2024. And annual physical June 2024 note authored by Lashawn Garcia.) Lab Data Attestation: I reviewed the patient's lab results. Lab results narrative: Basic metabolic panel is normal. Labs: Laboratory Results - last 24 hr 04/20/25 09:50 Sodium 140 Potassium 3.4 Chloride 101 Carbon Dioxide 30.5 Anion Gap 8 BUN 13 Creatinine 0.76 Estim Creat Clear Calc 97.01 Est GFR (MDRD) Non-Af 106 BUN/Creatinine Ratio 17.6 Glucose 101 H Calcium 9.1 EKG Initial EKG: Attestation: I personally reviewed and interpreted this EKG as follows: Interpretation: Sinus Rhythm (Rate is 70. EKG is normal. ID interval is 148 ms. Cures duration 90 ms. QT duration 280 ms. [place] is normal.) Treatment and Re-Evaluation :: Patient was informed that her tests are unremarkable. With a normal heart rate when she is feeling these palpitations uncertain the cause. Recommend follow- upwith her doctor. Discharge Plan Triage Chief Complaint: Palpitations ED Provider: Carlos Martin Dx/Rx/DC Orders Clinical Impression: Palpitations, Meniere disease Instructions: ED Heart Palpitations Prescriptions: No Action hydrochlorothiazide 12.5 mg tablet 12.5 mg PO QDAY folic acid 400 mcg tablet 400 mcg PO DAILY prednisone 20 mg tablet 20 mg PO BID Qty: 10 0RF Primary Care Provider: Jaswant Rico Referrals: Jaswant Rico MD [Primary Care Provider] - 1 Week if not improving Print Language: Chilean Disposition Disposition: Home, Self Care What to do if you have Problems For any increased pain, shortness of breath, bleeding, nausea or vomiting, chestpain, or any unexpected problems, contact your Primary Care Provider. Call [facility] ([phone]) or report tothe closest Emergency Room. Call 911 if necessary. 04/20/25 1134 Cosigner Signature (if applicable): CC: Dr. Jaswant Rico MD ~ Signed [facility]08-06-2025 Evaluation note* Diagnosis Onset Date Resolution Status Admit Date Arthralgia acute April 11 7:20am Myalgia acute April 11 7:20am Encounter for routine gynecological examination noneactive Octobe r 2024 2:23pm Blood glucose elevated acute Oc tober 2024 1:18pm Preventative health care acute July 06, 2025 1:18pm Diarrhea acute July 11, 2025 10:26am Nausea & vomiting acute Novem2024 10:26am Right upper quadrant abdominal pain acute July 11 10:26am [facility] Work Phone: 1(425) 575-786605-14-2025 Evaluation note* Diagnosis Onset Date Resolution Status Admit Date Nausea & vomiting acute January 2:23pm Right upper quadrant abdomin al pain acute January 17, 2025 2 :23pm Myalgia acute April 11 7:20am [facility] Work Phone: 1(237) 770-203705-14-2025 Evaluation note* Diagnosis Onset Date Resolution Status Admit Date Nausea & vomiting acute January 2:23pm Right upper quadrant abdomin al pain acute January 17, 2025 2 :23pm Arthralgia acute April 11 7:20am Myalgia acute April 11 7:20am [facility] Work Phone: 1(649) 130-235303-07-2025 Nuclear medicine Diagnostic study note [facility] Imaging Services [address] [place] [address] Hepatobilliary Imaging MR#: [id number] Acct: [id number] Name: FERDINAND LEI Rep #: [id number] : 1990 F 34 From: Jefferson Stubbs MD PCP: Dr. Jaswant Rico MD Status: R EG CLI Study:Hepatobilliary Imaging Date of Exam: 11/10/24 Exam# [id number] Ordering Dr: Mady Johnson PROCEDURE: HEPATOBILLIARY IMAGING REASON FOR EXAM: Nausea and vomiting. Patient is . TECHNIQUE: RADIOPHARMACEUTICAL: 5 mCi of technetium labeled mebrofenin. Imaging of the right upper quadrant was obtained. COMPARISON: None. FINDINGS: There is good uptake of the radiopharmaceutical by the liver. Normal gallbladder visualization with the gallbladder identified by 60 minutes. NM/Hepatobilliary Imaging IMPRESSION: The gallbladder is opacified at 60 minutes. Correlation with ultrasound of the gallbladder recommended. Reading Location: [id number] CC: Dr. Jaswant Rico MD; CHARMAINE Stephenson ~ Jailer/Training Officer: Signed [facility]02-19-2025 Evaluation note* Diagnosis Onset Date Resolution Status Admit Date Diarrhea acute October 25, 2024 2:20pm Nausea & vomiting acute Februar 2024 2:20pm Right upper quadrant abdominal pain acute October 25, 2:20pm [facility] Work Phone: 1(591) 899-398611-14-2024 Evaluation note* Diagnosis Onset Date Resolution Status Admit Date Diarrhea acute July 20, 2024 12:23pm Nausea & vomiting acute Novembe r 2023 12:23pm Abdominal pain inactive July 072023 12:23pm Diarrhea acute October 25, 2024 2:20pm Nausea & vomiting acute uar y 2024 2:20pm Right upper quadrant abdominal pain acute October 25 2:20pm [facility] Work Phone: 1(859) 616-934309-03-2023 Discharge summary Author Navdeep Sotelo [facility] May 09, 2023 9:31pm Note Date/Time May 09, 2023 6:42pm [facility] Medical Records Department [address] [place] [address] Emergency Department Summary 05/09/23 MR#: [id number] Acct: [id number] Name: FERDINAND LEI Rep #:[id number] : 1990 32 From: Navdeep Sotelo MD PCP: Dr. Jaswant Rico MD Status:R EG ER Location: ED HPI HPI - GI History of Present Illness Chief Complaint: Abd Pain Narrative Narrative: 32-year-old female G2, P2, is by approximately 1 week presents with abdominal pain that she has had since the following Wednesday. She states that shegave vaginally and precipitously on Wednesday. Afterwards, she started experiencing diffuse abdominal pain, was told by her PROGRAM DIRECTOR [employer] WORK's that it might be trapped gas from labor, so she took simethicone without relief of her symptoms. All week she has been having abdominal pain that is more diffuse. She denies any fevers but has had chills. No prior abdominal surgeries. She presents because of the continued abdominal pain, mainly under her bilateral ribs now. No exacerbating or alleviating factors. She did have a bowel movement today which was normal. [facility] Medical History Abnormal glucose affecting Acute allergic conjunctivitis Anxiety GBS (group B streptococcus) UTI complicating Gestational diabetes mellitus (GDM) affecting Headache, migraine Hearing problem history of bone fracture Meniere disease Nasal congestion Polycystic ovaries exam Preventative health care Wellness examination Home Medications multivit-min no.71-iron fum 28 mg-folate no.1 1 mg-dha 300 mg capsule (PNV- Esbon) 1 cap PO pregnacy 09/11/22 [History Last Taken 05/02/23] ondansetron 4 mg disintegrating tablet 4 mg PO Q4H PRN nausea and vomiting #60 tabs 10/21/22 [Rx Last Taken Unknown] meclizine 25 mg tablet 25 mg PO TID PRN nausea and vomiting #90 tabs 10/22/22 [Rx Last Taken Unknown] dicyclomine 20 mg tablet 20 mg PO TID PRN abdominal pain #20 tabs 05/09/23 [Rx Last Taken Unknown] Allergy/AdvReac Type Severity Reaction Status Date / Time No Known Allergies Allergy Verified 05/09/23 18:16 Family History Grandmother Autoimmune disorder Thyroid disorder Grandfather Heart disease High cholesterol Mother Hypertension Father Atrial fibrillation Mitral valve prolapse Other Myocardial infarction Surgical History history of birthmark removal history of laporscopic knee surgery History of wisdom tooth extraction Social History adopted: No household members: spouse and children housing: house number of children: 1 current occupational status: employed 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/hazards: No pets and animals: Yes pets and animals: dog(s) history of recent travel: No sexually active: Yes Smoking Status: Never smoker alcohol intake: former details: prior to substance use type: does not use diet: low salt well-balanced diet: daily or most days caffeine: No eating out: 1-3 times/week during the past year weight has: remained stable what type of physical activity do you participate in: none frequency: 1-2 times per week randy/buddhism: Cheondoism seatbelt use: always do you feel safe at home: Yes 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 HEENT: No sore throat. No neck pain. No loss of vision. No rhinorrhea. Cardiovascular: No chest pain. No palpitations. No pedal edema. Respiratory: No cough, no shortness of breath. Abdominal: Positive abdominal pain. Currently under bilateral ribs. No nausea. No vomiting. Last bowel movement today. No diarrhea. Genitourinary: No dysuria. No hematuria. Musculoskeletal: No myalgias. No arthralgias. Neurologic: No headaches. No dizziness. No lightheadedness. Skin: No rash. No change in color. Psychiatric: No depression. No anxiety. EXAM Physical Exam Narrative Exam Narrative: Afebrile. Vital signs noted. HEENT: Normocephalic. Atraumatic. PERRL, EOMI. Neck soft and supple. No pointtenderness or step off. Cardiovascular: Regular rate and rhythm. No murmurs, rubs, or gallops appreciated. Respiratory: No tachypnea. Lungs clear to auscultation bilaterally. Gastrointestinal: Abdomen soft, nontender, with normoactive bowel sounds. No rebound or guarding. Neurological: Awake. Alert. Nonfocal, nonlateralizing. Skin: No rash. Normal color. No pallor. Musculoskeletal: No pedal edema. Full range of motion extremities. Const Vital Signs: 05/09/23 18:16 Temperature 97 F L Temperature Source Temporal Pulse Rate 87 Respiratory Rate 18 Blood Pressure 141/99 H Blood Pressure Mean 113 Pulse Ox 99 Oxygen Delivery Method Room Air MDM MDM MDM Narrative Medical decision making narrative: Concern would be for ileus versus nonspecific abdominal pain, but to rule out free air from perforation CT will be obtained. I will also obtain basic laboratory work because she says occasionally she might feel lightheaded throughout the office last week. Her vital signs are normal in the sense of sheis not tachycardic and she is afebrile here. I will obtain basic laboratory work and a UA as she states that she still has some stinging with urination. I reviewed the patient's laboratory work and she has normal white count of 11.0,hemoglobin normal at 12.6, hematocrit 37.6 with normal platelet count of 359. CMP was performed and reviewed, she has normal AST of 18, normal ALT of 26, alk phos is slightly elevated at 142 which I think is nonspecific after . Urinalysis is negative for infection with 0-5 WBCs. I do not feel antibiotics are indicated. I reviewed the CT report of the CT of the abdomen and pelvis which shows dilated uterus with suspected hemorrhage inside versus retained products. I do not feel that she is having endometritis. She is not febrile and does not have an elevated white count. Her appendix appears normal on the CT scan. Otherwise, there is no reason for her upper abdominal pain. Additionally, I do not feel that she has a pulmonary embolism as she has a normal pulse of 87 and pulse ox is 99% on room air. I discussed patient with Dr. Evita Gaytan on-call for [employer]. She agrees with outpatient discharge. I will first find her with a Bentyl here in the emergency department, and a prescription for Bentyl to take as needed for any abdominal cramping. She is to follow-up in 6 weeks with her [employer] if she shows improvement, but if no improvement within 1 week can schedule an appointment with [employer] as an outpatient. I do not feel she requires observation at this time. Return instructions to the emergency department were reviewed. Disposition is discharged home in stable condition. History & Record Review Discussion w/independent historian: Patient Additional record(s) reviewed:: Prior ED visit Lab Data Attestation: I reviewed the patient's lab results. Labs: Laboratory Results - last 24 hr 05/09/23 05/09/23 18:43 20:00 WBC 11.0 RBC 4.05 L Hgb 12.6 Hct 37.6 MCV 92.8 MCH 31.1 MCHC 33.5 RDW Std Deviation 42.5 RDW Coeff of June 12.4 Plt Count 359 MPV 8.9 Immature Gran % (Auto) 0.500 Neut % (Auto) 76.2 H Lymph % (Auto) 17.0 L Warrick % (Auto) 5.3 Eos % (Auto) 0.9 Baso % (Auto) 0.1 Absolute Neuts (auto) 8.4 H Absolute Lymphs (auto) 1.88 Nucleated RBC % 0 Sodium 138 Potassium 3.7 Chloride 107 Carbon Dioxide 26.0 Anion Gap 5 BUN 11 Creatinine 0.57 Estim Creat Clear Calc 118.30 Est GFR (MDRD) Af Amer 159 Est GFR (MDRD) Non-Af 132 BUN/Creatinine Ratio 19.4 Glucose 101 Calcium 8.5 Total Bilirubin 0.30 AST 18 ALT 26 Alkaline Phosphatase 142 H Total Protein 6.7 Albumin 2.6 L Globulin 4.1 Albumin/Globulin Ratio 0.6 L Lipase 21 Urine Color Yellow Urine Clarity Sl. Cloudy Urine pH 7.0 Ur Specific [place] 1.010 Urine Protein Negative Urine Glucose (UA) Normal Urine Ketones Negative Urine Occult Blood 50 H Urine Nitrite Negative Urine Bilirubin Negative Urine Urobilinogen Normal Ur Leukocyte Esterase Negative Urine RBC 0-5 SEEN Urine WBC 0 SEEN Ur Squamous Epith Cells 0-5 SEEN Urine Bacteria 0 SEEN Urine Mucus 0 SEEN Radiography Diagnostic Testing: Clinical Impression(s) from Imaging Studies Abdomen/Pelvis CT 05/09/23 18:38 IMPRESSION: Enlarged uterus with possible endometrial hemorrhage or retained products of conception and correlation with pelvic ultrasound would be useful. Electronically Signed: Uri Rowe MD at 21:02 EDT , Discharge Plan Triage Chief Complaint: Abd Pain ED Provider: Navdeep Sotelo Dx/Rx/DC Orders Clinical Impression: Pain, Abdominal pain Instructions: ED Abdominal Pain Unkn Cause Fem, ED Pain, Acute, Uncertain Cause Prescriptions: New dicyclomine 20 mg tablet 20 mg PO TID PRN (Reason: abdominal pain) Qty: 20 0RF No Action PNV-Esbon 28-1-300 mg capsule 1 cap PO ondansetron 4 mg tablet,disintegrating 4 mg PO Q4H PRN (Reason: nausea and vomiting) Qty: 60 2RF meclizine 25 mg tablet 25 mg PO TID PRN (Reason: nausea and vomiting) Qty: 90 7RF Primary Care Provider: Jaswant Rico Referrals: Jaswant Rico MD [Primary Care Provider] - Evita Gaytan MD [Med Staff - Active Staff] - 1 Week if not improving Disposition Disposition: Home, Self Care What to do if you have Problems For any increased pain, shortness of breath, bleeding, nausea or vomiting, chestpain, or any unexpected problems, contact your Primary Care Provider. Call [facility] ([phone]) or report to the closest Emergency Room. Call 911 if necessary. 05/09/232130 <Electronically signed by Navdeep Sotelo MD> Cosigner Signature (if applicable): CC: Dr. Jaswant Rico MD ~ Signed [facility] Work Phone: 1(994) 168-762508-30-2023 Progress note Author Michelle Jacobo [facility] May 05, 2023 7:49am Note Date/Time May 05, 2023 7: 49am [facility] Medical Records Department [address] [place] [address] Progress Note - OBGYN 05/05/2348 MR#: [id number] Acct: [id number] Name: FERDINAND LEI Rep #:[id number] : 1990 32 From: Michelle Jacobo NP DEVELOPMENTAL PSYCHOLOGIST-C PCP: Status:ADM IN Location: RB220-3 Subjective Subjective Patient doing well without complaints. Tolerating PO. Ambulating and voiding without difficulty. Feeding well. Denies chest pain, shortness of breath, calf pain/swelling, fevers, chills, lightheadedness. Objective Data Objective Data Vital Signs: Vital Signs Temp Pulse Resp BP Pulse Ox O2 Del Method 98.0 F 73 16 118/82 H 95 Room Air 05/05/23 02:46 05/05/23 02:46 05/05/23 02:46 05/05/23 02:46 05/04/23 03:23 05/05/23 02:46 Oxygen Delivery Method Room Air Weight: 169 lb 12.095 oz Body Mass Index (BMI) 30.0 Intake & Output: Intake and Output for Last 24 Hours 05/03/23 05/04/23 05/05/23 23:59 23:59 23:59 Intake Total 1538.33 / 1538.33 Output Total 1050 / 1050 Balance 488.33 / 488.33 Lab / Micro Data 05/03/23 05:10 Physical Exam Const alert and oriented x3 HEENT normocephalic Eyes PERRL Neck full ROM Resp normal respiratory effort GI soft to palpation GI Narrative: FF below U Assessment & Plan (1) Vaginal delivery: COMMENT: Lc 38.4 boy(Gael) PLAN: Plan s/p PPD # 2 1. routine post delivery care 2. breast feeding- support given 3. rh positive 4. rubella immune 5. home today 05/05/23 0749 <Electronically signed by Michelle Jacobo NP DEVELOPMENTAL PSYCHOLOGIST-C> Cosigner Signature (if applicable): CC: ~ Signed [facility] Work Phone: 1(722) 239-850008-29-2023 Progress note Author Keara Whitman [facility] May 04, 2023 7:15am Note Date/Time May 04, 2023 7: 16am [facility] Medical Records Department [address] [place] [address] Progress Note - OBGYN 05/04/23 0713 MR#: [id number] Acct: [id number] Name: FERDINAND LEI Rep #:[id number] : 1990 32 From: Keara Whitman CNM PCP: Status:ADM IN Location: DF271-1 Subjective Subjective Patient doing well without complaints. Tolerating PO. Ambulating and voiding without difficulty. Feeding well. Denies chest pain, shortness of breath, calf pain/swelling, fevers, chills, lightheadedness. Objective Data Objective Data Vital Signs: Vital Signs Temp Pulse Resp BP Pulse Ox O2 Del Method 97.5 F L 85 16 110/75 95 Room Air 05/04/23 03:23 05/04/23 03:23 05/04/23 03:23 05/04/23 03:23 05/04/23 03:23 05/04/23 03:23 Oxygen Delivery Method Room Air Weight: 169 lb 12.095 oz Body Mass Index (BMI) 30.0 Intake & Output: Intake and Output for Last 24 Hours 05/02/23 05/03/23 05/04/23 23:59 23:59 23:59 Intake Total 1538.33 / 1538.33 Output Total 1050 / 1050 Balance 488.33 / 488.33 Lab / Micro Data Attestation: I reviewed the patient's lab results. 05/03/23 05:10 Labs: Laboratory Results - last 24 hr 05/03/23 05:10: Syphilis Total Ab Non-reactive, Blood Type A POSITIVE, Antibody Screen NEGATIVE ROS Constitutional Constitutional: Reports systems reviewed and no addt'l complaints, except as documented; Denies anorexia or headache(s) Cardiovascular Cardiovascular: Reports systems reviewed and no addt'l complaints, except as documented; Denies dizziness, dyspnea, nausea or tachypnea Respiratory/Chest Respiratory/Chest: Reports systems reviewed and no addt'l complaints, except as documented; Denies cough, dyspnea, shortness of breath at rest or tachypnea Gastrointestinal Gastrointestinal: Reports systems reviewed and no addt'l complaints, except as documented; Denies abdominal pain, constipation or nausea Genitourinary Genitourinary: Reports systems reviewed and no addt'l complaints, except as documented; Denies burning urination, difficulty urinating, dysuria, urinary frequency or urinary incontinence Musculoskeletal Musculoskeletal: Reports systems reviewed and no addt'l complaints, except as documented Integumentary Integumentary: Reports systems reviewed and no addt'l complaints, except as documented Neurologic Neurologic: Reports systems reviewed and no addt'l complaints, except as documented; Denies abnormal speech, dizziness or headache(s) Psychiatric Psychiatric: Reports systems reviewed and no addt'l complaints, except as documented Endocrine Endocrinology: Reports systems reviewed and no addt'l complaints, except as documented Hematologic/Lymphatic Hematologic/Lymphatic: Reports systems reviewed and no addt'l complaints, exceptas documented Physical Exam Const alert, oriented x3 and no apparent distress Neck full ROM Resp normal respiratory effort, normal air movement and no retractions Effort and Inspection: able to speak in complete sentences and symmetric chest movement GI soft to palpation Bladder / Kidney Exam: bladder normal to palpation Uterus Palpation: uterus fundus firm Extremity normal to inspection and full ROM Psych mental status grossly normal, thought process normal and cooperative Assessment & Plan (1) Vaginal delivery: COMMENT: Lc 38.4 boy(Gael) PLAN: s/p PPD # 1 1. routine post delivery care 2. breast feeding- support given 3. rh positive 4. rubella immune (2) Spontaneous onset of labor: (3) SROM (spontaneous rupture of membranes): COMMENT: pcn for gbs positive, limit ve (4) Echogenic intracardiac focus of fetus on ultrasound: COMMENT: had NIPT testing. low risk (5) Meniere disease: (6) GBS (group B streptococcus) UTI complicating : COMMENT: treat in labor (7) Supervision of high risk , antepartum: COMMENT: PRR , CYNDY 04/14/23, boy Gael Yeboah, Donato (8) : QUALIFIERS: Weeks of gestation: 38 weeks Qualified Code(s): Z3A.38 - 38 weeks gestation of COMMENT: NIPT low risk declined afp and carrier testing. reviewed anatomy US Charges/Coding Multi Select Codes Urinary/Genital Urinary/Genital CPT Codes: No Charge 05/04/23 0715 <Electronically signed by Keara Whitman CNM> Cosigner Signature (if applicable): CC: ~ Signed [facility] Work Phone: 1(447) 202-231208-28-2023 Discharge summary Author Aida Hendrickson [facility] May 03, 2023 8:27am Note Date/Time May 03, 2023 8: 27am [facility] Medical Records Department [address] [place] [address] Instructions for Home/Discharge Instructions 05/03/23826 MR#: [id number] Acct: [id number] Name: FERDINAND LEI Rep #:[id number] : 1990 32 From: Aida Hendrickson CNM PCP: Status:ADM IN Discharge Instructions Diet Discharge Diet: No restrictions Activity Discharge Activity: May Not Drive and May Shower May resume sexual activity in: 6 weeks Weight Bearing Status: Full weight bearing Dressing / Incision Call your doctor if your incision/area has: Sudden Increased Bleeding, IncreasedPain/ Swelling and Foul Smelling Discharge Call your doctor if you observe: Fever of 101 or Higher, Numbness or Tingling, Change in Color, Inability to urinate, Inability to have a bowel movement, Usingmore than 1 pad per hour, Shortness of breath, Dizziness, Fainting spells, Chestpain, Calf discomfort and Uncontrolled pain Follow Up Care Please Follow Up With: Aida Hendrickson CNM When: 6 weeks , please call office to make an appointment. Congratulations on the of your baby! Test Results: Test results from this visit will be discussed in further detail at your follow- up appointment, if applicable. Discharge Plan Admission Admit Date/Time: 05/03/23 05:35 Attending Provider: Grace Juarez Discharge Orders/Prescriptions Prescriptions: No Action PNV-Esbon 28-1-300 mg capsule 1 cap PO ondansetron 4 mg tablet,disintegrating 4 mg PO Q4H PRN (Reason: nausea and vomiting) Qty: 60 2RF meclizine 25 mg tablet 25 mg PO TID PRN (Reason: nausea and vomiting) Qty: 90 7RF Disposition Disposition (needs filled in before D/C Order can be placed): Home, Self Care 05/03/23826<Electronically signed by Aida Hendrickson CNM>Aida Hendrickson CNM CC: ~ Signed [facility] Work Phone: 1(671) 409-843808-28-2023 History and physical note Author Aida Hendrickson [facility] May 03, 2023 8:14am Note Date/Time May 03, 2023 8: 12am [facility] Medical Records Department [address] [place] [address] H&P Exam - [employer] 05/03/23 0808 MR#: [id number] Acct: [id number] Name: FERDINAND LEI Rep #:[id number] : 1990 32 From: Aida Hendrickson CNM PCP: Status:ADM IN Location: RA027-5 HPI - General General Date of Admission: 05/03/23 HPI Narrative FERDINAND LEI, is a 32 F who presents at 38+4 with SROM at 0400, clear fluid, GBS positive. active fetus. spontaneous contractions. no vaginal bleeding. Maternal Data Information CYNDY Calculator Estimated Delivery Date Method Current WG Current Estimate 05/13/23 Ultrasound #1 38w 4d Other Estimates 04/14/23 LMP (Certain) 42w 5d 05/10/23 Ultrasound #2 39w 0d PFSH PFSH Medical History (Updated 05/03/23 @ 06:22 by Mayra Silverio) Abnormal glucose affecting Acute allergic conjunctivitis Anxiety GBS (group B streptococcus) UTI complicating Gestational diabetes mellitus (GDM) affecting Headache, migraine Hearing problem history of bone fracture Meniere disease Nasal congestion Polycystic ovaries exam Preventative health care Wellness examination Home Medications multivit-min no.71-iron fum 28 mg-folate no.1 1 mg-dha 300 mg capsule (PNV- Esbon) cap PO 09/11/22 [History Last Taken Unknown] ondansetron 4 mg disintegrating tablet 4 mg PO Q4H PRN nausea and vomiting #60 tabs 10/21/22 [Rx Last Taken Unknown] meclizine 25 mg tablet 25 mg PO TID PRN nausea and vomiting #90 tabs 10/22/22 [Rx Last Taken Unknown] Allergy/AdvReac Type Severity Reaction Status Date / Time No Known Allergies Allergy Verified 05/03/23 05:52 Family History Grandmother Autoimmune disorder Thyroid disorder Grandfather Heart disease High cholesterol Mother Hypertension Father Atrial fibrillation Mitral valve prolapse Other Myocardial infarction Surgical History history of birthmark removal history of laporscopic knee surgery History of wisdom tooth extraction Social History adopted: No household members: spouse and children housing: house number of children: 1 current occupational status: employed 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/hazards: No pets and animals: Yes pets and animals: dog(s) history of recent travel: No sexually active: Yes Smoking Status: Never smoker alcohol intake: former details: prior to substance use type: does not use diet: low salt well-balanced diet: daily or most days caffeine: No eating out: 1-3 times/week during the past year weight has: remained stable what type of physical activity do you participate in: none frequency: 1-2 times per week randy/buddhism: Cheondoism seatbelt use: always do you feel safe at home: Yes 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 Date Name GA/Weeks Outcome Route Bth Weight Infant Gen [facility] 09/18/21 Luke 39 live - full term 7lbs 6oz Male [facility] Dr. Whitman Delivery Date: 09/18/21 Last Updated by: Debi Duvall Gestational diabetes Visit Details Expected Delivery Route/Plan Labor Preferences- CB/BF classes: [] labor support person: [] labor intervention preferences: [] pain management options preferred: [] cut cord/dad catch: [] : [] PP control planned: [] discussed possible routes of delivery and associated risks: [] special requests: [] Plans Covid status: discussed Flu vaccine: discussed Tdap vaccine: given Rhogam: na LARC form signed: declined movement and labor precautions reviewed. Problem list reviewed and updated with the most current plan of care details and appropriate orders placed. Relevant counseling for the gestational age provided. Continue routine care and follow up unless otherwise noted in visit notes/problem list details OB Flowsheet Initial Weight: Not Recorded Date -?-?-?-?-?-?-?-?-?-?-?-?- EGA Weight BP Urine Prot -?-?-?-?-?-?-?-?-?-?-?-?- Glucose FHR FuHt Pres Dilation -?-?-?-?-?-?-?-?-?-?-?-?- Effaced St Visit Note 09/18/22 -?-?-?-?-?-?-?-?-?-?-?-?- 6w 1d 139 lb 130/85 -?-?-?-?-?-?-?-?-?-?-?-?- -?-?-?-?-?-?-?-?-?-?-?-?- JV- single live IUP measuring 6 weeks and 1 day with a flicker of a heart beat measuring 124. return in 2-3 weeks to confirm CYNDY. 10/08/22 -?-?-?-?-?-?-?-?-?-?-?-?- 9w 0d 137 lb 2 oz 132/86 Nega tive -?-?-?-?-?-?-?-?-?-?-?-?- Negative 180 -?-?-?-?-?-?-?-?-?-?-?-?- JV- no complaint s today. wants NIPT. 11/06/22 -?-?-?-?-?-?-?-?-?-?-?-?- 13w 1d 133 lb 2 oz 119/83 Nega tive -?-?-?-?-?-?-?-?-?-?-?-?- Negative 150 -?-?-?-?-?-?-?-?-?-?-?-?- JV- no complaint s JV- no complaints low risk m susu NIPT. anatomy us ordered with [facility]. 12/03/22 -?-?-?-?-?-?-?-?-?-?-?-?- 17w 0d 137 lb 6 oz 110/77 Nega tive -?-?-?-?-?-?-?-?-?-?-?-?- Negative 145 -?-?-?-?-?-?-?-?-?-?-?-?- SM- no vb lof so me constipation 12/31/22 -?-?-?-?-?-?-?-?-?-?-?-?- 21w 0d 138 lb 6 oz 119/74 Nega tive -?-?-?-?-?-?-?-?-?-?-?-?- Negative 135 -?-?-?-?-?-?-?-?-?-?-?-?- JV- marginal pre via and echogenic foci on heart reviewed again. Keara had discussed this on the phone with her and she is reassured. normal NIPT. rpt scan at 28 weeks. rto in 4 01/29/23 -?-?-?-?-?-?-?-?-?-?-?-?- 25w 1d 146 lb 116/82 Negative -?-?-?-?-?-?-?-?-?-?-?--?- Negative 140 24 -?-?-?-?-?-?-?-?-?-?-?-?- LC- no vb/crampi ng/lof. good fm. has ultrasound ordered. 28 week labs ordered. 02/22/23 -?-?--?-?-?-?-?-?-?-?-?-?- 28w 4d 155 lb 2 oz 105/71 Nega tive -?-?-?-?-?-?-?-?-?-?-?-?- Negative 135 28 -?-?-?-?-?-?-?-?-?-?-?-?- KW- no vb/crampi ng. +FM. reviewed labs and US. tdap today 03/12/23 -?-?-?-?-?-?-?-?-?-?-?-?- 31w 1d 157 lb 2 oz 112/78 -?-?-?-?-?-?-?-?-?-?-?-?- 135 31 -?-?-?-?-?-?-?-?-?-?-?-?- SM- no vb lof go od fm no regular ctx 03/25/23 -?-?-?-?-?-?-?-?-?-?-?-?- 33w 0d 161 lb 122/78 Negative -?-?-?-?-?-?-?-?-?-?-?-?- Negative 135 32 -?-?-?-?-?-?-?-?-?-?-?-?- SM- no vb lof go od fm no regular ctx 04/09/23 -?-?-?-?-?-?-?-?-?-?-?-?- 35w 1d 165 lb 120/81 -?-?-?-?-?-?-?-?-?-?-?-?- 145 35 Cephalic -?-?-?-?-?-?-?-?-?-?-?-?- JV- no lof, vagi nal bleeding, or dec fm. plan 40 week IOL if not delivered for patient request. 04/16/23 -?-?-?-?-?-?-?-?-?-?-?-?- 36w 1d 171 lb 6 oz 117/80 Nega tive -?-?-?-?-?-?-?-?-?-?-?-?- Negative 135 37 Cephalic 3 -?-?-?-?-?-?-?-?-?-?-?-?- 60 -2 JV- no lof , vaginal bleeding, or dec fm. gbs today. 04/22/23 -?-?-?-?-?-?-?-?-?-?-?-?- 37w 0d 5 lb 2 oz 112/79 Negati ve -?-?-?-?-?-?-?-?-?-?-?-?- Negative 137 37 Cephalic 3 .5 -?-?-?-?-?-?-?-?-?-?-?-?- 60 -2 JV- no lof , vaginal bleeding, or dec fm. 04/30/23 -?-?--?-?-?-?-?-?-?-?-?-?- 38w 1d 173 lb 127/85 Negative -?-?-?-?-?-?-?-?-?-?-?-?- Negative 125 37 Cephalic 4 .5 -?-?-?-?-?-?-?-?-?-?-?-?- 70 -1 JV- membra cristina are bulging but she is not feeling contractions. She wants to try to stay until wednesday next week. NST FHR Rate Baby A Variability:: Moderate Accelerations:: 15 x 15 Decelerations:: None NST Reactive:: Yes FHR Category:: Category I Uterine Activity:: q2-3 minutes ROS Cardiovascular Cardiovascular: Denies abdominal pain, chest pain, diaphoresis or dyspnea Respiratory/Chest Respiratory/Chest: Denies change in mental status, chest congestion, chest tightness, cough, shortness of breath at rest, shortness of breath with exertion, breast mass, breast pain, breast skin changes, breast swelling, change in breast shape or nipple discharge Genitourinary Genitourinary: Reports change in urinary stream Musculoskeletal Musculoskeletal: Reports none Integumentary Integumentary: Reports none Neurologic Neurologic: Reports none Psychiatric Psychiatric: Reports none Endocrine Endocrinology: Reports none Hematologic/Lymphatic Hematologic/Lymphatic: Reports none Allergic/Immunologic Allergic/Immunologic: Reports none Vital Signs Vital Signs Vital Signs: 05/03/23 05:50 05/03/23 05:50 05/03/23 05:56 Temperature Temperature Source Temporal Pulse Rate 88 Blood Pressure 133/81 H BP Systolic 133 BP Diastolic 81 Pulse Ox 05/03/23 05:56 05/03/23 06:54 05/03/23 06:54 Temperature 97.6 F L Temperature Source Pulse Rate 122 H Blood Pressure BP Systolic BP Diastolic Pulse Ox 80 05/03/23 07:06 05/03/23 07:06 05/03/23 07:45 Temperature Temperature Source Pulse Rate 106 H 48 L Blood Pressure 151/98 H BP Systolic 151 BP Diastolic 98 Pulse Ox 05/03/23 07:45 05/03/23 07:46 05/03/23 07:46 Temperature Temperature Source Pulse Rate 92 Blood Pressure BP Systolic BP Diastolic Pulse Ox 81 100 05/03/23 07:47 05/03/23 07:47 05/03/23 07:51 Temperature Temperature Source Pulse Rate 95 75 Blood Pressure 133/89 H BP Systolic 133 BP Diastolic 89 Pulse Ox 05/03/23 07:51 05/03/23 07:56 05/03/23 07:56 Temperature Temperature Source Pulse Rate 80 Blood Pressure BP Systolic BP Diastolic Pulse Ox 100 100 05/03/23 08:00 05/03/23 08:00 05/03/23 08:01 Temperature Temperature Source Pulse Rate 72 77 Blood Pressure BP Systolic BP Diastolic Pulse Ox 85 05/03/23 08:01 05/03/23 08:07 05/03/23 08:07 Temperature Temperature Source Pulse Rate 83 Blood Pressure BP Systolic BP Diastolic Pulse Ox 100 83 Weight Weight: 169 lb 12.095 oz Body Mass Index (BMI) 30.0 Physical Exam Const alert, oriented x3 and no apparent distress General Appearance: cooperative, comfortable and well kempt Orientation / Consciousness: awake and oriented to person Exam Limitations: no limitations HEENT normocephalic Neck full ROM Chest inspection of chest normal Resp normal respiratory effort, normal air movement and no retractions Effort and Inspection: able to speak in complete sentences and symmetric chest movement Cardio regular rate Peripheral Pulses: pulses 2+ throughout GI normal to inspection, nondistended, normoactive bowel sounds Inspection: gravid no CVA tenderness and appearance of the vagina normal External Female Exam: normal appearance of the urethra; Negative for external lesion OB / External & Speculum: external exam normal Manual OB Exam: estimated gestational size appropriate and presentation cephalic Uterus Palpation: Negative for uterus tender Extremity normal to inspection Skin no rashes or lesions noted Psych Activity / Motor Behavior: appropriate eye contact Speech: normal speech Labs Labs Labs: Blood Type A POSITIVE Antibody Screen NEGATIVE Hct 36.8 % (37-47) L Hgb 12.0 g/dL (12.0-15.0) Obstetrics US Syphilis Total Ab Non-reactive Rubella IgG Antibody Reactive (Nonreactive) Hep Bs Antigen Non-Reactive (Nonreactive) Chlamydia DNA (SHANE) Negative (Negative) Neisseria gonorrhoeae DNA (SHANE) Negative (Negative) HIV 1&2 Antibody Non-Reactive (Nonreactive) Glucose 1 Hr 50 gm 126 mg/dL (70-140) 05/03/23 0812 <Electronically signed by Aida Hendrickson CNM> Cosigner Signature (if applicable): CC: CURT Hendrickson~ Signed ADDENDUM by CURT Hendrickson on 05/03/23 at 0814 Assessment & Plan (1) GBS (group B streptococcus) UTI complicating : COMMENT: treat in labor (2) Supervision of high risk , antepartum: COMMENT: PRR , CYNDY 04/14/23, boy Gael Yeboah, Donato (3) : QUALIFIERS: Weeks of gestation: 38 weeks Qualified Code(s): Z3A.38 - 38 weeks gestation of COMMENT: NIPT low risk declined afp and carrier testing. reviewed anatomy US (4) SROM (spontaneous rupture of membranes): COMMENT: pcn for gbs positive, limit ve (5) Spontaneous onset of labor: PLAN: Plan Patient presents IAL, plan expectant management for , pitocin PRN if needed. Pain management: plans epidural. GBS positive plan IV PCN. Management of any complications: none I have reviewed the [facility] and made any clinically relevant updates. Dr. Gaytan aware of admission, exam and poc, agrees with primary midwifery management. will update on delivery. 05/03/23 0814<Electronically signed by Aida Hendrickson CNM> Cosigner Signature (if applicable): cc: CURT Hendrickson ~* Signed [facility] Work Phone: 1(298) 965-156308-28-2023 [facility]22 NotePap Smear Specimen AdequacyJanuary 2022 5:04pmComment. Satisfactory for evaluation. Endocervical and/or squamous metaplasticcells (endocervical component)are present.[facility] INTER[facility]ACED A#[id number] Hospital [place]edoComment on above:Satisfactory for evaluation. Endocervical and/or squamous metaplasticcells (endocervical component)are present.09-18-2022 NotePap Smear Specimen AdequacyJanuary 2022 6:04pmComment.Satisfactory for evaluation. Endocervical and/or squamous metaplasticcells (endocervical component)are present.[facility] A#[id number] Hospital [place] Comment on above:Satisfactory for evaluation. Endocervical and/or squamous metaplasticcells (endocervical component)are present.Discharge summary Author Carlos Martin [facility] Note Date/Time April 20, 2025 11 :34am [facility] Medical Records Department [address] [place] [address] Emergency Department Summary 04/20/25 MR#: [id number] Acct: [id number] Name: FERDINAND LEI Rep #:[id number] : 1990 34 From: Carlos Martin MD PCP: Dr. Jaswant Rico MD Status:R EG ER Location: ED HPI History of Present Illness Chief Complaint: Palpitations Detail of Chief Complaint: Palpitations since last night Informant: patient Onset/Context/Timing Onset: Yesterday Timing: Continuous Quality: palpitations Location: chest Current Severity: Feels her heartbeat Maximum Severity: Feels her heartbeat Worsened by: Nothing Relieved by: Nothing Associated Symptoms Associated Symptoms: Anxious Narrative Narrative: Patient is a 34-year-old female. She has history of COVID, M?ni?re's disease and right upper quadrant pain of uncertain etiology. She is on hydrochlorothiazide for M?ni?re's disease. She presents because of palpitationsher last evening. When she took her pulse it was 77. Her heart rate is never been fast. Patient denies any skipped beats. Patient does not drink any caffeinated beverages. Patient [place] black or maroon stool. Patient denies orthostatic symptoms. There is no history of sudden . Prior similar symptoms: No Recent Illness/Hospitalization: No PFSH PFSH Medical History Anxiety Acute allergic conjunctivitis Nasal congestion GBS (group B streptococcus) UTI complicating Preventative health care exam Meniere disease Gestational diabetes mellitus (GDM) affecting Wellness examination Abnormal glucose affecting Polycystic ovaries Hearing problem Headache, migraine history of bone fracture Home Medications ?Medication ?Instructions ?Recorded ?Last Taken ?Type hydrochlorothiazide 12.5 mg tablet 12.5 mg PO QDAY 07/30 Unknown History folic acid 400 mcg tablet 400 mcg PO DAILY 07/04/24 Un known History prednisone 20 mg tablet 20 mg PO BID #10 tabs Unknown Rx Allergy/AdvReac Type Severity Reaction Status Date / Time No Known Allergies Allergy Verified 04/20/25 08:12 Family History Grandmother Thyroid disorder SLE (systemic lupus erythematosus related syndrome) Grandfather Heart disease High cholesterol Mother Hypertension Father Atrial fibrillation Mitral valve prolapse Other Myocardial infarction Surgical History History of wisdom tooth extraction history of birthmark removal history of laporscopic knee surgery Social History adopted: No household members: spouse and children housing: house number of children: 1 current occupational status: employed 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/hazards: No pets and animals: Yes pets and animals: dog(s) history of recent travel: No sexually active: Yes Smoking Status: Never smoker alcohol intake: current alcohol intake frequency: holidays/special occasions only substance use type: does not use diet: low salt well-balanced diet: daily or most days caffeine: No eating out: 1-3 times/week during the past year weight has: remained stable what type of physical activity do you participate in: none frequency: 1-2 times per week randy/buddhism: Cheondoism seatbelt use: always do you feel safe at home: Yes 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 ROS ED Constitutional Constitutional ED: Denies chills, fever(s), subjective, sweats or weight loss Eyes Eyes: Denies blurry vision or change in vision ENT ENT ED: Denies rhinorrhea Cardiovascular Cardiovascular: Reports palpitations; Denies chest pain, orthopnea, paroxysmal nocturnal dyspnea or racing heartbeat Respiratory/Chest Respiratory/Chest: Denies cough, dyspnea, dyspnea on exertion, orthopnea or paroxysmal nocturnal dyspnea Gastrointestinal Gastrointestinal: Denies abdominal pain, diarrhea, melena or vomiting Neurologic Neurologic: Denies weakness Psychiatric Psychiatric: Denies anxiety or depression Hematologic/Lymphatic Hematologic/Lymphatic: Reports systems reviewed and no addt'l complaints, exceptas documented EXAM Physical Exam Const Vital Signs: 04/20/25 08:09 04/20/25 10:09 04/20/25 11:00 Temperature 98.1 F Temperature Source Oral Pulse Rate 88 74 96 Respiratory Rate 16 18 18 Blood Pressure 154/114 H 116/89 H 113/78 Blood Pressure Mean 127 98 89 Pulse Ox 100 100 97 Oxygen Delivery Method Room Air Room Air Room Air Positive well nourished and well developed Constitutional Narrative: Patient is slightly anxious. She is tearful. General Appearance ED: well developed; Negative for pallor HEENT Reports moist mucous membranes HEENT Narrative: Head is atraumatic normocephalic. Ears normal. Nares patent. Eyes PERRL and EOMs intact bilaterally General Eye ED: Negative for pale conjunctiva or scleral icterus Neck no lymphadenopathy, supple and no JVD Neck Narrative: Trachea is midline. There is no dysphonia. There is no stridor Resp normal respiratory effort and clear to auscultation bilaterally Cardio regular rate, regular rhythm, S1 normal heart sound, S2 normal heart sound and no murmurs Rate: other Other Details: There is no click or rub appreciated. Back/Spine no CVA tenderness Extremity Extremity Narrative: There is no asymmetry, swelling, discoloration, leg vein distention, palpable cords or tenderness along the distribution of the deep venous system. Neuro oriented x3 and CN's II-XII intact bilaterally Sensorium / Orientation: alert Psych Mood & Affect: anxious Skin no rashes or lesions noted, no wounds and skin turgor normal General Skin Exam: elasticity normal; Negative for jaundice or pallor MDM MDM MDM Narrative Medical decision making narrative: Patient presents with palpitations. She has no history of weight loss weight gain or any symptoms of hyperthyroidism. She is not on caffeinated beverages. She placed on the monitor. There is no ectopy. I will obtain EKG per protocol. Electrolyte panel was obtained to assess potassium. Even when patient assessedher vitals she had a normal heart rate. She has no history of anxiety attacks or panic attacks. Of note she had negative's [place] sign. She was not hyperreflexic does not have clonus. Patient's PERC negative. Patient's Wells score is less than 3. Patient has no respiratory symptoms. She has no findings consistent DVT either. History & Record Review Additional record(s) reviewed:: Prior outpatient record (Outpatient urgent care visit for pharyngitis October 2024. And annual physical June 2024 note authored by Lashawn Garcia.) Lab Data Attestation: I reviewed the patient's lab results. Lab results narrative: Basic metabolic panel is normal. Labs: Laboratory Results - last 24 hr 04/20/25 09:50 Sodium 140 Potassium 3.4 Chloride 101 Carbon Dioxide 30.5 Anion Gap 8 BUN 13 Creatinine 0.76 Estim Creat Clear Calc 97.01 Est GFR (MDRD) Non-Af 106 BUN/Creatinine Ratio 17.6 Glucose 101 H Calcium 9.1 EKG Initial EKG: Attestation: I personally reviewed and interpreted this EKG as follows: Interpretation: Sinus Rhythm (Rate is 70. EKG is normal. ID interval is 148 ms. Cures duration 90 ms. QT duration 280 ms. [place] is normal.) Treatment and Re-Evaluation :: Patient was informed that her tests are unremarkable. With a normal heart rate when she is feeling these palpitations uncertain the cause. Recommend follow-upwith her doctor. Discharge Plan Triage Chief Complaint: Palpitations ED Provider: Carlos Martin Dx/Rx/DC Orders Clinical Impression: Palpitations, Meniere disease Instructions: ED Heart Palpitations Prescriptions: No Action hydrochlorothiazide 12.5 mg tablet 12.5 mg PO QDAY folic acid 400 mcg tablet 400 mcg PO DAILY prednisone 20 mg tablet 20 mg PO BID Qty: 10 0RF Primary Care Provider: Jaswant Rico Referrals: Jaswant Rico MD [Primary Care Provider] - 1 Week if not improving Print Language: Chilean Disposition Disposition: Home, Self Care What to do if you have Problems For any increased pain, shortness of breath, bleeding, nausea or vomiting, chestpain, or any unexpected problems, contact your Primary Care Provider. Call [facility] ([phone]) or report to the closest Emergency Room. Call 911 if necessary. 04/20/25 1134 <Electronically signed by Carlos Martin MD> Cosigner Signature (if applicable): CC: Dr. Jaswant Rico MD ~ Signed [facility] Work Phone: Evaluation note* Diagnosis Onset Date Resolution Status Preventative health care acu te [facility] Work Phone: Evaluation note* Diagnosis Onset Date Resolution Status Preventative health care acu te Encounter for screening for COVID-19 acute acute Preventative health care acu te Supervision of high risk , antepartum acute Meniere disorder chronic [facility] Work Phone: Evaluation note* Diagnosis Onset Date Resolution Status acute Supervision of high risk , antepartum acute Encounter for screening for COVID-19 resolved Meniere disorder resolved Preventative health care res olved GBS (group B streptococcus) UTI complicating acute acute Supervision of high risk , antepartum acute Encounter for screening for COVID-19 resolved Meniere disorder resolved Preventative health care res olved GBS (group B streptococcus) UTI complicating acute acute Supervision of high risk , antepartum acute Meniere disorder resolved GBS (group B streptococcus) UTI complicating acute acute Supervision of high risk , antepartum acute Acute allergic conjunctivitis acute Meniere disease acute Nasal congestion acute Acute frontal sinusitis acut e [facility] Work Phone: Evaluation note* Diagnosis Onset Date Resolution Status GBS (group B streptococcus) UTI complicating acute acute Supervision of high risk , antepartum acute Meniere disorder resolved GBS (group B streptococcus) UTI complicating acute acute Supervision of high risk , antepartum acute Acute allergic conjunctivitis acute Meniere disease acute Nasal congestion acute Acute frontal sinusitis acut e Acute allergic conjunctivitis acute Acute frontal sinusitis acut e Echogenic intracardiac focus of fetus on ultrasound acute GBS (group B streptococcus) UTI complicating acute Marginal placenta previa acu te Meniere disease acute Nasal congestion acute acute Supervision of high risk , antepartum acute Acute allergic conjunctivitis acute Acute frontal sinusitis acut e Echogenic intracardiac focus of fetus on ultrasound acute GBS (group B streptococcus) UTI complicating acute Marginal placenta previa acu te Meniere disease acute Nasal congestion acute acute Supervision of high risk , antepartum acute [facility] Work Phone: Evaluation note* Diagnosis Onset Date Resolution Status GBS (group B streptococcus) UTI complicating acute acute Supervision of high risk , antepartum acute Meniere disorder resolved GBS (group B streptococcus) UTI complicating acute acute Supervision of high risk , antepartum acute Acute allergic conjunctivitis acute Meniere disease acute Nasal congestion acute Acute frontal sinusitis acut e Acute allergic conjunctivitis acute Acute frontal sinusitis acut e Echogenic intracardiac focus of fetus on ultrasound acute GBS (group B streptococcus) UTI complicating acute Marginal placenta previa acu te Meniere disease acute Nasal congestion acute acute Supervision of high risk , antepartum acute Acute allergic conjunctivitis acute Acute frontal sinusitis acut e Echogenic intracardiac focus of fetus on ultrasound acute GBS (group B streptococcus) UTI complicating acute Marginal placenta previa acu te Meniere disease acute Nasal congestion acute acute Supervision of high risk , antepartum acute Acute allergic conjunctivitis acute Acute frontal sinusitis acut e Echogenic intracardiac focus of fetus on ultrasound acute GBS (group B streptococcus) UTI complicating acute Marginal placenta previa acu te Meniere disease acute Nasal congestion acute acute Supervision of high risk , antepartum acute [facility] Work Phone: Evaluation note* Diagnosis Onset Date Resolution Status Echogenic intracardiac focus of fetus on ultrasound acute GBS (group B streptococcus) UTI complicating acute Meniere disease acute acute Supervision of high risk , antepartum acute Acute allergic conjunctivitis resolved Acute frontal sinusitis reso lved Marginal placenta previa res olved Nasal congestion resolved Echogenic intracardiac focus of fetus on ultrasound acute GBS (group B streptococcus) UTI complicating acute Meniere disease acute acute Supervision of high risk , antepartum acute Acute allergic conjunctivitis resolved Acute frontal sinusitis reso lved Marginal placenta previa res olved Nasal congestion resolved Echogenic intracardiac focus of fetus on ultrasound acute GBS (group B streptococcus) UTI complicating acute Meniere disease acute acute Supervision of high risk , antepartum acute Acute allergic conjunctivitis resolved Acute frontal sinusitis reso lved Marginal placenta previa res olved Nasal congestion resolved Echogenic intracardiac focus of fetus on ultrasound acute GBS (group B streptococcus) UTI complicating acute Meniere disease acute acute Supervision of high risk , antepartum acute Echogenic intracardiac focus of fetus on ultrasound acute GBS (group B streptococcus) UTI complicating acute Meniere disease acute acute Supervision of high risk , antepartum acute Echogenic intracardiac focus of fetus on ultrasound acute GBS (group B streptococcus) UTI complicating acute Meniere disease acute acute Supervision of high risk , antepartum acute Echogenic intracardiac focus of fetus on ultrasound acute GBS (group B streptococcus) UTI complicating acute Meniere disease acute acute Supervision of high risk , antepartum acute [facility] Work Phone: Evaluation note* Diagnosis Onset Date Resolution Status Meniere disease acute Acute allergic conjunctivitis resolved Acute frontal sinusitis reso lved Marginal placenta previa res olved Nasal congestion resolved Meniere disease acute Acute allergic conjunctivitis resolved Acute frontal sinusitis reso lved Marginal placenta previa res olved Nasal congestion resolved Meniere disease acute Meniere disease acute Meniere disease acute Meniere disease acute Meniere disease acute Meniere disease acute Meniere disease acute Vaginal delivery acute [facility] Work Phone: Evaluation note* Diagnosis Onset Date Resolution Status Meniere disease acute Acute allergic conjunctivitis resolved Acute frontal sinusitis reso lved GBS (group B streptococcus) UTI complicating resolved Marginal placenta previa res olved Nasal congestion resolved resolved Supervision of high risk , antepartum resolved Meniere disease acute Acute allergic conjunctivitis resolved Acute frontal sinusitis reso lved GBS (group B streptococcus) UTI complicating resolved Marginal placenta previa res olved Nasal congestion resolved resolved Supervision of high risk , antepartum resolved Meniere disease acute GBS (group B streptococcus) UTI complicating resolved resolved Supervision of high risk , antepartum resolved Meniere disease acute GBS (group B streptococcus) UTI complicating resolved resolved Supervision of high risk , antepartum resolved Meniere disease acute GBS (group B streptococcus) UTI complicating resolved resolved Supervision of high risk , antepartum resolved Meniere disease acute GBS (group B streptococcus) UTI complicating resolved resolved Supervision of high risk , antepartum resolved Meniere disease acute GBS (group B streptococcus) UTI complicating resolved resolved Supervision of high risk , antepartum resolved Meniere disease acute GBS (group B streptococcus) UTI complicating resolved resolved Supervision of high risk , antepartum resolved Meniere disease acute Vaginal delivery acute GBS (group B streptococcus) UTI complicating resolved resolved Spontaneous onset of labor r esolved SROM (spontaneous rupture of membranes) resolved Supervision of high risk , antepartum resolved [facility] Work Phone: Reason for referral (narrative)No reason for referral information availableWMar[facility] Work Phone: Summary Purpose Family History Relationship Condition Age at Onset Recorded Date/T perla Not Specified Myocardial infarction Unknown grandmother Autoimmune disorder Unknown Disorder of thyroid Unknown grandfather Cardiac disease Unknown High blood cholesterol Unknown mother Hypertension Unknown father Atrial fibrillation Unknown Mitral valve prolapse Unknown Relationship Condition Age at Onset Recorded Date/T perla Not Specified Myocardial infarction Unknown grandmother Disorder of thyroid Unknown Systemic lupus eryth ematosus-related syndrome Unknown grandfather Cardiac disease Unknown High blood cholesterol Unknown mother Hypertension Unknown father Atrial fibrillation Unknown Mitral valve prolapse Unknown Advance Directives Advance Directive Response Recorded Date/ Time Living Will No July 17 022 1:47pm Power of Bus Washer No July 17, 2022 1:47pm Advance Directive Response Recorded Date/ Time Living Will No September 18 3:39pm Power of Bus Washer No September 18, 2022 3:39pm Advance Directive Response Recorded Date/ Time Living Will No September 18 4:39pm Power of Bus Washer No September 18, 2022 4:39pm Advance Directive Response Recorded Date/ Time Living Will No May 03 6:19am Power of Bus Washer No May 03 023 6:19am Advance Directive Response Recorded Date/ Time Living Will No May 09 023 6:33pm Power of Bus Washer No May 09, 2023 6:33pm Advance Directive Response Recorded Date/ Time Living Will No May 09 023 5:33pm Power of Bus Washer No May 09, 2023 5:33pm Advance Directive Response Recorded Date/ Time Do you have a Healthcare Power of Bus Washer? No April 20, 2025 8:53am Advance Directive Response Recorded Date/ Time Do you have a Healthcare Power of Bus Washer? 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 E ORDERS NOB LMP 11 Reason for Visit Preventative health care Encounter for screening for COVID-19 Preventative health care Supervision of high risk , antepartum Meniere disorder Chief Complaint E ORDERS NOB LMP 11/ 9 WK OB 13 WK OB 17 WK OB congestion, covid - Sinus Pressure/Post Nasal Drip ANATOMY, CERVICAL LENGTH Reason for Visit Supervision of high risk , antepartum Encounter for screening for COVID-19 Meniere disorder Preventative health care GBS (group B streptococcus) UTI complicating Supervision of high risk , antepartum Encounter for screening for COVID-19 Meniere disorder Preventative health care GBS (group B streptococcus) UTI complicating Supervision of high risk , antepartum Meniere disorder GBS (group B streptococcus) UTI complicating Supervision of high risk , antepartum Acute allergic conjunctivitis Meniere disease Nasal congestion Acute frontal sinusitis Chief Complaint 13 WK OB 17 WK OB congestion, covid - Sinus Pressure/Post Nasal Drip ANATOMY, CERVICAL LENGTH 21 WK OB 25 WK OB MARGINAL PLACENTA PREVIA INT LABS DRAW @ 9:35AM Reason for Visit GBS (group B strepto coccus) UTI complicating Supervision of high risk , antepartum Meniere disorder GBS (group B streptococcus) UTI complicating Supervision of high risk , antepartum Acute allergic conjunctivitis Meniere disease Nasal congestion Acute frontal sinusitis Acute allergic conjunctivitis Acute frontal sinusitis Echogenic intracardiac focus of fetus on ultrasound GBS (group B streptococcus) UTI complicating Marginal placenta previa Meniere disease Nasal congestion Supervision of high risk , antepartum Acute allergic conjunctivitis Acute frontal sinusitis Echogenic intracardiac focus of fetus on ultrasound GBS (group B streptococcus) UTI complicating Marginal placenta previa Meniere disease Nasal congestion Supervision of high risk , antepartum Chief Complaint 13 WK OB 17 WK OB congestion, covid - Sinus Pressure/Post Nasal Drip ANATOMY, CERVICAL LENGTH 21 WK OB 25 WK OB MARGINAL PLACENTA PREVIA INT LABS DRAW @ 9:35AM 28 WK OB Reason for Visit GBS (group B strepto coccus) UTI complicating Supervision of high risk , antepartum Meniere disorder GBS (group B streptococcus) UTI complicating Supervision of high risk , antepartum Acute allergic conjunctivitis Meniere disease Nasal congestion Acute frontal sinusitis Acute allergic conjunctivitis Acute frontal sinusitis Echogenic intracardiac focus of fetus on ultrasound GBS (group B streptococcus) UTI complicating Marginal placenta previa Meniere disease Nasal congestion Supervision of high risk , antepartum Acute allergic conjunctivitis Acute frontal sinusitis Echogenic intracardiac focus of fetus on ultrasound GBS (group B streptococcus) UTI complicating Marginal placenta previa Meniere disease Nasal congestion Supervision of high risk , antepartum Acute allergic conjunctivitis Acute frontal sinusitis Echogenic intracardiac focus of fetus on ultrasound GBS (group B streptococcus) UTI complicating Marginal placenta previa Meniere disease Nasal congestion Supervision of high risk , antepartum Chief Complaint ANATOMY, CERVICAL LE NGTH 21 WK OB 25 WK OB MARGINAL PLACENTA PREVIA INT LABS DRAW @ 9:35AM 28 WK OB 30 WK OB 32 WK OB 34 WK OB 35 WK OB Reason for Visit Echogenic intracardi ac focus of fetus on ultrasound GBS (group B streptococcus) UTI complicating Meniere disease Supervision of high risk , antepartum Acute allergic conjunctivitis Acute frontal sinusitis Marginal placenta previa Nasal congestion Echogenic intracardiac focus of fetus on ultrasound GBS (group B streptococcus) UTI complicating Meniere disease Supervision of high risk , antepartum Acute allergic conjunctivitis Acute frontal sinusitis Marginal placenta previa Nasal congestion Echogenic intracardiac focus of fetus on ultrasound GBS (group B streptococcus) UTI complicating Meniere disease Supervision of high risk , antepartum Acute allergic conjunctivitis Acute frontal sinusitis Marginal placenta previa Nasal congestion Echogenic intracardiac focus of fetus on ultrasound GBS (group B streptococcus) UTI complicating Meniere disease Supervision of high risk , antepartum Echogenic intracardiac focus of fetus on ultrasound GBS (group B streptococcus) UTI complicating Meniere disease Supervision of high risk , antepartum Echogenic intracardiac focus of fetus on ultrasound GBS (group B streptococcus) UTI complicating Meniere disease Supervision of high risk , antepartum Echogenic intracardiac focus of fetus on ultrasound GBS (group B streptococcus) UTI complicating Meniere disease Supervision of high risk , antepartum Chief Complaint 25 WK OB MARGINAL PLACENTA PREVIA INT LABS DRAW @ 9:35AM 28 WK OB 30 WK OB 32 WK OB 34 WK OB 35 WK OB 36 WK OB 37 WK OB VAG DELIVERY VAG DELIVERY VAG DELIVERY VAG DELIVERY Reason for Visit Meniere disease Acute allergic conjunctivitis Acute frontal sinusitis Marginal placenta previa Nasal congestion Meniere disease Acute allergic conjunctivitis Acute frontal sinusitis Marginal placenta previa Nasal congestion Meniere disease Meniere disease Meniere disease Meniere disease Meniere disease Meniere disease Meniere disease Vaginal delivery Chief Complaint 25 WK OB MARGINAL PLACENTA PREVIA INT LABS DRAW @ 9:35AM 28 WK OB 30 WK OB 32 WK OB 34 WK OB 35 WK OB 36 WK OB 37 WK OB VAG DELIVERY VAG DELIVERY VAG DELIVERY VAG DELIVERY hx of low supply abd pain Reason for Visit Meniere disease Acute allergic conjunctivitis Acute frontal sinusitis GBS (group B streptococcus) UTI complicating Marginal placenta previa Nasal congestion Supervision of high risk , antepartum Meniere disease Acute allergic conjunctivitis Acute frontal sinusitis GBS (group B streptococcus) UTI complicating Marginal placenta previa Nasal congestion Supervision of high risk , antepartum Meniere disease GBS (group B streptococcus) UTI complicating Supervision of high risk , antepartum Meniere disease GBS (group B streptococcus) UTI complicating Supervision of high risk , antepartum Meniere disease GBS (group B streptococcus) UTI complicating Supervision of high risk , antepartum Meniere disease GBS (group B streptococcus) UTI complicating Supervision of high risk , antepartum Meniere disease GBS (group B streptococcus) UTI complicating Supervision of high risk , antepartum Meniere disease GBS (group B streptococcus) UTI complicating Supervision of high risk , antepartum Meniere disease Vaginal delivery GBS (group B streptococcus) UTI complicating Spontaneous onset of labor SROM (spontaneous rupture of membranes) Supervision of high risk , antepartum Chief Complaint Admit Date Vomiting syndrome July 20, 2024 12:23pm ABDOMINAL PAIN July 28, 2024 8:51am COVID TEST/[facility] EMP October 18, 2024 8:21am ST/FEVER/COUGH October 18, 2024 8:22am 3 M FU October 25, 2024 2:20pm E-ORDER October 27, 2024 1:17pm Reason for Visit Admit Date Diarrhea July 20, 2024 12:23pm Nausea & vomiting July 20, 2024 12:23pm Abdominal pain July 20, 2024 12:23pm Diarrhea October 25, 2024 2:20pm Nausea & vomiting October 25, 2024 2:20pm Right upper quadrant abdominal pain 2024 2:20pm Chief Complaint Admit Date ABDOMINAL PAIN July 28, 2024 8:51am COVID TEST/[facility] EMP October 18, 2024 8:21am ST/FEVER/COUGH October 18, 2024 8:22am 3 M FU October 25, 2024 2:20pm E-ORDER October 27, 2024 1:17pm RUQ PAIN 2024 7:57 am Reason for Visit Admit Date Diarrhea October 25, 2024 2:20pm Nausea & vomiting October 25, 2024 2:20pm Right upper quadrant abdominal pain [facility] 2024 2:20pm Chief Complaint Admit Date COVID TEST/[facility] EMP October 18, 2024 8:21am ST/FEVER/COUGH October 18, 2024 8:22am 3 M FU October 25, 2024 2:20pm E-ORDER October 27, 2024 1:17pm RUQ PAIN 2024 7:57 am RUQ PAIN, N/V December 29, 2024 8:4 5am 3 M FU January 17, 2025 2:23p m Chief Complaint Admit Date RUQ PAIN, N/V December 29, 2024 8:4 5am 3 M FU January 17, 2025 2:23p m JOINT PAIN IN WRISTS, ANKLES, SHOULDERS April 11, 2025 7:20am Reason for Visit Admit Date Nausea & vomiting January 17, 2025 2:23p m Right upper quadrant abdominal pain January 17, 2025 2:23pm Myalgia April 11, 2025 7:2 0am Chief Complaint Admit Date RUQ PAIN, N/V December 29, 2024 8:4 5am 3 M FU January 17, 2025 2:23p m JOINT PAIN IN WRISTS, ANKLES, SHOULDERS April 11, 2025 7:20am E ORDERS April 11, 2025 9:2 7am 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 11, 2025 9:3 0am PALPITATIONS April 20, 2025 8: 09am Reason for Visit Admit Date Nausea & vomiting January 17, 2025 2:23p m Right upper quadrant abdominal pain January 17, 2025 2:23pm Arthralgia April 11, 2025 7:2 0am Myalgia April 11, 2025 7:2 0am Chief Complaint Admit Date JOINT PAIN IN WRISTS, ANKLES, SHOULDERS April 11, 2025 7:20am E ORDERS April 11, 2025 9:2 7am 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 11, 2025 9:3 0am PALPITATIONS April 20, 2025 8: 09am 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) June 26, 2025 2 :23pm LEFT BREAST June 29, 2025 1 :50pm YEARLY July 06, 2025 1 :18pm 6 M FU July 11, 2025 1 0:26am Reason for Visit Admit Date Arthralgia April 11, 2025 7:2 0am Myalgia April 11, 2025 7:2 0am Encounter for routine gynecological exam ination June 26, 2025 2:23pm Blood glucose elevated July 06 1:18pm Preventative health care July 06, 2 025 1:18pm Diarrhea July 11, 2025 1 0:26am Nausea & vomiting July 11, 2025 1 0:26am Right upper quadrant abdominal pain [facility] 2024 10:26am Additional Source Comments INFORMATION SOURCE (unrecogn ized section and content) DATE CREATED AUTHOR 01/12/2019 [facility] DATE CREATED AUTHOR AUTHOR'S ORGANIZ ATION 02/05/2019 [facility] DATE CREATED AUTHOR AUTHOR'S ORGANIZ ATION 02/16/[address] [facility] DATE CREATED AUTHOR AUTHOR'S ORGANIZ ATION [facility] Goals (unrecognized section and content) Type Care Experience svdLabor Preferences -CB/BF classes: yes labor support person: martha turk intervention preferences: minimalpain management options preferred: plans for nitrous only cut cord/dad catch: to cut : plans to breast feed. attended classes PP control planned: []discussed possible routes of delivery and associated risks: []special requests: [] Care Experience svdLabor Preferences -CB/BF classes: []labor support person: []labor intervention preferences: []pain management options preferred: []cut cord/dad catch: []: []PP control planned: []discussed possible routes of delivery and associated risks: []special requests: [] Care Teams (unrecognized sec tion and content) Team Status: Active Member Role Status Dates Dr. Jaswant Rico MD Primary Care Provider Active Team Status: Inactive Member Role Status Dates Dr. Jaswant Rico MD Primary Care P rovider, Attending Provider, Referring Provider Active Team Status: Inactive Member Role Status Dates Dr. Jaswant Rico MD Primary Care Provider, Refer ring Provider Active Franklin MONTANO, PA Attending Provider Active Team Status: Inactive Member Role Status Dates Dr. Jaswant Rico MD Primary Care Provider, Refer ring Provider Active Dr. Grace Juarez DO Attending Provider Activ e Team Status: Active Member Role Status Dates Dr. Jaswant Rico MD Primary Care Provider Active Health Risk Assessment Attending Provider Active Team Status: Inactive Member Role Status Dates Dr. Jaswant Rico MD Primary Care Provider Active Dr. Kei Abraham DO Attending Provider, Emergency Provide r Active Team Status: Inactive Member Role Status Dates Dr. Jaswant Rico MD Primary Care Provider Active Dr. Grace Juarez DO Attending Provider, Refe rring Provider Active Team Status: Inactive Member Role Status Dates Dr. Jaswant Rico MD Primary Care Provider Active Dr. Grace Juarez DO Attending Provider Activ e Team Status: Inactive Member Role Status Dates Dr. Jaswant Rico MD Primary Care Provider, Refer ring Provider Active Dr. Evita Gaytan MD Attending Provider Active Team Status: Inactive Member Role Status Dates Dr. Jaswant Rico MD Primary Care Provider, Refer ring Provider Active LUZ MARIA Lopez Attending Provider Active Team Status: Inactive Member Role Status Dates Dr. Jaswant Rico MD Primary Care Provider, Refer ring Provider Active Aida Hendrickson CNM Attending Provider Active Team Status: Inactive Member Role Status Dates Dr. Jaswant Rico MD Primary Care Provider Active Keara Whitman CNM Attending Provider, Referring Pro vider Active Team Status: Active Member Role Status Dates Dr. Jaswant Rico MD Primary Care Provider Active Aida Hendrickson CNM Attending Provider, Referring Pr ovider Active Team Status: Inactive Member Role Status Dates Dr. Jaswant Rico MD Primary Care Provider, Refer ring Provider Active Keara Whitman CNM Attending Provider Active Team Status: Inactive Member Role Status Dates Dr. Jaswant Rico MD Primary Care Provider Active Aida Hendrickson CNM Attending Provider, Referring Pr ovider Active Team Status: Inactive Member Role Status Dates Dr. Jaswant Rico MD Referring Provider Active Dr. Grace Juarez DO Attending Provider Activ e Team Status: Active Member Role Status Dates Dr. Grace Juarez DO Admit Provider, Other Pr ovider Active Aida Hendrickson CNM Attending Provider Active Team Status: Active Member Role Status Dates Dr. Grace Juarez DO Admit Provider, Other Pr ovider Active Keara Whitman CNM Attending Provider Active Team Status: Active Member Role Status Dates Dr. Grace Juarez DO Admit Provider, Other Pr ovider Active Michelle Jacobo DEVELOPMENTAL PSYCHOLOGIST, DEVELOPMENTAL PSYCHOLOGIST-C Attending Provider Active Team Status: Inactive Member Role Status Dates Dr. Grace Juarez DO Admit Provider, Attendin g Provider Active Team Status: Inactive Member Role Status Dates Lexie Salas DEVELOPMENTAL PSYCHOLOGIST, DEVELOPMENTAL PSYCHOLOGIST-C Attending Provider Active Dr. Jaswant Rico MD Primary Care Provider Active Team Status: Inactive Member Role Status Dates Dr. Jaswant Rico MD Primary Care Provider Active Navdeep Sotelo MD Emergency Provider Active Team Status: Inactive Member Role Status Dates Dr. Jaswant Rico MD Primary Care Provider Active Start: July 20, 2024 End: July 20, 2024 Dr. Jaswant Rico MD Referring Provider Active Start: July 20, 2024 End: July 20, 2024 CHARMAINE Stephenson Attending Provider Active Start: July 20, 2024 End: July 20, 2024 Team Status: Inactive Member Role Status Dates Dr. Jaswant Rico MD Primary Care Provider Active Start: July 28, 2024 End: July 28, 2024 CHARMAINE Stephenson Attending Provider Active Start: July 28, 2024 End: July 28, 2024 CHARMAINE Stephenson Referring Provider Active Start: July 28, 2024 End: July 28, 2024 Team Status: Inactive Member Role Status Dates Dr. Jaswant Rico MD Primary Care Provider Active Start: August 11, 2024 End: August 11, 2024 CHARMAINE Stephenson Attending Provider Active Start: August 11, 2024 End: August 11, 2024 CHARMAINE Stephenson Referring Provider Active Start: August 11, 2024 End: August 11, 2024 Team Status: Inactive Member Role Status Dates Dr. Jaswant Rico MD Primary Care Provider Active Start: October 18, 2024 End: October 18, 2024 Dr. Jaswant Rico MD Referring Provider Active Start: October 18, 2024 End: October 18, 2024 Tra MONTANO PA Attending Provider Active Start: October 18, 2024 End: October 18, 2024 Team Status: Inactive Member Role Status Dates Dr. Jaswant Rico MD Primary Care Provider Active Start: October 25, 2024 End: October 25, 2024 Dr. Jaswant Rico MD Referring Provider Active Start: October 25, 2024 End: October 25, 2024 CHARMAINE Stephenson Attending Provider Active Start: October 25, 2024 End: October 25, 2024 Team Status: Inactive Member Role Status Dates Dr. Jaswant Rico MD Primary Care Provider Active Start: October 27, 2024 End: October 27, 2024 CHARMAINE Stephenson Attending Provider Active Start: October 27, 2024 End: October 27, 2024 CHARMAINE Stephenson Referring Provider Active Start: October 27, 2024 End: October 27, 2024 Team Status: Inactive Member Role Status Dates Dr. Jaswant Rico MD Primary Care Provider Active Start: 2024 End: 2024 CHARMAINE Stephenson Attending Provider Active Start: 2024 End: 2024 CHARMAINE Stephenson Referring Provider Active Start: 2024 End: 2024 Team Status: Inactive Member Role Status Dates Dr. Jaswant Rico MD Primary Care Provider Active Start: December 29, 2024 End: December 29, 2024 CHARMAINE Stephenson Attending Provider Active Start: December 29, 2024 End: December 29, 2024 CHARMAINE Stephenson Referring Provider Active Start: December 29, 2024 End: December 29, 2024 Team Status: Inactive Member Role Status Dates Dr. Jaswant Rico MD Primary Care Provider Active Start: January 17, 2025 End: January 17, 2025 Dr. Jaswant Rico MD Referring Provider Active Start: January 17, 2025 End: January 17, 2025 CHARMAINE Stephenson Attending Provider Active Start: January 17, 2025 End: January 17, 2025 Team Status: Active Member Role/Relationship Status Dates Dr. Jaswant Rico MD Primary Care Provider Active Team Status: Inactive Member Role/Relationship Status Dates Dr. Jaswant Rico MD Primary Care Provider Active Start: December 29, 2024 End: December 29, 2024 CHARMAINE Stephenson Attending Provider Active Start: December 29, 2024 End: December 29, 2024 CHARMAINE Stephenson Referring Provider Active Start: December 29, 2024 End: December 29, 2024 Team Status: Inactive Member Role/Relationship Status Dates Dr. Jaswant Rico MD Primary Care Provider Active Start: January 17, 2025 End: January 17, 2025 Dr. Jaswant Rico MD Referring Provider Active Start: January 17, 2025 End: January 17, 2025 CHARMAINE Stephenson Attending Provider Active Start: January 17, 2025 End: January 17, 2025 Team Status: Inactive Member Role/Relationship Status Dates Dr. Jaswant Rico MD Primary Care Provider Active Start: April 11, 2025 End: April 11, 2025 Dr. Jaswant Rico MD Referring Provider Active Start: April 11, 2025 End: April 11, 2025 CHARMAINE Shin Attending Provider Active St art: April 11, 2025 End: April 11, 2025 Team Status: Active Member Role/Relationship Status Dates Dr. Jaswant Rico MD Primary Care Provider Active Start: April 11, 2025 Toñito Pineda PA, PA Attending Provider Active St art: April 11, 2025 Toñito Pineda PA, PA Referring Provider Active St art: April 11, 2025 Team Status: Active Member Role/Relationship Status Dates Dr. Jaswant Rico MD Primary Care Provider Active Start: April 11, 2025 Health Risk Assessment Attending Provider Active Start: April 11, 2025 Health Risk Assessment Referring Provider Active Start: April 11, 2025 Team Status: Inactive Member Role/Relationship Status Dates Dr. Jaswant Rcio MD Primary Care Provider Active Start: April 20, 2025 End: April 20, 2025 Dr. Carlos Martin MD Emergency Provider Active Sta rt: April 20, 2025 End: April 20, 2025 Team Status: Inactive Member Role/Relationship Status Dates Dr. Jaswant Rico MD Primary Care Provider Active Start: April 11, 2025 End: April 11, 2025 Toñito MONTANO, PA Attending Provider Active St art: April 11, 2025 End: April 11, 2025 Toñito Pineda PA, PA Referring Provider Active St art: April 11, 2025 End: April 11, 2025 Team Status: Active Member Role/Relationship Status Dates Dr. Jaswant Rico MD Primary care physician Activ e Team Status: Inactive Member Role/Relationship Status Dates Dr. Jaswant Rico MD Primary care physician Activ e Start: April 11, 2025 End: April 11, 2025 Dr. Jasawnt Rico MD Referring Provider Active Start: April 11, 2025 End: April 11, 2025 Toñito MONTANO PA Attending physician Active S tart: April 11, 2025 End: April 11, 2025 Team Status: Inactive Member Role/Relationship Status Dates Dr. Jaswant Rico MD Primary care physician Activ e Start: April 11, 2025 End: April 11, 2025 Toñito Pineda PA, PA Attending physician Active S tart: April 11, 2025 End: April 11, 2025 Toñito Pineda PA, PA Referring Provider Active St art: April 11, 2025 End: April 11, 2025 Team Status: Active Member Role/Relationship Status Dates Dr. Jaswant Rico MD Primary care physician Activ e Start: April 11, 2025 Health Risk Assessment Attending physician Active Start: April 11, 2025 Health Risk Assessment Referring Provider Active Start: April 11, 2025 Team Status: Inactive Member Role/Relationship Status Dates Dr. Jaswant Rico MD Primary care physician Activ e Start: April 20, 2025 End: April 20, 2025 Dr. Carlos Martin MD Attending physician Active St art: April 20, 2025 End: April 20, 2025 Dr. Carlos Martin MD Emergency Department Physician Active Start: April 20, 2025 End: April 20, 2025 Team Status: Inactive Member Role/Relationship Status Dates Dr. Jaswant Rico MD Primary care physician Activ e Start: June 26, 2025 End: June 26, 2025 Dr. Jaswant Rico MD Referring Provider Active Start: June 26, 2025 End: June 26, 2025 Dr. Grace Juarez DO Attending physician Acti ve Start: June 26, 2025 End: June 26, 2025 Team Status: Active Member Role/Relationship Status Dates Dr. Jaswant Rico MD Primary care physician Activ e Start: June 29, 2025 Dr. Grace Juarez DO Attending physician Acti ve Start: June 29, 2025 Dr. Grace Juarez DO Referring Provider Activ e Start: June 29, 2025 Team Status: Inactive Member Role/Relationship Status Dates Dr. Jaswant Rico MD Primary care physician Activ e Start: July 06, 2025 End: July 06, 2025 Dr. Jaswant Rico MD Attending physician Active Start: July 06, 2025 End: July 06, 2025 Dr. Jaswant Rico MD Referring Provider Active Start: July 06, 2025 End: July 06, 2025 Team Status: Inactive Member Role/Relationship Status Dates Dr. Jaswant Rico MD Primary care physician Activ e Start: July 11, 2025 End: July 11, 2025 Dr. Jaswant Rico MD Referring Provider Active Start: July 11, 2025 End: July 11, 2025 CHARMAINE Stephenson Attending physician Active Start: July 11, 2025 End: July 11, 2025 FOR RECORDS PERTAINING TO PATIENTS WHO ARE OR HAVE BEEN ENROLLED IN A CHEMICAL DEPENDENCY/SUBSTANCEABUSE PROGRAM, SOME INFORMATION MAY BE OMITTED. This clinical summary was aggregated from multiple sources. Caution should be exercised in using it in the provision of clinical care. This summary normalizes information from multiple sources, and as a consequence, information in this document may materially change the coding, format and clinical context of patient data. In addition, data may be omitted in some cases. CLINICAL DECISIONS SHOULD BE BASED ON THE PRIMARY CLINICAL RECORDS. [facility]. provides no warranty or guarantee of the accuracy or completeness of information in this document.
[2025-08-10 07:53] LABS: Internal QC Validated? YES +Cl - CLEAR BKGD; Pregnancy, Urine Negative Negative
[2025-08-10] MEDS: Lactated Ringers 1,000 ML 15 ML IV (07:55)
--- NOTE | 2025-08-10 08:24 | PCM.HP.STD ---
HPI - General General Date of Admission: 08/10/25 Date of Service: 08/10/25 Chief Complaint: Nausea and vomiting HPI Narrative FERDINAND LEI, is a 34 F who presents with the Chief Complaint: Nausea vomiting BGI established in JUL 2024 with intermittent episode of n/v, diarrhea and abd pain since giving to her second child in 2022. *Start Zofran PRN Stool; negative for enteric pathogens, ova/parasites, cbc, c.dif, no Giardia. Normal elastase and normal calprotectin. Gallbladder US 07.28.24; Normal right upper quadrant ultrasound examination Last OV 10.25.24 Pt recently with Flu A and norovirus. Has not had a episode since Jun 2024. Feels pasta is a trigger. HIDA 3..25; The gallbladder is opacified at 60 minutes. Correlation with ultrasound of the gallbladder recommended. HIDA 4..25; normal uptake; CCK not given although ordered Biochemical work up; RAST food allergy, celiac panel both without abnormalities OV 01.17.25 Pt doing well. She has had no further episodes. She has questions about her HIDA scan as they were not able to give her CCK. OV 07/11/25 -2 episodes of nausea and vomiting abdominal pain and diarrhea since last visit -1 episode in February(after eating [employer]) and 1 in April. -Patient took Zofran which helped -bowels are normal in between - Has a bowel movement every other day that is complete -Occasional heartburn and takes famotidine as needed PFSH Medical History Wears hearing aid Syncope Heartburn Blood glucose elevated Anxiety Acute allergic conjunctivitis Nasal congestion GBS (group B streptococcus) UTI complicating Preventative health care exam Meniere disease Gestational diabetes mellitus (GDM) affecting Wellness examination Abnormal glucose affecting Polycystic ovaries Hearing problem Headache, migraine history of bone fracture Home Medications ?Medication ?Instructions ?Recorded ?Last Taken ?Type hydrochlorothiazide 12.5 mg tablet 12.5 mg PO QDAY 06/16/24 Unknown History folic acid 400 mcg tablet 400 mcg PO DAILY 07/04/24 Unknown History ondansetron 4 mg disintegrating 4 mg PO Q8H #20 tabs 07/11/25 Unknown Rx tablet Allergy/AdvReac Type Severity Reaction Status Date / Time No Known Allergies Allergy Verified 08/10/25 07:53 Family History Grandmother Thyroid disorder SLE (systemic lupus erythematosus related syndrome) Grandfather Heart disease High cholesterol Mother Hypertension Father Atrial fibrillation Mitral valve prolapse Other Myocardial infarction Surgical History History of wisdom tooth extraction history of birthmark removal history of laporscopic knee surgery Social History adopted: No household members: spouse and children housing: house number of children: 2 current occupational status: employed 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/hazards: No pets and animals: Yes pets and animals: dog(s) history of recent travel: No sexually active: Yes Smoking Status: Never smoker alcohol intake: current alcohol intake frequency: holidays/special occasions only substance use type: does not use diet: low salt well-balanced diet: daily or most days caffeine: No eating out: 1-3 times/week during the past year weight has: remained stable what type of physical activity do you participate in: none frequency: 1-2 times per week randy/orthodoxy: Quaker seatbelt use: always do you feel safe at home: Yes 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 Constitutional Constitutional: Denies fatigue, fever(s), poor appetite, weight gain or weight loss Gastrointestinal Gastrointestinal: Denies belching, bloating, change in bowel habits, change in stool character, chewing difficulty, coffee ground emesis, constipation, cramping, diarrhea, dyspepsia, dysphagia, early satiety, excessive flatus, fecal incontinence, heartburn, hematemesis, hematochezia, hemorrhoids, loose stools, melena, nausea, odynophagia, rectal bleeding, tenesmus, vomiting or weight changes Vital Signs Vital Signs Vital Signs: 08/10/25 07:55 08/10/25 07:55 08/10/25 07:55 Temperature 97.4 F L Temperature Source Temporal Pulse Rate 76 Respiratory Rate 16 Respiratory Pattern Normal Blood Pressure 127/93 H Blood Pressure Mean 104 Blood Pressure Source Monitor Blood Pressure Position Semi-Fowlers Blood Pressure Location Left Arm Baseline BP 127/93 Pulse Ox 100 Oxygen Delivery Method Room Air Weight Weight: 149 lb 11.102 oz Body Mass Index (BMI) 27.3 Physical Exam Const alert, oriented x3, no apparent distress and healthy appearing General Appearance: cooperative GI normal to inspection, nondistended, normoactive bowel sounds, soft to palpation, non-tender and non-distended Percussion: normal to percussion Rectal Exam: deferred Results Lab / Micro Data Labs: Laboratory Results - last 24 hr 08/10/25 07:45: Urine Test Negative Assessment & Plan Assessment/Plan (1) Right upper quadrant abdominal pain: (2) Nausea & vomiting: PLAN: Assessment and Plan Assessment and Plan (1) Right upper quadrant abdominal pain: Status: Acute Plan: Ferdinand is a 34-year-old female patient with past medical history of M?ni?re's disease and gestational diabetes here today for follow-up. Patient continues to have intermittent episodes of nausea, vomiting, abdominal pain and diarrhea. She had an episode in April 2025 and February 2025. In between episodes she feels well with no GI symptoms. Workup thus far has included stool testing for infection or inflammation which has been negative. CBC and CMP largely unremarkable with normal liver enzymes and bilirubin. Gallbladder ultrasound normal. HIDA scan normal. Etiology remains unclear. Recommend upper endoscopy to rule out inflammation as the source of her symptoms. Consider colonoscopy however with calprotectin being 17 inflammation source of her colon is unlikely. Will consider further workup pending results. - EGD - Consider colonoscopy - Consider PPI - Follow-up after procedure Note: Portions of this note may have been selectively carried forward from previous documentation to ensure continuity and accuracy of the clinical record. All imported information has been reviewed and updated as necessary to reflect the current patient status, findings, and clinical decision-making for this encounter. [employer] speech recognition industrial chemicals supervisor software was used to create portions of this document. Sound alike and misspelled words, as well as other industrial chemicals supervisor errors may be contained in the documentation. (2) Nausea & vomiting: Status: Acute (3) Diarrhea: Status: Acute Medications: New ondansetron 4 mg PO Q8H 20 tabs 2RF
--- NOTE | 2025-08-10 08:30 | EGD_PTH ---
PATIENT: FERDINAND LEI LOC: EN U#:[id number] AGE/SX: 34/F ROOM: RE08/10/[address]: Dr. Anthony Velazquez DO : 1990 BED: DIS: 08/10/2025 SPEC #: [id number] RECD: 08/10/25 09:26 STATUS: KALI REEboni #: [id number] JERE: 08/10/25 08:[address]: Anthony Velazquez DEPT: SURGICAL PATHOLOGY RECD BY: Jorge Watts ENTERED: 08/10/25 11:32 SP TYPE: EGD BIOPSY [place] DR: Dr. Jaswant Rico MD Tissues: A - Duodenum, NOS B - Gastric mucous membrane C - Esophagus, NOS Procedures: Surgery Specimen Level IV HEADER OPERATION: EGD with biopsy PRE-OP DIAGNOSIS: right upper quadrant abdominal pain, nausea / vomiting TISSUE SUBMITTED: A- Duodenum biopsy, B- Gastric body biopsy, C- Random esophagus biopsy MICROSCOPIC DIAGNOSIS A. Small intestine, duodenum, biopsy: - Normal villous architecture with no specific pathologic change. - Negative for increased intraepithelial lymphocytes. B. Stomach, body, biopsy: - Oxyntic mucosa with mild chronic inflammation. - Negative for Helicobacter-like organisms (H&E). C. Esophagus, random, biopsy: - Squamous mucosa with no specific pathologic change. - Negative for eosinophils. MICROSCOPIC DESCRIPTION Slides are reviewed. GROSS DESCRIPTION A. Received in fixative is one container labeled with the patient's name and designated Duodenum biopsy. The specimen consists of three irregular fragments of lopez tissue that measure 0.3 to 0.4cm. The specimen is totally submitted in one cassette. B. Received in fixative is one container labeled with the patient's name and designated Gastric body biopsy. The specimen consists of two irregular fragments of lopez tissue that measure 0.2 and 0.4 cm. The specimen is totally submitted in one cassette. C. Received in fixative is one container labeled with the patient's name and designated Random esophagus biopsy. The specimen consists of multiple irregular fragments of lopez tissue that in aggregate measure 0.7 x 0.6 x 0.1 cm. The specimen is totally submitted in one cassette. [place] 08/10/2025 CPT:77891h3
--- NOTE | 2025-08-10 09:02 | PCM.POST.ANE ---
Anesthesia: Postop Eval I Current Vital Signs Temperature: 97.8 F Pulse Rate: 78 Blood Pressure: 91/63 Respiratory Rate: 16 Pulse Ox: 95 Oxygen Delivery Method: Room Air Assessment Airway patent: Yes Spontaneous unlabored respirations: Yes Mental status: Asleep nausea: No Vomiting: No Anesthesia Complication: No Fluid Hydration Crystalloid volume administer (ml): 400 Total IV fluid infused: 400 Progress Note Anesthesia document: Postop Eval 1 completed: Yes
--- NOTE | 2025-08-10 09:10 | OP.PROVAT_ITS ---
08/10/2025 Jaswant Rico MD [address] [place] [place] [address] [place] [address] Re : Upper GI endoscopy procedure for Kathy Esteban Dear Dr. Rico This procedure was performed on Sunday, August 10, 2025. My impressions and recommendations are as follows: Impressions : - Normal esophagus. Biopsied. - Erythematous mucosa in the gastric body. Biopsied. - Chronic duodenitis. Biopsied. Recommendations : - Discharge patient to home. - Resume previous diet. - Continue present medications. - Await pathology results. My findings are described in the full procedure note, which is enclosed. If I can be of further assistance, please feel free to contact me at . Sincerely, Anthony Velazquez, 08/10/2025 9:09:44 AM This report has been signed electronically.
--- NOTE | 2025-08-10 09:10 | OP.EGD_ITS ---
Patient Name: Kathy Esteban Procedure Date: 08/10/2025 8:29 AM Date of : 1990 Age: 34 Procedure: Upper GI endoscopy Indications: Epigastric abdominal pain, Functional Dyspepsia, Heartburn, Failure to respond to medical treatment Providers: Anthony Velazquez DO Referring MD: Jaswant Rico MD Medicines: Monitored Anesthesia Care Patient Profile: This is a 34 year old female. Refer to note in patient chart for documentation of history and physical. Patient has symptoms of acute epigastric abdominal pain, chronic epigastric abdominal pain, chronic dyspepsia and chronic nausea. Complications: No immediate complications. Procedure: Pre-Anesthesia Assessment: - Prior to the procedure, a History and Physical was performed, and patient medications and allergies were reviewed. The patient is competent. The risks and benefits of the procedure and the sedation options and risks were discussed with the patient. All questions were answered and informed consent was obtained. Patient identification and proposed procedure were verified by the physician in the pre-procedure area. Mental Status Examination: alert and oriented. Airway Examination: normal oropharyngeal airway and neck mobility. Respiratory Examination: clear to auscultation. CV Examination: normal. Prophylactic Antibiotics: The patient does not require prophylactic antibiotics. Prior Anticoagulants: The patient has taken no anticoagulant or antiplatelet agents except for NSAID medication. ASA Grade Assessment: II - A patient with mild systemic disease. After reviewing the risks and benefits, the patient was deemed in satisfactory condition to undergo the procedure. The anesthesia plan was to use monitored anesthesia care (MAC). Immediately prior to administration of medications, the patient was re-assessed for adequacy to receive sedatives. The heart rate, respiratory rate, oxygen saturations, blood pressure, adequacy of pulmonary ventilation, and response to care were monitored throughout the procedure. The physical status of the patient was re-assessed after the procedure. After obtaining informed consent, the endoscope was passed under direct vision. Throughout the procedure, the patient's blood pressure, pulse, and oxygen saturations were monitored continuously. The Endoscope was introduced through the mouth, and advanced to the third part of the duodenum. Small bowel enteroscopy was deemed necessary. The upper GI endoscopy was accomplished without difficulty. The patient tolerated the procedure well. Scope In: 8:49:34 AM Scope Out: 8:53:36 AM Total Procedure Duration Time 0 hours 4 minutes 2 seconds Findings: The examined esophagus was normal. Biopsies were taken with a cold forceps for histology. Verification of patient identification for the specimen was done. Estimated blood loss was minimal. Patchy mildly erythematous mucosa without bleeding was found in the gastric body. Biopsies were taken with a cold forceps for histology. Biopsies were taken with a cold forceps for Helicobacter pylori testing. Verification of patient identification for the specimen was done. Estimated blood loss was minimal. Patchy mild inflammation was found in the entire duodenum. Biopsies were taken with a cold forceps for histology. Verification of patient identification for the specimen was done. Estimated blood loss was minimal. Impression: - Normal esophagus. Biopsied. - Erythematous mucosa in the gastric body. Biopsied. - Chronic duodenitis. Biopsied. Recommendation: - Discharge patient to home. - Resume previous diet. - Continue present medications. - Await pathology results. Procedure Code(s): --- Professional --- 86923, Small intestinal endoscopy, enteroscopy beyond second portion of duodenum, not including ileum; with biopsy, single or multiple CPT copyright 2021 [employer]. All rights reserved. The codes documented in this report are preliminary and upon medical sales associate review may be revised to meet current compliance requirements. Anthony Velazquez DO 08/10/2025 9:09:44 AM This report has been signed electronically. Number of Addenda: 0 Note Initiated On: 08/10/2025 8:29 AM
--- NOTE | 2025-08-10 09:15 | PCM.POSTANE2 ---
Anesthesia Postop Eval I Sum Postop Eval Completion status Anesthesia document: Postop Eval 1 completed: Yes Anesthesia Postop Eval I Summary Anesthesia Postop Eval I Summary: Anesthesia Postop Eval I: Assessment Summary Airway patent Yes 08/10/25 09:03 [email or web address] Spontaneous unlabored Yes 08/10/25 09:03 [email or web address] respirations Mental status Asleep 08/10/25 09:03 [email or web address] nausea No 08/10/25 09:03 [email or web address] Vomiting No 08/10/25 09:03 [email or web address] Anesthesia Postop Eval I: Fluid Summary Crystalloid volume administer 400 08/10/25 09:03 [email or web address] (ml) Colloids volume administered ( ml) Blood Product volume administered (ml) Total IV fluid infused 400 08/10/25 09:03 [email or web address] Anesthesia Postop Eval I: Summary Notes Anesthesia Complication No 08/10/25 09:03 [email or web address] Anesthesia Complication Comment: Post-operative progress note Anesthesia: Postop Eval II Evaluation Mental status: Awake and Calm Pain Level: 1 nausea: No Vomiting: No
== END 2025-08-10 09:44 | disposition home or self-care (01) ==
LOC: EN 07:23 → AC 07:25
PROVIDERS: Anesthesiology; PCP Internal Medicine; Referring Provider Internal Medicine; Visit Provider Internal Medicine Gastroenterology
PROC: 0DJ08ZZ Inspection of Upper Intestinal Tract, Via Natural or Artificial Opening Endoscopic (ICD-10-PCS; CPT 43235; principal; 2025-08-10 08:25)
DX: K29.50 Unspecified chronic gastritis without bleeding (principal); K29.80 Duodenitis without bleeding
CPT/HCPCS: 44361; 81025; 88305; J2405